=== PATIENT | male | born 1945 | race Caucasian/White ===

== ENCOUNTER 2023-06-29 08:21 | Outpatient (OUT) | payer MEDICARE, OTHER, SELFPAY ==
[2023-06-29 09:17] LABS: Basophils Percent Auto 0.6 % (0.2-2.0); Eosinophils Absolute Auto 0.2 10^3/uL (0.0-0.7); Eosinophils Percent Auto 2.9 % (0.9-7.0); Hematocrit 37.3 % (42.0-54.0); Hemoglobin 12.4 g/dL (14.0-18.0); Immature Granulocytes Abs Auto 0.03 10^3/uL (0.00-0.03); Immature Granulocytes Pct Auto 0.4 % (0.0-0.5); Lymphocytes Absolute Auto 1.1 10^3/uL (1.2-3.8); Lymphocytes Percent Auto 15.3 % (20.5-60.0); Mean Corpuscular HGB Conc 33.2 g/dL (29.9-35.2); Mean Corpuscular Hemoglobin 32.2 pg (25.9-34.0); Mean Corpuscular Volume 96.9 fL (80.0-94.0); Mean Platelet Volume 9.7 fL (9.5-13.5); Monocytes Absolute Auto 0.7 10^3/uL (0.3-0.8); Monocytes Percent Auto 9.5 % (1.7-12.0); Neutrophils Absolute Auto 4.9 10^3/uL (1.4-6.5); Neutrophils Percent Auto 71.3 % (43.0-75.0); Platelet Count 203 10^3/uL (150-450); Red Blood Count 3.85 10^6/uL (4.70-6.10); Red Cell Distribution Width 14.1 % (11.0-15.0); White Blood Count 6.9 10^3/uL (4.0-11.0)
[2023-06-29 09:54] LABS: Estimated Average Glucose 111 mg/dL; Glycohemoglobin A1C 5.5 % (4.5-6.2)
[2023-06-29 10:45] LABS: Alanine Aminotransferase 26 U/L (16-63); Albumin Level 3.4 g/dL (3.4-5.0); Alkaline Phosphatase 66 U/L (46-116); Anion Gap 12.5; Aspartate Amino Transferase 19 U/L (15-37); Bilirubin Total 0.9 mg/dL (0.2-1.0); Calcium 8.8 mg/dL (8.5-10.1); Carbon Dioxide 25.2 mmol/L (21.0-32.0); Chloride 107 mmol/L (98-107); Cholesterol 117 mg/dL (<=200); Estimated GFR (African America >60 (>=60); Estimated GFR (Non-African Ame >60 (>=60); Free T3 2.16 pg/mL (2.18-3.98); Globulin 3.3 g/dL; Glucose 95 mg/dL (74-106); HDL Cholesterol 60 mg/dL (40-60); LDL Cholesterol Calculated 42.2 mg/dL; Potassium 3.7 mmol/L (3.5-5.1); Sodium 141 mmol/L (136-145); Thyroid Stimulating Hormone 1.194 uIU/mL (0.358-3.740); Total Protein 6.7 g/dL (6.4-8.2); Triglycerides 74 mg/dL (<=150); Uric Acid 5.6 mg/dL (3.5-7.2); VLDL CHOLESTEROL 14.8 mg/dL
[2023-06-29 10:53] LABS: Prostate Specific Antigen Scrn 0.33 ng/mL (<=4.00)
[2023-06-30 10:09] LABS: Insulin 5.2 uIU/mL (2.6-24.9)
== END 2023-06-29 08:22 | disposition home or self-care (01) ==
LOC: LAB 08:25
PROVIDERS: PCP Family Medicine; Visit Provider Family Medicine
DX: R60.0 Localized edema (principal); J96.11 Chronic respiratory failure with hypoxia; Z99.89 Dependence on other enabling machines and devices; I27.20 Pulmonary hypertension, unspecified; E78.5 Hyperlipidemia, unspecified; R73.09 Other abnormal glucose; Z12.5 Encounter for screening for malignant neoplasm of prostate
CPT/HCPCS: 36415; 80053; 80061; 83036; 83525; 84436; 84443; 84481; 84550; 85025; G0103

== ENCOUNTER 2023-10-12 08:25 | Outpatient (OUT) | payer MEDICARE, OTHER, SELFPAY ==
[2023-10-12 08:53] LABS: Basophils Percent Auto 0.6 % (0.2-2.0); Eosinophils Absolute Auto 0.1 10^3/uL (0.0-0.7); Hematocrit 37.8 % (42.0-54.0); Immature Granulocytes Abs Auto 0.02 10^3/uL (0.00-0.03); Immature Granulocytes Pct Auto 0.4 % (0.0-0.5); Lymphocytes Absolute Auto 1.5 10^3/uL (1.2-3.8); Lymphocytes Percent Auto 30.1 % (20.5-60.0); Mean Corpuscular HGB Conc 31.7 g/dL (29.9-35.2); Mean Corpuscular Hemoglobin 32.5 pg (25.9-34.0); Mean Corpuscular Volume 102.4 fL (80.0-94.0); Mean Platelet Volume 10.2 fL (9.5-13.5); Monocytes Absolute Auto 0.5 10^3/uL (0.3-0.8); Monocytes Percent Auto 10.4 % (1.7-12.0); Neutrophils Absolute Auto 2.8 10^3/uL (1.4-6.5); Neutrophils Percent Auto 56.5 % (43.0-75.0); Platelet Count 156 10^3/uL (150-450); Red Blood Count 3.69 10^6/uL (4.70-6.10); Red Cell Distribution Width 13.4 % (11.0-15.0); White Blood Count 4.9 10^3/uL (4.0-11.0)
[2023-10-12 08:55] LABS: Erythrocyte Sedimentation Rate 14 mm/hr (<=20)
[2023-10-12 09:23] LABS: Alanine Aminotransferase 33 U/L (16-63); Albumin Level 3.2 g/dL (3.4-5.0); Alkaline Phosphatase 63 U/L (46-116); Anion Gap 9.9; Aspartate Amino Transferase 24 U/L (15-37); BUN Creatinine Ratio 28.4; Bilirubin Total 0.6 mg/dL (0.2-1.0); Calcium 8.3 mg/dL (8.5-10.1); Carbon Dioxide 31.2 mmol/L (21.0-32.0); Chloride 109 mmol/L (98-107); Estimated GFR (African America >60 (>=60); Estimated GFR (Non-African Ame >60 (>=60); Globulin 3.1 g/dL; Glucose 98 mg/dL (74-106); Potassium 4.1 mmol/L (3.5-5.1); Sodium 146 mmol/L (136-145); Total Protein 6.3 g/dL (6.4-8.2)
== END 2023-10-12 08:26 | disposition home or self-care (01) ==
PROVIDERS: PCP Family Medicine; Visit Provider Registered Nurse
DX: H15.012 Anterior scleritis, left eye (principal); Z79.899 Other long term (current) drug therapy
CPT/HCPCS: 36415; 80053; 85025; 85652

== ENCOUNTER 2023-12-30 07:28 | Outpatient (OUT) | payer MEDICARE, OTHER, SELFPAY ==
--- OUTSIDE RECORDS SUMMARY | 2023-12-30 07:32 | XMS_ITS | CCD ---
Author Name Unknown Address [address] [place] [address] Organization [facility] Care Team Providers [employer] Sales Agent Name Role Phone Kamilla Huizar MD Primary Care Provider [phone] MD Joao Barba Attending Provider Kamilla Huizar MD Primary Care Provider [phone] MELANIE ., DR KOHLI Primary Care Unavailable HOY ., DR KOHLI Admitting Unavailable HOY ., DR KOHLI Attending Unavailable HOY ., DR KOHLI Consulting Unavailable MISC, DR HINTON Admitting Unavailable MISC, DR HINTON Attending Unavailable HOY ., DR KOHLI Primary Care Unavailable MISC, DR HINTON Consulting Unavailable HOY ., DR KOHLI Primary Care Unavailable HOY ., DR KOHLI Admitting Unavailable HOY ., DR KOHLI Attending Unavailable HOY ., DR KOHLI Consulting Unavailable MISC, DR HINTON Attending Unavailable HOY ., DR KOHLI Primary Care Unavailable MISC, DR HINTON Admitting Unavailable MISC, DR HINTON Consulting Unavailable BARBA, DR DE LA FUENTE Consulting Unavailable HOY ., DR KOHLI Primary Care Unavailable BARBA, DR DE LA FUENTE Admitting Unavailable BARBA, DR DE LA FUENTE Attending Unavailable HOY ., DR KOHLI Admitting Unavailable HOY ., DR KOHLI Attending Unavailable HOY ., DR KOHLI Consulting Unavailable HOY ., DR KOHLI Primary Care Unavailable BARBA, DR DE LA FUENTE Admitting Unavailable HOY ., DR KOHLI Primary Care Unavailable BARBA, DR DE LA FUENTE Attending Unavailable BARBA, DR DE LA FUENTE Consulting Unavailable Kamilla Huizar MD Primary Care Provider [phone] BELLA CORONADO Attending Unavailable BRIDGER NORRIS Attending Unavailable Allergies Allergy Classification Reported Allergen(s) Allergy Type Date of Onset Reaction(s) Facility (7 sources) Sulfamethoxazole / Trimethoprim Drug Allergy 04-23-202 1 Anaphylaxis [facility] (2 sources) Sulfamethoxazole / Trimethoprim; Translations: [Bactrim] Drug Allergy [facility] Repository Medications Current Medications Medication Drug Class(es) Dates Sig (Normalized) Sig (Original) CPAP/BIPAP/OTHER (4 sources) Start: 09-24-2022 End: 02-08-2050 CPAP/BIPAP/OTHER Type .CPAPSettings into a note to see current settings/supplies/ DME information. 1 Each 0 09/24/2022 02/08/2050 Active Comment on above: Type .CPAPSettings i nto a note to see current settings/supplies/DME information. Completed/Discontinued Medications Medication Drug Class(es) Dates Sig (Normalized) Sig (Original) albuterol 0.833 mg/ml / ipratropium bromide 0.167 mg/ml inhalation solution (7 sources) Anticholinergic, beta2-Adrenergic Agonist Start: 04-23-2017 take 3 mL by inhalation four times daily ipratropium-albuter ol (DUONEB) 0.5 mg-3 mg(2.5 mg base)/3 mL nebu Inhale 3 mL as instructed four times daily. 0 04/23/2017 Active Comment on above: Inhale 3 mL as instr ucted four times daily. BIPAP (7 sources) Start: 09-10-2018 BIPAP Please provide with a device with a back up rate. 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 0 04/23/2017 Active Comment on above: Take 1 tablet by fredy th once daily. furosemide 20 mg oral tablet (7 sources) Loop Diuretic Start: 04-23-2017 take 1 tablet by mouth once daily furosemide (LASIX) 20 mg tablet Take 1 tablet by mouth once daily. 0 04/23/2017 Active Comment on above: Take 1 tablet by fredy th once daily. latanoprost 0.05 mg/ml ophthalmic solution (7 sources) Prostaglandin Analog Start: 04-23-2017 take 1 drop(s) into the eye(s) once daily at bedtime latanoprost (XALATAN) 0.005 % ophthalmic solution Use 1 Drop in both eyes daily at bedtime. 0 04/23/2017 Active Start: 04-23-2017 take 1 drop(s) into the eye(s) once daily at bedtime latanoprost (XALATAN) 0.005 % ophthalmic solution Use 1 Drop in both eyes daily at bedtime. 0 04/23/2017 Active Comment on above: Use 1 Drop in both e yes daily at bedtime. Nebulizer Accessories kit (1 source) Start: 3 End: 3 Nebulizer Accessories kit Indications: Post poliomyelitis syndrome , Restrictive pattern present on pulmonary function testing , Ineffective airway clearance 1 Kit one time only for 1 dose. Please include filters. 1 Kit 0 08/14/2023 08/14/2023 Comment on above: 1 Kit one time only for 1 dose. Please include filters. potassium chloride 10 meq extended release oral tablet (7 sources) Start: 7 take 1 tablet by mouth once daily potassium chloride (KLOR-CON 10) 10 mEq tablet Take 1 tablet by mouth once daily. 0 04/23/2017 Active Comment on above: Take 1 tablet by fredy th once daily. propranolol hydrochloride 60 mg oral tablet (7 sources) beta-Adrenergic Alessia Start: 7 take 1 tablet by mouth once daily propranolol (INDERAL) 60 mg tablet Take 1 tablet by mouth once daily. 0 04/23/2017 Active Comment on above: Take 1 tablet by fredy th once daily. simvastatin 20 mg oral tablet (7 sources) HMG-CoA Reductase Inhibitor Start: 7 take 1 tablet by mouth once daily at bedtime simvastatin (ZOCOR) 20 mg tablet Take 1 tablet by mouth daily at bedtime. 0 04/23/2017 Active Comment on above: Take 1 tablet by fredy th daily at bedtime. tamsulosin hydrochloride 0.4 mg oral capsule (7 sources) alpha-Adrenergic Alessia Start: 7 take 1 capsule by mouth once daily at bedtime tamsulosin ER (FLOMAX) 0.4 mg cp24 Take 1 capsule by mouth daily at bedtime. 0 04/23/2017 Active Comment on above: Take 1 capsule by mo uth daily at bedtime. Problems Active Problems Problem Classification Problem Date Documented Da te Episodic/Chronic Congestive heart failure; nonhypertensive (1 source) Unspecified diastolic (congestive) heart failure; Translations: [UNSPECIFIED DIASTOLIC HEART FAILURE] Onset: 09-02-2022 Chronic Diabetes mellitus without complication (1 source) Other abnormal glucose; Translations: [OTHER ABNORMAL GLUCOSE] Onset: 04-15-2023 Episodic Disorders of lipid metabolism (1 source) Hyperlipidemia, unspecified; Translations: [HYPERLIPIDEMIA UNSPECIFIED] Onset: 04-15-2023 Chronic Hypertension with complications and secondary hypertension (1 source) Hypertensive heart disease with heart failure; Translations: [HTN HEART DISEASE W/HEART FAIL] Onset: 09-02-2022 Chronic Inflammation; infection of eye (except that caused by tuberculosis or sexually transmitteddisease) (4 sources) Anterior scleritis, left eye; Translations: [ANTERIOR SCLERITIS LEFT EYE] Onset: 03-04-2023 Chronic Other aftercare (1 source) Other moth exterminator (current) drug therapy; Translations: [OTH POWERBUILDER CURRENT DRUG THERAPY] Onset: 03-08-2023 Episodic Other LEAD PAINTER infection and poliomyelitis (12 sources) Post poliomyelitis syndrome; 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 Other lower respiratory disease (1 source) Ineffective airway clearance; Translations: [Other abnormalities of breathing] 08-14-2023 Episodic Other screening for suspected conditions (not mental disorders or infectious disease) (4 sources) Lung function testing abnormal; Translations: [Abnormal results of pulmonary function studies] Onset: 04-15-2023 Episodic Pulmonary heart disease (1 source) Pulmonary hypertension, unspecified; Translations: [PULMONARY HYPERTENSION UNSPECIFIED] Onset: 04-15-2023 Chronic Residual codes; unclassified (8 sources) Obstructive sleep apnea syndrome; Translations: [Obstructive sleep apnea (adult) (pediatric)] Onset: 04-23-2017 04-23-2017 Chronic Residual codes; unclassified (1 source) Dependence on other enabling machines and devices; Translations: [DEPEND OTH ENABLING MACHINES AND DEVICE] Onset: 04-15-2023 Chronic Residual codes; unclassified (1 source) Obstructive sleep apnea (adult) (pediatric); Translations: [OBSTRUCTIVE SLEEP APNEA] Onset: 09-02-2022 Chronic Residual codes; unclassified (5 sources) Localized edema; Translations: [LOCALIZED EDEMA] Onset: 09-02-2022 Episodic Respiratory failure; insufficiency; arrest (adult) (1 source) Chronic respiratory failure with hypoxia; Translations: [CHRONIC RESPIRATORY FAIL W/HYPOXIA] Onset: 04-15-2023 Chronic Unclassified (3 sources) CONTACT W/AND (SUSP) EXPOS COVID-19; Translations: [CONTACT W/AND (SUSP) EXPOS COVID-19] Onset: 01-10-2023 Past or Other Problems Problem Classification Problem Date Documented Da te Episodic/Chronic Acute bronchitis (1 source) Acute bronchitis, unspecified; Translations: [ACUTE BRONCHITIS UNSPECIFIED] Onset: 01-10-2023 Episodic Other lower respiratory disease (9 sources) Disorder of diaphragm; Translations: [Disorders of diaphragm] Onset: 04-23-2017 04-23-2017 Episodic Unclassified (1 source) CONTACT W/AND (SUSP) EXPOS COVID-19; Translations: [CONTACT W/AND (SUSP) EXPOS COVID-19] Onset: 01-07-2023 Results Test Name Value Interpretation Reference Range [facility] [place] [place] [facility] [place] [facility] (Inserted Image. Kayla ble to display) October 14, 2023 ADONAY IRBY [address] [place] [address] : 1945 Dear Adonay, This is a reminder that you are due for an appointment with [facility]. Please contact our office at [phone] to schedule an appointment at your earliest convenience. Thank you, [facility] Reminderson 10-14-2023 Reminders - From: Raven Sepulveda To: KURT - Reminders/Recalls; Sent: 10/14/2023 10:33:18 EST Show up: 10/14/2023 10:33:00 EST Subject: Ambulatory Reminder Reminder/Recall 5 year colon recall mamie freed 11/07 first recall letter [facility] CNPNon 08-19-2023 CNPN Telephone (PMNA11) ADONAY IRBY ([id number]) 1945 Date Time Provider Department 08/19/23 [facility] PROVIDER [id number] During your visit today, we recorded the following information about you: Ricardo Duarte 08/19/2023 4:42 PM Signed Received referral request from [facility] to see patient again for dx: COPD, Right Diaphragm Dysfunction. Request is scanned into chart. Allergies As of Date: 08/19/2023 Noted Allergy Reaction SULFAMETHOXAZOLE-TRIMET HOPRI 03/08/2021 10 - Anaphylaxis Date Reviewed: 2022 Reviewed by: Nancy Mcmahon Ma - Fully Assessed Reason for Visit: Referral Request [[id number]] Prescriptions as of 08/31/2023 - BIPAP Please provide with a device with a back up rate. 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 - finasteride (PROSCAR) 5 mg tablet Take 1 tablet by mouth once daily. - furosemide (LASIX) 20 mg tablet Take 1 tablet by mouth once daily. - ipratropium-albuterol (DUONEB) 0.5 mg-3 mg(2.5 mg base)/3 mL nebu Inhale 3 mL as instructed four times daily. - latanoprost (XALATAN) 0.005 % ophthalmic solution Use 1 Drop in both eyes daily at bedtime. - potassium chloride (KLOR-CON 10) 10 mEq tablet Take 1 tablet by mouth once daily. - propranolol (INDERAL) 60 mg tablet Take 1 tablet by mouth once daily. - simvastatin (ZOCOR) 20 mg tablet Take 1 tablet by mouth daily at bedtime. - tamsulosin ER (FLOMAX) 0.4 mg cp24 Take 1 capsule by mouth daily at bedtime. 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 She was unable to tell admin where it needed to be sent. 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 Please include filters.Disp: 1 KitRfl: 0 Prescriptions as of 08/14/2023 - Nebulizer Accessories kit 1 Kit one time only for 1 dose. Please include filters. - CPAP/BIPAP/OTHER Type .CPAPSettings into a note to see current settings/supplies/DME information. - BIPAP Please provide with a device with a back up rate. 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 - tamsulosin ER (FLOMAX) 0.4 mg cp24 Take 1 capsule by mouth daily at bedtime. - simvastatin (ZOCOR) 20 mg tablet Take 1 tablet by mouth daily at bedtime. - ipratropium-albuterol (DUONEB) 0.5 mg-3 mg(2.5 mg base)/3 mL nebu Inhale 3 mL as instructed four times daily. - propranolol (INDERAL) 60 mg tablet Take 1 tablet by mouth once daily. - furosemide (LASIX) 20 mg tablet Take 1 tablet by mouth once daily. - potassium chloride (KLOR-CON 10) 10 mEq tablet Take 1 tablet by mouth once daily. - latanoprost (XALATAN) 0.005 % ophthalmic solution Use 1 Drop in both eyes daily at bedtime. 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 Please include filters. Encounter Status:Closed by OSWALDO WILEY on 08/14/23 [facility] Screens [id number] CD:127 [facility] Patient Educationon 06-24-20 Patient Education Urology Benign Prostatic Hyperplasia Benign prostatic hyperplasia (BPH) is an enlarged prostate gland that is caused by the normal aging process. The prostate may get bigger as a man gets older. The condition is not caused by cancer. The prostate is a walnut-sized gland that is involved in the production of semen. It is located in front of the rectum and below the bladder. The bladder stores urine. The urethra carries stored urine out of the body. An enlarged prostate can press on the urethra. This can make it harder to pass urine. The buildup of urine in the bladder can cause infection. Back pressure and infection may progress to bladder damage and kidney (renal) failure. What are the causes? This condition is part of the normal aging process. However, not all men develop problems from this condition. If the prostate enlarges away from the urethra, urine flow will not be blocked. If it enlarges toward the urethra and compresses it, there will be problems passing urine. What increases the risk? This condition is more likely to develop in men older than 50 years. What are the signs or symptoms? Symptoms of this condition include: ? Getting up often during the night to urinate. ? Needing to urinate frequently during the day. ? Difficulty starting urine flow. ? Decrease in size and strength of your urine stream. ? Leaking (dribbling) after urinating. ? Inability to pass urine. This needs immediate treatment. ? Inability to completely empty your bladder. ? Pain when you pass urine. This is more common if there is also an infection. ? Urinary tract infection (UTI). How is this diagnosed? This condition is diagnosed based on your medical history, a physical exam, and your symptoms. Tests will also be done, such as: ? A post-void bladder scan. This measures any amount of urine that may remain in your bladder after you finish urinating. ? A digital rectal exam. In a rectal exam, your health care provider checks your prostate by putting a lubricated, gloved finger into your rectum to feel the back of your prostate gland. This exam detects the size of your gland and any abnormal lumps or growths. ? An exam of your urine (urinalysis). ? A prostate specific antigen (PSA) screening. This is a blood test used to screen for prostate cancer. ? An ultrasound. This test uses sound waves to electronically produce a picture of your prostate gland. Your health care provider may refer you to a specialist in kidney and prostate diseases (urologist). How is this treated? Once symptoms begin, your health care provider will monitor your condition (active surveillance or watchful waiting). Treatment for this condition will depend on the severity of your condition. Treatment may include: ? Observation and yearly exams. This may be the only treatment needed if your condition and symptoms are mild. ? Medicines to relieve your symptoms, including: ? Medicines to shrink the prostate. ? Medicines to relax the muscle of the prostate. ? Surgery in severe cases. Surgery may include: ? Prostatectomy. In this procedure, the prostate tissue is removed completely through an open incision or with a laparoscope or robotics. ? Transurethral resection of the prostate (TURP). In this procedure, a tool is inserted through the opening at the tip of the penis (urethra). It is used to cut away tissue of the inner core of the prostate. The pieces are removed through the same opening of the penis. This removes the blockage. ? Transurethral incision (TUIP). In this procedure, small cuts are made in the prostate. This lessens the prostate's pressure on the urethra. ? Transurethral microwave thermotherapy (TUMT). This procedure uses microwaves to create heat. The heat destroys and removes a small amount of prostate tissue. ? Transurethral needle ablation (TUNA). This procedure uses radio frequencies to destroy and remove a small amount of prostate tissue. ? Interstitial laser coagulation (ILC). This procedure uses a laser to destroy and remove a small amount of prostate tissue. ? Transurethral electrovaporization (TUVP). This procedure uses electrodes to destroy and remove a small amount of prostate tissue. ? Prostatic urethral lift. This procedure inserts an implant to push the lobes of the prostate away from the urethra. Follow these instructions at home: ? Take ebct-tse-zjwauzk and prescription medicines only as told by your health care provider. ? Monitor your symptoms for any changes. Contact your health care provider with any changes. ? Avoid drinking large amounts of liquid before going to bed or out in public. ? Avoid or reduce how much caffeine or alcohol you drink. ? Give yourself time when you urinate. ? Keep all follow-up visits. This is important. Contact a health care provider if: ? You have unexplained back pain. ? Your symptoms do not get better with treatment. ? You develop side effects from the medicine (more content not included)... [facility] Provider Letteron 06-24-2023 Provider Letter (Inserted Image. Kayla ble to display) Kamilla Huizar, [facility] [place] [address] Re: ADONAY IRBY Date of : [address]Hoy ADAMS, ADONAY Coello Rae was evaluated at [facility] 06/24/2023 13:20:00 As this patient has been stable and doing well on current regimen, they will be released back to your care. We provided 1 year of refills on the patient?s current urologic medications: Flomax and Proscar once daily . We would request that moving forward you provide additional refills. Should the patient develop new symptoms or worsening condition in the future, do not hesitate to refer them back. Thanks! Provider Signature: Bella Coronado PA-C Physician Mask Designer [facility] [address] [place] [address] [facility] Urology Office/Clinic Noteon 06-24-2023 Urology Office/Clinic Note Chief Complaint 1yr HPI Staff 1 yr f/u Previous DX:BPH w/ Urinary Obstruction. Tamsulosin 0.4mg QD and Finasteride 5mg QD ongoing weak stream. Has been this way since he was a kid. Occasional frequency, attributes to water pill. Denies all other urinary concerns at this time. History of Present Illness staff HPI reviewed and agree. Review of Systems PHQ Score Initial Depression Screen Score: 0 no fever, chills, malaise, myalgia. no rash/lesions. no chest pain, palpitations, or SOB. no abdominal pain, nausea, vomiting. no unilateral calf swelling, redness, pain Physical Exam Vitals & Measurements HR: 60(Peripheral) RR: 16 BP: 130/74 HT: 69 in HT: 175 cm WT: 73 kg WT: 160.6 lb BMI: 23.84 General: nontoxic, NAD Mouth: moist mucosa Lungs: normal respiratory effort Cardio: regular rate, good distal perfusion Abdomen: nondistended, no suprapubic distention or tenderness, no CVA tenderness Neurologic: Grossly normal Skin: No rashes or suspicious lesions Assessment/Plan 1. BPH with urinary obstruction (N40.1: Benign prostatic hyperplasia with lower urinary tract symptoms) Pt is currently taking Tamsulosin 0.4mg and Finasteride 5mg QD. No SE's. No urinary complaints at this time. Very happy w urinary status. IPSS 2, UA today is negative for blood and infection. Pt states he has occasional frequency, attributes to water pill. Still has weak stream but not bothersome. Denies all other urinary concerns at this time. Offered annual f/u vs PRN and have PCP fill meds. He's been stable for many years, he prefers the latter. Will send letter to PCP. Follow up as needed. All questions/concerns were discussed. Pt to call the office if he encounters any issues prior. Pt acknowledges understanding. Follow-up With When Contact Information BELLA CORONADO PA-C, URL [id number] [place] [address] Additional Instructions: PRN Patient Education Benign Prostatic Hyperplasia Documentation recorded by the scrgregory Crane accurately reflects the services(s) I performed and decisions made by me. Authenticated by Bella Coronado PA-C on 06/24/2023 14:02:30. Rajani Kang, personally scribed for Bella Coronado PA-C on 06/24/2023 13:53:33. . Problem List/Past Medical History Ongoing Benign essential hypertension BiPAP (biphasic positive airway pressure) dependence BPH with urinary obstruction Chronic hypoxemic respiratory failure Colon polyps Diaphragm paralysis Diverticulosis of colon Hemorrhoids Infected sebaceous cyst Obesity Obstructive sleep apnea Post-polio syndrome Pulmonary hypertension Sebaceous cyst Tubular adenoma of colon Weak urinary stream Historical No qualifying data Procedure/Surgical History right cataract extraction with intraocular lens placement (11/07/2014), left cataract extraction with intraocular lens placement (10/17/2014), Urodynamics (05/31/2012), Cystoscopy (05/17/2012), Cervical spinal fusion, ORIF - Open reduction of fracture of ankle with internal fixation, Traumatic amputation of fingertip, type 3 (partial loss of terminal phalanx with corresponding loss of pulp and nail but not involving lanula). Medications albuterol-ipratropium Inh Diandra 3 mL UD aspirin buffered 81 mg oral tablet, 81 mg= 1 tab(s), Oral, Daily finasteride 5 mg Tab, 5 mg= 1 tab(s), Oral, Daily, 3 refills FUROSEMIDE 20MG TAB, 0 Inderal 60 mg oral tablet, 60 mg= 1 tab(s), Oral, Daily ipratropium 0.02% inhalation solution, 500 mcg= 2.5 mL, Inhalation, QID Lasix, 20 mg, Oral, Daily latanoprost ophthalmic 0.005% solution, 1 drop(s), OPTH, Once a day (at bedtime) methotrexate 2.5 mg Tab Oxygen - for Home, 3 L/min, Bedtime potassium chloride 10 mEq ER Tab, 10 mEq= 1 tab(s), Oral, Daily Protonix 40 mg Tab-DR, 40 mg= 1 tab(s), Oral, Daily simvastatin, 20 mg, Oral, Once a day (at bedtime) tamsulosin 0.4 mg Cap, 0.4 mg= 1 cap(s), Oral, Daily, 3 refills Allergies Bactrim (Tremor) Social History Alcohol Current, Beer, Daily, 03/21/2020 Substance Abuse - Denies Substance Abuse, 03/21/2020 Tobacco Former smoker, quit more than 30 days ago Tobacco Use:. Never Smokeless Tobacco Use:. Cigarettes, Stopped age 48 Years. Household tobacco concerns: No. Yes, 06/24/2023 Family History Alzheimer's disease: Father. Cancer: Father. Diabetes mellitus type 2: Mother. Heart disease: Mother and Father. Hypertension: Father. Immunizations Vaccine Date Status SARSCoV2 mRNA(zdgpbqocj-zsab-msh ros) vac 07/09/2022 Recorded SARS-CoV-2 (COVID-19) mRNA BNT-162b2 vax 10/15/2021 Recorded SARS-CoV-2 (COVID-19) mRNA-1273 vaccine 02/09/2021 Recorded SARS-CoV-2 (COVID-19) mRNA-1273 vaccine 01/12/2021 Recorded influenza virus vaccine, inactivated 08/31/2020 Recorded influenza virus vaccine, live, trivalent 08/24/2019 Recorded influenza virus vaccine, inactivated 08/27/2018 Recorded p (more content not included)... Normal [facility] Comment on above: Result Comment: Elec tronically Signed By: BELLA CORONADO PA-C\.br\Date and Time Signed: 06/24/23 14:14 EDT\.br\Electronically Co-Signed By: Rajani Crane\.br\Date and Time Co-Signed: 06/24/23 13:53 EDT CNPNon 06-04-2023 CNPN Telephone (PULMMN) ADONAY IRBY ([id number]) 1945 Date Time Provider Department 06/04/23 CARLOS FARRIS PULMMN During your visit today, we recorded the following information about you: Hanna Hyde 06/04/2023 1:15 PM Signed Imported External PAP Therapy Report from [facility] (dated 06/04/23). Please allow time delay for documents to appear in Setup (Scanned Documents Tab). Allergies As of Date: 06/04/2023 Noted Allergy Reaction SULFAMETHOXAZOLE-TRIMET HOPRIM 03/08/2021 10 - Anaphylaxis Date Reviewed: 2022 Reviewed by: Nancy Mcmahon Ma - Fully Assessed Reason for Visit: Received Outside Medical Records [[id number]] Prescriptions as of 06/04/2023 - CPAP/BIPAP/OTHER Type .CPAPSettings into a note to see current settings/supplies/DME information. - BIPAP Please provide with a device with a back up rate. 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 - tamsulosin ER (FLOMAX) 0.4 mg cp24 Take 1 capsule by mouth daily at bedtime. - simvastatin (ZOCOR) 20 mg tablet Take 1 tablet by mouth daily at bedtime. - ipratropium-albuterol (DUONEB) 0.5 mg-3 mg(2.5 mg base)/3 mL nebu Inhale 3 mL as instructed four times daily. - propranolol (INDERAL) 60 mg tablet Take 1 tablet by mouth once daily. - furosemide (LASIX) 20 mg tablet Take 1 tablet by mouth once daily. - potassium chloride (KLOR-CON 10) 10 mEq tablet Take 1 tablet by mouth once daily. - latanoprost (XALATAN) 0.005 % ophthalmic solution Use 1 Drop in both eyes daily at bedtime. 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 Roland Gr CBC AUTO DIFFon 04-08-2023 BASO # 0.0 103/ul Normal 0.0-0.1 [facility] Comment on above: Performed By: #### C VDTBH #### [facility] [address] [place] [address] Dr. Roland Gr Basophils/100 WBC (Bld) 0.7 % Normal 0.2-2.0 [facility] Comment on above: Performed By: #### C VDTBH #### [facility] [address] [place] [address] Dr. Roland Gr EO # 0.1 103/ul Normal 0.0-0.7 [facility] Comment on above: Performed By: #### C VDTBH #### [facility] [address] [place] [address] Dr. Roland Gr Eosinophils/100 WBC (Bld) 0.9 % Normal 0.9-7.0 [facility] Comment on above: Performed By: #### C VDTBH #### [facility] [address] [place] [address] Dr. Roland Gr Erythrocyte distribution width (RBC) [Ratio] 14.7 % Normal 11.0-15.0 [facility] Comment on above: Performed By: #### C VDTBH #### [facility] [address] [place] [address] Dr. Roland Gr Hematocrit (Bld) [Volume fraction] 39.1 % Critically low 42.0-54.0 [facility] Comment on above: Performed By: #### C VDTBH #### [facility] [address] [place] [address] Dr. Roland Gr Hemoglobin (Bld) [Mass/Vol] 12.6 g/dL Critically low 14.0-18.0 [facility] Comment on above: Performed By: #### C VDTBH #### [facility] [address] [place] [address] Dr. Roland Gr IG # 0.03 10e3/ul Normal 0.00-0.03 [facility] Comment on above: Performed By: #### C VDTBH #### [facility] [address] [address] [address] Roland Gr IG % 0.5 % Normal 0.0-0.5 [facility] Comment on above: Performed By: #### C VDTBH #### [facility] [address] [address] [address] Roland Gr LYMPH # 1.4 103/ul Normal 1.2-3.8 [facility] Comment on above: Performed By: #### C VDTBH #### [facility] [address] [address] [address] Roland Gr Lymphocytes/100 WBC (Bld) 23.6 % Normal 20.5-60.0 [facility] Comment on above: Performed By: #### C VDTBH #### [facility] [address] [place] [address] Dr. Roladn Gr MANUAL DIFF REQ NO Normal [facility] Comment on above: Performed By: #### C VDTBH #### [facility] [address] [address] [address] Roland Gr MCH (RBC) [Entitic mass] 31.7 pg Normal 25.9-34.0 [facility] Comment on above: Performed By: #### C VDTBH #### [facility] [address] [place] [address] Dr. Roland Gr MCHC (RBC) [Mass/Vol] 32.2 g/dL Normal 29.9-35.2 [facility] Comment on above: Performed By: #### C VDTBH #### [facility] [address] [place] [address] Dr. Roland Gr MCV (RBC) [Entitic vol] 98.5 fL Critically high 80.0-94.0 [facility] Comment on above: Performed By: #### C VDTBH #### [facility] [address] [place] [address] Dr. Roland Gr MONO # 0.7 103/ul Normal 0.3-0.8 [facility] Comment on above: Performed By: #### C VDTBH #### [facility] [address] [place] [address] Dr. Roland Gr Monocytes/100 WBC (Bld) 11.8 % Normal 1.7-12.0 [facility] Comment on above: Performed By: #### C VDTBH #### [facility] [address] [place] [address] Dr. Roland Gr NEUT # 3.7 103/ul Normal 1.4-6.5 [facility] Comment on above: Performed By: #### C VDTBH #### [facility] [address] [place] [address] Dr. Roland Gr Neutrophils/100 WBC (Bld) 62.5 % Normal 43.0-75.0 [facility] Comment on above: Performed By: #### C VDTBH #### [facility] [address] [place] [address] Dr. Roland Gr Platelet mean volume (Bld) [Entitic vol] 10.2 fL Normal 9.5-13.5 [facility] Comment on above: Performed By: #### C VDTBH #### [facility] [address] [place] [address] Dr. Roland Gr PLT 180 103/ul Normal 150-450 [facility] Comment on above: Performed By: #### C VDTBH #### [facility] [address] [place] [address] Dr. Roland Gr RBC 3.97 106/ul Critically low 4.70-6.10 [facility] Comment on above: Performed By: #### C VDTBH #### [facility] [address] [place] [address] Dr. Roland Gr WBC 5.9 103/ul Normal 4.0-11.0 [facility] Comment on above: Performed By: #### C VDTBH #### [facility] [address] [place] [address] Dr. Roland Gr FREE THYROXINE INDEX T7on FTI 2.81 Normal 1.30-4.50 [facility] Comment on above: Performed By: #### L IPID, T7, CMP, URIC, TSH #### [facility] [address] [address] [address] Roland Gr T3U 38.0 % Normal 33.0-40.0 [facility] Comment on above: Performed By: #### L IPID, T7, CMP, URIC, TSH #### [facility] [address] [address] [address] Roland Gr T4 [Mass/Vol] 7.40 ug/dL Normal 4.50-12.10 [facility] Comment on above: Performed By: #### L IPID, T7, CMP, URIC, TSH #### [facility] [address] [address] [address] Roland Gr GLYCOHEMOGLOBIN A1Con 2022 ADA RECOMMENDATION SEE BELOW Normal [facility] Comment on above: Result Comment: ADA RECOMMENDED LIMIT 4.0 - 6.0 ADA THERAPEUTIC TARGET < 7.0 ACTION SUGGESTED > 7.0 Performed By: #### A 1C #### [facility] [address] [address] [address] Roland Gr Glucose [Mass/Vol] 103 mg/dL Normal [facility] Comment on above: Performed By: #### A 1C #### [facility] [address] [address] [address] Roland Gr HbA1c (Bld) [Mass fraction] 5.2 % Normal 4.5-6.2 [facility] Comment on above: Performed By: #### A 1C #### [facility] [address] [address] [address] Roland Gr LIPID PROFILEon 04-08-2023 CHOL-HDL RATIO NORM SEE BELOW Normal [facility] Comment on above: Result Comment: 3.3 - 4.4 LOW RISK 4.4 - 7.1 AVERAGE RISK 7.1 - 11.0 MODERATE RISK >11.0 HIGH RISK Performed By: #### L IPID, T7, CMP, URIC, TSH #### [facility] [address] [address] [address] Roland Gr Cholesterol [Mass/Vol] 134 mg/dL Normal <=200 [facility] Comment on above: Performed By: #### L IPID, T7, CMP, URIC, TSH #### [facility] [address] [address] [address] Roland Gr Cholesterol in HDL [Mass/Vol] 74 mg/dL Critically high 40-60 [facility] Comment on above: Performed By: #### L IPID, T7, CMP, URIC, TSH #### [facility] [address] [address] [address] Roland Gr Cholesterol in LDL [Mass/Vol] 50.0 mg/dL Normal [facility] Comment on above: Performed By: #### L IPID, T7, CMP, URIC, TSH #### [facility] [address] [address] [address] Roland Gr Cholesterol.total/Ch olesterol in HDL [Mass ratio] 1.8 {ratio} Normal [facility] Comment on above: Performed By: #### L IPID, T7, CMP, URIC, TSH #### [facility] [address] [address] [address] Roland Gr HDL NORMAL > or = 60 mg/dl - LO W CARDIOVASCULAR RISK <40 mg/dl - HIGH CARDIOVASCULAR RISK Normal [facility] Comment on above: Performed By: #### L IPID, T7, CMP, URIC, TSH #### [facility] [address] [address] [address] Roland Gr LDL CALC NORMAL SEE BELOW Normal [facility] Comment on above: Result Comment: <100 mg/dl OPTIMAL 100 - 129 mg/dl NEAR OR ABOVE OPTIMAL 130 - 159 mg/dl BORDERLINE HIGH 160 - 189 mg/dl HIGH >190 mg/dl VERY HIGH Performed By: #### L IPID, T7, CMP, URIC, TSH #### [facility] [address] [address] [address] Roland Gr Triglyceride [Mass/Vol] 50 mg/dL Normal <=150 [facility] Comment on above: Performed By: #### L IPID, T7, CMP, URIC, TSH #### [facility] [address] [address] [address] Roland Gr VLDL CALC 10.0 mg/dL Normal [facility] Comment on above: Performed By: #### L IPID, T7, CMP, URIC, TSH #### [facility] [address] [address] [address] Roland Gr PROF 14(COMP METB)on 023 Albumin [Mass/Vol] 3.6 g/dL Normal 3.4-5.0 [facility] Comment on above: Performed By: #### L IPID, T7, CMP, URIC, TSH #### [facility] [address] [address] [address] Roland Gr Albumin/Globulin [Mass ratio] 1.1 {ratio} Normal [facility] Comment on above: Performed By: #### L IPID, T7, CMP, URIC, TSH #### [facility] [address] [place] [address] Dr. Roland Gr ALP [Catalytic activity/Vol] 64 U/L Normal 46-116 [facility] Comment on above: Performed By: #### L IPID, T7, CMP, URIC, TSH #### [facility] [address] [address] [address] Roland Gr ALT [Catalytic activity/Vol] 25 U/L Normal 16-63 [facility] Comment on above: Performed By: #### L IPID, T7, CMP, URIC, TSH #### [facility] [address] [address] [address] Roland Gr Anion gap [Moles/Vol] 13.2 mmol/L Normal [facility] Comment on above: Performed By: #### L IPID, T7, CMP, URIC, TSH #### [facility] [address] [address] [address] Roland Gr AST [Catalytic activity/Vol] 18 U/L Normal 15-37 [facility] Comment on above: Performed By: #### L IPID, T7, CMP, URIC, TSH #### [facility] [address] [address] [address] Roland Gr Bilirubin [Mass/Vol] 0.9 mg/dL Normal 0.2-1.0 [facility] Comment on above: Performed By: #### L IPID, T7, CMP, URIC, TSH #### [facility] [address] [place] [address] Dr. Roland Gr Calcium [Mass/Vol] 9.0 mg/dL Normal 8.5-10.1 [facility] Comment on above: Performed By: #### L IPID, T7, CMP, URIC, TSH #### [facility] [address] [address] [address] Roland Gr Chloride [Moles/Vol] 109 mmol/L Critically high 98-107 [facility] Comment on above: Performed By: #### L IPID, T7, CMP, URIC, TSH #### [facility] [address] [place] [address] Dr. Roland Gr CO2 [Moles/Vol] 28.9 mmol/L Normal 21.0-32.0 [facility] Comment on above: Performed By: #### L IPID, T7, CMP, URIC, TSH #### [facility] [address] [place] [address] Dr. Roland Gr Creatinine [Mass/Vol] 0.85 mg/dL Normal 0.70-1.30 [facility] Comment on above: Performed By: #### L IPID, T7, CMP, URIC, TSH #### [facility] [address] [place] [address] Dr. Roland Gr EGFR-AF BERMUDIAN >60 Normal >=60 [facility] Comment on above: Performed By: #### L IPID, T7, CMP, URIC, TSH #### [facility] [address] [place] [address] Dr. Roland Gr EGFR-NON AF BERMUDIAN >60 Normal >=60 [facility] Comment on above: Performed By: #### L IPID, T7, CMP, URIC, TSH #### [facility] [address] [place] [address] Dr. Roland Gr Globulin (S) [Mass/Vol] 3.4 g/dL Normal [facility] Comment on above: Performed By: #### L IPID, T7, CMP, URIC, TSH #### [facility] [address] [place] [address] Dr. Roland Gr Glucose [Mass/Vol] 93 mg/dL Normal 74-106 [facility] Comment on above: Performed By: #### L IPID, T7, CMP, URIC, TSH #### [facility] [address] [place] [address] Dr. Roland Gr Potassium [Moles/Vol] 4.1 mmol/L Normal 3.5-5.1 [facility] Comment on above: Performed By: #### L IPID, T7, CMP, URIC, TSH #### [facility] [address] [place] [address] Dr. Roland Gr Protein [Mass/Vol] 7.0 g/dL Normal 6.4-8.2 [facility] Comment on above: Performed By: #### L IPID, T7, CMP, URIC, TSH #### [facility] [address] [place] [address] Dr. Roland Gr Sodium [Moles/Vol] 147 mmol/L Critically high 136-145 [facility] Comment on above: Performed By: #### L IPID, T7, CMP, URIC, TSH #### [facility] [address] [place] [address] Dr. Roland Gr Urea nitrogen [Mass/Vol] 20.0 mg/dL Critically high 7.0-18.0 [facility] Comment on above: Performed By: #### L IPID, T7, CMP, URIC, TSH #### [facility] [address] [place] [address] Dr. Roland Gr Urea nitrogen/Creatinine [Mass ratio] 23.5 mg/mg Normal [facility] Comment on above: Performed By: #### L IPID, T7, CMP, URIC, TSH #### [facility] [address] [place] [address] Dr. Roland Gr TSHon 04-08-2023 TSH 1.136 uIU/mL Normal 0.358-3.740 [facility] Comment on above: Performed By: #### L IPID, T7, CMP, URIC, TSH #### [facility] [address] [place] [address] Dr. Roland Gr URIC ACID SERUMon 04-08-2023 Urate [Mass/Vol] 6.5 mg/dL Normal 3.5-7.2 [facility] Comment on above: Performed By: #### L IPID, T7, CMP, URIC, TSH #### [facility] [address] [place] [address] Dr. Roland Gr CBC AUTO DIFFon 03-04-2023 BASO # 0.0 103/ul Normal 0.0-0.1 [facility] Comment on above: Performed By: #### C VDTBH #### [facility] [address] [place] [address] Dr. Roland Gr Basophils/100 WBC (Bld) 0.6 % Normal 0.2-2.0 [facility] Comment on above: Performed By: #### C VDTBH #### [facility] [address] [place] [address] Dr. Roland Gr EO # 0.1 103/ul Normal 0.0-0.7 [facility] Comment on above: Performed By: #### C VDTBH #### [facility] [address] [place] [address] Dr. Roland Gr Eosinophils/100 WBC (Bld) 1.3 % Normal 0.9-7.0 [facility] Comment on above: Performed By: #### C VDTBH #### [facility] [address] [place] [address] Dr. Roland Gr Erythrocyte distribution width (RBC) [Ratio] 14.6 % Normal 11.0-15.0 [facility] Comment on above: Performed By: #### C VDTBH #### [facility] [address] [place] [address] Dr. Roland Gr Hematocrit (Bld) [Volume fraction] 40.4 % Critically low 42.0-54.0 [facility] Comment on above: Performed By: #### C VDTBH #### [facility] [address] [address] [address] Roland Gr Hemoglobin (Bld) [Mass/Vol] 12.9 g/dL Critically low 14.0-18.0 [facility] Comment on above: Performed By: #### C VDTBH #### [facility] [address] [address] [address] Roland Gr IG # 0.02 10e3/ul Normal 0.00-0.03 [facility] Comment on above: Performed By: #### C VDTBH #### [facility] [address] [address] [address] Roland Gr IG % 0.3 % Normal 0.0-0.5 [facility] Comment on above: Performed By: #### C VDTBH #### [facility] [address] [place] [address] Dr. Roland Gr LYMPH # 1.5 103/ul Normal 1.2-3.8 [facility] Comment on above: Performed By: #### C VDTBH #### [facility] [address] [place] [address] Dr. Roland Gr Lymphocytes/100 WBC (Bld) 21.2 % Normal 20.5-60.0 [facility] Comment on above: Performed By: #### C VDTBH #### [facility] [address] [place] [address] Dr. Roland Gr MANUAL DIFF REQ NO Normal [facility] Comment on above: Performed By: #### C VDTBH #### [facility] [address] [place] [address] Dr. Roland Gr MCH (RBC) [Entitic mass] 31.6 pg Normal 25.9-34.0 [facility] Comment on above: Performed By: #### C VDTBH #### [facility] [address] [place] [address] Dr. Roland Gr MCHC (RBC) [Mass/Vol] 31.9 g/dL Normal 29.9-35.2 [facility] Comment on above: Performed By: #### C VDTBH #### [facility] [address] [place] [address] Dr. Roland Gr MCV (RBC) [Entitic vol] 99.0 fL Critically high 80.0-94.0 [facility] Comment on above: Performed By: #### C VDTBH #### [facility] [address] [place] [address] Dr. Roland Gr MONO # 0.6 103/ul Normal 0.3-0.8 [facility] Comment on above: Performed By: #### C VDTBH #### [facility] [address] [place] [address] Dr. Roland Gr Monocytes/100 WBC (Bld) 9.3 % Normal 1.7-12.0 [facility] Comment on above: Performed By: #### C VDTBH #### [facility] [address] [place] [address] Dr. Roland Gr NEUT # 4.7 103/ul Normal 1.4-6.5 [facility] Comment on above: Performed By: #### C VDTBH #### [facility] [address] [place] [address] Dr. Roland Gr Neutrophils/100 WBC (Bld) 67.3 % Normal 43.0-75.0 [facility] Comment on above: Performed By: #### C VDTBH #### [facility] [address] [place] [address] Dr. Roland Gr Platelet mean volume (Bld) [Entitic vol] 10.1 fL Normal 9.5-13.5 [facility] Comment on above: Performed By: #### C VDTBH #### [facility] [address] [place] [address] Dr. Roland Gr PLT 188 103/ul Normal 150-450 [facility] Comment on above: Performed By: #### C VDTBH #### [facility] [address] [place] [address] Dr. Roland Gr RBC 4.08 106/ul Critically low 4.70-6.10 [facility] Comment on above: Performed By: #### C VDTBH #### [facility] [address] [place] [address] Dr. Roland Gr WBC 6.9 103/ul Normal 4.0-11.0 [facility] Comment on above: Performed By: #### C VDTBH #### [facility] [facility] [address] [place] [address] Dr. Roland Gr PROF 14(COMP METB)on 023 Albumin [Mass/Vol] 3.6 g/dL Normal 3.4-5.0 [facility] Comment on above: Performed By: #### L IPID, T7, CMP, URIC, TSH #### [facility] [address] [place] [address] Dr. Roland Gr Albumin/Globulin [Mass ratio] 1.0 {ratio} Normal [facility] Comment on above: Performed By: #### L IPID, T7, CMP, URIC, TSH #### [facility] [address] [place] [address] Dr. Roland Gr ALP [Catalytic activity/Vol] 69 U/L Normal 46-116 [facility] Comment on above: Performed By: #### L IPID, T7, CMP, URIC, TSH #### [facility] [address] [place] [address] Dr. Roland Gr ALT [Catalytic activity/Vol] 26 U/L Normal 16-63 [facility] Comment on above: Performed By: #### L IPID, T7, CMP, URIC, TSH #### [facility] [address] [place] [address] Dr. Roland Gr Anion gap [Moles/Vol] 11.2 mmol/L Normal [facility] Comment on above: Performed By: #### L IPID, T7, CMP, URIC, TSH #### [facility] [address] [place] [address] Dr. Roland Gr AST [Catalytic activity/Vol] 22 U/L Normal 15-37 [facility] Comment on above: Performed By: #### L IPID, T7, CMP, URIC, TSH #### [facility] [address] [place] [address] Dr. Roland Gr Bilirubin [Mass/Vol] 0.7 mg/dL Normal 0.2-1.0 [facility] Comment on above: Performed By: #### L IPID, T7, CMP, URIC, TSH #### [facility] [address] [place] [address] Dr. Roland Gr Calcium [Mass/Vol] 9.2 mg/dL Normal 8.5-10.1 [facility] Comment on above: Performed By: #### L IPID, T7, CMP, URIC, TSH #### [facility] [address] [address] [address] Roland Gr Chloride [Moles/Vol] 108 mmol/L Critically high 98-107 [facility] Comment on above: Performed By: #### L IPID, T7, CMP, URIC, TSH #### [facility] [address] [place] [address] Dr. Roland Gr CO2 [Moles/Vol] 30.8 mmol/L Normal 21.0-32.0 [facility] Comment on above: Performed By: #### L IPID, T7, CMP, URIC, TSH #### [facility] [address] [address] [address] Roland Gr Creatinine [Mass/Vol] 0.74 mg/dL Normal 0.70-1.30 [facility] Comment on above: Performed By: #### L IPID, T7, CMP, URIC, TSH #### [facility] [address] [place] [address] Dr. Roland Gr EGFR-AF BERMUDIAN >60 Normal >=60 [facility] Comment on above: Performed By: #### L IPID, T7, CMP, URIC, TSH #### [facility] [address] [place] [address] Dr. Roland Gr EGFR-NON AF BERMUDIAN >60 Normal >=60 [facility] Comment on above: Performed By: #### L IPID, T7, CMP, URIC, TSH #### [facility] [address] [address] [address] Roland Gr Globulin (S) [Mass/Vol] 3.5 g/dL Normal [facility] Comment on above: Performed By: #### L IPID, T7, CMP, URIC, TSH #### [facility] [address] [address] [address] Roland Gr Glucose [Mass/Vol] 102 mg/dL Normal 74-106 [facility] Comment on above: Performed By: #### L IPID, T7, CMP, URIC, TSH #### [facility] [address] [place] [address] Dr. Roland Gr Potassium [Moles/Vol] 4.0 mmol/L Normal 3.5-5.1 [facility] Comment on above: Performed By: #### L IPID, T7, CMP, URIC, TSH #### [facility] [address] [place] [address] Dr. Roland Gr Protein [Mass/Vol] 7.1 g/dL Normal 6.4-8.2 [facility] Comment on above: Performed By: #### L IPID, T7, CMP, URIC, TSH #### [facility] [address] [place] [address] Dr. Roland Gr Sodium [Moles/Vol] 146 mmol/L Critically high 136-145 [facility] Comment on above: Performed By: #### L IPID, T7, CMP, URIC, TSH #### [facility] [address] [place] [address] Dr. Roland Gr Urea nitrogen [Mass/Vol] 15.0 mg/dL Normal 7.0-18.0 [facility] Comment on above: Performed By: #### L IPID, T7, CMP, URIC, TSH #### [facility] [address] [place] [address] Dr. Roland Gr Urea nitrogen/Creatinine [Mass ratio] 20.3 mg/mg Normal [facility] Comment on above: Performed By: #### L IPID, T7, CMP, URIC, TSH #### [facility] [address] [place] [address] Dr. Roland Gr SED RATE [facility] 2022 SED RATE 11 mm/hr Normal <=20 [facility] Comment on above: Performed By: #### L IPID, T7, CMP, URIC, TSH #### [facility] [address] [place] [address] Dr. Roland Gr Covid-19 PCR ([facility])on 12-18 SARS-CoV-2 (COVID-19) RNA PORSCHE+probe Ql (Unsp spec) Not detected Normal NOT DETECTED [facility] Comment on above: Result Comment: This test is not yet approved or cleared by the [place] FDA. When there are no FDA-approved or cleared tests available, and other criteria are met, FDA can make tests available under an emergency access mechanism called an Emergency Use Authorization (EUA). The EUA for this test is supported by the [place] of Health and Human Service's (HHS's) declaration that circumstances exist to justify the emergency use of in vitro diagnostics for the detection and/or diagnosis of the virus that causes COVID-19. This EUA will remain in effect (meaning this test can be used) for the duration of the COVID-19 declaration justifying emergency of IVDs, unless it is terminated or revoked by FDA (after which the test may no longer be used). When diagnostic testing is negative, the possibility of a false negative should be considered in the context of a patient's recent exposures and the presence of clinical signs and symptoms consistent with SARS-CoV-2. Performed By: #### C VDTB #### [facility] [address] [place] [address] Dr. Roland Gr CBC AUTO DIFFon 12-03-2022 BASO # 0.0 103/ul Normal 0.0-0.1 [facility] Comment on above: Performed By: #### C VDTBH #### [facility] [address] [place], [place] [id number] Dr. Roland Gr Basophils/100 WBC (Bld) 0.6 % Normal 0.2-2.0 [facility] Comment on above: Performed By: #### C VDTBH #### [facility] [address] [place] [address] Dr. Roland Gr EO # 0.1 103/ul Normal 0.0-0.7 [facility] Comment on above: Performed By: #### C VDTBH #### [facility] [address] [place] [address] Dr. Roland Gr Eosinophils/100 WBC (Bld) 1.7 % Normal 0.9-7.0 [facility] Comment on above: Performed By: #### C VDTBH #### [facility] [address] [place] [address] Dr. Roland Gr Erythrocyte distribution width (RBC) [Ratio] 14.1 % Normal 11.0-15.0 [facility] Comment on above: Performed By: #### C VDTBH #### [facility] [address] [place] [address] Dr. Roland Gr Hematocrit (Bld) [Volume fraction] 39.3 % Critically low 42.0-54.0 [facility] Comment on above: Performed By: #### C VDTBH #### [facility] [address] [place] [address] Dr. Roland Gr Hemoglobin (Bld) [Mass/Vol] 12.7 g/dL Critically low 14.0-18.0 [facility] Comment on above: Performed By: #### C VDTBH #### [facility] [address] [place] [address] Dr. Roland Gr IG # 0.03 10e3/ul Normal 0.00-0.03 [facility] Comment on above: Performed By: #### C VDTBH #### [facility] [address] [place] [address] Dr. Roland Gr IG % 0.5 % Normal 0.0-0.5 [facility] Comment on above: Performed By: #### C VDTBH #### [facility] [address] [place] [address] Dr. Roland Gr LYMPH # 1.5 103/ul Normal 1.2-3.8 [facility] Comment on above: Performed By: #### C VDTBH #### [facility] [address] [place] [address] Dr. Roland Gr Lymphocytes/100 WBC (Bld) 23.5 % Normal 20.5-60.0 [facility] Comment on above: Performed By: #### C VDTBH #### [facility] [address] [place] [address] Dr. Roland Gr MANUAL DIFF REQ NO Normal [facility] Comment on above: Performed By: #### C VDTBH #### [facility] [address] [place] [address] Dr. Roland Gr MCH (RBC) [Entitic mass] 31.8 pg Normal 25.9-34.0 [facility] Comment on above: Performed By: #### C VDTBH #### [facility] [address] [place] [address] Dr. Roland Gr MCHC (RBC) [Mass/Vol] 32.3 g/dL Normal 29.9-35.2 [facility] Comment on above: Performed By: #### C VDTBH #### [facility] [address] [place] [address] Dr. Roland Gr MCV (RBC) [Entitic vol] 98.5 fL Critically high 80.0-94.0 [facility] Comment on above: Performed By: #### C VDTBH #### [facility] [address] [place] [address] Dr. Roland Gr MONO # 0.7 103/ul Normal 0.3-0.8 [facility] Comment on above: Performed By: #### C VDTBH #### [facility] [address] [place] [address] Dr. Roland Gr Monocytes/100 WBC (Bld) 10.6 % Normal 1.7-12.0 [facility] Comment on above: Performed By: #### C VDTBH #### [facility] [address] [place] [address] Dr. Roland Gr NEUT # 4.1 103/ul Normal 1.4-6.5 [facility] Comment on above: Performed By: #### C VDTBH #### [facility] [address] [place] [address] Dr. Roland Gr Neutrophils/100 WBC (Bld) 63.1 % Normal 43.0-75.0 [facility] Comment on above: Performed By: #### C VDTBH #### [facility] [address] [place] [address] Dr. Roland Gr Platelet mean volume (Bld) [Entitic vol] 10.0 fL Normal 9.5-13.5 [facility] Comment on above: Performed By: #### C VDTBH #### [facility] [address] [place] [address] Dr. Roland Gr PLT 184 103/ul Normal 150-450 [facility] Comment on above: Performed By: #### C VDTBH #### [facility] [address] [place] [address] Dr. Roland Gr RBC 3.99 106/ul Critically low 4.70-6.10 [facility] Comment on above: Performed By: #### C VDTBH #### [facility] [address] [place] [address] Dr. Roland Gr WBC 6.4 103/ul Normal 4.0-11.0 [facility] Comment on above: Performed By: #### C VDTBH #### [facility] [address] [place] [address] Dr. Roland Gr PROF 14(COMP METB)on 023 Albumin [Mass/Vol] 3.8 g/dL Normal 3.4-5.0 [facility] Comment on above: Performed By: #### L IPID, T7, CMP, URIC, TSH #### [facility] [address] [place] [address] Dr. Roland Gr Albumin/Globulin [Mass ratio] 1.4 {ratio} Normal [facility] Comment on above: Performed By: #### L IPID, T7, CMP, URIC, TSH #### [facility] [address] [place] [address] Dr. Roland Gr ALP [Catalytic activity/Vol] 58 U/L Normal 46-116 [facility] Comment on above: Performed By: #### L IPID, T7, CMP, URIC, TSH #### [facility] [address] [address] [address] Roland Gr ALT [Catalytic activity/Vol] 24 U/L Normal 16-63 [facility] Comment on above: Performed By: #### L IPID, T7, CMP, URIC, TSH #### [facility] [address] [place] [address] Dr. Roland Gr Anion gap [Moles/Vol] 11.2 mmol/L Normal [facility] Comment on above: Performed By: #### L IPID, T7, CMP, URIC, TSH #### [facility] [address] [place] [address] Dr. Roland Gr AST [Catalytic activity/Vol] 24 U/L Normal 15-37 [facility] Comment on above: Performed By: #### L IPID, T7, CMP, URIC, TSH #### [facility] [address] [place] [address] Dr. Roland Gr Bilirubin [Mass/Vol] 0.7 mg/dL Normal 0.2-1.0 [facility] Comment on above: Performed By: #### L IPID, T7, CMP, URIC, TSH #### [facility] [address] [place] [address] Dr. Roland Gr Calcium [Mass/Vol] 9.0 mg/dL Normal 8.5-10.1 [facility] Comment on above: Performed By: #### L IPID, T7, CMP, URIC, TSH #### [facility] [address] [address] [address] Roland Gr Chloride [Moles/Vol] 109 mmol/L Critically high 98-107 [facility] Comment on above: Performed By: #### L IPID, T7, CMP, URIC, TSH #### [facility] [address] [place] [address] Dr. Roland Gr CO2 [Moles/Vol] 28.8 mmol/L Normal 21.0-32.0 [facility] Comment on above: Performed By: #### L IPID, T7, CMP, URIC, TSH #### [facility] [address] [address] [address] Roland Gr Creatinine [Mass/Vol] 0.73 mg/dL Normal 0.70-1.30 [facility] Comment on above: Performed By: #### L IPID, T7, CMP, URIC, TSH #### [facility] [address] [address] [address] Roland Gr EGFR-AF BERMUDIAN >60 Normal >=60 [facility] Comment on above: Performed By: #### L IPID, T7, CMP, URIC, TSH #### [facility] [address] [address] [address] Roland Gr EGFR-NON AF BERMUDIAN >60 Normal >=60 [facility] Comment on above: Performed By: #### L IPID, T7, CMP, URIC, TSH #### [facility] [address] [address] [address] Roland Gr Globulin (S) [Mass/Vol] 2.8 g/dL Normal [facility] Comment on above: Performed By: #### L IPID, T7, CMP, URIC, TSH #### [facility] [address] [address] [address] Roland Gr Glucose [Mass/Vol] 98 mg/dL Normal 74-106 [facility] Comment on above: Performed By: #### L IPID, T7, CMP, URIC, TSH #### [facility] [address] [address] [address] Roland Gr Potassium [Moles/Vol] 4.0 mmol/L Normal 3.5-5.1 [facility] Comment on above: Performed By: #### L IPID, T7, CMP, URIC, TSH #### [facility] [address] [address] [address] Roland Gr Protein [Mass/Vol] 6.6 g/dL Normal 6.4-8.2 [facility] Comment on above: Performed By: #### L IPID, T7, CMP, URIC, TSH #### [facility] [address] [address] [address] Roland rG Sodium [Moles/Vol] 145 mmol/L Normal 136-145 [facility] Comment on above: Performed By: #### L IPID, T7, CMP, URIC, TSH #### [facility] [address] [place] [address] Dr. Roland Gr Urea nitrogen [Mass/Vol] 20.0 mg/dL Critically high 7.0-18.0 [facility] Comment on above: Performed By: #### L IPID, T7, CMP, URIC, TSH #### [facility] [address] [address] [address] Roland Gr Urea nitrogen/Creatinine [Mass ratio] 27.4 mg/mg Normal [facility] Comment on above: Performed By: #### L IPID, T7, CMP, URIC, TSH #### [facility] [address] [place] [address] Dr. Roland Gr SED RATE [facility] 2022 SED RATE 8 mm/hr Normal <=20 [facility] Comment on above: Performed By: #### S EDR #### [facility] [address] [place] [address] Dr. Roland Iqbal 09-24-2022 CNPN Telephone (PULMMN) ADONAY IRBY ([id number]) 1945 M Date Time Provider Department 09/24/22 CARLOS FARRIS PULMMAnisha During your visit today, we recorded the following information about you: Vivian Rubin 09/24/2022 10:34 AM Signed called [facility] [phone] they are in need of new script for supplies for his machine and also office notes please put in a new rx for supplies for his CPAP for me to fax over with office notes [facility] fax# [phone] Vivian Castrejonc 09/24/2022 2:57 PM Signed new order and office notes have been faxed to [employer] fax# [phone] Allergies As of Date: 09/24/2022 Noted Allergy Reaction SULFAMETHOXAZOLE-TRIMET HIRAL 03/08/2021 10 - Anaphylaxis Date Reviewed: 2022 Reviewed by: Nancy Mcmahon Ma - Fully Assessed 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 - BIPAP Please provide with a device with a back up rate. 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 - tamsulosin ER (FLOMAX) 0.4 mg cp24 Take 1 capsule by mouth daily at bedtime. - simvastatin (ZOCOR) 20 mg tablet Take 1 tablet by mouth daily at bedtime. - ipratropium-albuterol (DUONEB) 0.5 mg-3 mg(2.5 mg base)/3 mL nebu Inhale 3 mL as instructed four times daily. - propranolol (INDERAL) 60 mg tablet Take 1 tablet by mouth once daily. - furosemide (LASIX) 20 mg tablet Take 1 tablet by mouth once daily. - potassium chloride (KLOR-CON 10) 10 mEq tablet Take 1 tablet by mouth once daily. - latanoprost (XALATAN) 0.005 % ophthalmic solution Use 1 Drop in both eyes daily at bedtime. 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 Encounter Status:Closed by CARLOS FARRIS on 09/24/22 Normal [facility] INSULINon 09-02-2022 Insulin 6.3 uIU/mL Normal 2.6-24.9 [facility] Comment on above: Performed By: #### C VDTB #### [facility] [address] [place] [address] Dr. Roland Gr BNPon 09-01-2022 Natriuretic peptide B (Bld) [Mass/Vol] 285.0 pg/mL Normal <=1,800.0 [facility] Comment on above: Performed By: #### C VDTBH #### [facility] [address] [place] [address] Dr. Roland Gr CBC AUTO DIFFon 09-01-2022 BASO # 0.0 103/ul Normal 0.0-0.1 [facility] Comment on above: Performed By: #### L IPID, T7, CMP, URIC, TSH #### [facility] [address] [place] [address] Dr. Roland Gr Basophils/100 WBC (Bld) 0.4 % Normal 0.2-2.0 [facility] Comment on above: Performed By: #### L IPID, T7, CMP, URIC, TSH #### [facility] [address] [place] [address] Dr. Roland Gr EO # 0.1 103/ul Normal 0.0-0.7 [facility] Comment on above: Performed By: #### L IPID, T7, CMP, URIC, TSH #### [facility] [address] [place] [address] Dr. Roland Gr Eosinophils/100 WBC (Bld) 1.5 % Normal 0.9-7.0 [facility] Comment on above: Performed By: #### L IPID, T7, CMP, URIC, TSH #### [facility] [address] [place] [address] Dr. Roland Gr Erythrocyte distribution width (RBC) [Ratio] 14.0 % Normal 11.0-15.0 [facility] Comment on above: Performed By: #### L IPID, T7, CMP, URIC, TSH #### [facility] [address] [place] [address] Dr. Roland Gr Hematocrit (Bld) [Volume fraction] 37.9 % Critically low 42.0-54.0 [facility] Comment on above: Performed By: #### L IPID, T7, CMP, URIC, TSH #### [facility] [address] [place] [address] Dr. Roland Gr Hemoglobin (Bld) [Mass/Vol] 12.2 g/dL Critically low 14.0-18.0 [facility] Comment on above: Performed By: #### L IPID, T7, CMP, URIC, TSH #### [facility] [address] [place] [address] Dr. Roland Gr IG # 0.03 10e3/ul Normal 0.00-0.03 [facility] Comment on above: Performed By: #### L IPID, T7, CMP, URIC, TSH #### [facility] [address] [place] [address] Dr. Roland Gr IG % 0.4 % Normal 0.0-0.5 [facility] Comment on above: Performed By: #### L IPID, T7, CMP, URIC, TSH #### [facility] [address] [place] [address] Dr. Roland Gr LYMPH # 1.6 103/ul Normal 1.2-3.8 [facility] Comment on above: Performed By: #### L IPID, T7, CMP, URIC, TSH #### [facility] [address] [place] [address] Dr. Roland Gr Lymphocytes/100 WBC (Bld) 21.3 % Normal 20.5-60.0 [facility] Comment on above: Performed By: #### L IPID, T7, CMP, URIC, TSH #### [facility] [address] [place] [address] Dr. Roland Gr MANUAL DIFF REQ NO Normal [facility] Comment on above: Performed By: #### L IPID, T7, CMP, URIC, TSH #### [facility] [address] [place] [address] Dr. Roland Gr MCH (RBC) [Entitic mass] 33.0 pg Normal 25.9-34.0 [facility] Comment on above: Performed By: #### L IPID, T7, CMP, URIC, TSH #### [facility] [address] [place] [address] Dr. Roland Gr MCHC (RBC) [Mass/Vol] 32.2 g/dL Normal 29.9-35.2 [facility] Comment on above: Performed By: #### L IPID, T7, CMP, URIC, TSH #### [facility] [address] [place] [address] Dr. Roland Gr MCV (RBC) [Entitic vol] 102.4 fL Critically high 80.0-94.0 [facility] Comment on above: Performed By: #### L IPID, T7, CMP, URIC, TSH #### [facility] [address] [place] [address] Dr. Roland Gr MONO # 0.8 103/ul Normal 0.3-0.8 [facility] Comment on above: Performed By: #### L IPID, T7, CMP, URIC, TSH #### [facility] [address] [place] [address] Dr. Roland Gr Monocytes/100 WBC (Bld) 10.5 % Normal 1.7-12.0 [facility] Comment on above: Performed By: #### L IPID, T7, CMP, URIC, TSH #### [facility] [address] [place] [address] Dr. Roland Gr NEUT # 4.8 103/ul Normal 1.4-6.5 [facility] Comment on above: Performed By: #### L IPID, T7, CMP, URIC, TSH #### [facility] [address] [address] [address] Roland Gr Neutrophils/100 WBC (Bld) 65.9 % Normal 43.0-75.0 [facility] Comment on above: Performed By: #### L IPID, T7, CMP, URIC, TSH #### [facility] [address] [place] [address] Dr. Roland Gr Platelet mean volume (Bld) [Entitic vol] 9.7 fL Normal 9.5-13.5 [facility] Comment on above: Performed By: #### L IPID, T7, CMP, URIC, TSH #### [facility] [address] [place] [address] Dr. Roland Gr PLT 183 103/ul Normal 150-450 [facility] Comment on above: Performed By: #### L IPID, T7, CMP, URIC, TSH #### [facility] [address] [place] [address] Dr. Roland Gr RBC 3.70 106/ul Critically low 4.70-6.10 [facility] Comment on above: Performed By: #### L IPID, T7, CMP, URIC, TSH #### [facility] [address] [place] [address] Dr. Roland Gr WBC 7.3 103/ul Normal 4.0-11.0 [facility] Comment on above: Performed By: #### L IPID, T7, CMP, URIC, TSH #### [facility] [address] [place] [address] Dr. Roland Gr FREE THYROXINE INDEX T7on FTI 2.44 Normal 1.30-4.50 [facility] Comment on above: Performed By: #### C VDTBH #### [facility] [address] [place] [address] Dr. Roland Gr T3U 33.0 % Normal 33.0-40.0 [facility] Comment on above: Performed By: #### C VDTBH #### [facility] [address] [address] [address] Roland Gr T4 [Mass/Vol] 7.40 ug/dL Normal 4.50-12.10 [facility] Comment on above: Performed By: #### C VDTBH #### [facility] [address] [address] [address] Roland Gr GLYCOHEMOGLOBIN A1Con 2021 ADA RECOMMENDATION SEE BELOW Normal [facility] Comment on above: Result Comment: ADA RECOMMENDED LIMIT 4.0 - 6.0 ADA THERAPEUTIC TARGET < 7.0 ACTION SUGGESTED > 7.0 Performed By: #### A 1C #### [facility] [address] [place] [address] Dr. Roland Gr Glucose [Mass/Vol] 117 mg/dL Normal [facility] Comment on above: Performed By: #### A 1C #### [facility] [address] [place] [address] Dr. Roland Gr HbA1c (Bld) [Mass fraction] 5.7 % Normal 4.5-6.2 [facility] Comment on above: Performed By: #### A 1C #### [facility] [address] [place] [address] Dr. Roland Gr LIPID PROFILEon 09-01-2022 CHOL-HDL RATIO NORM SEE BELOW Normal [facility] Comment on above: Result Comment: 3.3 - 4.4 LOW RISK 4.4 - 7.1 AVERAGE RISK 7.1 - 11.0 MODERATE RISK >11.0 HIGH RISK Performed By: #### L IPID, T7, CMP, URIC, TSH #### [facility] [address] [place] [address] Dr. Roland Gr Cholesterol [Mass/Vol] 130 mg/dL Normal <=200 [facility] Comment on above: Performed By: #### L IPID, T7, CMP, URIC, TSH #### [facility] [address] [address] [address] Roland Gr Cholesterol in HDL [Mass/Vol] 67 mg/dL Critically high 40-60 [facility] Comment on above: Performed By: #### L IPID, T7, CMP, URIC, TSH #### [facility] [address] [address] [address] Roland Gr Cholesterol in LDL [Mass/Vol] 48.8 mg/dL Normal [facility] Comment on above: Performed By: #### L IPID, T7, CMP, URIC, TSH #### [facility] [address] [address] [address] Roland Gr Cholesterol.total/Ch olesterol in HDL [Mass ratio] 1.9 {ratio} Normal [facility] Comment on above: Performed By: #### L IPID, T7, CMP, URIC, TSH #### [facility] [address] [address] [address] Roland Gr HDL NORMAL > or = 60 mg/dl - LO W CARDIOVASCULAR RISK <40 mg/dl - HIGH CARDIOVASCULAR RISK Normal [facility] Comment on above: Performed By: #### L IPID, T7, CMP, URIC, TSH #### [facility] [address] [address] [address] Roland Gr LDL CALC NORMAL SEE BELOW Normal [facility] Comment on above: Result Comment: <100 mg/dl OPTIMAL 100 - 129 mg/dl NEAR OR ABOVE OPTIMAL 130 - 159 mg/dl BORDERLINE HIGH 160 - 189 mg/dl HIGH >190 mg/dl VERY HIGH Performed By: #### L IPID, T7, CMP, URIC, TSH #### [facility] [address] [address] [address] Roland Gr Triglyceride [Mass/Vol] 71 mg/dL Normal <=150 [facility] Comment on above: Performed By: #### L IPID, T7, CMP, URIC, TSH #### [facility] [address] [address] [address] Roland Gr VLDL CALC 14.2 mg/dL Normal [facility] Comment on above: Performed By: #### L IPID, T7, CMP, URIC, TSH #### [facility] [address] [place] [address] Dr. Roland Gr PROF 14(COMP METB)on 022 Albumin [Mass/Vol] 3.5 g/dL Normal 3.4-5.0 [facility] Comment on above: Performed By: #### C VDTBH #### [facility] [address] [place] [address] Dr. Roland Gr Albumin/Globulin [Mass ratio] 1.2 {ratio} Normal [facility] Comment on above: Performed By: #### C VDTBH #### [facility] [address] [place] [address] Dr. Roland Gr ALP [Catalytic activity/Vol] 60 U/L Normal 46-116 [facility] Comment on above: Performed By: #### C VDTBH #### [facility] [address] [place] [address] Dr. Roland Gr ALT [Catalytic activity/Vol] 25 U/L Normal 16-63 [facility] Comment on above: Performed By: #### C VDTBH #### [facility] [address] [place] [address] Dr. Roland Gr Anion gap [Moles/Vol] 10.6 mmol/L Normal [facility] Comment on above: Performed By: #### C VDTBH #### [facility] [address] [place] [address] Dr. Roland Gr AST [Catalytic activity/Vol] 17 U/L Normal 15-37 [facility] Comment on above: Performed By: #### C VDTBH #### [facility] [address] [place] [address] Dr. Roland Gr Bilirubin [Mass/Vol] 0.8 mg/dL Normal 0.2-1.0 [facility] Comment on above: Performed By: #### C VDTBH #### [facility] [address] [place] [address] Dr. Roland Gr Calcium [Mass/Vol] 8.8 mg/dL Normal 8.5-10.1 [facility] Comment on above: Performed By: #### C VDTBH #### [facility] [address] [address] [address] Roland Gr Chloride [Moles/Vol] 108 mmol/L Critically high 98-107 [facility] Comment on above: Performed By: #### C VDTBH #### [facility] [address] [address] [address] Roland Gr CO2 [Moles/Vol] 28.6 mmol/L Normal 21.0-32.0 [facility] Comment on above: Performed By: #### C VDTBH #### [facility] [address] [address] [address] Roland Gr Creatinine [Mass/Vol] 0.72 mg/dL Normal 0.70-1.30 [facility] Comment on above: Performed By: #### C VDTBH #### [facility] [address] [place] [address] Dr. Roland Gr EGFR-AF BERMUDIAN >60 Normal >=60 [facility] Comment on above: Performed By: #### C VDTBH #### [facility] [address] [address] [address] Roland Gr EGFR-NON AF BERMUDIAN >60 Normal >=60 [facility] Comment on above: Performed By: #### C VDTBH #### [facility] [address] [place] [address] Dr. Roland Gr Globulin (S) [Mass/Vol] 3.0 g/dL Normal [facility] Comment on above: Performed By: #### C VDTBH #### [facility] [address] [address] [address] Roland Gr Glucose [Mass/Vol] 100 mg/dL Normal 74-106 [facility] Comment on above: Performed By: #### C VDTBH #### [facility] [address] [address] [address] Roland Gr Potassium [Moles/Vol] 4.2 mmol/L Normal 3.5-5.1 [facility] Comment on above: Performed By: #### C VDTBH #### [facility] [address] [place] [address] Dr. Roland Gr Protein [Mass/Vol] 6.5 g/dL Normal 6.4-8.2 [facility] Comment on above: Performed By: #### C VDTBH #### [facility] [address] [place] [address] Dr. Roland Gr Sodium [Moles/Vol] 143 mmol/L Normal 136-145 [facility] Comment on above: Performed By: #### C VDTBH #### [facility] [address] [place] [address] Dr. Roland Gr Urea nitrogen [Mass/Vol] 18.0 mg/dL Normal 7.0-18.0 [facility] Comment on above: Performed By: #### C VDTBH #### [facility] [address] [place] [address] Dr. Roland Gr Urea nitrogen/Creatinine [Mass ratio] 25.0 mg/mg Normal [facility] Comment on above: Performed By: #### C VDTBH #### [facility] [address] [place] [address] Dr. Roland Gr [facility] mm/hr Normal <=20 [facility] Comment on above: Performed By: #### S EDR #### [facility] [address] [place] [address] Dr. Roland Gr TSHon 09-01-2022 TSH 1.634 uIU/mL Normal 0.358-3.740 [facility] Comment on above: Performed By: #### C VDTBH #### [facility] [address] [place] [address] Dr. Roland Gr URIC ACID SERUMon 09-01-2022 Urate [Mass/Vol] 5.3 mg/dL Normal 3.5-7.2 [facility] Comment on above: Performed By: #### L IPID, T7, CMP, URIC, TSH #### [facility] [address] [place] [address] Dr. Roland Gr XR cerv spine AP/LAT/FLX/EXT on 05-22-2022 XR cerv spine AP/LAT/FLX/EXT [facility] [place] [address] [place] [address] XRay Report Signed Patient: Adonay Irby MR#: [id number] : 1945 Acct:[id number] Age/Sex: 77 / M ADM Date: 05/22/22 Loc: ICXD Room: Type: [facility] Attending Dr: Joao Barba MD Copies to: Leisa Barba MD Ordering Provider: Leisa Barba MD Date of Service: 05/22/22 XR/XR cerv spine AP/LAT/FLX/EXT: CERVICALGIA AP with lateral neutral, flexion and extension views of thecervical spine HISTORY: Neck cracking and grinding. Bilateral radiculopathy. COMPARISON: None Is mild straightening of cervical lordosis. Decreased bony mineralization present. C5-7 anterior body fusion changes present. No hardware failure. No hypermobility seen with flexion extension views. No acute cervical spine fracture identified. No cervical spine listhesis identified. Moderate C4-5 spondylosis. Mild C3-4 spondylosis. Moderate facet degeneration. Mild atherosclerosis of carotid bifurcations. Facets are in adequate alignment. The dens is intact. The craniocervical junction is unremarkable. No paraspinal soft tissue abnormality seen. XR/XR cerv spine AP/LAT/FLX/EXT IMPRESSION: No hypermobility. Moderate C4-5 spondylosis. Facet degeneration. No hardware failure. Impression dictated by: Luca Trujillo M.D.05/22/2022 9:52 AM Dictation Location: [place] [address] Transcribed By: [facility] 05/22/2252 Dictated By: Luca Trujillo DO 05/22/22 0950 Signed By: 05/22/2252 [facility] CBC AUTO DIFFon 05-20-2022 BASO # 0.1 103/ul Normal 0.0-0.1 [facility] Comment on above: Performed By: #### L IPID, T7, CMP, URIC, TSH #### [facility] [address] [address] [address] Yilan Gr Basophils/100 WBC (Bld) 0.7 % Normal 0.2-2.0 [facility] Comment on above: Performed By: #### L IPID, T7, CMP, URIC, TSH #### [facility] [address] [place] [address] Dr. Roland Gr EO # 0.2 103/ul Normal 0.0-0.7 [facility] Comment on above: Performed By: #### L IPID, T7, CMP, URIC, TSH #### [facility] [address] [place] [address] Dr. Roland Gr Eosinophils/100 WBC (Bld) 2.9 % Normal 0.9-7.0 [facility] Comment on above: Performed By: #### L IPID, T7, CMP, URIC, TSH #### [facility] [address] [place] [address] Dr. Roland Gr Erythrocyte distribution width (RBC) [Ratio] 14.2 % Normal 11.0-15.0 [facility] Comment on above: Performed By: #### L IPID, T7, CMP, URIC, TSH #### [facility] [address] [place] [address] Dr. Roland Gr Hematocrit (Bld) [Volume fraction] 38.1 % Critically low 42.0-54.0 [facility] Comment on above: Performed By: #### L IPID, T7, CMP, URIC, TSH #### [facility] [address] [place] [address] Dr. Roland Gr Hemoglobin (Bld) [Mass/Vol] 12.4 g/dL Critically low 14.0-18.0 [facility] Comment on above: Performed By: #### L IPID, T7, CMP, URIC, TSH #### [facility] [address] [place] [address] Dr. Roland Gr IG # 0.05 10e3/ul Critically high 0.00-0.03 [facility] Comment on above: Performed By: #### L IPID, T7, CMP, URIC, TSH #### [facility] [address] [place] [address] Dr. Roland Gr IG % 0.7 % Critically high 0.0-0.5 [facility] Comment on above: Performed By: #### L IPID, T7, CMP, URIC, TSH #### [facility] [address] [address] [address] Roland Gr LYMPH # 1.7 103/ul Normal 1.2-3.8 [facility] Comment on above: Performed By: #### L IPID, T7, CMP, URIC, TSH #### [facility] [address] [address] [address] Roland Gr Lymphocytes/100 WBC (Bld) 24.6 % Normal 20.5-60.0 [facility] Comment on above: Performed By: #### L IPID, T7, CMP, URIC, TSH #### [facility] [address] [place] [address] Dr. Roland Gr MANUAL DIFF REQ NO Normal [facility] Comment on above: Performed By: #### L IPID, T7, CMP, URIC, TSH #### [facility] [address] [place] [address] Dr. Roland Gr MCH (RBC) [Entitic mass] 33.0 pg Normal 25.9-34.0 [facility] Comment on above: Performed By: #### L IPID, T7, CMP, URIC, TSH #### [facility] [address] [address] [address] Roland Gr MCHC (RBC) [Mass/Vol] 32.5 g/dL Normal 29.9-35.2 [facility] Comment on above: Performed By: #### L IPID, T7, CMP, URIC, TSH #### [facility] [address] [address] [address] Roland Gr MCV (RBC) [Entitic vol] 101.3 fL Critically high 80.0-94.0 [facility] Comment on above: Performed By: #### L IPID, T7, CMP, URIC, TSH #### [facility] [address] [place] [address] Dr. Roland Gr MONO # 0.7 103/ul Normal 0.3-0.8 [facility] Comment on above: Performed By: #### L IPID, T7, CMP, URIC, TSH #### [facility] [address] [address] [address] Roland Gr Monocytes/100 WBC (Bld) 10.6 % Normal 1.7-12.0 [facility] Comment on above: Performed By: #### L IPID, T7, CMP, URIC, TSH #### [facility] [address] [place] [address] Dr. Roland Gr NEUT # 4.2 103/ul Normal 1.4-6.5 [facility] Comment on above: Performed By: #### L IPID, T7, CMP, URIC, TSH #### [facility] [address] [place] [address] Dr. Roland Gr Neutrophils/100 WBC (Bld) 60.5 % Normal 43.0-75.0 [facility] Comment on above: Performed By: #### L IPID, T7, CMP, URIC, TSH #### [facility] [address] [place] [address] Dr. Roland Gr Platelet mean volume (Bld) [Entitic vol] 9.7 fL Normal 9.5-13.5 [facility] Comment on above: Performed By: #### L IPID, T7, CMP, URIC, TSH #### [facility] [address] [place] [address] Dr. Roland Gr PLT 203 103/ul Normal 150-450 [facility] Comment on above: Performed By: #### L IPID, T7, CMP, URIC, TSH #### [facility] [address] [place] [address] Dr. Roland Gr RBC 3.76 106/ul Critically low 4.70-6.10 [facility] Comment on above: Performed By: #### L IPID, T7, CMP, URIC, TSH #### [facility] [address] [place] [address] Dr. Roland Gr WBC 6.9 103/ul Normal 4.0-11.0 [facility] Comment on above: Performed By: #### L IPID, T7, CMP, URIC, TSH #### [facility] [address] [place] [address] Dr. Roland Gr PROF 14(COMP METB)on 022 Albumin [Mass/Vol] 3.5 g/dL Normal 3.4-5.0 [facility] Comment on above: Performed By: #### L IPID, T7, CMP, URIC, TSH #### [facility] [address] [place] [address] Dr. Roland Gr Albumin/Globulin [Mass ratio] 1.2 {ratio} Normal [facility] Comment on above: Performed By: #### L IPID, T7, CMP, URIC, TSH #### [facility] [address] [place] [address] Dr. Roland Gr ALP [Catalytic activity/Vol] 60 U/L Normal 46-116 [facility] Comment on above: Performed By: #### L IPID, T7, CMP, URIC, TSH #### [facility] [address] [place] [address] Dr. Roland Gr ALT [Catalytic activity/Vol] 30 U/L Normal 16-63 [facility] Comment on above: Performed By: #### L IPID, T7, CMP, URIC, TSH #### [facility] [address] [place] [address] Dr. Roland Gr Anion gap [Moles/Vol] 9.4 mmol/L Normal [facility] Comment on above: Performed By: #### L IPID, T7, CMP, URIC, TSH #### [facility] [address] [place] [address] Dr. Roland Gr AST [Catalytic activity/Vol] 21 U/L Normal 15-37 [facility] Comment on above: Performed By: #### L IPID, T7, CMP, URIC, TSH #### [facility] [address] [place] [address] Dr. Roland Gr Bilirubin [Mass/Vol] 0.4 mg/dL Normal 0.2-1.0 [facility] Comment on above: Performed By: #### L IPID, T7, CMP, URIC, TSH #### [facility] [address] [address] [address] Roland Gr Calcium [Mass/Vol] 8.6 mg/dL Normal 8.5-10.1 [facility] Comment on above: Performed By: #### L IPID, T7, CMP, URIC, TSH #### [facility] [address] [address] [address] Roland Gr Chloride [Moles/Vol] 108 mmol/L Critically high 98-107 [facility] Comment on above: Performed By: #### L IPID, T7, CMP, URIC, TSH #### [facility] [address] [place] [address] Dr. Roland Gr CO2 [Moles/Vol] 30.8 mmol/L Normal 21.0-32.0 [facility] Comment on above: Performed By: #### L IPID, T7, CMP, URIC, TSH #### [facility] [address] [place] [address] Dr. Roland Gr Creatinine [Mass/Vol] 0.76 mg/dL Normal 0.70-1.30 [facility] Comment on above: Performed By: #### L IPID, T7, CMP, URIC, TSH #### [facility] [address] [place] [address] Dr. Roland Gr EGFR-AF BERMUDIAN >60 Normal >=60 [facility] Comment on above: Performed By: #### L IPID, T7, CMP, URIC, TSH #### [facility] [address] [place] [address] Dr. Roland Gr EGFR-NON AF BERMUDIAN >60 Normal >=60 [facility] Comment on above: Performed By: #### L IPID, T7, CMP, URIC, TSH #### [facility] [address] [place] [address] Dr. Roland Gr Globulin (S) [Mass/Vol] 3.0 g/dL Normal [facility] Comment on above: Performed By: #### L IPID, T7, CMP, URIC, TSH #### [facility] [address] [address] [address] Roland Gr Glucose [Mass/Vol] 99 mg/dL Normal 74-106 [facility] Comment on above: Performed By: #### L IPID, T7, CMP, URIC, TSH #### [facility] [address] [address] [address] Roland Gr Potassium [Moles/Vol] 4.2 mmol/L Normal 3.5-5.1 [facility] Comment on above: Performed By: #### L IPID, T7, CMP, URIC, TSH #### [facility] [address] [address] [address] Roland Gr Protein [Mass/Vol] 6.5 g/dL Normal 6.4-8.2 [facility] Comment on above: Performed By: #### L IPID, T7, CMP, URIC, TSH #### [facility] [address] [place] [address] Dr. Roland Gr Sodium [Moles/Vol] 144 mmol/L Normal 136-145 [facility] Comment on above: Performed By: #### L IPID, T7, CMP, URIC, TSH #### [facility] [address] [place] [address] Dr. Roland Gr Urea nitrogen [Mass/Vol] 16.0 mg/dL Normal 7.0-18.0 [facility] Comment on above: Performed By: #### L IPID, T7, CMP, URIC, TSH #### [facility] [address] [address] [address] Roland Gr Urea nitrogen/Creatinine [Mass ratio] 21.1 mg/mg Normal [facility] Comment on above: Performed By: #### L IPID, T7, CMP, URIC, TSH #### [facility] [address] [place] [address] Dr. Roland Gr SED RATE [facility] 2021 SED RATE 8 mm/hr Normal <=20 [facility] Comment on above: Performed By: #### L IPID, T7, CMP, URIC, TSH #### [facility] [address] [address] [address] Roland Gr Vital Signs Date Time Vital Sign Value Performing Clinician Brennan palmer 2022 11:09-0400 Body height 175.3 cm Carlos Farris MD Work Phone: [facility] 2022 11:09-0400 Body temperature 97.11 [degF] Carlos Farris MD Work Phone: [facility] 2022 11:09-0400 Body weight 74 kg Carlos Farris MD Work Phone: [facility] 2022 11:09-0400 Diastolic blood pressure 60 mm[Hg] Carlos Farris MD Work Phone: [facility] 2022 11:09-0400 Heart rate 48 /min Carlos Farris MD Work Phone: [facility] 2022 11:09-0400 Respiratory rate 17 /min Carlos Farris MD Work Phone: [facility] 2022 11:09-0400 SaO2% (BldA) [Mass fraction] 97 % Carlos Farris MD Work Phone: [facility] 2022 11:09-0400 Systolic blood pressure 118 mm[Hg] Carlos Farris MD Work Phone: [facility] Encounters Encounter Date Encounter Type Care Provider Facility Start: 11-24-2023 End: 11-24-2023 ambulatory BRIDGER NORRIS Not Available Start: 10-14-2023 ambulatory BELLA CORONADO Facility :[facility] Start: 08-19-2023 Telephone encounter [facility] Provider Pul monary Medicine Comment on above: Referral Request Start: 08-13-2023 Telephone encounter Carlos rey MD Work Phone: Pulmonary Medicine Comment on above: Filters for Nebulize r Start: 06-24-2023 End: 06-25-2023 ambulatory BELLA CORONADO Facility:[facility] Start: 06-04-2023 Telephone encounter Carlos rey MD Work Phone: Pulmonary Medicine Comment on above: Received Outside Med ical Records Start: 04-08-2023 End: 04-09-[address] KAMILLA HUIZAR . Facility:[facility] Start: 03-04-2023 End: 03-05-[address] DOCTOR LIZ Facility:[facility] Start: 01-07-2023 End: 01-07-[address] KAMILLA HUIZAR . 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 Start: 09-01-2022 End: 09-02-[address] LEISA BARBA Facility:[facility] Start: 05-22-2022 End: 05-22-2022 Patient encounter procedure MD Joao Barba Work Phone: [facility] [address] Start: 05-20-2022 End: 05-21-[address] LEISA BARBA Facility:[facility] Start: 2022 End: 2022 Patient encounter procedure Carlos Farris MD Work Phone: Pulmonary Medicine Comment on above: Disorder of diaphrag m (Primary Dx); Post poliomyelitis syndrome; Obstructive sleep apnea Start: 2022 End: 2022 ambulatory Pulm [facility] Main 10 Other Phone: Pulmonary Medicine Comment on above: Spirometry Start: 2022 End: 2022 Patient encounter procedure Pulm [facility]ct [facility] Main 10 Other Phone: [facility] Procedures Date Procedure Procedure Detail Performing Clinician Start: 04-08-[address] RAUL HUIZAR . Comment on above: Performed By: #### [facility] #### [facility] [address] [place], [place] [address] Dr. Roland Gr Start: 09-01-[address] RAUL HUIZAR . Comment on above: Performed By: #### [facility] #### [facility] [address] [place] [address] [address] Roland Gr Start: 05-22-2022 X-ray of cervical spine MD Joao Barba Work Phone: Start: 2022 Spmtry w/vc expirato ry edie w/wo mxml vol vntj Carlos Farris MD Work Phone: Start: 2022 Unlisted pulmonary service/procedure Carlos Farris MD Work Phone: Plan of Treatment Date Care Activity Detail Author Start: 07-17-2023 Covid-19 Vaccine () Covid-19 Vaccine () [facility] Start: 07-17-2023 Influenza vaccination [facility] Start: 11-16-2022 ADVANCE DIRECTIVE DISCUSSION ADVANCE DIRECTIVE DISCUSSION [facility] Start: 11-16-2022 DEPRESSION ASSESSMENT DEPRESSION ASS ESSMENT [facility] Start: 07-17-2022 Influenza vaccination INFLUENZA (#1) [facility] Start: 02-12-2022 COVID-19 VACCINE (4 - Booster for Moderna series) COVID-19 VACCINE (4 - Booster for Moderna series) [facility] Start: 12-10-2021 COVID-19 VACCINE (4 - Booster for Moderna series) COVID-19 VACCINE (4 - Booster for Moderna series) [facility] Start: 12-10-2021 COVID-19 VACCINE (4 - Moderna series) COVID-19 VACCINE (4 - Moderna series) [facility] Start: 11-16-2021 ADVANCE DIRECTIVE DISCUSSION ADVANCE DIRECTIVE DISCUSSION [facility] Start: 11-16-2021 DEPRESSION ASSESSMENT DEPRESSION ASS ESSMENT [facility] Start: 2008 Pneumococcal Vaccine : 65+ (1 - PCV) Pneumococcal Vaccine: 65+ (1 - PCV) [facility] Start: 2008 PNEUMOCOCCAL: 65+ (1 - PCV) PNEUMOCOCCAL: 65+ (1 - PCV) [facility] Start: 1993 SHINGRIX VACCINE (1 of 2) SHINGRIX VACCINE (1 of 2) [facility] Start: 1988 DIABETES SCREEN [facility]EN [facility] Start: 1988 Diabetes Screening Diabetes Screenin g [facility] Start: 1962 Urine microalbumin profile [facility] Start: 1955 Adult depression screening assessment DEPRESSION SCREENING [facility] MIPS/MEPS MIPS/MEPS PFT Ro utine 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 2022 12:00 PM EDT [facility] Work Phone: End: 06-15-2023 MIPS/MEPS MIPS/MEPS PFT Routine Disorder of diaphragm Post poliomyelitis syndrome 1 Occurrences starting 2022 until 06/15/2023 [facility] Work Phone: Comment on above: 1 Occurrences starti ng 2022 until 06/15/2023 SPIROMETRY SITTING A ND SUPINE SPIROMETRY SITTING AND SUPINE PFT 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 2022 12:00 PM EDT [facility] Work Phone: End: 06-15-2023 SPIROMETRY SITTING AND SUPINE SPIROMETRY SITTING AND SUPINE PFT Routine Disorder of diaphragm Post poliomyelitis syndrome 1 Occurrences starting 2022 until 06/15/2023 [facility] Work Phone: Comment on above: 1 Occurrences starti ng 2022 until 06/15/2023 [facility] Immunizations Immunization Date Immunization Notes Care Provider Fa [facility] 08-31-2020 influenza virus vaccine, unspecified formulation Carlos Farris MD Work Phone: [facility] 08-27-2018 influenza, seasonal, injectable Pulm 10 Other Phone: [facility] Payers Date Payer Category Payer Unknown [employer] [place] MEDICARE SUPPLEMENT [id number] 2009-Present [phone] [address] [place] [address] Indemnity [id number] 2009 Unknown [employer] [place] [employer] [place] MEDICARE SUPPLEMENT [id number] 2009-Present [phone] [id number] [place] [address] Indemnity [id number] 2003 Medicare MEDICARE MEDICAR E A AND B [id number] 2003-Present [phone] [address] [place] [id number] Medicare [id number] 2003 Medicare MEDICARE MEDICAR E A AND B [id number] 2003-Present [phone] [address] [place] [id number] Medicare [id number] 1959 Medicare [id number] 1959 Unknown [id number] 1943 Unknown [id number] 3 1943 Unknown [id number] 3 1943 Unknown [id number] 3 1943 Unknown [id number] 3 1943 Unknown [id number] 3 1943 Unknown [id number] 3 1943 Unknown [id number] 3 1943 Unknown [id number] 7 1943 Unknown [id number] 59 Self-pay Self Pay [id number] Social History Date Type Detail Facility Start: 12-18-2017 [facility] Start: 12-18-2017 Tobacco use and exposure Smokeless tobacco non-user [facility] Start: 12-18-2017 Tobacco Comment Quit 25+ years ago C [facility] Start: 1945 Sex Assigned At Not on file [facility] Start: 05-06-2022 End: 2022 Exposure to SARS-CoV-2 (event) Not sure [facility] Start: 1945 Sex Assigned At Male F [facility] History of tobacco use Current smoker [facility] Start: 2022 End: 12-14-2022 Gender identity Not on file [facility] Start: 2022 End: 12-14-2022 History of Social function [facility] National Score (1-100), lower number is lower risk 77 [facility] Clinical Notes 2022 to 08-19-2023 Telephone Encounter - Ricardo Duarte - 08/19/2023 4:37 PM EDTTelephone Encounter - Hanna Hyde - 08/13/2023 2:24 PM EDTTelephone Encounter - Hanna Hyde - 06/04/2023 1:12 PM EDT Note Date & Type Note Facility 08-19-2023 Miscellaneous Notes Formattin g of this note might be different from the original. Received referral request from [facility] to see patient again for dx: COPD, Right Diaphragm Dysfunction. Request is scanned into chart. documented in this encounter [facility] 08-13-2023 Miscellaneous Notes Formattin g of this note might be different from the original. Adonay Irby's spouse (Elizabeth) is requesting replacement filters for a nebulizer. She was unable to tell admin where it needed to be sent. documented in this encounter [facility] 06-04-2023 Miscellaneous Notes Formattin g of this note might be different from the original. Imported External PAP Therapy Report from [employer] (dated 06/04/23). Please allow time delay for documents to appear in Setup (Scanned Documents Tab). documented in this encounter [facility] 09-24-2022 Miscellaneous Notes Formattin g of this note might be different from the original. new order and office notes have been faxed to [employer] fax# [phone] Electronically signed by Vivian Castaneda [facility] at 09/24/2022 2:57 PM EST called [facility] [phone] they are in need of new script for supplies for his machine and also office notes please put in a new rx for supplies for his CPAP for me to fax over with office notes [facility] fax# [phone] Electronically signed by Vivian Castaneda [facility] [place] 09/24/2022 10:34 AM EST documented in this encounter [facility] 2022 History of Presen t illness Narrative 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 He has smoked 1 ppd for about 20 years but quit 25 years ago for no medical reason. On NIPPV since [address] Lizarraga. Now setup on a newer device at a setting of 21/12 with back up rate 10, since 09.21.2018. At his last visit, he was noted to have a progressive improvement in vital capacity but with continued evidence of diaphragm impairment. Improvement was attributed to intentional weight loss intentional weight loss from 203 pounds in 2017 to 174 at his last visit. He had achieved this by watching his diet and exercising on a treadmill. He remains adherent to his Pap therapy and deriving significant benefits from its use. He is here for his regular yearly visit. He has lost further weight to 163 with continued diet and exercise. He remains active: he cut down two trees in the past week without shortness of breath. He has been feeling great. Hes only problem is with his neck with pain on the left side. The pain improves and worsens with certain position. Scheduled to see a physician in that regard. He continues to have some shortness of breath lying flat. He was able to do the breathing tests while supine whreas he could not do so about 3 years ago. He has orthopnea at all with the device and no longer has to sleep with the elevated tors on his hospital bed. He is currently able to sleep flat with the device He continues usage of albuterol/ipratropium which he uses 4 times per day. He is not sure this has helped his breathing: may be a little. In the past not using the nebs would make him sleepy. He is now much improved. He has an oxygen concentrator but has not had to use t in over 2 years. PPSV 23 received .2017, with previous prevnar. He has received the COVID vaccine and booster. The rest of the relevant review of systems is as per the HPI PHYSICAL EXAM BP 118/60 Pulse (!) 48 Temp 36.2 C (97.1 F) (Temporal) Resp 17 Ht 175.3 cm (5' 9 ) Wt 74 kg (163 lb 2.3 oz) SpO2 97% BMI 24.09 kg/m SKIN: No rashes or lesions. Tanned on the back of the neck HEENT: No sinus tenderness. Oropharynx: Lips normal, mucosa sightly dry, and tongue normal. LN: no cervical or supraclavicular adenopathy LUNGS: clear to percussion, bilateral basal inspiratory crackles heard. No wheezing or rhonchi. Reduced excursion to 1+ finger breaths right hemidiaphragms by percussion, about 2 finger breadth on the left. Symmetric air entry this visit HEART: Distant heart sounds. RRR without murmur, gallop, or rubs. No ectopy. ABDOMEN: Soft, non-tender. Bowel sounds normal. No masses, organomegaly. Paradox in the supine position. EXTREMITIES: +2 pedal edema bilaterally. No deformities, or skin discoloration. No clubbing NEURO: Gait slow and station stooped. Mood and affect normal. DATABASE 2022 Neda LLN Pred ULN % Sup % %Chg FVC L 2.50 2.44 3.37 4.32 74.2 1.38 41.0 -44.7 FEV1 L 1.83 1.76 2.53 3.24 72.4 0.80 31.5 -56.5 FEV1/FVC % 73 61 76 89 96.9 58 76.3 -21.3 ----- ----- ----- ----- ----- ----- ----- ----- MIP cmH2O 32 50 88 125 36.0 MEP cmH2O 83 51 108 165 76.1 tcPCO2 mmHg 37.90 Device download [employer] outside DME account tagger to [facility] [employer] [facility] Usage 04/16/2022 - 05/15/2022 Usage days 29/30 days (97%) >= 4 hours 29 days (97%) Average usage (days used) 7 hours [address] Serial number [id number] Mode Spont Timed IPAP 21 cmH2O EPAP 12 cmH2O Respiratory rate 10 bpm Therapy Leaks - L/min Median: 0.8 95th percentile: 10.8 Maximum: 15.1 Events per hour AI: 2.3 HI: 8.7 AHI: 11.0 (compared to 7.5 last visit) Tidal Volume (ml) Median (avg) 582 (compared to 593 last visit) Respiratory Rate (breaths/min) Median (avg) 13 (compared to 12 last visit) Spontaneous breaths Triggered 62% (compared to 53% last visit) Cycled 90% Minute Ventilation (L/min) Median (avg) 7.4 SPIROMETRY SITTING AND SUPINE 03/08/21 Neda LLN Pred ULN % Post % %Chg FVC L 2.28 2.59 3.57 4.56 64.0 1.18 33.0 -48.4 FEV1 L 1.48 1.87 2.67 3.42 55.2 0.63 23.7 -57.0 FEV1/FVC % 65 61 75 89 85.7 54 71.4 -16.6 ----- ----- ----- ----- ----- ----- ----- ----- MIP cmH2O 36 90 101 111 35.8 MEP cmH2O 95 179 189 199 50.2 ETCO2 mmHg 41 tcPCO2 mmHg 41.8 SPIROMETRY SITTING AND SUPINE 01/27/20 Neda LLN Pred ULN % Sup % %Chg FVC L 1.56 2.62 3.60 4.60 43.4 0.88 24.4 -43.7 FEV1 L 1.08 1.90 2.71 3.46 40.1 0.53 19.5 -51.4 FEV1/FVC % 69 61 76 89 91.7 60 79.1 -13.7 MIP cmH2O 30 91 101 111 29.5 MEP cmH2O 75 180 190 200 39.4 Pulmonary Function Lab Pred LLN ULN Sitting % Supine % chg [id number] Time 12:21PM 12:37PM Height 170.2 170.2 Weight 88 88 FVC 3.74 2.89 4.60 1.29 35 0.57 -56 FEV 1 2.69 1.97 3.41 0.94 35 0.40 -58 FEV1%F 72.57 62.89 82.25 73.03 101 69.32 -5 PIMAX 101.78 75.02 128.5 26.72 26 PeMax 190.81 140.04 241.6 99.65 52 Pred LLN ULN Sitting % Supine % [facility] Date [id number] Time 09:57AM 10:09AM Height 170.2 170.2 Weight 88 88 FVC 3.74 2.89 4.60 1.25 33 0.55 -56 FEV 1 2.69 1.97 3.41 0.80 30 0.25 -69 FEV1%F 72.57 62.89 82.25 64.02 88 45.69 -29 ETCO2 52.00 PIMAX 101.78 75.02 128.5 27.03 27 PeMax 190.81 140.04 241.6 114.34 60 Device review September 10, 2018 Average of 9.05 hours of use/day in the past 6 months Setting 19/12 Spontaneous triggered breath 100% 6 months AHI 48.7 Leaks 0 TV 140-300 RR 11-22 Pred LLN ULN Sitting % Supine % [facility] Date [id number] Time 02:31PM 02:47PM Height 170.2 170.2 Weight 91.5 91.5 FVC 3.78 2.93 4.63 1.62 43 0.45 -72 FEV 1 2.73 2.01 3.45 1.09 40 0.38 -65 FEV1%F 72.78 63.10 82.46 67.35 93 85.04 26 PIMAX 102.33 75.02 129.6 33.66 33 PeMax 191.84 140.04 243.6 74.05 39 Pred LLN THANHN Sitting % Supine % [facility] Date [id number] Time 09:00AM 09:24AM Height 170.2 170.2 Weight 94 94 FVC 3.82 2.97 4.67 1.68 44 0.90 -47 FEV 1 2.77 2.05 3.49 1.25 45 0.55 -56 FEV1%F 72.98 63.31 82.66 74.24 102 61.49 -17 PCF 1.21 SNIF 30.00 ETCO2 48.00 PIMAX 102.88 75.02 130.7 33.35 32 PeMax 192.87 140.04 245.7 161.87 84 Polysomnogram August 11, 2012. Bilevel Pap titration Sleep efficiency 74%, sleep latency 14 minutes, stage I 13%, stage II 69% stage REM 70% While on BiPAP with a final pressure of 17/13 the patient had no respiratory events. The lowest oxygen saturation being 95% with 2 L of supplemental oxygen. No periodic limb movements Arterial blood gases on hospital admission [facility] April 13, 2017 PH 7.26, PCO2 87, PO2 56.7 while on bilevel 16/8 FiO2 35% Arterial blood gases April 14, 2017 pH 7.55, PCO2 61, PO2 58.9 while on bilevel Pap therapy 20/10, 30% FiO2 Cardiac echo April 14, 2017 Ejection fraction >55% normal left ventricular wall thickness. Mild left atrial dilatation Moderate right atrial dilatation Moderate dilatation of right ventricle possibly hypokinetic. 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 The restriction has very significantly and consistently improved from 44% in 2017 (severe), to normal on today's evaluation. This is almost certainly attributable to significant interim 44 pound weight loss from 207 to 163 lbs in the past 5 years. Otherwise, he continues to have significant diaphragm impairment, as evidenced by the profound sitting to supine drop in the vital capacity and a persistently severely reduced respiratory muscle strength. He fortunately adapted to noninvasive ventilation, deriving significant benefits from its use. Transcutaneous CO2 is normal. Further, the device download documents adequate support of tidal volume, and adequately reduced respiratory rate. MOLLY: There is a mild residual apnea-hypopnea index which does not need to be addressed in the context of profound clinical benefit, and control of air leaks. Nebulized albuterol/ipratropium was useful to him in the past but its not clear whether this is providing any additional support in the context of the recent weight loss. PLAN Continue IPAP 21/12 backup rate 10 I asked him to decrease albuterol/ipratropium nebulization to twice daily and perhaps even to as needed to facilitate secretion clearance if necessary. Yearly follow-up with PFTs and as needed in the interim Carlos Farris MD The following is provided for various regulatory, billing, insurance or documentation purposes:: Mr. Irby is not having pain related to the reason for this visit. I spent a total of 45 minutes on the date of the service which included preparing to see the patient, [id number] patient care, completing clinical documentation, obtaining and/or reviewing separately obtained history, performing a medically appropriate examination, counseling and educating the patient/family/caregiver, ordering medications, tests, or procedures, independently interpreting results (not separately reported) and communicating results to the patient/family/caregiver. 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 on pulmonary function testing [facility] 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 on pulmonary function testing documented in this encounter [facility] note* 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 Obstructive sleep apnea Obstructive sleep apnea (adult) (pediatric) documented in this encounter [facility] noteNo assessment [facility] Work [facility]: Evaluation note* 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 documented in this encounter [facility] note* 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 on pulmonary function testing Ineffective airway clearance Other dyspnea and respiratory abnormality documented in this encounter [facility] for referral (narrative)* Outpatient Procedure (Routine) - Pending Review Specialty Diagnoses / Procedures Referred By Brian moran Referred To [facility] RESPIRATORY DRASCO Diagnoses Disorder of diaphragm Post poliomyelitis syndrome Procedures MIPS/MEPS UNLISTED PULMONARY SERVICE/PROCEDURE Carlos Farris MD [address] [place] [address] [place] [address] Referral ID Status Reason Start Date Expiration Date Visits Requested Visits Authorized [id number] Pending Review Auto-Generat ed Referral 2022 06/15/2023 1 1 * Outpatient Procedure (Routine) - Pending Review Specialty Diagnoses / Procedures Referred By Brian moran Referred To [facility] RESPIRATORY [facility] Diagnoses Disorder of diaphragm Post poliomyelitis syndrome Procedures SPIROMETRY SITTING AND SUPINE SPMTRY W/VC EXPIRATORY EDIE W/WO MXML VOL VNTJ Carlos Farris MD [address] [place] [address] [place] [address] Referral ID Status Reason Start Date Expiration Date Visits Requested Visits Authorized [id number] Pending Review Auto-Generat ed Referral 2022 06/15/2023 1 1 [facility] Advance Directives No Advanced Directives Records Found Advance Directive Response Recorded Date/ Time Advance Directives No December 15, 2018 6:46pm Summary Purpose Family History No Family History Records FoundNo Family History Records FoundNo Family History Records FoundNo Family History Records FoundNo Family History Records Found Additional Source Comments Source Comments (unrecognize d section and content) In the event this informatio n is protected by the Federal Confidentiality of Alcohol and Drug Abuse Patient Records regulations: The Federal rules restrict any use of the information to criminally investigate or prosecute any alcohol or drug abuse patient.[facility] the event this information is protected by the Federal Confidentiality of Alcohol and Drug Abuse Patient Records regulations: The Federal rules restrict any use of the information to criminally investigate or prosecute any alcohol or drug abuse patient.[facility] the event this information is protected by the Federal Confidentiality of Alcohol and Drug Abuse Patient Records regulations: The Federal rules restrict any use of the information to criminally investigate or prosecute any alcohol or drug abuse patient.[facility] the event this information is protected by the Federal Confidentiality of Alcohol and Drug Abuse Patient Records regulations: The Federal rules restrict any use of the information to criminally investigate or prosecute any alcohol or drug abuse patient.[facility] the event this information is protected by the Federal Confidentiality of Alcohol and Drug Abuse Patient Records regulations: The Federal rules restrict any use of the information to criminally investigate or prosecute any alcohol or drug abuse patient.[facility] the event this information is protected by the Federal Confidentiality of Alcohol and Drug Abuse Patient Records regulations: The Federal rules restrict any use of the information to criminally investigate or prosecute any alcohol or drug abuse patient.[facility] HospitalIn the event this information is protected by the Federal Confidentiality of Alcohol and Drug Abuse Patient Records regulations: The Federal rules restrict any use of the information to criminally investigate or prosecute any alcohol or drug abuse patient.[facility] Reason for Visit (unrecogniz ed section and content) Reason Comments Spirometry Specialty Diagnoses / Procedures Referred By Contac t Referred To [facility] RESPIRATORY DRASCO 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 Procedures MIPS/MEPS UNLISTED PULMONARY SERVICE/PROCEDURE Carlos Farris MD [address] [place] [address] [place] [address] Referral ID Status Reason Start Date Expiration Date V isits Requested Visits Authorized [id number] Closed Auto-Generate d Referral 12/04/2021 01/03/2023 1 1 Specialty Diagnoses / Procedures Referred By Contac t Referred To [facility] RESPIRATORY DRASCO 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 Procedures SPIROMETRY SITTING AND SUPINE SPMTRY W/VC EXPIRATORY EDIE W/WO MXML VOL VNTJ Carlos Farris MD [address] [place] [address] [place] [address] Referral ID Status Reason Start Date Expiration Date V isits Requested Visits Authorized [id number] Closed Auto-Generate d Referral 12/04/2021 01/03/2023 1 1 Reason Comments 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 Received Outside Medical Records Reason Onset Date Comments Filters for Nebulizer 08/13/2023 Reason Comments Referral Request Care Teams (unrecognized sec tion and content) Life Insurance Sales Agent Relationship Specialty Start Date End Date Kamilla Huizar MD PCP - General Family Practice 04/17/17 Life Insurance Sales Agent Relationship Specialty Start Date End Date Kamilla Huizar MD PCP - General Family Practice 04/17/17 Life Insurance Sales Agent Relationship Specialty Start Date End Date Kamilla Huizar MD PCP - General Family Practice 04/17/17 Team Status: Inactive Member Role Status Dates Joao Barba MD Attending Provider Active Life Insurance Sales Agent Relationship Specialty Start Date End Date Kamilla Huizar MD PCP - General Family Medicine 04/17/17 Life Insurance Sales Agent Relationship Specialty Start Date End Date Kamilla Huizar MD PCP - General Family Medicine 04/17/17 Life Insurance Sales Agent Relationship Specialty Start Date End Date Kamilla Huizar MD PCP - General Family Medicine 04/17/17 Goals (unrecognized section and content) Goals may be documented in a n alternate section (unrecognized sect ion and content) No Status Records FoundNo Status Records FoundNo Status Records FoundNo Status Records FoundNo Status Records Found INFORMATION SOURCE (unrecogn ized section and content) DATE CREATED AUTHOR 06/25/2022 [facility] DATE CREATED AUTHOR AUTHOR'S ORGANIZ ATION 04/24/2023 [facility] DATE CREATED AUTHOR AUTHOR'S ORGANIZ ATION 09/01/2023 [facility] DATE CREATED AUTHOR AUTHOR'S ORGANIZ ATION 10/16/2023 [facility] DATE CREATED AUTHOR AUTHOR'S ORGANIZ ATION 11/25/2023 [facility] FOR RECORDS PERTAINING TO PATIENTS WHO ARE OR HAVE BEEN ENROLLED IN A CHEMICAL DEPENDENCY/SUBSTANCEABUSE PROGRAM, SOME INFORMATION MAY BE OMITTED. This clinical summary was aggregated from multiple sources. Caution should be exercised in using it in the provision of clinical care. This summary normalizes information from multiple sources, and as a consequence, information in this document may materially change the coding, format and clinical context of patient data. In addition, data may be omitted in some cases. CLINICAL DECISIONS SHOULD BE BASED ON THE PRIMARY CLINICAL RECORDS. [employer] provides no warranty or guarantee of the accuracy or completeness of information in this document.
[2023-12-30 07:44] LABS: Basophils Absolute Auto 0.1 10^3/uL (0.0-0.1); Basophils Percent Auto 1.7 % (0.2-2.0); Eosinophils Absolute Auto 0.1 10^3/uL (0.0-0.7); Eosinophils Percent Auto 1.7 % (0.9-7.0); Hematocrit 39.6 % (42.0-54.0); Hemoglobin 12.5 g/dL (14.0-18.0); Immature Granulocytes Abs Auto 0.03 10^3/uL (0.00-0.03); Immature Granulocytes Pct Auto 0.5 % (0.0-0.5); Lymphocytes Absolute Auto 1.6 10^3/uL (1.2-3.8); Lymphocytes Percent Auto 26.9 % (20.5-60.0); Mean Corpuscular HGB Conc 31.6 g/dL (29.9-35.2); Mean Corpuscular Volume 101.3 fL (80.0-94.0); Mean Platelet Volume 10.1 fL (9.5-13.5); Monocytes Absolute Auto 0.7 10^3/uL (0.3-0.8); Monocytes Percent Auto 11.7 % (1.7-12.0); Neutrophils Absolute Auto 3.4 10^3/uL (1.4-6.5); Neutrophils Percent Auto 57.5 % (43.0-75.0); Platelet Count 185 10^3/uL (150-450); Red Blood Count 3.91 10^6/uL (4.70-6.10); Red Cell Distribution Width 14.2 % (11.0-15.0); White Blood Count 5.8 10^3/uL (4.0-11.0)
[2023-12-30 07:57] LABS: Erythrocyte Sedimentation Rate 11 mm/hr (<=20)
[2023-12-30 08:07] LABS: Alanine Aminotransferase 32 U/L (16-63); Albumin Globulin Ratio 1.1; Albumin Level 3.5 g/dL (3.4-5.0); Alkaline Phosphatase 63 U/L (46-116); Anion Gap 10.7; Aspartate Amino Transferase 20 U/L (15-37); BUN Creatinine Ratio 24.7; Bilirubin Total 0.7 mg/dL (0.2-1.0); Carbon Dioxide 31.3 mmol/L (21.0-32.0); Chloride 108 mmol/L (98-107); Estimated GFR (African America >60 (>=60); Estimated GFR (Non-African Ame >60 (>=60); Globulin 3.3 g/dL; Glucose 104 mg/dL (74-106); Sodium 146 mmol/L (136-145); Total Protein 6.8 g/dL (6.4-8.2)
== END 2023-12-30 07:29 | disposition home or self-care (01) ==
LOC: LAB 07:30
PROVIDERS: PCP Family Medicine; Visit Provider Registered Nurse
DX: H15.012 Anterior scleritis, left eye (principal); Z79.899 Other long term (current) drug therapy
CPT/HCPCS: 36415; 80053; 85025; 85652

== ENCOUNTER 2024-04-13 08:48 | Outpatient (OUT) | payer MEDICARE, OTHER, SELFPAY ==
--- OUTSIDE RECORDS SUMMARY | 2024-04-13 09:12 | XMS_ITS | CCD ---
Author Organization [facility] Care Team Providers Care Filemaker Developer Name Role Phone Kamilla Huizar MD Primary Care Provider [phone] MD Joao Barba Attending Provider Kamilla Huizar MD Primary Care Provider [phone] MELANIE ., DR KOHLI Primary Care Unavailable [...] BARBA, DR DE LA FUENTE Attending Unavailable FREDA, DR DE LA FUENTE Consulting Unavailable Kamilla Huizar MD Primary Care Provider [phone] BELLA CORONADO Attending Unavailable BRIDGER NORRIS Attending Unavailable Kamilla Huizar MD Primary Care Provider [phone] CARLOS FARRIS Referring Unavailable KAMILLA HUIZAR Primary Care Unavailable KAMILLA HUIZAR Primary Care Unavailable CARLOS FARRIS Referring Unavailable CARLOS FARRIS Attending Unavailable KAMILLA HUIZAR Primary Care Unavailable CARLOS FARRIS Referring Unavailable Allergies Allergy Classification Reported Allergen(s) Allergy Type Date of Onset Reaction(s) Facility Sulfamethoxazole / Trimethoprim (1 source) Sulfamethoxazole / Trimethoprim Drug Allergy 1 Anaphylaxis [facility] (10 sources) Sulfamethoxazole / Trimethoprim; Translations: [SULFAMETHOXAZOLE-TR IMETHOPRIM] Drug Allergy 1 Anaphylaxis [facility] (2 sources) Sulfamethoxazole / Trimethoprim; Translations: [Bactrim] Drug Allergy [facility] Medications Current Medications Medication Drug Class(es) Dates Sig (Normalized) Sig (Original) albuterol 0.833 mg/ml / ipratropium bromide 0.167 mg/ml inhalation solution (10 sources) Anticholinergic, beta2-Adrenergic Agonist Start: 04-23-2017 take 3 mL by inhalation four times daily ipratropium-albuter ol (DUONEB) 0.5 mg-3 mg(2.5 mg base)/3 mL nebu Inhale 3 mL as instructed four times daily. 0 04/23/2017 Active Comment on above: Inhale 3 mL as instr ucted four times daily. BIPAP (10 sources) Start: 09-10-2018 BIPAP Please provide with [...] cmH2O, FVC 33% COPD IS NOT PRESENT CPAP/BIPAP/OTHER (7 sources) Start: 09-24-2022 End: 02-08-2050 CPAP/BIPAP/OTHER Type .CPAPSettings into a note to see current settings/supplies/D ME information. 1 Each 0 09/24/2022 02/08/2050 Active Comment on above: Type .CPAPSettings i nto a note to see current settings/supplies/DME information. finasteride 5 mg oral tablet (10 sources) 5-alpha Reductase Inhibitor Start: 04-23-2017 take 1 tablet by mouth once daily finasteride (PROSCAR) 5 mg tablet Take 1 tablet by mouth once daily. 0 04/23/2017 Active Comment on above: Take 1 tablet by fredy th once daily. furosemide 20 mg oral tablet (10 sources) Loop Diuretic Start: 04-23-2017 take 1 tablet by mouth once daily furosemide (LASIX) 20 mg tablet Take 1 tablet by mouth once daily. 0 04/23/2017 Active Comment on above: Take 1 tablet by fredy th once daily. latanoprost 0.05 mg/ml ophthalmic solution (10 sources) Prostaglandin Analog Start: 04-23-2017 take 1 [...] in both e yes daily at bedtime. potassium chloride 10 meq extended release oral tablet (10 sources) Start: 7 take 1 tablet by mouth once daily potassium chloride (KLOR-CON 10) 10 mEq tablet Take 1 tablet by mouth once daily. 0 04/23/2017 Active Comment on above: Take 1 tablet by fredy th once daily. propranolol hydrochloride 60 mg oral tablet (10 sources) beta-Adrenergic Alessia Start: 7 take 1 tablet by mouth once daily propranolol (INDERAL) 60 mg tablet Take 1 tablet by mouth once daily. 0 04/23/2017 Active Comment on above: Take 1 tablet by fredy th once daily. simvastatin 20 mg oral tablet (10 sources) HMG-CoA Reductase Inhibitor Start: 7 take 1 tablet by mouth once daily at bedtime simvastatin (ZOCOR) 20 mg tablet Take 1 tablet by mouth daily at bedtime. 0 04/23/2017 Active Comment on above: Take 1 tablet by fredy th daily at bedtime. tamsulosin hydrochloride 0.4 mg oral capsule (10 sources) alpha-Adrenergic Alessia Start: 7 take 1 capsule by mouth once daily at bedtime tamsulosin ER (FLOMAX) 0.4 mg cp24 Take 1 capsule by mouth daily at bedtime. 0 04/23/2017 Active Comment on above: Take 1 capsule by mo uth daily at bedtime. Completed/Discontinued Medications Medication Drug Class(es) Dates Sig (Normalized) Sig (Original) Nebulizer Accessories kit (1 source) Start: 08-14-2023 End: 08-14-2023 Nebulizer Accessories kit Indications: Post poliomyelitis syndrome , Restrictive pattern present on pulmonary function testing , Ineffective airway clearance 1 Kit one time only for 1 dose. Please include filters. 1 Kit 0 08/14/2023 08/14/2023 Comment on above: 1 Kit one time only for 1 dose. Please include filters. 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 Other lower respiratory disease (13 sources) Disorder of diaphragm; Translations: [Disorders of diaphragm] Onset: 04-23-2017 04-23-2017 Episodic Other lower respiratory disease (1 source) Ineffective airway clearance; Translations: [Other abnormalities of breathing] 08-14-2023 Episodic Other nervous system disorders (2 sources) Disorder of nervous system; Translations: [Other disorders of nervous system] 04-08-2024 Episodic Other nervous system disorders (1 source) Other disorders of nervous system; Translations: [Disorder of nervous system] Onset: 04-08-2024 Episodic Other screening for suspected conditions (not mental disorders or infectious disease) (4 sources) Lung function testing abnormal; Translations: [Abnormal results of pulmonary function studies] Onset: 04-15-2023 Episodic Pulmonary heart disease (1 source) Pulmonary hypertension, unspecified; Translations: [PULMONARY HYPERTENSION UNSPECIFIED] Onset: 04-15-2023 Chronic Residual codes; unclassified (12 sources) Obstructive sleep apnea syndrome; Translations: [Obstructive [...] Translations: [ACUTE BRONCHITIS UNSPECIFIED] Onset: 01-10-2023 Episodic Unclassified (1 source) CONTACT W/AND (SUSP) EXPOS COVID-19; Translations: [CONTACT W/AND (SUSP) EXPOS COVID-19] Onset: 01-07-2023 Results Test Name Value Interpretation Reference Range Facility CNOVon 04-08-2024 CNOV Office Visit (PULMMN ) ADONAY IRBY ([id number]) 1945 M Date Time Provider Department 04/08/24 10:30 AM CARLOS FARRIS PULMMN During your visit today, we recorded the following information about you: Temperature Pulse Respiration Blood pressure 97 degrees 47/minute 19/minute 141/75 Weight 75.1 kg Carlos Farris MD 04/08/2024 12:27 PM Signed 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 He continued to have a severe drop in the supine position and impairment in overall respiratory muscle strength but no hypercapnia remain active, able to cut down to trees in the week preceding his visit. He remained adapted to noninvasive ventilation with normal transcutaneous CO2, adequate support of tidal volume and respiratory rate. There was a mild residual elevation in the apnea-hypopnea index at 11.0 which was not addressed further in the context of the clinical improvement and controlled leaks. He has put on 10 lbs and lost is back and is back to about 165 lbs. He does feels significant benefit from having lost the weight with more energy, less shortness of breath. He can lie flat and was able to test supine today without SOB whereas he would panic when I had first seen him. He has been doing well with walking with no shortness of breath. He has been adherent to bilevel PAP and feels I would be lost without it . With it he can sleep on his back almost flat. Sleep quality is improved. No morning headaches. He has been getting regular supplies. He has been using the nebulizer with albuterol/ipratropium and cut back on using it from 4 times per day to once per day in the evening before bed time. This helps bring up phlegm once in a while. He has received the flu shot for this past season. PPSV 23 received , with previous prevnar. he has had tremors since high school (both sibling also have it) controlled with inderal. He has a slow heart rate but without dizziness (occasional dizzines if he gets up too quickly). he has rony more forgetful and worse don;t come out as easily for him. He has no loss of taste or smell. NO dream enactment. The rest of the relevant review of systems is as per the HPI PHYSICAL EXAM BP 141/75 Pulse (!) 47 Temp 36.1 ?C (97 ?F) (Temporal) Resp 19 Wt 75.1 kg (165 lb 9.1 oz) SpO2 99% BMI 24.45 kg/m? SKIN: No rashes or lesions. HEENT: No sinus tenderness. Oropharynx: Lips normal, mucosa moist this visit, and tongue normal. There appears to be red patches on the oropharynx behind his upper plate. He has been aware of discomfort in the past two days. Those appears to be svetlana from hot items but he does not recall such an event recently. LN: no cervical or supraclavicular adenopathy LUNGS: clear to percussion, bilateral inspiratory crackles heard as on the last visit. No wheezing or rhonchi. Symmetric air entry HEART: Distant heart sounds but bradycardic. RRR without murmur, gallop, or rubs. No ectopy. ABDOMEN: Soft, non-tender. Bowel sounds normal. No masses, organomegaly. EXTREMITIES: +2 pedal edema bilaterally (he tells me it resolves in the morning). No deformities, or skin discoloration. No clubbing NEURO: Rest tremors noted. Gait slow and station stooped. Mood and affect normal. DATABASE [employer] is [employer]. [employer] [facility] 03/09/2024 - 04/07/2024 Usage days 28/30 days (93%) >= 4 hours 28 days (93%) Usage hours 212 hours 11 minutes Average usage (total days) 7 hours 4 minutes Average usage (days used) 7 hours 35 minutes Median usage (days used) 7 hours 35 minutes Total used hours (value since last reset - 04/07/2024) 6,[address] Serial number [id number] Mode Spont Timed IPAP 21 cmH2O (same settings at previous) EPAP 12 cmH2O Respiratory rate 10 bpm TI min 0.3, TI max 2.0 Therapy Leaks - L/min Median: 12.6 95th percentile: 40.0 (from 10.8 but within norm since March 25) maximum: 54.6 Events per hour AI: 1.3 HI: 8.0 AHI: 9.3 (compared to 11 and 7.5 previous 2 visits) Tidal Volume (ml) Median (avg) 879 Respiratory Rate (breaths/min) Median (avg) 11 Spontaneous breaths Triggered 46% (from 62% and 53% previous 2 visits) Cycled 73% (from 90% last visit) April 08, 2024 weight 165 lb Pre Challenge Post Pred LLN ULN Actual %Pr (more content not included)... [facility] Patient Letter FTMCon 2022 Patient Letter [facility] (Inserted Image. Kayla ble to display) October 14, 2023 ADONAY RIBY [address] [place] [address] : 1945 Dear Adonay, This is a reminder that you are due for an appointment with [facility]. Please contact our office at [phone] to schedule an appointment at your earliest convenience. Thank you, [facility] Reminderson 10-14-2023 Reminders - From: Raven Sepulveda To: [facility] - Reminders/Recalls; Sent: 10/14/2023 10:33:18 EST Show up: 10/14/2023 10:33:00 EST Subject: Ambulatory Reminder Reminder/Recall 5 year colon recall mamie freed 11/07 first recall letter [facility] 08-19-2023 CNPN Telephone (PMNA11) ADONAY IRBY ([id number]) 1945 M Date Time Provider Department 08/19/23 [facility] PROVIDER PMNA11 During your visit today, we recorded the following information about you: Ricardo Duarte 08/19/2023 4:42 PM Signed Received referral request from [facility] to see patient again for dx: COPD, Right Diaphragm Dysfunction. Request is scanned into chart. Allergies As of Date: 08/19/2023 Noted Allergy Reaction SULFAMETHOXAZOLE-TRIMET HOPRIM 03/08/2021 10 [...] Encounter Status:Closed by RICARDO DUARTE [facility]31[facility]PULMMN[facility] ADONAY IRBY ([id number]) 1945 M Date Time Provider Department 08/13/23 CARLOS FARRIS PULMMN During your visit today, we recorded the following information about you: Hanna Hyde 08/13/2023 2:38 PM Signed Adonay Irby's spouse (Elizabeth) is requesting replacement filters for a nebulizer. She was unable to tell admin where it needed to be sent. Allergies As of Date: 08/13/2023 Noted Allergy Reaction SULFAMETHOXAZOLE-TRIMET HOPRIM 03/08/2021 10 - Anaphylaxis Date Reviewed: 2022 Reviewed by: Tellado Ma, Nancy - Fully Assessed Reason for Visit: Filters [...] KIT 1 Kit 0 08/14/2023 08/14/2023 Route: [facility] Si Kit one time only for 1 dose. Please include filters. Encounter Status:Closed by OSWALDO WILEY on 08/14/23 [facility]enson 06-25-2023 Screens [id number] CD:127 Normal [facility] Patient Educationon 06-24-20 Patient Education Urology Benign [...] Follow these instructions at home: ? Take zlox-alo-wmjvekx and prescription medicines only as told by [...] the medicine (more content not included)... Normal [facility] Provider Letteron 06-24-2023 Provider Letter (Inserted Image. Kayla ble to display) Kamilla Huizar, [address] [place] [address] Re: ADONAY WALLMANJU Date of : [address]Hoy ADAMS, Kamilla IRBYADONAY was evaluated at [facility] 06/24/2023 13:20:00 As this patient has [...] Thanks! Provider Signature: Bella Coronado PA-C Physician Barrel Tester [facility] [address] [place] [address] Normal [facility] Urology Office/Clinic Noteon 06-24-2023 Urology Office/Clinic Note [...] When Contact Information BELLA CORONADO PA-C, URL [address] [place] [address] Additional Instructions: PRN Patient Education Benign Prostatic [...] Hypertension: Father. Immunizations Vaccine Date Status SARSCoV2 mRNA(vitsoxztb-mbdk-ejr ros) vac 07/09/2022 Recorded SARS-CoV-2 (COVID-19) mRNA BNT-162b2 vax 10/15/2021 Recorded SARS-CoV-2 (COVID-19) mRNA-1273 vaccine 02/09/2021 Recorded SARS-CoV-2 (COVID-19) mRNA-1273 vaccine 01/12/2021 Recorded influenza virus vaccine, inactivated 08/31/2020 Recorded influenza virus vaccine, live, trivalent 08/24/2019 Recorded influenza virus vaccine, inactivated 08/27/2018 Recorded p (more content not included)... Normal [facility] Comment on above: Result Comment: Elec tronically Signed By: BELLA CORONADO PA-C\.br\Date and Time Signed: 06/24/23 14:14 EDT\.br\Electronically Co-Signed By: Rajani Crane\.br\Date and Time Co-Signed: 06/24/23 13:53 EDT CNPNon 06-04-2023 CNPN Telephone (PULMMN) ADONAY IRBY ([id number]) 1945 Date Time Provider Department 06/04/23 CARLOS FARRIS S PULMMN During your visit today, we recorded the following information about you: Hanna Hyde 06/04/2023 1:15 PM Signed Imported External PAP Therapy Report from [facility] (dated 06/04/23). Please allow time delay for documents to appear in [email or web address] (Scanned Documents Tab). Allergies As of Date: [...] Status:Closed by HANNA HYDE on 06/04/23 [facility] INSULINon 04-09-2023 Insulin 2.9 uIU/mL Normal 2.6-24.9 [facility] Comment on above: Performed By: #### L IPID, T7, CMP, URIC, TSH #### [facility] [address] [address] [address] Roland Gr CBC AUTO DIFFon 04-08-2023 BASO # 0.0 103/ul Normal 0.0-0.1 [facility] Comment on above: Performed By: #### C VDTBH #### [facility] [address] [place] [address] Dr. Roland Gr Basophils/100 WBC (Bld) 0.7 % Normal 0.2-2.0 [facility] Comment on above: Performed By: #### C VDTBH #### [facility] [address] [place] [address] Dr. Roland Gr EO # 0.1 103/ul Normal 0.0-0.7 [facility] Comment on above: Performed By: #### C VDTBH #### [facility] [address] [place] [address] Dr. Roland Gr Eosinophils/100 WBC (Bld) 0.9 % Normal 0.9-7.0 [facility] Comment on above: Performed By: #### C VDTBH #### [facility] [address] [place] [address] Dr. Roland Gr Erythrocyte distribution width (RBC) [Ratio] 14.7 % Normal 11.0-15.0 [facility] Comment on above: Performed By: #### C VDTBH #### [facility] [address] [place] [address] Dr. Roland Gr Hematocrit (Bld) [Volume fraction] 39.1 % Critically low 42.0-54.0 [facility] Comment on above: Performed By: #### C VDTBH #### [facility] [address] [place] [address] Dr. Roland Gr Hemoglobin (Bld) [Mass/Vol] 12.6 g/dL Critically low 14.0-18.0 [facility] Comment on above: Performed By: #### C VDTBH #### [facility] [address] [place] [address] Dr. Roland Gr IG # 0.03 10e3/ul Normal 0.00-0.03 [facility] Comment on above: Performed By: #### C VDTBH #### [facility] [address] [place] [address] Dr. Roland Gr IG % 0.5 % Normal 0.0-0.5 [facility] Comment on above: Performed By: #### C VDTBH #### [facility] [address] [place] [address] Dr. Roland Gr LYMPH # 1.4 103/ul Normal 1.2-3.8 [facility] Comment on above: Performed By: #### C VDTBH #### [facility] [address] [place] [address] Dr. Roland Gr Lymphocytes/100 WBC (Bld) 23.6 % Normal 20.5-60.0 [facility] Comment on above: Performed By: #### C VDTBH #### [facility] [address] [place] [address] Dr. Roland Gr MANUAL DIFF REQ NO Normal [facility] Comment on above: Performed By: #### C VDTBH #### [facility] [address] [place] [address] Dr. Roland Gr MCH (RBC) [Entitic mass] 31.7 pg Normal 25.9-34.0 [facility] Comment on above: Performed By: #### C VDTBH #### [facility] [address] [place] [address] Dr. Roland Gr MCHC (RBC) [Mass/Vol] 32.2 g/dL Normal 29.9-35.2 [facility] Comment on above: Performed By: #### C VDTBH #### [facility] [address] [place] [address] Dr. Roland Gr MCV (RBC) [Entitic vol] 98.5 fL Critically high 80.0-94.0 [facility] Comment on above: Performed By: #### C VDTBH #### [facility] [address] [place] [address] Dr. Roland Gr MONO # 0.7 103/ul Normal 0.3-0.8 [facility] Comment on above: Performed By: #### C VDTBH #### [facility] [address] [place] [address] Dr. Roland rG Monocytes/100 WBC (Bld) 11.8 % Normal 1.7-12.0 [facility] Comment on above: Performed By: #### C VDTBH #### [facility] [address] [place] [address] Dr. Roland Gr NEUT # 3.7 103/ul Normal 1.4-6.5 [facility] Comment on above: Performed By: #### C VDTBH #### [facility] [address] [place] [address] Dr. Roland Gr Neutrophils/100 WBC (Bld) 62.5 % Normal 43.0-75.0 [facility] Comment on above: Performed By: #### C VDTBH #### [facility] [address] [place] [address] Dr. Roland Gr Platelet mean volume (Bld) [Entitic vol] 10.2 fL Normal 9.5-13.5 [facility] Comment on above: Performed By: #### C VDTBH #### [facility] [address] [place] [address] Dr. Roland Gr PLT 180 103/ul Normal 150-450 [facility] Comment on above: Performed By: #### C VDTBH #### [facility] [address] [place] [address] Dr. Roland Gr RBC 3.97 106/ul Critically low 4.70-6.10 [facility] Comment on above: Performed By: #### C VDTBH #### [facility] [address] [place] [address] Dr. Roland Gr WBC 5.9 103/ul Normal 4.0-11.0 [facility] Comment on above: Performed By: #### C VDTBH #### [facility] [address] [place] [address] Dr. Roland Gr FREE THYROXINE INDEX T7on FTI 2.81 Normal 1.30-4.50 [facility] Comment on above: Performed By: #### L IPID, T7, CMP, URIC, TSH #### [facility] [address] [place] [address] Dr. Roland Gr T3U 38.0 % Normal 33.0-40.0 [facility] Comment on above: Performed By: #### L IPID, T7, CMP, URIC, TSH #### [facility] [address] [address] [address] Roland Gr T4 [Mass/Vol] 7.40 ug/dL Normal 4.50-12.10 [facility] Comment on above: Performed By: #### L IPID, T7, CMP, URIC, TSH #### [facility] [address] [place] [address] Dr. Roland Gr GLYCOHEMOGLOBIN A1Con 2022 ADA RECOMMENDATION SEE BELOW Normal [facility] Comment on above: Result Comment: ADA RECOMMENDED LIMIT 4.0 - 6.0 ADA THERAPEUTIC TARGET < 7.0 ACTION SUGGESTED > 7.0 Performed By: #### A 1C #### [facility] [address] [place] [address] Dr. Roland Gr Glucose [Mass/Vol] 103 mg/dL Normal [facility] Comment on above: Performed By: #### A 1C #### [facility] [address] [place] [address] Dr. Roland Gr HbA1c (Bld) [Mass fraction] 5.2 % Normal 4.5-6.2 [facility] Comment on above: Performed By: #### A 1C #### [facility] [address] [place] [address] Dr. Roland Gr LIPID PROFILEon 04-08-2023 CHOL-HDL RATIO NORM SEE BELOW Normal [facility] Comment on above: Result Comment: 3.3 - 4.4 LOW RISK 4.4 - 7.1 AVERAGE RISK 7.1 - 11.0 MODERATE RISK >11.0 HIGH RISK Performed By: #### L IPID, T7, CMP, URIC, TSH #### [facility] [address] [place] [address] Dr. Roland Gr Cholesterol [Mass/Vol] 134 mg/dL Normal <=200 [facility] Comment on above: Performed By: #### L IPID, T7, CMP, URIC, TSH #### [facility] [address] [address] [address] Roland Gr Cholesterol in HDL [Mass/Vol] 74 mg/dL Critically high 40-60 [facility] Comment on above: Performed By: #### L IPID, T7, CMP, URIC, TSH #### [facility] [address] [address] [address] Roland Gr Cholesterol in LDL [Mass/Vol] 50.0 mg/dL Normal [facility] Comment on above: Performed By: #### L IPID, T7, CMP, URIC, TSH #### [facility] [address] [address] [address] Roland Gr Cholesterol.total/Ch olesterol in HDL [Mass ratio] 1.8 {ratio} Normal [facility] Comment on above: Performed By: #### L IPID, T7, CMP, URIC, TSH #### [facility] [address] [address] [address] Roland Gr HDL NORMAL > or = 60 mg/dl - LO W CARDIOVASCULAR RISK <40 mg/dl - HIGH CARDIOVASCULAR RISK Normal [facility] Comment on above: Performed By: #### L IPID, T7, CMP, URIC, TSH #### [facility] [address] [address] [address] Roland Gr LDL CALC NORMAL SEE BELOW Normal [facility] Comment on above: Result Comment: <100 mg/dl OPTIMAL 100 - 129 mg/dl NEAR OR ABOVE OPTIMAL 130 - 159 mg/dl BORDERLINE HIGH 160 - 189 mg/dl HIGH >190 mg/dl VERY HIGH Performed By: #### L IPID, T7, CMP, URIC, TSH #### [facility] [address] [address] [address] Roland Gr Triglyceride [Mass/Vol] 50 mg/dL Normal <=150 [facility] Comment on above: Performed By: #### L IPID, T7, CMP, URIC, TSH #### [facility] [address] [address] [address] Roland Gr VLDL CALC 10.0 mg/dL Normal [facility] Comment on above: Performed By: #### L IPID, T7, CMP, URIC, TSH #### [facility] [address] [place] [address] Dr. Roland Gr PROF 14(COMP METB)on 023 Albumin [Mass/Vol] 3.6 g/dL Normal 3.4-5.0 [facility] Comment on above: Performed By: #### L IPID, T7, CMP, URIC, TSH #### [facility] [address] [place] [address] Dr. Roland Gr Albumin/Globulin [Mass ratio] 1.1 {ratio} Normal [facility] Comment on above: Performed By: #### L IPID, T7, CMP, URIC, TSH #### [facility] [address] [place] [address] Dr. Roland Gr ALP [Catalytic activity/Vol] 64 U/L Normal 46-116 [facility] Comment on above: Performed By: #### L IPID, T7, CMP, URIC, TSH #### [facility] [address] [place] [address] Dr. Roland Gr ALT [Catalytic activity/Vol] 25 U/L Normal 16-63 [facility] Comment on above: Performed By: #### L IPID, T7, CMP, URIC, TSH #### [facility] [address] [place] [address] Dr. Roland Gr Anion gap [Moles/Vol] 13.2 mmol/L Normal [facility] Comment on above: Performed By: #### L IPID, T7, CMP, URIC, TSH #### [facility] [address] [place] [address] Dr. Roland Gr AST [Catalytic activity/Vol] 18 U/L Normal 15-37 [facility] Comment on above: Performed By: #### L IPID, T7, CMP, URIC, TSH #### [facility] [address] [place] [address] Dr. Roland Gr Bilirubin [Mass/Vol] 0.9 mg/dL Normal 0.2-1.0 [facility] Comment on above: Performed By: #### L IPID, T7, CMP, URIC, TSH #### [facility] [address] [address] [address] Roland Gr Calcium [Mass/Vol] 9.0 mg/dL Normal 8.5-10.1 [facility] Comment on above: Performed By: #### L IPID, T7, CMP, URIC, TSH #### [facility] [address] [place] [address] Dr. Roland Gr Chloride [Moles/Vol] 109 mmol/L Critically high 98-107 [facility] Comment on above: Performed By: #### L IPID, T7, CMP, URIC, TSH #### [facility] [address] [place] [address] Dr. Roland Gr CO2 [Moles/Vol] 28.9 mmol/L Normal 21.0-32.0 [facility] Comment on above: Performed By: #### L IPID, T7, CMP, URIC, TSH #### [facility] [address] [place] [address] Dr. Roland Gr Creatinine [Mass/Vol] 0.85 mg/dL Normal 0.70-1.30 [facility] Comment on above: Performed By: #### L IPID, T7, CMP, URIC, TSH #### [facility] [address] [place] [address] Dr. Roland Gr EGFR-AF MOROCCAN >60 Normal >=60 [facility] Comment on above: Performed By: #### L IPID, T7, CMP, URIC, TSH #### [facility] [address] [place] [address] Dr. Roland Gr EGFR-NON AF MOROCCAN >60 Normal >=60 [facility] Comment on above: Performed By: #### L IPID, T7, CMP, URIC, TSH #### [facility] [address] [place] [address] Dr. Roland Gr Globulin (S) [Mass/Vol] 3.4 g/dL Normal [facility] Comment on above: Performed By: #### L IPID, T7, CMP, URIC, TSH #### [facility] [address] [place] [address] Dr. Roland Gr Glucose [Mass/Vol] 93 mg/dL Normal 74-106 [facility] Comment on above: Performed By: #### L IPID, T7, CMP, URIC, TSH #### [facility] [address] [place] [address] Dr. Roland Gr Potassium [Moles/Vol] 4.1 mmol/L Normal 3.5-5.1 [facility] Comment on above: Performed By: #### L IPID, T7, CMP, URIC, TSH #### [facility] [address] [place] [address] Dr. Roland Gr Protein [Mass/Vol] 7.0 g/dL Normal 6.4-8.2 [facility] Comment on above: Performed By: #### L IPID, T7, CMP, URIC, TSH #### [facility] [address] [place] [address] Dr. Roland Gr Sodium [Moles/Vol] 147 mmol/L Critically high 136-145 [facility] Comment on above: Performed By: #### L IPID, T7, CMP, URIC, TSH #### [facility] [address] [place] [address] Dr. Roland Gr Urea nitrogen [Mass/Vol] 20.0 mg/dL Critically high 7.0-18.0 [facility] Comment on above: Performed By: #### L IPID, T7, CMP, URIC, TSH #### [facility] [address] [place] [address] Dr. Roland Gr Urea nitrogen/Creatinine [Mass ratio] 23.5 mg/mg Normal [facility] Comment on above: Performed By: #### L IPID, T7, CMP, URIC, TSH #### [facility] [address] [place] [address] Dr. Roland Gr TSHon 04-08-2023 TSH 1.136 uIU/mL Normal 0.358-3.740 [facility] Comment on above: Performed By: #### L IPID, T7, CMP, URIC, TSH #### [facility] [address] [place] [address] Dr. Roland Gr URIC ACID SERUMon 04-08-2023 Urate [Mass/Vol] 6.5 mg/dL Normal 3.5-7.2 [facility] Comment on above: Performed By: #### L IPID, T7, CMP, URIC, TSH #### [facility] [address] [address] [address] Roland Gr CBC AUTO DIFFon 03-04-2023 BASO # 0.0 103/ul Normal 0.0-0.1 [facility] Comment on above: Performed By: #### C VDTBH #### [facility] [address] [address] [address] Roland Gr Basophils/100 WBC (Bld) 0.6 % Normal 0.2-2.0 [facility] Comment on above: Performed By: #### C VDTBH #### [facility] [address] [place] [address] Dr. Roland Gr EO # 0.1 103/ul Normal 0.0-0.7 [facility] Comment on above: Performed By: #### C VDTBH #### [facility] [address] [address] [address] Roland Gr Eosinophils/100 WBC (Bld) 1.3 % Normal 0.9-7.0 [facility] Comment on above: Performed By: #### C VDTBH #### [facility] [address] [address] [address] Roland Gr Erythrocyte distribution width (RBC) [Ratio] 14.6 % Normal 11.0-15.0 [facility] Comment on above: Performed By: #### C VDTBH #### [facility] [address] [address] [address] Roland Gr Hematocrit (Bld) [Volume fraction] 40.4 % Critically low 42.0-54.0 [facility] Comment on above: Performed By: #### C VDTBH #### [facility] [address] [address] [address] Roland Gr Hemoglobin (Bld) [Mass/Vol] 12.9 g/dL Critically low 14.0-18.0 [facility] Comment on above: Performed By: #### C VDTBH #### [facility] [address] [place] [address] Dr. Roland Gr IG # 0.02 10e3/ul Normal 0.00-0.03 [facility] Comment on above: Performed By: #### C VDTBH #### [facility] [address] [place] [address] Dr. Roland Gr IG % 0.3 % Normal 0.0-0.5 [facility] Comment on above: Performed By: #### C VDTBH #### [facility] [address] [place] [address] Dr. Roland Gr LYMPH # 1.5 103/ul Normal 1.2-3.8 [facility] Comment on above: Performed By: #### C VDTBH #### [facility] [address] [place] [address] Dr. Roland Gr Lymphocytes/100 WBC (Bld) 21.2 % Normal 20.5-60.0 [facility] Comment on above: Performed By: #### C VDTBH #### [facility] [address] [place] [address] Dr. Roland Gr MANUAL DIFF REQ NO Normal [facility] Comment on above: Performed By: #### C VDTBH #### [facility] [address] [place] [address] Dr. Roland Gr MCH (RBC) [Entitic mass] 31.6 pg Normal 25.9-34.0 [facility] Comment on above: Performed By: #### C VDTBH #### [facility] [address] [place] [address] Dr. Roland Gr MCHC (RBC) [Mass/Vol] 31.9 g/dL Normal 29.9-35.2 [facility] Comment on above: Performed By: #### C VDTBH #### [facility] [address] [place] [address] Dr. Roland Gr MCV (RBC) [Entitic vol] 99.0 fL Critically high 80.0-94.0 [facility] Comment on above: Performed By: #### C VDTBH #### [facility] [address] [place] [address] Dr. Roland Gr MONO # 0.6 103/ul Normal 0.3-0.8 [facility] Comment on above: Performed By: #### C VDTBH #### [facility] [address] [place] [address] Dr. Roland Gr Monocytes/100 WBC (Bld) 9.3 % Normal 1.7-12.0 [facility] Comment on above: Performed By: #### C VDTBH #### [facility] [address] [place] [address] Dr. Roland Gr NEUT # 4.7 103/ul Normal 1.4-6.5 [facility] Comment on above: Performed By: #### C VDTBH #### [facility] [address] [place] [address] Dr. Roland Gr Neutrophils/100 WBC (Bld) 67.3 % Normal 43.0-75.0 [facility] Comment on above: Performed By: #### C VDTBH #### [facility] [address] [place] [address] Dr. Roland Gr Platelet mean volume (Bld) [Entitic vol] 10.1 fL Normal 9.5-13.5 [facility] Comment on above: Performed By: #### C VDTBH #### [facility] [address] [place] [address] Dr. Roland Gr PLT 188 103/ul Normal 150-450 [facility] Comment on above: Performed By: #### C VDTBH #### [facility] [address] [place] [address] Dr. Roland Gr RBC 4.08 106/ul Critically low 4.70-6.10 [facility] Comment on above: Performed By: #### C VDTBH #### [facility] [address] [place] [address] Dr. Roland Gr WBC 6.9 103/ul Normal 4.0-11.0 [facility] Comment on above: Performed By: #### C VDTBH #### [facility] [address] [place] [address] Dr. Roland Gr PROF 14(COMP METB)on 023 Albumin [Mass/Vol] 3.6 g/dL Normal 3.4-5.0 [facility] Comment on above: Performed By: #### L IPID, T7, CMP, URIC, TSH #### [facility] [address] [place] [address] Dr. Roland Gr Albumin/Globulin [Mass ratio] 1.0 {ratio} Normal [facility] Comment on above: Performed By: #### L IPID, T7, CMP, URIC, TSH #### [facility] [address] [place] [address] Dr. Roland Gr ALP [Catalytic activity/Vol] 69 U/L Normal 46-116 [facility] Comment on above: Performed By: #### L IPID, T7, CMP, URIC, TSH #### [facility] [address] [place] [address] Dr. Roland Gr ALT [Catalytic activity/Vol] 26 U/L Normal 16-63 [facility] Comment on above: Performed By: #### L IPID, T7, CMP, URIC, TSH #### [facility] [address] [place] [address] Dr. Roland Gr Anion gap [Moles/Vol] 11.2 mmol/L Normal [facility] Comment on above: Performed By: #### L IPID, T7, CMP, URIC, TSH #### [facility] [address] [place] [address] Dr. Roland Gr AST [Catalytic activity/Vol] 22 U/L Normal 15-37 [facility] Comment on above: Performed By: #### L IPID, T7, CMP, URIC, TSH #### [facility] [address] [place] [address] Dr. Roland Gr Bilirubin [Mass/Vol] 0.7 mg/dL Normal 0.2-1.0 [facility] Comment on above: Performed By: #### L IPID, T7, CMP, URIC, TSH #### [facility] [address] [address] [address] Roland Gr Calcium [Mass/Vol] 9.2 mg/dL Normal 8.5-10.1 [facility] Comment on above: Performed By: #### L IPID, T7, CMP, URIC, TSH #### [facility] [address] [place] [address] Dr. Roland Gr Chloride [Moles/Vol] 108 mmol/L Critically high 98-107 [facility] Comment on above: Performed By: #### L IPID, T7, CMP, URIC, TSH #### [facility] [address] [place] [address] Dr. Roland Gr CO2 [Moles/Vol] 30.8 mmol/L Normal 21.0-32.0 [facility] Comment on above: Performed By: #### L IPID, T7, CMP, URIC, TSH #### [facility] [address] [place] [address] Dr. Roland Gr Creatinine [Mass/Vol] 0.74 mg/dL Normal 0.70-1.30 [facility] Comment on above: Performed By: #### L IPID, T7, CMP, URIC, TSH #### [facility] [address] [place] [address] Dr. Roland Gr EGFR-AF MOROCCAN >60 Normal >=60 [facility] Comment on above: Performed By: #### L IPID, T7, CMP, URIC, TSH #### [facility] [address] [place] [address] Dr. Roland Gr EGFR-NON AF MOROCCAN >60 Normal >=60 [facility] Comment on above: Performed By: #### L IPID, T7, CMP, URIC, TSH #### [facility] [address] [place] [address] Dr. Roland Gr Globulin (S) [Mass/Vol] 3.5 g/dL Normal [facility] Comment on above: Performed By: #### L IPID, T7, CMP, URIC, TSH #### [facility] [address] [address] [address] Roland Gr Glucose [Mass/Vol] 102 mg/dL Normal 74-106 [facility] Comment on above: Performed By: #### L IPID, T7, CMP, URIC, TSH #### [facility] [address] [address] [address] Roland Gr Potassium [Moles/Vol] 4.0 mmol/L Normal 3.5-5.1 [facility] Comment on above: Performed By: #### L IPID, T7, CMP, URIC, TSH #### [facility] [address] [address] [address] Roland Gr Protein [Mass/Vol] 7.1 g/dL Normal 6.4-8.2 [facility] Comment on above: Performed By: #### L IPID, T7, CMP, URIC, TSH #### [facility] [address] [place] [address] Dr. Roland Gr Sodium [Moles/Vol] 146 mmol/L Critically high 136-145 [facility] Comment on above: Performed By: #### L IPID, T7, CMP, URIC, TSH #### [facility] [address] [place] [address] Dr. Roland Gr Urea nitrogen [Mass/Vol] 15.0 mg/dL Normal 7.0-18.0 [facility] Comment on above: Performed By: #### L IPID, T7, CMP, URIC, TSH #### [facility] [address] [address] [address] Roland Gr Urea nitrogen/Creatinine [Mass ratio] 20.3 mg/mg Normal [facility] Comment on above: Performed By: #### L IPID, T7, CMP, URIC, TSH #### [facility] [address] [place] [address] Dr. Roland Gr SED RATE [facility] 2022 SED RATE 11 mm/hr Normal <=20 [facility] Comment on above: Performed By: #### L IPID, T7, CMP, URIC, TSH #### [facility] [address] [place] [address] Dr. Roland Gr [facility]18 SARS-CoV-2 (COVID-19) RNA PORSCHE+probe Ql (Unsp spec) Not detected Normal NOT DETECTED [facility] Comment on above: Result Comment: This test is not yet approved or cleared by the [place] FDA. When there are no FDA-approved or cleared tests available, and other criteria are met, FDA can make tests available under an emergency access mechanism called an Emergency Use Authorization (EUA). The EUA for this test is supported by the [employer] Forms of Health and Human Service's (HHS's) declaration [...] consistent with SARS-CoV-2. Performed By: #### C VDTBH #### [facility] [address] [place] [address] Dr. Roland Gr CBC AUTO DIFFon 12-03-2022 BASO # 0.0 103/ul Normal 0.0-0.1 [facility] Comment on above: Performed By: #### C VDTBH #### [facility] [address] [place] [address] Dr. Roland Gr Basophils/100 WBC (Bld) 0.6 % Normal 0.2-2.0 [facility] Comment on above: Performed By: #### C VDTBH #### [facility] [address] [place] [address] Dr. Roland Gr EO # 0.1 103/ul Normal 0.0-0.7 [facility] Comment on above: Performed By: #### C VDTBH #### [facility] [address] [place] [address] Dr. Roland Gr Eosinophils/100 WBC (Bld) 1.7 % Normal 0.9-7.0 [facility] Comment on above: Performed By: #### C VDTBH #### [facility] [address] [place] [address] Dr. Roland Gr Erythrocyte distribution width (RBC) [Ratio] 14.1 % Normal 11.0-15.0 [facility] Comment on above: Performed By: #### C VDTBH #### [facility] [address] [place] [address] Dr. Roland Gr Hematocrit (Bld) [Volume fraction] 39.3 % Critically low 42.0-54.0 [facility] Comment on above: Performed By: #### C VDTBH #### [facility] [address] [place] [address] Dr. Roland Gr Hemoglobin (Bld) [Mass/Vol] 12.7 g/dL Critically low 14.0-18.0 [facility] Comment on above: Performed By: #### C VDTBH #### [facility] [address] [place] [address] Dr. Roland Gr IG # 0.03 10e3/ul Normal 0.00-0.03 [facility] Comment on above: Performed By: #### C VDTBH #### [facility] [address] [place] [address] Dr. Roland Gr IG % 0.5 % Normal 0.0-0.5 [facility] Comment on above: Performed By: #### C VDTBH #### [facility] [address] [place] [address] Dr. Roland Gr LYMPH # 1.5 103/ul Normal 1.2-3.8 [facility] Comment on above: Performed By: #### C VDTBH #### [facility] [address] [place] [address] Dr. Roland Gr Lymphocytes/100 WBC (Bld) 23.5 % Normal 20.5-60.0 [facility] Comment on above: Performed By: #### C VDTBH #### [facility] [address] [place] [address] Dr. Roland Gr MANUAL DIFF REQ NO Normal [facility] Comment on above: Performed By: #### C VDTBH #### [facility] [address] [place] [address] Dr. Roland Gr MCH (RBC) [Entitic mass] 31.8 pg Normal 25.9-34.0 [facility] Comment on above: Performed By: #### C VDTBH #### [facility] [address] [place] [address] Dr. Roland Gr MCHC (RBC) [Mass/Vol] 32.3 g/dL Normal 29.9-35.2 [facility] Comment on above: Performed By: #### C VDTBH #### [facility] [address] [place] [address] Dr. Roland Gr MCV (RBC) [Entitic vol] 98.5 fL Critically high 80.0-94.0 [facility] Comment on above: Performed By: #### C VDTBH #### [facility] [address] [place] [address] Dr. Roland Gr MONO # 0.7 103/ul Normal 0.3-0.8 [facility] Comment on above: Performed By: #### C VDTBH #### [facility] [address] [place] [address] Dr. Roland Gr Monocytes/100 WBC (Bld) 10.6 % Normal 1.7-12.0 [facility] Comment on above: Performed By: #### C VDTBH #### [facility] [address] [place] [address] Dr. Roland Gr NEUT # 4.1 103/ul Normal 1.4-6.5 [facility] Comment on above: Performed By: #### C VDTBH #### [facility] [address] [place] [address] Dr. Roland Gr Neutrophils/100 WBC (Bld) 63.1 % Normal 43.0-75.0 [facility] Comment on above: Performed By: #### C VDTBH #### [facility] [address] [place] [address] Dr. Roland Gr Platelet mean volume (Bld) [Entitic vol] 10.0 fL Normal 9.5-13.5 [facility] Comment on above: Performed By: #### C VDTBH #### [facility] [address] [place] [address] Dr. Roland Gr PLT 184 103/ul Normal 150-450 [facility] Comment on above: Performed By: #### C VDTBH #### [facility] [address] [place] [address] Dr. Roland Gr RBC 3.99 106/ul Critically low 4.70-6.10 [facility] Comment on above: Performed By: #### C VDTBH #### [facility] [address] [place] [address] Dr. Roland Gr WBC 6.4 103/ul Normal 4.0-11.0 [facility] Comment on above: Performed By: #### C VDTBH #### [facility] [address] [place] [address] Dr. Roland Gr PROF 14(COMP METB)on 023 Albumin [Mass/Vol] 3.8 g/dL Normal 3.4-5.0 [facility] Comment on above: Performed By: #### L IPID, T7, CMP, URIC, TSH #### [facility] [address] [place] [address] Dr. Roland Gr Albumin/Globulin [Mass ratio] 1.4 {ratio} Normal [facility] Comment on above: Performed By: #### L IPID, T7, CMP, URIC, TSH #### [facility] [address] [place] [address] Dr. Roland Gr ALP [Catalytic activity/Vol] 58 U/L Normal 46-116 [facility] Comment on above: Performed By: #### L IPID, T7, CMP, URIC, TSH #### [facility] [address] [place] [address] Dr. Roland Gr ALT [Catalytic activity/Vol] 24 U/L Normal 16-63 [facility] Comment on above: Performed By: #### L IPID, T7, CMP, URIC, TSH #### [facility] [address] [address] [address] Roland Gr Anion gap [Moles/Vol] 11.2 mmol/L Normal [facility] Comment on above: Performed By: #### L IPID, T7, CMP, URIC, TSH #### [facility] [address] [address] [address] Roland Gr AST [Catalytic activity/Vol] 24 U/L Normal 15-37 [facility] Comment on above: Performed By: #### L IPID, T7, CMP, URIC, TSH #### [facility] [address] [place] [address] Dr. Roland Gr Bilirubin [Mass/Vol] 0.7 mg/dL Normal 0.2-1.0 [facility] Comment on above: Performed By: #### L IPID, T7, CMP, URIC, TSH #### [facility] [address] [address] [address] Roland Gr Calcium [Mass/Vol] 9.0 mg/dL Normal 8.5-10.1 [facility] Comment on above: Performed By: #### L IPID, T7, CMP, URIC, TSH #### [facility] [address] [address] [address] Roland Gr Chloride [Moles/Vol] 109 mmol/L Critically high 98-107 [facility] Comment on above: Performed By: #### L IPID, T7, CMP, URIC, TSH #### [facility] [address] [address] [address] Roland Gr CO2 [Moles/Vol] 28.8 mmol/L Normal 21.0-32.0 [facility] Comment on above: Performed By: #### L IPID, T7, CMP, URIC, TSH #### [facility] [address] [address] [address] Roland Gr Creatinine [Mass/Vol] 0.73 mg/dL Normal 0.70-1.30 [facility] Comment on above: Performed By: #### L IPID, T7, CMP, URIC, TSH #### [facility] [address] [address] [address] Roland Gr EGFR-AF MOROCCAN >60 Normal >=60 [facility] Comment on above: Performed By: #### L IPID, T7, CMP, URIC, TSH #### [facility] [address] [address] [address] Roland Gr EGFR-NON AF MOROCCAN >60 Normal >=60 [facility] Comment on above: Performed By: #### L IPID, T7, CMP, URIC, TSH #### [facility] [address] [place] [address] Dr. Roland Gr Globulin (S) [Mass/Vol] 2.8 g/dL Normal [facility] Comment on above: Performed By: #### L IPID, T7, CMP, URIC, TSH #### [facility] [address] [address] [address] Roland Gr Glucose [Mass/Vol] 98 mg/dL Normal 74-106 [facility] Comment on above: Performed By: #### L IPID, T7, CMP, URIC, TSH #### [facility] [address] [place] [address] Dr. Roland Gr Potassium [Moles/Vol] 4.0 mmol/L Normal 3.5-5.1 [facility] Comment on above: Performed By: #### L IPID, T7, CMP, URIC, TSH #### [facility] [address] [place] [address] Dr. Roland Gr Protein [Mass/Vol] 6.6 g/dL Normal 6.4-8.2 [facility] Comment on above: Performed By: #### L IPID, T7, CMP, URIC, TSH #### [facility] [address] [place] [address] Dr. Roland Gr Sodium [Moles/Vol] 145 mmol/L Normal 136-145 [facility] Comment on above: Performed By: #### L IPID, T7, CMP, URIC, TSH #### [facility] [address] [place] [address] Dr. Roland Gr Urea nitrogen [Mass/Vol] 20.0 mg/dL Critically high 7.0-18.0 [facility] Comment on above: Performed By: #### L IPID, T7, CMP, URIC, TSH #### [facility] [address] [place] [address] Dr. Roland Gr Urea nitrogen/Creatinine [Mass ratio] 27.4 mg/mg Normal [facility] Comment on above: Performed By: #### L IPID, T7, CMP, URIC, TSH #### [facility] [address] [place] [address] Dr. Roland Gr SED RATE [facility] 2022 SED RATE 8 mm/hr Normal <=20 [facility] Comment on above: Performed By: #### S EDR #### [facility] [address] [place] [address] Dr. Roland Gr INSULINon 09-02-2022 Insulin 6.3 uIU/mL Normal 2.6-24.9 [facility] Comment on above: Performed By: #### C VDTBH #### [facility] [address] [place] [address] Dr. Roland Gr BNPon 09-01-2022 Natriuretic peptide B (Bld) [Mass/Vol] 285.0 pg/mL Normal <=1,800.0 [facility] Comment on above: Performed By: #### C VDTBH #### [facility] [address] [place] [address] Dr. Roland Gr CBC AUTO DIFFon 09-01-2022 BASO # 0.0 103/ul Normal 0.0-0.1 [facility] Comment on above: Performed By: #### L IPID, T7, CMP, URIC, TSH #### [facility] [address] [place] [address] Dr. Roland Gr Basophils/100 WBC (Bld) 0.4 % Normal 0.2-2.0 [facility] Comment on above: Performed By: #### L IPID, T7, CMP, URIC, TSH #### [facility] [address] [place] [address] Dr. Roland Gr EO # 0.1 103/ul Normal 0.0-0.7 [facility] Comment on above: Performed By: #### L IPID, T7, CMP, URIC, TSH #### [facility] [address] [place] [address] Dr. Roland Gr Eosinophils/100 WBC (Bld) 1.5 % Normal 0.9-7.0 [facility] Comment on above: Performed By: #### L IPID, T7, CMP, URIC, TSH #### [facility] [address] [place] [address] Dr. Roladn Gr Erythrocyte distribution width (RBC) [Ratio] 14.0 % Normal 11.0-15.0 [facility] Comment on above: Performed By: #### L IPID, T7, CMP, URIC, TSH #### [facility] [address] [place] [address] Dr. Roland Gr Hematocrit (Bld) [Volume fraction] 37.9 % Critically low 42.0-54.0 [facility] Comment on above: Performed By: #### L IPID, T7, CMP, URIC, TSH #### [facility] [address] [place] [address] Dr. Roland Gr Hemoglobin (Bld) [Mass/Vol] 12.2 g/dL Critically low 14.0-18.0 [facility] Comment on above: Performed By: #### L IPID, T7, CMP, URIC, TSH #### [facility] [address] [place] [address] Dr. Roland Gr IG # 0.03 10e3/ul Normal 0.00-0.03 [facility] Comment on above: Performed By: #### L IPID, T7, CMP, URIC, TSH #### [facility] [address] [place] [address] Dr. Roland Gr IG % 0.4 % Normal 0.0-0.5 [facility] Comment on above: Performed By: #### L IPID, T7, CMP, URIC, TSH #### [facility] [address] [place] [address] Dr. Roland Gr LYMPH # 1.6 103/ul Normal 1.2-3.8 [facility] Comment on above: Performed By: #### L IPID, T7, CMP, URIC, TSH #### [facility] [address] [place] [address] Dr. Roland Gr Lymphocytes/100 WBC (Bld) 21.3 % Normal 20.5-60.0 [facility] Comment on above: Performed By: #### L IPID, T7, CMP, URIC, TSH #### [facility] [address] [place] [address] Dr. Roland Gr MANUAL DIFF REQ NO Normal [facility] Comment on above: Performed By: #### L IPID, T7, CMP, URIC, TSH #### [facility] [address] [place] [address] Dr. Roland Gr MCH (RBC) [Entitic mass] 33.0 pg Normal 25.9-34.0 [facility] Comment on above: Performed By: #### L IPID, T7, CMP, URIC, TSH #### [facility] [address] [place] [address] Dr. Roland Gr MCHC (RBC) [Mass/Vol] 32.2 g/dL Normal 29.9-35.2 [facility] Comment on above: Performed By: #### L IPID, T7, CMP, URIC, TSH #### [facility] [address] [place] [address] Dr. Roland Gr MCV (RBC) [Entitic vol] 102.4 fL Critically high 80.0-94.0 [facility] Comment on above: Performed By: #### L IPID, T7, CMP, URIC, TSH #### [facility] [address] [place] [address] Dr. Roland Gr MONO # 0.8 103/ul Normal 0.3-0.8 [facility] Comment on above: Performed By: #### L IPID, T7, CMP, URIC, TSH #### [facility] [address] [place] [address] Dr. Roland Gr Monocytes/100 WBC (Bld) 10.5 % Normal 1.7-12.0 [facility] Comment on above: Performed By: #### L IPID, T7, CMP, URIC, TSH #### [facility] [address] [place] [address] Dr. Roland Gr NEUT # 4.8 103/ul Normal 1.4-6.5 [facility] Comment on above: Performed By: #### L IPID, T7, CMP, URIC, TSH #### [facility] [address] [place] [address] Dr. Roland Gr Neutrophils/100 WBC (Bld) 65.9 % Normal 43.0-75.0 [facility] Comment on above: Performed By: #### L IPID, T7, CMP, URIC, TSH #### [facility] [address] [place] [address] Dr. Roland Gr Platelet mean volume (Bld) [Entitic vol] 9.7 fL Normal 9.5-13.5 [facility] Comment on above: Performed By: #### L IPID, T7, CMP, URIC, TSH #### [facility] [address] [place] [address] Dr. Roland Gr PLT 183 103/ul Normal 150-450 [facility] Comment on above: Performed By: #### L IPID, T7, CMP, URIC, TSH #### [facility] [address] [place] [address] Dr. Roland Gr RBC 3.70 106/ul Critically low 4.70-6.10 [facility] Comment on above: Performed By: #### L IPID, T7, CMP, URIC, TSH #### [facility] [address] [place] [address] Dr. Roland Gr WBC 7.3 103/ul Normal 4.0-11.0 [facility] Comment on above: Performed By: #### L IPID, T7, CMP, URIC, TSH #### [facility] [address] [address] [address] Roland Gr FREE THYROXINE INDEX T7on FTI 2.44 Normal 1.30-4.50 [facility] Comment on above: Performed By: #### C VDTBH #### [facility] [address] [address] [address] Roland Gr T3U 33.0 % Normal 33.0-40.0 [facility] Comment on above: Performed By: #### C VDTBH #### [facility] [address] [address] [address] Roland Gr T4 [Mass/Vol] 7.40 ug/dL Normal 4.50-12.10 [facility] Comment on above: Performed By: #### C VDTBH #### [facility] [address] [address] [address] Roland Gr GLYCOHEMOGLOBIN A1Con 2021 ADA RECOMMENDATION SEE BELOW Normal [facility] Comment on above: Result Comment: ADA RECOMMENDED LIMIT 4.0 - 6.0 ADA THERAPEUTIC TARGET < 7.0 ACTION SUGGESTED > 7.0 Performed By: #### A 1C #### [facility] [address] [place] [address] Dr. Roland Gr Glucose [Mass/Vol] 117 mg/dL Normal [facility] Comment on above: Performed By: #### A 1C #### [facility] [address] [place] [address] Dr. Roland Gr HbA1c (Bld) [Mass fraction] 5.7 % Normal 4.5-6.2 [facility] Comment on above: Performed By: #### A 1C #### [facility] [address] [address] [address] Roland Gr LIPID PROFILEon 09-01-2022 CHOL-HDL RATIO NORM SEE BELOW Normal [facility] Comment on above: Result Comment: 3.3 - 4.4 LOW RISK 4.4 - 7.1 AVERAGE RISK 7.1 - 11.0 MODERATE RISK >11.0 HIGH RISK Performed By: #### L IPID, T7, CMP, URIC, TSH #### [facility] [address] [address] [address] Roland Gr Cholesterol [Mass/Vol] 130 mg/dL Normal <=200 [facility] Comment on above: Performed By: #### L IPID, T7, CMP, URIC, TSH #### [facility] [address] [place] [address] [address] Roland Gr Cholesterol in HDL [Mass/Vol] 67 mg/dL Critically high 40-60 [facility] Comment on above: Performed By: #### L IPID, T7, CMP, URIC, TSH #### [facility] [address] [address] [address] Roland Gr Cholesterol in LDL [Mass/Vol] 48.8 mg/dL Normal [facility] Comment on above: Performed By: #### L IPID, T7, CMP, URIC, TSH #### [facility] [address] [address] [address] Roland Gr Cholesterol.total/Ch olesterol in HDL [Mass ratio] 1.9 {ratio} Normal [facility] Comment on above: Performed By: #### L IPID, T7, CMP, URIC, TSH #### [facility] [address] [address] [address] Roland Gr HDL NORMAL > or = 60 mg/dl - LO W CARDIOVASCULAR RISK <40 mg/dl - HIGH CARDIOVASCULAR RISK Normal [facility] Comment on above: Performed By: #### L IPID, T7, CMP, URIC, TSH #### [facility] [address] [address] [address] Roland Gr LDL CALC NORMAL SEE BELOW Normal [facility] Comment on above: Result Comment: <100 mg/dl OPTIMAL 100 - 129 mg/dl NEAR OR ABOVE OPTIMAL 130 - 159 mg/dl BORDERLINE HIGH 160 - 189 mg/dl HIGH >190 mg/dl VERY HIGH Performed By: #### L IPID, T7, CMP, URIC, TSH #### [facility] [address] [address] [address] Roland Gr Triglyceride [Mass/Vol] 71 mg/dL Normal <=150 [facility] Comment on above: Performed By: #### L IPID, T7, CMP, URIC, TSH #### [facility] [address] [address] [address] Roland Gr VLDL CALC 14.2 mg/dL Normal [facility] Comment on above: Performed By: #### L IPID, T7, CMP, URIC, TSH #### [facility] [address] [place] [address] Dr. Roland Gr PROF 14(COMP METB)on 022 Albumin [Mass/Vol] 3.5 g/dL Normal 3.4-5.0 [facility] Comment on above: Performed By: #### C VDTBH #### [facility] [address] [place] [address] Dr. Roland Gr Albumin/Globulin [Mass ratio] 1.2 {ratio} Normal [facility] Comment on above: Performed By: #### C VDTBH #### [facility] [address] [place] [address] Dr. Roland Gr ALP [Catalytic activity/Vol] 60 U/L Normal 46-116 [facility] Comment on above: Performed By: #### C VDTBH #### [facility] [address] [place] [address] Dr. Roland Gr ALT [Catalytic activity/Vol] 25 U/L Normal 16-63 [facility] Comment on above: Performed By: #### C VDTBH #### [facility] [address] [place] [address] Dr. Roland Gr Anion gap [Moles/Vol] 10.6 mmol/L Normal [facility] Comment on above: Performed By: #### C VDTBH #### [facility] [address] [place] [address] Dr. Roland Gr AST [Catalytic activity/Vol] 17 U/L Normal 15-37 [facility] Comment on above: Performed By: #### C VDTBH #### [facility] [address] [place] [address] Dr. Roland Gr Bilirubin [Mass/Vol] 0.8 mg/dL Normal 0.2-1.0 [facility] Comment on above: Performed By: #### C VDTBH #### [facility] [address] [address] [address] Roland Gr Calcium [Mass/Vol] 8.8 mg/dL Normal 8.5-10.1 [facility] Comment on above: Performed By: #### C VDTBH #### [facility] [address] [address] [address] Roland Gr Chloride [Moles/Vol] 108 mmol/L Critically high 98-107 [facility] Comment on above: Performed By: #### C VDTBH #### [facility] [address] [address] [address] Roland Gr CO2 [Moles/Vol] 28.6 mmol/L Normal 21.0-32.0 [facility] Comment on above: Performed By: #### C VDTBH #### [facility] [address] [place] [address] Dr. Roland Gr Creatinine [Mass/Vol] 0.72 mg/dL Normal 0.70-1.30 [facility] Comment on above: Performed By: #### C VDTBH #### [facility] [address] [place] [address] Dr. Roland Gr EGFR-AF MOROCCAN >60 Normal >=60 [facility] Comment on above: Performed By: #### C VDTBH #### [facility] [address] [address] [address] Roland Gr EGFR-NON AF MOROCCAN >60 Normal >=60 [facility] Comment on above: Performed By: #### C VDTBH #### [facility] [address] [place] [address] Dr. Roland Gr Globulin (S) [Mass/Vol] 3.0 g/dL Normal [facility] Comment on above: Performed By: #### C VDTBH #### [facility] [address] [place] [address] Dr. Roland Gr Glucose [Mass/Vol] 100 mg/dL Normal 74-106 [facility] Comment on above: Performed By: #### C VDTBH #### [facility] [address] [address] [address] Roland Gr Potassium [Moles/Vol] 4.2 mmol/L Normal 3.5-5.1 [facility] Comment on above: Performed By: #### C VDTBH #### [facility] [address] [address] [address] Roland Gr Protein [Mass/Vol] 6.5 g/dL Normal 6.4-8.2 [facility] Comment on above: Performed By: #### C VDTBH #### [facility] [address] [place] [address] Dr. Roland Gr Sodium [Moles/Vol] 143 mmol/L Normal 136-145 [facility] Comment on above: Performed By: #### C VDTBH #### [facility] [address] [place] [address] Dr. Roland Gr Urea nitrogen [Mass/Vol] 18.0 mg/dL Normal 7.0-18.0 [facility] Comment on above: Performed By: #### C VDTBH #### [facility] [address] [place] [address] Dr. Roland Gr Urea nitrogen/Creatinine [Mass ratio] 25.0 mg/mg Normal [facility] Comment on above: Performed By: #### C VDTBH #### [facility] [address] [place] [address] Dr. Roland Gr [facility] 12 mm/hr Normal <=20 [facility] Comment on above: Performed By: #### S EDR #### [facility] [address] [address] [address] Roland Gr TSHon 09-01-2022 TSH 1.634 uIU/mL Normal 0.358-3.740 [facility] Comment on above: Performed By: #### C VDTBH #### [facility] [address] [place] [address] Dr. Roland Gr URIC ACID SERUMon 09-01-2022 Urate [Mass/Vol] 5.3 mg/dL Normal 3.5-7.2 [facility] Comment on above: Performed By: #### L IPID, T7, CMP, URIC, TSH #### [facility] [address] [address] [address] Roland Gr XR cerv spine AP/LAT/FLX/EXT on 05-22-2022 XR cerv spine AP/LAT/FLX/EXT [facility] [place] [address] [place] [address] XRay Report Signed Patient: Adonay Irby MR#: [id number] : 1945 Acct:[id number] Age/Sex: 77 / M ADM Date: 05/22/22 Loc: ICXD Room: Type: [facility] Attending Dr: Joao Barba MD Copies to: [...] Luca Trujillo M.D.05/22/2022 9:52 AM Dictation Location: [place] [address] Transcribed By: [facility] 05/22/2252 Dictated By: Luca Trujillo DO 05/22/22 0950 Signed By: 05/22/2252 Normal [facility] CBC AUTO DIFFon 05-20-2022 BASO # 0.1 103/ul Normal 0.0-0.1 [facility] Comment on above: Performed By: #### L IPID, T7, CMP, URIC, TSH #### [facility] [address] [address] [address] Roland Gr Basophils/100 WBC (Bld) 0.7 % Normal 0.2-2.0 [facility] Comment on above: Performed By: #### L IPID, T7, CMP, URIC, TSH #### [facility] [address] [place] [address] Dr. Roland Gr EO # 0.2 103/ul Normal 0.0-0.7 [facility] Comment on above: Performed By: #### L IPID, T7, CMP, URIC, TSH #### [facility] [address] [place] [address] Dr. Roland Gr Eosinophils/100 WBC (Bld) 2.9 % Normal 0.9-7.0 [facility] Comment on above: Performed By: #### L IPID, T7, CMP, URIC, TSH #### [facility] [address] [place] [address] Dr. Roland Gr Erythrocyte distribution width (RBC) [Ratio] 14.2 % Normal 11.0-15.0 [facility] Comment on above: Performed By: #### L IPID, T7, CMP, URIC, TSH #### [facility] [address] [place] [address] Dr. Roland Gr Hematocrit (Bld) [Volume fraction] 38.1 % Critically low 42.0-54.0 [facility] Comment on above: Performed By: #### L IPID, T7, CMP, URIC, TSH #### [facility] [address] [place] [address] Dr. Roland Gr Hemoglobin (Bld) [Mass/Vol] 12.4 g/dL Critically low 14.0-18.0 [facility] Comment on above: Performed By: #### L IPID, T7, CMP, URIC, TSH #### [facility] [address] [place] [address] Dr. Roland rG IG # 0.05 10e3/ul Critically high 0.00-0.03 [facility] Comment on above: Performed By: #### L IPID, T7, CMP, URIC, TSH #### [facility] [address] [place] [address] Dr. Roland Gr IG % 0.7 % Critically high 0.0-0.5 [facility] Comment on above: Performed By: #### L IPID, T7, CMP, URIC, TSH #### [facility] [address] [place] [address] Dr. Roland Gr LYMPH # 1.7 103/ul Normal 1.2-3.8 [facility] Comment on above: Performed By: #### L IPID, T7, CMP, URIC, TSH #### [facility] [address] [place] [address] Dr. Roland Gr Lymphocytes/100 WBC (Bld) 24.6 % Normal 20.5-60.0 [facility] Comment on above: Performed By: #### L IPID, T7, CMP, URIC, TSH #### [facility] [address] [place] [address] Dr. Roland Gr MANUAL DIFF REQ NO Normal [facility] Comment on above: Performed By: #### L IPID, T7, CMP, URIC, TSH #### [facility] [address] [place] [address] Dr. Roland Gr MCH (RBC) [Entitic mass] 33.0 pg Normal 25.9-34.0 [facility] Comment on above: Performed By: #### L IPID, T7, CMP, URIC, TSH #### [facility] [address] [place] [address] Dr. Roland Gr MCHC (RBC) [Mass/Vol] 32.5 g/dL Normal 29.9-35.2 [facility] Comment on above: Performed By: #### L IPID, T7, CMP, URIC, TSH #### [facility] [address] [place] [address] Dr. Roland Gr MCV (RBC) [Entitic vol] 101.3 fL Critically high 80.0-94.0 [facility] Comment on above: Performed By: #### L IPID, T7, CMP, URIC, TSH #### [facility] [address] [place] [address] Dr. Roland Gr MONO # 0.7 103/ul Normal 0.3-0.8 [facility] Comment on above: Performed By: #### L IPID, T7, CMP, URIC, TSH #### [facility] [address] [place] [address] Dr. Roland Gr Monocytes/100 WBC (Bld) 10.6 % Normal 1.7-12.0 [facility] Comment on above: Performed By: #### L IPID, T7, CMP, URIC, TSH #### [facility] [address] [place] [address] Dr. Roland Gr NEUT # 4.2 103/ul Normal 1.4-6.5 [facility] Comment on above: Performed By: #### L IPID, T7, CMP, URIC, TSH #### [facility] [address] [place] [address] Dr. Roland Gr Neutrophils/100 WBC (Bld) 60.5 % Normal 43.0-75.0 [facility] Comment on above: Performed By: #### L IPID, T7, CMP, URIC, TSH #### [facility] [address] [place] [address] Dr. Roland Gr Platelet mean volume (Bld) [Entitic vol] 9.7 fL Normal 9.5-13.5 [facility] Comment on above: Performed By: #### L IPID, T7, CMP, URIC, TSH #### [facility] [address] [place] [address] Dr. Roland Gr PLT 203 103/ul Normal 150-450 [facility] Comment on above: Performed By: #### L IPID, T7, CMP, URIC, TSH #### [facility] [address] [place] [address] Dr. Roland Gr RBC 3.76 106/ul Critically low 4.70-6.10 [facility] Comment on above: Performed By: #### L IPID, T7, CMP, URIC, TSH #### [facility] [address] [address] [address] Roland Gr WBC 6.9 103/ul Normal 4.0-11.0 [facility] Comment on above: Performed By: #### L IPID, T7, CMP, URIC, TSH #### [facility] [address] [address] [address] Roland Gr PROF 14(COMP METB)on 022 Albumin [Mass/Vol] 3.5 g/dL Normal 3.4-5.0 [facility] Comment on above: Performed By: #### L IPID, T7, CMP, URIC, TSH #### [facility] [address] [place] [address] [address] Roland Gr Albumin/Globulin [Mass ratio] 1.2 {ratio} Normal [facility] Comment on above: Performed By: #### L IPID, T7, CMP, URIC, TSH #### [facility] [address] [address] [address] Roland Gr ALP [Catalytic activity/Vol] 60 U/L Normal 46-116 [facility] Comment on above: Performed By: #### L IPID, T7, CMP, URIC, TSH #### [facility] [address] [address] [address] Roland Gr ALT [Catalytic activity/Vol] 30 U/L Normal 16-63 [facility] Comment on above: Performed By: #### L IPID, T7, CMP, URIC, TSH #### [facility] [address] [address] [address] Roland Gr Anion gap [Moles/Vol] 9.4 mmol/L Normal [facility] Comment on above: Performed By: #### L IPID, T7, CMP, URIC, TSH #### [facility] [address] [place] [address] [address] Roland Gr AST [Catalytic activity/Vol] 21 U/L Normal 15-37 [facility] Comment on above: Performed By: #### L IPID, T7, CMP, URIC, TSH #### [facility] [address] [place] [address] Dr. Roland Gr Bilirubin [Mass/Vol] 0.4 mg/dL Normal 0.2-1.0 [facility] Comment on above: Performed By: #### L IPID, T7, CMP, URIC, TSH #### [facility] [address] [address] [address] Roland Gr Calcium [Mass/Vol] 8.6 mg/dL Normal 8.5-10.1 [facility] Comment on above: Performed By: #### L IPID, T7, CMP, URIC, TSH #### [facility] [address] [place] [address] Dr. Roland Gr Chloride [Moles/Vol] 108 mmol/L Critically high 98-107 [facility] Comment on above: Performed By: #### L IPID, T7, CMP, URIC, TSH #### [facility] [address] [place] [address] Dr. Roland Gr CO2 [Moles/Vol] 30.8 mmol/L Normal 21.0-32.0 [facility] Comment on above: Performed By: #### L IPID, T7, CMP, URIC, TSH #### [facility] [address] [place] [address] Dr. Roland Gr Creatinine [Mass/Vol] 0.76 mg/dL Normal 0.70-1.30 [facility] Comment on above: Performed By: #### L IPID, T7, CMP, URIC, TSH #### [facility] [address] [place] [address] Dr. Roland Gr EGFR-AF MOROCCAN >60 Normal >=60 [facility] Comment on above: Performed By: #### L IPID, T7, CMP, URIC, TSH #### [facility] [address] [place] [address] Dr. Roland Gr EGFR-NON AF MOROCCAN >60 Normal >=60 [facility] Comment on above: Performed By: #### L IPID, T7, CMP, URIC, TSH #### [facility] [address] [place] [address] [address] Roland Gr Globulin (S) [Mass/Vol] 3.0 g/dL Normal [facility] Comment on above: Performed By: #### L IPID, T7, CMP, URIC, TSH #### [facility] [address] [place] [address] Dr. Roland Gr Glucose [Mass/Vol] 99 mg/dL Normal 74-106 [facility] Comment on above: Performed By: #### L IPID, T7, CMP, URIC, TSH #### [facility] [address] [place] [address] Dr. Roland Gr Potassium [Moles/Vol] 4.2 mmol/L Normal 3.5-5.1 [facility] Comment on above: Performed By: #### L IPID, T7, CMP, URIC, TSH #### [facility] [address] [place] [address] Dr. Roland Gr Protein [Mass/Vol] 6.5 g/dL Normal 6.4-8.2 [facility] Comment on above: Performed By: #### L IPID, T7, CMP, URIC, TSH #### [facility] [address] [place] [address] Dr. Roland Gr Sodium [Moles/Vol] 144 mmol/L Normal 136-145 [facility] Comment on above: Performed By: #### L IPID, T7, CMP, URIC, TSH #### [facility] [address] [place] [address] Dr. Roland Gr Urea nitrogen [Mass/Vol] 16.0 mg/dL Normal 7.0-18.0 [facility] Comment on above: Performed By: #### L IPID, T7, CMP, URIC, TSH #### [facility] [address] [place] [address] Dr. Roland Gr Urea nitrogen/Creatinine [Mass ratio] 21.1 mg/mg Normal [facility] Comment on above: Performed By: #### L IPID, T7, CMP, URIC, TSH #### [facility] [address] [place], [place] [address] Dr. Roland Gr SED RATE [facility] 2021 SED RATE 8 mm/hr Normal <=20 [facility] Comment on above: Performed By: #### L IPID, T7, CMP, URIC, TSH #### [facility] [address] [place], [place] [address] Dr. Roland Gr Vital Signs Date Time Vital Sign Value Performing Clinician Facility 04-08-2024 10:05-0400 Body mass index (BMI) [Ratio] 24.45 kg/m2 Carlos Farris MD Work Phone: [facility] 04-08-2024 10:05-0400 Body temperature 97 [degF] Carlos Farris MD Work Phone: [facility] 04-08-2024 10:05-0400 Body weight 75.1 kg Carlos Farris MD Work Phone: [facility] 04-08-2024 10:05-0400 Diastolic blood pressure 75 mm[Hg] Carlos Farris MD Work Phone: [facility] 04-08-2024 10:05-0400 Heart rate 47 /min Carlos Farris MD Work Phone: [facility] Comment on above: heart rate low provider notify 04-08-2024 10:05-0400 Respiratory rate 19 /min Carlos Farris MD Work Phone: [facility] 04-08-2024 10:05-0400 SaO2% (BldA) [Mass fraction] 99 % Carlos Farris MD Work Phone: [facility] 04-08-2024 10:05-0400 Systolic blood pressure 141 mm[Hg] Carlos Farris MD Work Phone: [facility] 2022 11:09-0400 Body height 175.3 cm Carlos Farris MD Work Phone: [facility] 2022 11:09-0400 Body temperature 97.11 [degF] Carlos Farris MD Work Phone: [facility] 2022 11:09-0400 Body weight 74 kg Carlos Farris MD Work Phone: [facility] 2022 11:09-0400 Diastolic blood pressure 60 mm[Hg] Carlos Farris MD Work Phone: [facility] 2022 11:09-0400 Heart rate 48 /min Carlos Farris MD Work Phone: [facility] 2022 11:09-0400 Respiratory rate 17 /min Carlos Farris MD Work Phone: [facility] 2022 11:09-0400 SaO2% (BldA) [Mass fraction] 97 % Carlos Farris MD Work Phone: [facility] 2022 11:09-0400 Systolic blood pressure 118 mm[Hg] Carlos Farris MD Work Phone: [facility] Encounters Encounter Date Encounter Type Care Provider Facility Start: 04-08-2024 End: 04-08-2024 ambulatory CARLOS FARRIS Facility:[facility] Start: 04-08-2024 End: 04-08-2024 Office outpatient visit 40 minutes Carlos Farris MD Work Phone: Pulmonary Medicine Comment on above: Disorder of diaphrag m (Primary Dx); Post poliomyelitis syndrome; Obstructive sleep apnea Start: 04-08-2024 End: 04-08-2024 ambulatory Pulm [facility] Main 7 Pulmonary Medicine Comment on above: Spirometry Start: 04-08-2024 End: 04-08-2024 Patient encounter procedure Pulm [facility] Pulmonary Medicine Start: 11-24-2023 End: 11-24-2023 ambulatory BRIDGER NORRIS Not Available Start: 10-14-2023 ambulatory BELLA CORONADO Facility :[facility] Start: 08-19-2023 Telephone encounter [facility] Provider Pul monary Medicine Comment on above: Referral Request Start: 08-13-2023 Telephone encounter Carlos rey MD Work Phone: Pulmonary Medicine Comment on above: Filters for Nebulize r Start: 06-24-2023 End: 06-25-2023 ambulatory BELLA CORONADO Facility:[facility] Start: 06-04-2023 Telephone encounter Carlos rey MD [...] Work Phone: Pulmonary Medicine 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 Comment on above: Performed By: #### C VDTBH #### [facility] [address] [place] [address] Dr. Roland Gr Start: 09-01-[address] RAUL HUIZAR . Comment on above: Performed By: #### C VDTBH #### [facility] [address] [place] [address] Dr. Roland Gr Start: 05-22-2022 X-ray of cervical spine MD Joao Barba Work Phone: Start: 2022 Spmtry w/vc expirato ry edie w/wo mxml vol vntj Carlos Farris MD Work Phone: Start: 2022 Unlisted pulmonary service/procedure Carlos Farris MD Work Phone: Plan of Treatment Date Care Activity Detail Author Start: 02-02-2024 Covid-19 Vaccine () Covid-19 Vaccine () [facility] Start: 11-16-2023 Advance Directive Discussion Advance Directive Discussion [facility] Start: 11-16-2023 Behavioral Health Screening Behavioral Health Screening [facility] Start: 07-17-2023 Covid-19 Vaccine () Covid-19 Vaccine () [facility] Start: 09-01-2023 Influenza vaccination C [facility] Start: 11-16-2022 ADVANCE DIRECTIVE DISCUSSION ADVANCE DIRECTIVE DISCUSSION [facility] Start: 11-16-2022 DEPRESSION ASSESSMENT DEPRESSION ASS ESSMENT [facility] Start: 07-17-2022 Influenza vaccination INFLUENZA (#1) [facility] Start: 02-12-2022 COVID-19 VACCINE (4 - Booster for Moderna series) COVID-19 VACCINE (4 - Booster for Moderna series) [facility] Start: 12-10-2021 COVID-19 VACCINE (4 - Booster for Moderna series) COVID-19 VACCINE (4 - Booster for Moderna series) [facility] Start: 12-10-2021 COVID-19 VACCINE (4 - Moderna series) COVID-19 VACCINE (4 - Moderna series) [facility] Start: 11-16-2021 ADVANCE DIRECTIVE DISCUSSION ADVANCE DIRECTIVE DISCUSSION [facility] Start: 11-16-2021 DEPRESSION ASSESSMENT DEPRESSION ASS ESSMENT [facility] Start: 2008 Pneumococcal Vaccine : 65+ (1 - PCV) Pneumococcal Vaccine: 65+ (1 - PCV) [facility] Start: 2008 PNEUMOCOCCAL: 65+ (1 - PCV) PNEUMOCOCCAL: 65+ (1 - PCV) [facility] Start: 2003 RSV Vaccine (1 - 1-d ose 60+ series) RSV Vaccine (1 - 1-dose 60+ series) [facility] Start: 1993 SHINGRIX VACCINE (1 of 2) SHINGRIX VACCINE (1 of 2) [facility] Start: 1988 DIABETES SCREEN DIABETES SCREEN [facility] Start: 1988 Diabetes Screening Diabetes Screenin g [facility] Start: 1962 Urine microalbumin profile [facility] Start: 1955 Adult depression screening assessment DEPRESSION SCREENING [facility] MIPS/MEPS MIPS/MEPS PFT Ro utine 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 2022 12:00 PM EDT [facility] Work Phone: End: 06-15-2023 MIPS/MEPS MIPS/MEPS PFT Routine Disorder of diaphragm Post poliomyelitis syndrome 1 Occurrences starting 2022 until 06/15/2023 [facility] Work Phone: Comment on above: 1 Occurrences starti ng 2022 until 06/15/2023 MIPS/MEPS MIPS/MEPS PFT Ro utine Disorder of nervous system 04/08/2024 9:36 AM EDT [facility] Work Phone: End: 05-08-2025 MIPS/MEPS MIPS/MEPS PFT Routine Disorder of diaphragm Post poliomyelitis syndrome 1 Occurrences starting 04/08/2024 until 05/08/2025 [facility] Comment on above: 1 Occurrences starti ng 04/08/2024 until 05/08/2025 SPIROMETRY SITTING A ND SUPINE SPIROMETRY SITTING AND SUPINE PFT 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 2022 12:00 PM EDT [facility] Work Phone: End: 06-15-2023 SPIROMETRY SITTING AND SUPINE SPIROMETRY SITTING AND SUPINE PFT Routine Disorder of diaphragm Post poliomyelitis syndrome 1 Occurrences starting 2022 until 06/15/2023 [facility] Work Phone: Comment on above: 1 Occurrences starti ng 2022 until 06/15/2023 SPIROMETRY SITTING A ND SUPINE SPIROMETRY SITTING AND SUPINE PFT Routine Disorder of nervous system 04/08/2024 9:36 AM EDT [facility] Work Phone: End: 05-08-2025 SPIROMETRY SITTING AND SUPINE SPIROMETRY SITTING AND SUPINE PFT Routine Disorder of diaphragm Post poliomyelitis syndrome 1 Occurrences starting 04/08/2024 until 05/08/2025 [facility] Work Phone: Comment on above: 1 Occurrences starti ng 04/08/2024 until 05/08/2025 [facility] Immunizations Immunization Date Immunization Notes Care Provider Fa [facility] 08-31-2020 influenza virus vaccine, unspecified formulation Carlos Farris MD Work Phone: [facility] 08-27-2018 influenza, seasonal, injectable Pulm 10 Other Phone: [facility] Payers Date Payer Category Payer Unknown [employer]PPLE[employer] [id number] 2009-Present [phone] [id number] [employer] [place] [address] Indemnity [id number] 2009 Unknown [employer]PPLE[employer] [id number] 2009-Present [phone] [address] [employer] [place] [address] Indemnity [id number] 2003 Medicare MEDICARE MEDICAR E A AND B [id number] 2003-Present [phone] [address] [place] [id number] Medicare [id number] 2003 Medicare MEDICARE MEDICAR E A AND B [id number] 2003-Present [phone] [place] [address] Medicare [id number] 1959 Medicare [id number] 1959 Unknown [id number] 1943 Unknown [id number] 3 1943 Unknown [id number] 3 1943 Unknown [id number] 3 1943 Unknown [id number] 3 1943 Unknown [id number] 3 1943 Unknown [id number] 3 1943 Unknown [id number] 3 1943 Unknown [id number] 7 1943 Unknown [id number] 59 Self-pay Self Pay [id number] Social History Date Type Detail Facility Start: 12-18-2017 End: 04-08-2024 Tobacco smoking status NHIS Ex-smoker [facility] Start: 12-18-2017 End: 04-08-2024 Tobacco use and exposure Smokeless tobacco non-user [facility] Start: 12-18-2017 End: 04-08-2024 Tobacco Comment Quit 25+ years ago [facility] Start: 1945 Sex Assigned At Not on file C [facility] Start: 05-06-2022 End: 2022 Exposure to SARS-CoV-2 (event) Not sure [facility] Start: 1945 Sex Assigned At Male F [facility] History of tobacco use Current smoker [facility] Start: 2022 End: 04-08-2024 Gender identity Not on file [facility] Start: 2022 End: 04-08-2024 History of Social function [facility] National Score (1-100), lower number is lower risk 77 [facility] Clinical Notes 2022 to 04-08-2024 Carlos Farris MD - 04/08/2024 10:30 AM Nahum Meza RRT - 04/08/2024 10:00 AM Ricardo Cote - 08/19/2023 4:37 PM MARLENTNahum Sandra RRT - 2022 10:42 AM EDT Note Date & Type Note Facility 04-08-2024 Note HNO ID: [id number] Author: CARLOS FARRIS MD Service: ? 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 He continued to have a severe drop in the supine position and impairment in overall respiratory muscle strength but no hypercapnia remain active, able to cut down to trees in the week preceding his visit. He remained adapted to noninvasive ventilation with normal transcutaneous CO2, adequate support of tidal volume and respiratory rate. There was a mild residual elevation in the apnea-hypopnea index at 11.0 which was not addressed further in the context of the clinical improvement and controlled leaks. He has put on 10 lbs and lost is back and is back to about 165 lbs. He does feels significant benefit from having lost the weight with more energy, less shortness of breath. He can lie flat and was able to test supine today without SOB whereas he would panic when I had first seen him. He has been doing well with walking with no shortness of breath. He has been adherent to bilevel PAP and feels I would be lost without it . With it he can sleep on his back almost flat. Sleep quality is improved. No morning headaches. He has been getting regular supplies. He has been using the nebulizer with albuterol/ipratropium and cut back on using it from 4 times per day to once per day in the evening before bed time. This helps bring up phlegm once in a while. He has received the flu shot for this past season. PPSV 23 received , with previous prevnar. he has had tremors since high school (both sibling also have it) controlled with inderal. He has a slow heart rate but without dizziness (occasional dizzines if he gets up too quickly). he has rony more forgetful and worse don;t come out as easily for him. He has no loss of taste or smell. NO dream enactment. The rest of the relevant review of systems is as per the HPI PHYSICAL EXAM BP 141/75 Pulse (!) 47 Temp 36.1 ?C (97 ?F) (Temporal) Resp 19 Wt 75.1 kg (165 lb 9.1 oz) SpO2 99% BMI 24.45 kg/m? SKIN: No rashes or lesions. HEENT: No sinus tenderness. Oropharynx: Lips normal, mucosa moist this visit, and tongue normal. There appears to be red patches on the oropharynx behind his upper plate. He has been aware of discomfort in the past two days. Those appears to be svetlana from hot items but he does not recall such an event recently. LN: no cervical or supraclavicular adenopathy LUNGS: clear to percussion, bilateral inspiratory crackles heard as on the last visit. No wheezing or rhonchi. Symmetric air entry HEART: Distant heart sounds but bradycardic. RRR without murmur, gallop, or rubs. No ectopy. ABDOMEN: Soft, non-tender. Bowel sounds normal. No masses, organomegaly. EXTREMITIES: +2 pedal edema bilaterally (he tells me it resolves in the morning). No deformities, or skin discoloration. No clubbing NEURO: Rest tremors noted. Gait slow and station stooped. Mood and affect normal. DATABASE DME is [employer]. [employer] [facility] [employer] 03/09/2024 - 04/07/2024 Usage days 28/30 days (93%) >= 4 hours 28 days (93%) Usage hours 212 hours 11 minutes Average usage (total days) 7 hours 4 minutes Average usage (days used) 7 hours 35 minutes Median usage (days used) 7 hours 35 minutes Total used hours (value since last reset - 04/07/2024) 6,681 hours [employer] Serial number [id number] Mode Spont Timed IPAP 21 cmH2O (same settings at previous) EPAP 12 cmH2O Respiratory rate 10 bpm TI min 0.3, TI max 2.0 Therapy Leaks - L/min Median: 12.6 95th percentile: 40.0 (from 10.8 but within norm since March 25) maximum: 54.6 Events per hour AI: 1.3 HI: 8.0 AHI: 9.3 (compared to 11 and 7.5 previous 2 visits) Tidal Volume (ml) Median (avg) 879 Respiratory Rate (breaths/min) Median (avg) 11 Spontaneous breaths Triggered 46% (from 62% and 53% previous 2 visits) Cycled 73% (from 90% last visit) April 08, 2024 weight 165 lb Pre Challenge Post Pred LLN ULN Actual %Pred Actual %Chng Actual %Chng SPIROMETRY FVC 3.17 2.33 4.02 2.40 75 1.27 -47 FEV1 2.36 1.70 2.98 1.44 60 0.51 -64 FEV1/FVC 0.77 0.62 0.88 0.60 78 0.40 -32 MEP 106.9 49.68 164.0 46.20 43 MIP -86.8 -49.8 -124 -22.5 25 tcCO2 42.9 2022 Neda LLN Pred ULN % Sup % %Chg FVC L 2.50 2.44 3.37 4.32 74. (more content not included)... [facility] 04-08-2024 Note HNO ID: [id number] Author: NAHUM SANDRA RRT Service: ? 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 He continued to have a severe drop in the supine position and impairment in overall respiratory muscle strength but no hypercapnia remain active, able to cut down to trees in the week preceding his visit. He remained adapted to noninvasive ventilation with normal transcutaneous CO2, adequate support of tidal volume and respiratory rate. There was a mild residual elevation in the apnea-hypopnea index at 11.0 which was not addressed further in the context of the clinical improvement and controlled leaks. He has put on 10 lbs and lost is back and is back to about 165 lbs. He does feels significant benefit from having lost the weight with more energy, less shortness of breath. He can lie flat and was able to test supine today without SOB whereas he would panic when I had first seen him. He has been doing well with walking with no shortness of breath. He has been adherent to bilevel PAP and feels I would be lost without it . With it he can sleep on his back almost flat. Sleep quality is improved. No morning headaches. He has been getting regular supplies. He has been using the nebulizer with albuterol/ipratropium and cut back on using it from 4 times per day to once per day in the evening before bed time. This helps bring up phlegm once in a while. He has received the flu shot for this past season. PPSV 23 received , with previous prevnar. he has had tremors since high school (both sibling also have it) controlled with inderal. He has a slow heart rate but without dizziness (occasional dizzines if he gets up too quickly). he has rony more forgetful and worse don;t come out as easily for him. He has no loss of taste or smell. NO dream enactment. The rest of the relevant review of systems is as per the HPI PHYSICAL EXAM BP 141/75 Pulse (!) 47 Temp 36.1 C (97 F) (Temporal) Resp 19 Wt 75.1 kg (165 lb 9.1 oz) SpO2 99% BMI 24.45 kg/m SKIN: No rashes or lesions. HEENT: No sinus tenderness. Oropharynx: Lips normal, mucosa moist this visit, and tongue normal. There appears to be red patches on the oropharynx behind his upper plate. He has been aware of discomfort in the past two days. Those appears to be svetlana from hot items but he does not recall such an event recently. LN: no cervical or supraclavicular adenopathy LUNGS: clear to percussion, bilateral inspiratory crackles heard as on the last visit. No wheezing or rhonchi. Symmetric air entry HEART: Distant heart sounds but bradycardic. RRR without murmur, gallop, or rubs. No ectopy. ABDOMEN: Soft, non-tender. Bowel sounds normal. No masses, organomegaly. EXTREMITIES: +2 pedal edema bilaterally (he tells me it resolves in the morning). No deformities, or skin discoloration. No clubbing NEURO: Rest tremors noted. Gait slow and station stooped. Mood and affect normal. DATABASE [employer] is [employer]. [employer] [facility] 03/09/2024 - 04/07/2024 Usage days 28/30 days (93%) >= 4 hours 28 days (93%) Usage hours 212 hours 11 minutes Average usage (total days) 7 hours 4 minutes Average usage (days used) 7 hours 35 minutes Median usage (days used) 7 hours 35 minutes Total used hours (value since last reset - 04/07/2024) 6,681 hours [employer] 10 Serial number [id number] Mode Spont Timed IPAP 21 cmH2O (same settings at previous) EPAP 12 cmH2O Respiratory rate 10 bpm TI min 0.3, TI max 2.0 Therapy Leaks - L/min Median: 12.6 95th percentile: 40.0 (from 10.8 but within norm since March 25) maximum: 54.6 Events per hour AI: 1.3 HI: 8.0 AHI: 9.3 (compared to 11 and 7.5 previous 2 visits) Tidal Volume (ml) Median (avg) 879 Respiratory Rate (breaths/min) Median (avg) 11 Spontaneous breaths Triggered 46% (from 62% and 53% previous 2 visits) Cycled 73% (from 90% last visit) April 08, 2024 weight 165 lb Pre Challenge Post Pred LLN ULN Actual %Pred Actual %Chng Actual %Chng SPIROMETRY FVC 3.17 2.33 4.02 2.40 75 1.27 -47 FEV1 2.36 1.70 2.98 1.44 60 0.51 -64 FEV1/FVC 0.77 0.62 0.88 0.60 78 0.40 -32 MEP 106.9 49.68 164.0 46.20 43 MIP -86.8 -49.8 -124 -22.5 25 tcCO2 42.9 2022 Neda LLN Pred ULN % Sup [...] 51 108 165 76.1 tcPCO2 mmHg 37.90 SPIROMETRY SITTING AND SUPINE 03/08/21 Neda LLN [...] Pred LLN ULN Sitting % Supine % [facility] Date [id number] Time 12:21PM 12:37PM Height 170.2 170.2 Weight 88 88 FVC 3.74 2.89 4.60 1.29 35 0.57 -56 FEV 1 2.69 1.97 3.41 0.94 35 0.40 -58 FEV1%F 72.57 62.89 82.25 73.03 101 69.32 -5 PIMAX 101.78 75.02 128.5 26.72 26 PeMax 190.81 140.04 241.6 99.65 52 Pred LLN ULN Sitting % Supine % [facility] Date [id number] Time 09:57AM 10:09AM Height 170.2 170.2 Weight 88 88 FVC 3.74 2.89 4.60 1.25 33 0.55 -56 FEV 1 2.69 1.97 3.41 0.80 30 0.25 -69 FEV1%F 72.57 62.89 82.25 64.02 88 45.69 -29 ETCO2 52.00 PIMAX 101.78 75.02 128.5 27.03 27 PeMax 190.81 140.04 241.6 114.34 60 Pred LLN ULN Sitting % Supine % [facility] [id number] Time 02:31PM 02:47PM Height 170.2 170.2 Weight 91.5 91.5 FVC 3.78 2.93 4.63 1.62 43 0.45 -72 FEV 1 2.73 2.01 3.45 1.09 40 0.38 -65 FEV1%F 72.78 63.10 82.46 67.35 93 85.04 26 PIMAX 102.33 75.02 129.6 33.66 33 PeMax 191.84 140.04 243.6 74.05 39 Pred LLN ULN Sitting % Supine % [facility] Date [id number] Time 09:00AM 09:24AM Height 170.2 170.2 Weight [...] movements Arterial blood gases on hospital admission [facility] April 13, 2017 PH 7.26, PCO2 [...] March 20, 2017) Trace pericardial effusion ASSESSMENT Bilateral diaphragm impairment Previous restrictive impairment now with vital capacity at the low normal range. The remarkable improvement in the vital capacity occurred with weigh loss. The benefit is maintained even as he continues to have marked sitting to supine drop in vital capacity and severe impairment in respiratory muscle strength. The magnitude of impairment suggests bilateral diaphragm involvement. His tcCO2 is normal He remains adherent to noninvasive ventilation. He continues to derive significant benefits from its use. I note excellent support of the tidal volume and reduction in the respiratory rate. At this point the median respiratory rate of 11 may be too close to the backup rate of 10 which may explain the reduction in the percent spontaneously triggered breaths. Otherwise while the overall leaks appear to be increased over the past month, they are noted to be completely within norm since March 25 on review of the device details. There is a residual elevation in the apnea-hypopnea index into the mild range as noted previously. Will no pursue for more control given clinical benefits and control of air leaks. Nebulized albuterol/ipratropium or prn use mainly for secretion clearance. He has minimal phlegm with no choking. Asymptomatic bradycardia. On inderal for essential tremors long standing and familial. He will follow up with his control systems eng. PLAN Continue IPAP 05/11 backup rate 10 Albuterol/ipratropium nebulization prn Yearly follow-up with PFTs and as needed in the interim Carlos Farris M.D. April 08, 2024 The following is provided for various regulatory, billing, insurance or documentation purposes:: Mr. Irby is not having pain related to the reason for this visit. I spent a total of minutes on the date of the service which included preparing to see the patient, [id number] patient care, completing clinical documentation, obtaining and/or reviewing separately obtained history, performing a medically appropriate examination, counseling and educating the patient/family/caregiver, ordering medications, tests, or procedures, independently interpreting results (not separately reported) and communicating results to the patient/family/caregiver. Some elements were copied from my note dated 2022, which have been updated where appropriate, and all reflect current medical decision making from today, April 08, 2024 Carlos Farris M.D. April 08, 2024 documented in this encounter [facility] 04-08-2024 History of Presen t illness Narrative PULM FUNCTION SMARTBLOCK: Provider: Carlos Farris MD Spirometry: 1 MIP/MEP: 1 TcCO2: 1 System: 6 - [id number] documented in this encounter [facility] 08-19-2023 Miscellaneous Notes Received referral request from [facility] to see patient again for dx: COPD, Right Diaphragm Dysfunction. Request is scanned into chart. documented in this encounter [facility] 08-13-2023 Miscellaneous Notes Adonay Irby's spouse (Elizabeth) is requesting replacement filters for a nebulizer. She was unable to tell admin where it needed to be sent. documented in this encounter [facility] 06-04-2023 Miscellaneous Notes Imported External PAP Therapy Report from [facility] (dated 06/04/23). Please allow time delay for documents to appear in Epic (Scanned Documents Tab). documented in this encounter [facility] 09-24-2022 Miscellaneous Notes new order and office notes have been faxed to [facility] fax# [phone] called [facility] [phone] they are in need of new script for supplies for his machine and also office notes please put in a new rx for supplies for his CPAP for me to fax over with office notes Lila fax# [phone] documented in this encounter [facility] 2022 History of Presen t illness Narrative [...] in over 2 years. PPSV 23 received , with previous prevnar. He has received the [...] download [employer] outside DME account tagger to [facility] Sleep [facility] [employer], [employer] [facility] Usage 04/16/2022 - 05/15/2022 Usage days 29/30 days (97%) >= 4 hours 29 days (97%) Average usage (days used) 7 hours [address] Serial number [id number] Mode Spont Timed IPAP 21 cmH2O EPAP [...] Pred LLN ULN Sitting % Supine % [facility] Date [id number] Time 12:21PM 12:37PM Height 170.2 170.2 Weight 88 88 FVC 3.74 2.89 4.60 1.29 35 0.57 -56 FEV 1 2.69 1.97 3.41 0.94 35 0.40 -58 FEV1%F 72.57 62.89 82.25 73.03 101 69.32 -5 PIMAX 101.78 75.02 128.5 26.72 26 PeMax 190.81 140.04 241.6 99.65 52 Pred LLN ULN Sitting % Supine % [facility] Date [id number] Time 09:57AM 10:09AM Height 170.2 170.2 Weight [...] use/day in the past 6 months Setting 03/11 Spontaneous triggered breath 100% 6 months AHI 48.7 Leaks 0 TV 140-300 RR 11-22 Pred LLN ULN Sitting % Supine % [facility] Date [id number] Time 02:31PM 02:47PM Height 170.2 170.2 Weight 91.5 91.5 FVC 3.78 2.93 4.63 1.62 43 0.45 -72 FEV 1 2.73 2.01 3.45 1.09 40 0.38 -65 FEV1%F 72.78 63.10 82.46 67.35 93 85.04 26 PIMAX 102.33 75.02 129.6 33.66 33 PeMax 191.84 140.04 243.6 74.05 39 Pred LLN ULN Sitting % Supine % [facility] Date [id number] Time 09:00AM 09:24AM Height 170.2 170.2 Weight [...] movements Arterial blood gases on hospital admission [facility] April 13, 2017 PH 7.26, PCO2 [...] which included preparing to see the patient, [id number] patient care, completing clinical documentation, obtaining and/or [...] Carlos Farris MD documented in this encounter [facility] 2022 History of Presen t illness Narrative PULM FUNCTION SMARTBLOCK: Provider: Carlos Farris MD Spirometry: 1 MIP/MEP: 1 TcCO2: 1 System: MC1 - [id number] SIT/SUPINE documented in this encounter [facility] Evaluation note 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 on pulmonary function testing [facility] 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 on pulmonary function testing [facility] 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 Obstructive sleep apnea Obstructive sleep apnea (adult) (pediatric) documented in this encounter [facility] noteNo assessment information [facility] Work Phone: Evaluation note* 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 [facility] 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 on pulmonary function testing Ineffective airway clearance Other dyspnea and respiratory abnormality [facility] Diagnosis Disorder of nervous system- Primary Unspecified disorders of nervous system [facility] Diagnosis Disorder of nervous system- Primary Unspecified disorders of nervous system [facility] 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 Obstructive sleep apnea Obstructive sleep apnea (adult) (pediatric) documented in this encounter [facility] for referral (narrative)* Outpatient Procedure (Routine) - Pending Review Specialty Diagnoses / Procedures Referred By Brian t Referred To [facility] RESPIRATORY FINE Diagnoses Disorder of diaphragm Post poliomyelitis syndrome Procedures MIPS/MEPS UNLISTED PULMONARY SERVICE/PROCEDURE Carlos Farris MD [address] [place] [address] [address] Referral ID Status Reason Start Date Expiration Date Visits Requested Visits Authorized [id number] Pending Review Auto-Generat ed Referral 2022 06/15/2023 1 1 * Outpatient Procedure (Routine) - Pending Review Specialty Diagnoses / Procedures Referred By Contlizett t Referred To [facility] Diagnoses Disorder of diaphragm Post poliomyelitis syndrome Procedures SPIROMETRY SITTING AND SUPINE SPMTRY W/VC EXPIRATORY EDIE W/WO MXML VOL VNTJ Carlos Farris MD [address] [place] [address] [address] Referral ID Status Reason Start Date Expiration Date Visits Requested Visits Authorized [id number] Pending Review Auto-Generat ed Referral 2022 06/15/2023 1 1 [facility] for referral (narrative)* Outpatient Procedure (Routine) - Pending Review Specialty Diagnoses / Procedures Referred By Contac t Referred To [facility] RESPIRATORY FINE Diagnoses Disorder of diaphragm Post poliomyelitis syndrome Procedures MIPS/MEPS UNLISTED PULMONARY SERVICE/PROCEDURE Carlos Farris MD [address] [facility] [place] [address] [address] Referral ID Status Reason Start Date Expiration Date Visits Requested Visits Authorized [id number] Pending Review Auto-Generat ed Referral 04/08/2024 05/08/2025 1 1 * Outpatient Procedure (Routine) - Pending Review Specialty Diagnoses / Procedures Referred By Contac t Referred To [facility] Diagnoses Disorder of diaphragm Post poliomyelitis syndrome Procedures SPIROMETRY SITTING AND SUPINE SPMTRY W/VC EXPIRATORY EDIE W/WO MXML VOL VNTJ Carlos Farris MD [address] [place] [address] Respiratory [place] [address] [place], [place] [id number] Referral ID Status Reason Start Date Expiration Date Visits Requested Visits Authorized [id number] Pending Review Auto-Generat ed Referral 04/08/2024 05/08/2025 1 1 [facility] Advance Directives No Advanced Directives Records Found [...] or prosecute any alcohol or drug abuse patient.[facility] the event this information is protected by the Federal Confidentiality of Alcohol and Drug Abuse Patient Records regulations: The Federal rules restrict any use of the information to criminally investigate or prosecute any alcohol or drug abuse patient.[facility] Rehabilitation[facility] the event this information is protected by the Federal Confidentiality of Alcohol and Drug Abuse Patient Records regulations: The Federal rules restrict any use of the information to criminally investigate or prosecute any alcohol or drug abuse patient.[facility] the event this information is protected by the Federal Confidentiality of Alcohol and Drug Abuse Patient Records regulations: The Federal rules restrict any use of the information to criminally investigate or prosecute any alcohol or drug abuse patient.[facility] the event this information is protected by the Federal Confidentiality of Alcohol and Drug Abuse Patient Records regulations: The Federal rules restrict any use of the information to criminally investigate or prosecute any alcohol or drug abuse patient.[facility] the event this information is protected by the Federal Confidentiality of Alcohol and Drug Abuse Patient Records regulations: The Federal rules restrict any use of the information to criminally investigate or prosecute any alcohol or drug abuse patient.[facility] Rehabilitation[facility] the event this information is protected by the Federal Confidentiality of Alcohol and Drug Abuse Patient Records regulations: The Federal rules restrict any use of the information to criminally investigate or prosecute any alcohol or drug abuse patient.[facility] Rehabilitation[facility] the event this information is protected by the Federal Confidentiality of Alcohol and Drug Abuse Patient Records regulations: The Federal rules restrict any use of the information to criminally investigate or prosecute any alcohol or drug abuse patient.[facility] Rehabilitation[facility] the event this information is protected by the Federal Confidentiality of Alcohol and Drug Abuse Patient Records regulations: The Federal rules restrict any use of the information to criminally investigate or prosecute any alcohol or drug abuse patient.[facility] Rehabilitation[facility] the event this information is protected by the Federal Confidentiality of Alcohol and Drug Abuse Patient Records regulations: The Federal rules restrict any use of the information to criminally investigate or prosecute any alcohol or drug abuse patient.[facility] Reason for Visit (unrecogniz ed section and content) Reason Comments Spirometry Specialty Diagnoses / Procedures Referred By Contac t Referred To [facility] RESPIRATORY FINE 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 Procedures MIPS/MEPS UNLISTED PULMONARY SERVICE/PROCEDURE Carlos Farris MD [address] [place] [address] [place] [address] Referral ID Status Reason Start Date Expiration Date V isits Requested Visits Authorized [id number] Closed Auto-Generate d Referral 12/04/2021 01/03/2023 1 1 Specialty Diagnoses / Procedures Referred By Contac t Referred To [facility] 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 Procedures SPIROMETRY SITTING AND SUPINE SPMTRY W/VC EXPIRATORY EDIE W/WO MXML VOL VNCarlos Steele MD [address] [place] [address] [place] [address] Referral ID Status Reason Start Date Expiration Date V isits Requested Visits Authorized [id number] Closed Auto-Generate d Referral 12/04/2021 01/03/2023 1 1 Reason Comments 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 Reason Comments Received Outside Medical Records Reason Onset Date Comments Filters for Nebulizer 08/13/2023 Reason Comments Referral Request Specialty Diagnoses / Procedures Referred By Contlizett t Referred To [facility] Diagnoses Disorder of nervous system Procedures SPIROMETRY SITTING AND SUPINE SPMTRY W/VC EXPIRATORY EDIE W/WO MXML VOL Carlos Camargo MD [address] [place] [address] [address] Referral ID Status Reason Start Date Expiration Date V isits Requested Visits Authorized [id number] Closed Auto-Generate d Referral 08/11/2023 09/09/2024 1 1 Specialty Diagnoses / Procedures Referred By Contac t Referred To Contact RESPIRATORY FINE Diagnoses Disorder of nervous system Procedures MIPS/MEPS UNLISTED PULMONARY SERVICE/PROCEDURE Carlos Farris MD [address] [place] [address] [address] Referral ID Status Reason Start Date Expiration Date V isits Requested Visits Authorized [id number] Closed Auto-Generate d Referral 08/11/2023 09/09/2024 1 1 Reason Comments Follow Up Care Teams (unrecognized sec tion and content) Filemaker Developer Relationship Specialty Start Date End Date Kamilla Huizar MD PCP - General Family Practice 04/17/17 Filemaker Developer Relationship Specialty Start Date End Date Kamilla Huizar MD PCP - General Family Practice 04/17/17 Filemaker Developer Relationship Specialty Start Date End Date Kamilla Huizar MD PCP - General Family Practice 04/17/17 Team Status: Inactive Member Role Status Dates Joao Barba MD Attending Provider Active Filemaker Developer Relationship Specialty Start Date End Date Kamilla Huizar MD PCP - General Family Medicine 04/17/17 Filemaker Developer Relationship Specialty Start Date End Date Kamilla Huizar MD PCP - General Family Medicine 04/17/17 Filemaker Developer Relationship Specialty Start Date End Date Kamilla Huizar MD PCP - General Family Medicine 04/17/17 Filemaker Developer Relationship Specialty Start Date End Date Kamilla Huizar MD PCP - General Family Medicine 04/17/17 Filemaker Developer Relationship Specialty Start Date End Date Kamilla Huizar MD PCP - General [facility] Medicine 04/17/17 Filemaker Developer Relationship Specialty Start Date End Date Kamilla Huizar MD PCP - General Family [facility] 04/17/17 Goals (unrecognized section and content) Goals may be documented in a n alternate section (unrecognized sect ion and content) No Status Records FoundNo Status Records FoundNo Status Records FoundNo Status Records FoundNo Status Records Found INFORMATION SOURCE (unrecogn ized section and content) DATE CREATED AUTHOR 06/25/2022 [facility] DATE CREATED AUTHOR AUTHOR'S ORGANIZ ATION 04/24/2023 [facility] DATE CREATED AUTHOR AUTHOR'S ORGANIZ ATION 10/16/2023 [facility] DATE CREATED AUTHOR AUTHOR'S ORGANIZ ATION 11/25/2023 [facility] DATE CREATED AUTHOR AUTHOR'S ORGANIZ ATION 04/10/2024 [facility] FOR RECORDS PERTAINING TO PATIENTS WHO ARE [...] BE BASED ON THE PRIMARY CLINICAL RECORDS. [facility] provides no warranty or guarantee of the accuracy or completeness of information in this document.
[2024-04-13 09:34] LABS: Alanine Aminotransferase 28 U/L (16-63); Albumin Globulin Ratio 1.1; Albumin Level 3.4 g/dL (3.4-5.0); Alkaline Phosphatase 66 U/L (46-116); Anion Gap 9.4; Aspartate Amino Transferase 22 U/L (15-37); BUN Creatinine Ratio 25.3; Bilirubin Total 0.8 mg/dL (0.2-1.0); Calcium 8.5 mg/dL (8.5-10.1); Carbon Dioxide 29.5 mmol/L (21.0-32.0); Chloride 109 mmol/L (98-107); Estimated GFR (African America >60 (>=60); Estimated GFR (Non-African Ame >60 (>=60); Glucose 98 mg/dL (74-106); Potassium 3.9 mmol/L (3.5-5.1); Sodium 144 mmol/L (136-145); Total Protein 6.4 g/dL (6.4-8.2)
[2024-04-13 09:51] LABS: Basophils Absolute Auto 0.1 10^3/uL (0.0-0.1); Basophils Percent Auto 0.9 % (0.2-2.0); Eosinophils Absolute Auto 0.1 10^3/uL (0.0-0.7); Eosinophils Percent Auto 2.1 % (0.9-7.0); Hematocrit 37.8 % (42.0-54.0); Hemoglobin 12.3 g/dL (14.0-18.0); Immature Granulocytes Abs Auto 0.01 10^3/uL (0.00-0.03); Immature Granulocytes Pct Auto 0.2 % (0.0-0.5); Lymphocytes Absolute Auto 1.4 10^3/uL (1.2-3.8); Lymphocytes Percent Auto 26.5 % (20.5-60.0); Mean Corpuscular HGB Conc 32.5 g/dL (29.9-35.2); Mean Corpuscular Hemoglobin 32.6 pg (25.9-34.0); Mean Corpuscular Volume 100.3 fL (80.0-94.0); Mean Platelet Volume 10.7 fL (9.5-13.5); Monocytes Absolute Auto 0.5 10^3/uL (0.3-0.8); Monocytes Percent Auto 9.2 % (1.7-12.0); Neutrophils Absolute Auto 3.3 10^3/uL (1.4-6.5); Neutrophils Percent Auto 61.1 % (43.0-75.0); Platelet Count 171 10^3/uL (150-450); Red Blood Count 3.77 10^6/uL (4.70-6.10); Red Cell Distribution Width 14.8 % (11.0-15.0); White Blood Count 5.3 10^3/uL (4.0-11.0)
[2024-04-13 10:26] LABS: Erythrocyte Sedimentation Rate 17 mm/hr (<=20)
== END 2024-04-13 08:49 | disposition home or self-care (01) ==
LOC: LAB 08:50
PROVIDERS: PCP Family Medicine; Visit Provider Registered Nurse
DX: H15.012 Anterior scleritis, left eye (principal); Z79.899 Other long term (current) drug therapy
CPT/HCPCS: 36415; 80053; 85025; 85652

== ENCOUNTER 2024-07-06 08:23 | Outpatient (OUT) | payer MEDICARE, OTHER, SELFPAY ==
--- OUTSIDE RECORDS SUMMARY | 2024-07-06 08:38 | XMS_ITS | CCD ---
Author Organization [facility] Care Team Providers Care Lawn Mower Sharpener Name Role Phone Kamilla Huizar MD Primary Care Provider [phone] MD Joao Barba Attending Provider [phone] Kamilla Huizar MD Primary Care Provider [phone] MELANIE ., DR KOHLI Primary Care Unavailable [...] Unavailable Kamilla Huizar MD Primary Care Provider [phone] BELLA CORONADO Attending Unavailable Kamilla Huizar MD Primary Care Provider [phone] CARLOS FARRIS Referring Unavailable KAMILLA HUIZAR Primary Care Unavailable KAMILLA HUIZAR Primary Care Unavailable CARLOS FARRIS Referring Unavailable CARLOS FARRIS Attending Unavailable KAMILLA HUIZAR Primary Care Unavailable CARLOS FARRIS Referring Unavailable BRIDGER NORRIS Attending Unavailable BRIDGER NORRIS Attending Unavailable Allergies Allergy Classification Reported Allergen(s) Allergy Type Date of Onset Reaction(s) Facility Sulfamethoxazole / Trimethoprim (1 source) Sulfamethoxazole / Trimethoprim Drug Allergy 1 Anaphylaxis [facility] (11 sources) Sulfamethoxazole / Trimethoprim; Translations: [SULFAMETHOXAZOLE-TR IMETHOPRIM] Drug Allergy 1 Anaphylaxis [facility] (2 sources) Sulfamethoxazole / Trimethoprim; Translations: [Bactrim] Drug Allergy [facility] Repository Medications Current Medications Medication Drug Class(es) Dates Sig (Normalized) Sig (Original) albuterol 0.833 mg/ml / ipratropium bromide 0.167 mg/ml inhalation solution (12 sources) Anticholinergic, beta2-Adrenergic Agonist Start: 04-23-2017 End: 04-25-2024 take 3 mL by inhalation four times daily ipratropium-albuter ol (DUONEB) 0.5 mg-3 mg(2.5 mg base)/3 mL nebu Inhale 3 mL as instructed four times daily. 360 mL 11 04/25/2024 Active Comment on above: Inhale 3 mL as instr ucted four times daily. BIPAP (11 sources) Start: 09-10-2018 BIPAP Please provide with [...] FVC 33% COPD IS NOT PRESENT CPAP/BIPAP/OTHER (8 sources) Start: 09-24-2022 End: 02-08-2050 CPAP/BIPAP/OTHER Type .CPAPSettings into a note to see current settings/supplies/D ME information. 1 Each 0 09/24/2022 02/08/2050 Active Comment on above: Type .CPAPSettings i nto a note to see current settings/supplies/DME information. finasteride 5 mg oral tablet (11 sources) 5-alpha Reductase Inhibitor Start: 04-23-2017 take 1 tablet by mouth once daily finasteride (PROSCAR) 5 mg tablet Take 1 tablet by mouth once daily. 0 04/23/2017 Active Comment on above: Take 1 tablet by fredy th once daily. furosemide 20 mg oral tablet (11 sources) Loop Diuretic Start: 04-23-2017 take 1 tablet by mouth once daily furosemide (LASIX) 20 mg tablet Take 1 tablet by mouth once daily. 0 04/23/2017 Active Comment on above: Take 1 tablet by fredy th once daily. latanoprost 0.05 mg/ml ophthalmic solution (11 sources) Prostaglandin Analog Start: 04-23-2017 take 1 [...] chloride 10 meq extended release oral tablet (11 sources) Start: 7 take 1 tablet by mouth once daily potassium chloride (KLOR-CON 10) 10 mEq tablet Take 1 tablet by mouth once daily. 0 04/23/2017 Active Comment on above: Take 1 tablet by fredy th once daily. propranolol hydrochloride 60 mg oral tablet (11 sources) beta-Adrenergic Alessia Start: 7 take 1 tablet by mouth once daily propranolol (INDERAL) 60 mg tablet Take 1 tablet by mouth once daily. 0 04/23/2017 Active Comment on above: Take 1 tablet by fredy th once daily. simvastatin 20 mg oral tablet (11 sources) HMG-CoA Reductase Inhibitor Start: 7 take 1 tablet by mouth once daily at bedtime simvastatin (ZOCOR) 20 mg tablet Take 1 tablet by mouth daily at bedtime. 0 04/23/2017 Active Comment on above: Take 1 tablet by fredy th daily at bedtime. 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] [...] UNSPECIFIED] Onset: 04-15-2023 Chronic Residual codes; unclassified (13 sources) Obstructive sleep apnea syndrome; Translations: [Obstructive [...] Onset: 01-10-2023 Episodic Other lower respiratory disease (14 sources) Disorder of diaphragm; Translations: [Disorders of diaphragm] Onset: 04-23-2017 04-23-2017 Episodic Unclassified (1 source) CONTACT W/AND (SUSP) EXPOS COVID-19; Translations: [CONTACT W/AND (SUSP) EXPOS COVID-19] Onset: 01-07-2023 Results Test Name Value Interpretation Reference Range Facility OVon 04-08-2024 CNOV Office Visit (PULMMN ) ADONAY IRBY ([id number]) 1945 M Date Time Provider Department 04/08/24 [...] from a vital capacity of 44% in 2016, to 64% February 2021, and 74% May [...] Mood and affect normal. DATABASE DME is [email or web address] [facility] 03/09/2024 - 04/07/2024 Usage days 28/30 days (93%) >= 4 hours 28 days (93%) Usage hours 212 hours 11 minutes Average usage (total days) 7 hours 4 minutes Average usage (days used) 7 hours 35 minutes Median usage (days used) 7 hours 35 minutes Total used hours (value since last reset - 04/07/2024) 6,[address] Serial number [id number] Mode Spont Timed IPAP 21 cmH2O (same [...] Actual %Pr (more content not included)... Normal [facility] Patient Letter FTon 2022 Patient Letter [facility] (Inserted Image. Kayla ble to display) October 14, 2023 ADONAY IRBY [address] [place] [address] : 1945 Dear Adonay, This is a reminder that you are due for an appointment with [facility]. Please contact our office at [phone] to schedule an appointment at your earliest convenience. Thank you, Rodriguez [facility] Reminderson 10-14-2023 Reminders - From: Raven Sepulveda To: REN - Reminders/Recalls; Sent: 10/14/2023 10:33:18 EST Show up: 10/14/2023 10:33:00 EST Subject: Ambulatory Reminder Reminder/Recall 5 year colon recall mamie freed 11/07 first recall letter Normal [facility] CNPNon 08-19-2023 CNPN Telephone (PMNA11) ADONAY IRBY ([id number]) 1945 M Date Time Provider Department 08/19/23 [facility] PROVIDER PMNA11 During your visit today, we recorded the following information about you: Ricardo Duarte 08/19/2023 4:42 PM Signed Received referral request from [facility] to see patient again for dx: COPD, [...] Encounter Status:Closed by RICARDO DUARTE [facility]31[facility]PULMMN[facility] ADONAY IRBY ([id number]) 1945 M Date Time Provider Department 08/13/23 [...] KIT 1 Kit 0 08/14/2023 08/14/2023 Route: [facility] Kit one time only for 1 dose. Please include filters. Encounter Status:Closed by OSWALDO WILEY on 08/14/23 Normal [facility] Screenson 06-25-2023 Screens [id number] CD:127 Normal [facility] Patient Educationon 06-24-20 Patient Education Urology [...] Follow these instructions at home: ? Take gegk-bze-mismvnv and prescription medicines only as told by [...] the medicine (more content not included)... Normal [facility] Provider Letteron 06-24-2023 Provider Letter (Inserted Image. Kayla ble to display) Kamilla Huizar, [address] [place] [address] Re: ADONAY IRBY Date of : [address]Hoy ADAMS, ADONAY Coello was evaluated at [facility] 06/24/2023 13:20:00 As this patient [...] Thanks! Provider Signature: Bella Coronado PA-C Physician Accounts Payable Bookkeeper [facility] [address] [place] [address] Normal [facility] Urology Office/Clinic Noteon 06-24-2023 Urology Office/Clinic [...] When Contact Information BELLA CORONADO PA-C, URL [address] [place] [address] Additional Instructions: PRN Patient Education Benign Prostatic Hyperplasia Documentation recorded by the scrgregory Crane accurately reflects the services(s) I performed and decisions made by me. Authenticated by Bella Coronado PA-C on 06/24/2023 14:02:30. IRajani, personally scribed for Bella Coronado PA-C on [...] Hypertension: Father. Immunizations Vaccine Date Status SARSCoV2 mRNA(zlaypxkzu-moil-mtl ros) vac 07/09/2022 Recorded SARS-CoV-2 (COVID-19) mRNA BNT-162b2 vax 10/15/2021 Recorded SARS-CoV-2 (COVID-19) mRNA-1273 vaccine 02/09/2021 Recorded SARS-CoV-2 (COVID-19) mRNA-1273 vaccine 01/12/2021 Recorded influenza virus vaccine, inactivated 08/31/2020 Recorded influenza virus vaccine, live, trivalent 08/24/2019 Recorded influenza virus vaccine, inactivated 08/27/2018 Recorded p (more content not included)... Normal [facility] Comment on above: Result Comment: Elec tronically Signed By: BELLA CORONADO PA-C\.br\Date and Time Signed: 06/24/23 14:14 EDT\.br\Electronically Co-Signed By: Rajani Crane\.br\Date and Time Co-Signed: 06/24/23 13:53 EDT Farida 06-04-2023 CNPN Telephone (PULMMN) ADONAY IRBY ([id number]) 1945 M Date Time Provider Department 06/04/23 CARLOS FARRIS PULMMAnisha During your visit today, we recorded the following information about you: Hanna Hyde 06/04/2023 1:15 PM Signed Imported External PAP Therapy Report from [employer] system (dated 06/04/23). Please allow time delay for documents to appear in [employer] (Scanned Documents Tab). Allergies As of Date: [...] Status:Closed by HANNA HYDE on 06/04/23 Normal [facility] INSULINon 04-09-2023 Insulin 2.9 uIU/mL Normal 2.6-24.9 [facility] Comment on above: Performed By: #### L IPID, T7, CMP, URIC, TSH #### [facility] [address] [address] [address] Roland Gr CBC AUTO DIFFon 04-08-2023 BASO # 0.0 103/ul Normal 0.0-0.1 [facility] Comment on above: Performed By: #### C VDTBH #### [facility] [address] [place] [address] Dr. Roland Gr Basophils/100 WBC (Bld) 0.7 % Normal 0.2-2.0 [facility] Comment on above: Performed By: #### C VDTBH #### [facility] [address] [place] [address] Dr. Roland Gr EO # 0.1 103/ul Normal 0.0-0.7 [facility] Comment on above: Performed By: #### C VDTBH #### [facility] [address] [place] [address] Dr. Roland Gr Eosinophils/100 WBC (Bld) 0.9 % Normal 0.9-7.0 [facility] Comment on above: Performed By: #### C VDTBH #### [facility] [address] [place] [address] Dr. Roland Gr Erythrocyte distribution width (RBC) [Ratio] 14.7 % Normal 11.0-15.0 [facility] Comment on above: Performed By: #### C VDTBH #### [facility] [address] [place] [address] Dr. Roland Gr Hematocrit (Bld) [Volume fraction] 39.1 % Critically low 42.0-54.0 [facility] Comment on above: Performed By: #### C VDTBH #### [facility] [address] [place] [address] Dr. Roland Gr Hemoglobin (Bld) [Mass/Vol] 12.6 g/dL Critically low 14.0-18.0 [facility] Comment on above: Performed By: #### C VDTBH #### [facility] [address] [place] [address] Dr. Roland Gr IG # 0.03 10e3/ul Normal 0.00-0.03 [facility] Comment on above: Performed By: #### C VDTBH #### [facility] [address] [place], [place] [id number] Dr. Roland Gr IG % 0.5 % Normal 0.0-0.5 [facility] Comment on above: Performed By: #### C VDTBH #### [facility] [address] [place] [address] Dr. Roland Gr LYMPH # 1.4 103/ul Normal 1.2-3.8 [facility] Comment on above: Performed By: #### C VDTBH #### [facility] [address] [place] [address] Dr. Roland Gr Lymphocytes/100 WBC (Bld) 23.6 % Normal 20.5-60.0 [facility] Comment on above: Performed By: #### C VDTBH #### [facility] [address] [place] [address] Dr. Roland Gr MANUAL DIFF REQ NO Normal [facility] Comment on above: Performed By: #### C VDTBH #### [facility] [address] [place] [address] Dr. Roland Gr MCH (RBC) [Entitic mass] 31.7 pg Normal 25.9-34.0 [facility] Comment on above: Performed By: #### C VDTBH #### [facility] [address] [place] [address] Dr. Roland Gr MCHC (RBC) [Mass/Vol] 32.2 g/dL Normal 29.9-35.2 [facility] Comment on above: Performed By: #### C VDTBH #### [facility] [address] [place] [address] Dr. Roland Gr MCV (RBC) [Entitic vol] 98.5 fL Critically high 80.0-94.0 [facility] Comment on above: Performed By: #### C VDTBH #### [facility] [address] [place] [address] Dr. Roland Gr MONO # 0.7 103/ul Normal 0.3-0.8 [facility] Comment on above: Performed By: #### C VDTBH #### [facility] [address] [place], [place] [id number] Dr. Roland Gr Monocytes/100 WBC (Bld) 11.8 % Normal 1.7-12.0 [facility] Comment on above: Performed By: #### C VDTBH #### [facility] [address] [place] [address] Dr. Roland Gr NEUT # 3.7 103/ul Normal 1.4-6.5 [facility] Comment on above: Performed By: #### C VDTBH #### [facility] [address] [place] [address] Dr. Roland Gr Neutrophils/100 WBC (Bld) 62.5 % Normal 43.0-75.0 [facility] Comment on above: Performed By: #### C VDTBH #### [facility] [address] [place] [address] Dr. Roland Gr Platelet mean volume (Bld) [Entitic vol] 10.2 fL Normal 9.5-13.5 [facility] Comment on above: Performed By: #### C VDTBH #### [facility] [address] [place] [address] Dr. Roland Gr PLT 180 103/ul Normal 150-450 [facility] Comment on above: Performed By: #### C VDTBH #### [facility] [address] [place] [address] Dr. Roland Gr RBC 3.97 106/ul Critically low 4.70-6.10 [facility] Comment on above: Performed By: #### C VDTBH #### [facility] [address] [place] [address] Dr. Roland Gr WBC 5.9 103/ul Normal 4.0-11.0 [facility] Comment on above: Performed By: #### C VDTBH #### [facility] [address] [place] [address] Dr. Roland Gr FREE THYROXINE INDEX T7on FTI 2.81 Normal 1.30-4.50 [facility] Comment on above: Performed By: #### L IPID, T7, CMP, URIC, TSH #### [facility] [address] [address] [address] Roland Gr T3U 38.0 % Normal 33.0-40.0 [facility] Comment on above: Performed By: #### L IPID, T7, CMP, URIC, TSH #### [facility] [address] [address] [address] Roland Gr T4 [Mass/Vol] 7.40 ug/dL Normal 4.50-12.10 [facility] Comment on above: Performed By: #### L IPID, T7, CMP, URIC, TSH #### [facility] [address] [address] [address] Roland Gr GLYCOHEMOGLOBIN A1Con 2022 ADA RECOMMENDATION SEE BELOW Normal [facility] Comment on above: Result Comment: ADA RECOMMENDED LIMIT 4.0 - 6.0 ADA THERAPEUTIC TARGET < 7.0 ACTION SUGGESTED > 7.0 Performed By: #### A 1C #### [facility] [address] [place] [address] Dr. Roland Gr Glucose [Mass/Vol] 103 mg/dL Normal [facility] Comment on above: Performed By: #### A 1C #### [facility] [address] [place] [address] Dr. Roland Gr HbA1c (Bld) [Mass fraction] 5.2 % Normal 4.5-6.2 [facility] Comment on above: Performed By: #### A 1C #### [facility] [address] [place] [address] Dr. Roland Gr LIPID PROFILEon 04-08-2023 CHOL-HDL RATIO NORM SEE BELOW Normal [facility] Comment on above: Result Comment: 3.3 - 4.4 LOW RISK 4.4 - 7.1 AVERAGE RISK 7.1 - 11.0 MODERATE RISK >11.0 HIGH RISK Performed By: #### L IPID, T7, CMP, URIC, TSH #### [facility] [address] [place] [address] Dr. Roland Gr Cholesterol [Mass/Vol] 134 mg/dL Normal <=200 [facility] Comment on above: Performed By: #### L IPID, T7, CMP, URIC, TSH #### [facility] [address] [address] [address] Roland Gr Cholesterol in HDL [Mass/Vol] 74 mg/dL Critically high 40-60 [facility] Comment on above: Performed By: #### L IPID, T7, CMP, URIC, TSH #### [facility] [address] [address] [address] Roland Gr Cholesterol in LDL [Mass/Vol] 50.0 mg/dL Normal [facility] Comment on above: Performed By: #### L IPID, T7, CMP, URIC, TSH #### [facility] [address] [address] [address] Roland Gr Cholesterol.total/Ch olesterol in HDL [Mass ratio] 1.8 {ratio} Normal [facility] Comment on above: Performed By: #### L IPID, T7, CMP, URIC, TSH #### [facility] [address] [address] [address] Roland Gr HDL NORMAL > or = 60 mg/dl - LO W CARDIOVASCULAR RISK <40 mg/dl - HIGH CARDIOVASCULAR RISK Normal [facility] Comment on above: Performed By: #### L IPID, T7, CMP, URIC, TSH #### [facility] [address] [address] [address] Roland Gr LDL CALC NORMAL SEE BELOW Normal [facility] Comment on above: Result Comment: <100 mg/dl OPTIMAL 100 - 129 mg/dl NEAR OR ABOVE OPTIMAL 130 - 159 mg/dl BORDERLINE HIGH 160 - 189 mg/dl HIGH >190 mg/dl VERY HIGH Performed By: #### L IPID, T7, CMP, URIC, TSH #### [facility] [address] [address] [address] Roland Gr Triglyceride [Mass/Vol] 50 mg/dL Normal <=150 [facility] Comment on above: Performed By: #### L IPID, T7, CMP, URIC, TSH #### [facility] [address] [address] [address] Roland Gr VLDL CALC 10.0 mg/dL Normal [facility] Comment on above: Performed By: #### L IPID, T7, CMP, URIC, TSH #### [facility] [address] [place] [address] Dr. Roland Gr PROF 14(COMP METB)on 023 Albumin [Mass/Vol] 3.6 g/dL Normal 3.4-5.0 [facility] Comment on above: Performed By: #### L IPID, T7, CMP, URIC, TSH #### [facility] [address] [place] [address] Dr. Roland Gr Albumin/Globulin [Mass ratio] 1.1 {ratio} Normal [facility] Comment on above: Performed By: #### L IPID, T7, CMP, URIC, TSH #### [facility] [address] [place] [address] Dr. Roland Gr ALP [Catalytic activity/Vol] 64 U/L Normal 46-116 [facility] Comment on above: Performed By: #### L IPID, T7, CMP, URIC, TSH #### [facility] [address] [place] [address] Dr. Roland Gr ALT [Catalytic activity/Vol] 25 U/L Normal 16-63 [facility] Comment on above: Performed By: #### L IPID, T7, CMP, URIC, TSH #### [facility] [address] [place] [address] Dr. Roland Gr Anion gap [Moles/Vol] 13.2 mmol/L Normal [facility] Comment on above: Performed By: #### L IPID, T7, CMP, URIC, TSH #### [facility] [address] [place] [address] Dr. Roland Gr AST [Catalytic activity/Vol] 18 U/L Normal 15-37 [facility] Comment on above: Performed By: #### L IPID, T7, CMP, URIC, TSH #### [facility] [address] [place] [address] Dr. Roland Gr Bilirubin [Mass/Vol] 0.9 mg/dL Normal 0.2-1.0 [facility] Comment on above: Performed By: #### L IPID, T7, CMP, URIC, TSH #### [facility] [address] [address] [address] Roland Gr Calcium [Mass/Vol] 9.0 mg/dL Normal 8.5-10.1 [facility] Comment on above: Performed By: #### L IPID, T7, CMP, URIC, TSH #### [facility] [address] [address] [address] Roland Gr Chloride [Moles/Vol] 109 mmol/L Critically high 98-107 [facility] Comment on above: Performed By: #### L IPID, T7, CMP, URIC, TSH #### [facility] [address] [place] [address] Dr. Roland Gr CO2 [Moles/Vol] 28.9 mmol/L Normal 21.0-32.[address] [facility] Comment on above: Performed By: #### L IPID, T7, CMP, URIC, TSH #### [facility] [address] [place] [address] Dr. Roland Gr Creatinine [Mass/Vol] 0.85 mg/dL Normal 0.70-1.30 [facility] Comment on above: Performed By: #### L IPID, T7, CMP, URIC, TSH #### [facility] [address] [place] [address] Dr. Roland Gr EGFR-AF WELSH >60 Normal >=[address] [facility] Comment on above: Performed By: #### L IPID, T7, CMP, URIC, TSH #### [facility] [address] [place] [address] Dr. Roland Gr EGFR-NON AF WELSH >60 Normal >=60 [facility] Comment on above: Performed By: #### L IPID, T7, CMP, URIC, TSH #### [facility] [address] [place] [address] Dr. Roland Gr Globulin (S) [Mass/Vol] 3.4 g/dL Normal [facility] Comment on above: Performed By: #### L IPID, T7, CMP, URIC, TSH #### [facility] [address] [address] [address] Roland Gr Glucose [Mass/Vol] 93 mg/dL Normal 74-106 [facility] Comment on above: Performed By: #### L IPID, T7, CMP, URIC, TSH #### [facility] [address] [place] [address] Dr. Roland Gr Potassium [Moles/Vol] 4.1 mmol/L Normal 3.5-5.1 [facility] Comment on above: Performed By: #### L IPID, T7, CMP, URIC, TSH #### [facility] [address] [place] [address] Dr. Roland Gr Protein [Mass/Vol] 7.0 g/dL Normal 6.4-8.2 [facility] Comment on above: Performed By: #### L IPID, T7, CMP, URIC, TSH #### [facility] [address] [place] [address] Dr. Roland Gr Sodium [Moles/Vol] 147 mmol/L Critically high 136-145 [facility] Comment on above: Performed By: #### L IPID, T7, CMP, URIC, TSH #### [facility] [address] [place] [address] Dr. Roland Gr Urea nitrogen [Mass/Vol] 20.0 mg/dL Critically high 7.0-18.0 [facility] Comment on above: Performed By: #### L IPID, T7, CMP, URIC, TSH #### [facility] [address] [place] [address] Dr. Roland Gr Urea nitrogen/Creatinine [Mass ratio] 23.5 mg/mg Normal [facility] Comment on above: Performed By: #### L IPID, T7, CMP, URIC, TSH #### [facility] [address] [place] [address] Dr. Roland Gr TSHon 04-08-2023 TSH 1.136 uIU/mL Normal 0.358-3.740 [facility] Comment on above: Performed By: #### L IPID, T7, CMP, URIC, TSH #### [facility] [address] [place] [address] Dr. Roland Gr URIC ACID SERUMon 04-08-2023 Urate [Mass/Vol] 6.5 mg/dL Normal 3.5-7.[address] [facility] Comment on above: Performed By: #### L IPID, T7, CMP, URIC, TSH #### [facility] [address] [place] [address] Dr. Roland Gr CBC AUTO DIFFon 03-04-2023 BASO # 0.0 103/ul Normal 0.0-0.1 [facility] Comment on above: Performed By: #### C VDTBH #### [facility] [address] [place] [address] Dr. Roland Gr Basophils/100 WBC (Bld) 0.6 % Normal 0.2-2.0 [facility] Comment on above: Performed By: #### C VDTBH #### [facility] [address] [place] [address] Dr. Roland Gr EO # 0.1 103/ul Normal 0.0-0.7 [facility] Comment on above: Performed By: #### C VDTBH #### [facility] [address] [place] [address] Dr. Roland Gr Eosinophils/100 WBC (Bld) 1.3 % Normal 0.9-7.0 [facility] Comment on above: Performed By: #### C VDTBH #### [facility] [address] [place] [address] Dr. Roland Gr Erythrocyte distribution width (RBC) [Ratio] 14.6 % Normal 11.0-15.0 [facility] Comment on above: Performed By: #### C VDTBH #### [facility] [address] [place] [address] Dr. Roland Gr Hematocrit (Bld) [Volume fraction] 40.4 % Critically low 42.0-54.0 [facility] Comment on above: Performed By: #### C VDTBH #### [facility] [address] [place] [address] Dr. Roland Gr Hemoglobin (Bld) [Mass/Vol] 12.9 g/dL Critically low 14.0-18.0 [facility] Comment on above: Performed By: #### C VDTBH #### [facility] [address] [place] [address] Dr. Roland Gr IG # 0.02 10e3/ul Normal 0.00-0.03 [facility] Comment on above: Performed By: #### C VDTBH #### [facility] [address] [place] [address] Dr. Roland Gr IG % 0.3 % Normal 0.0-0.5 [facility] Comment on above: Performed By: #### C VDTBH #### [facility] [address] [place] [address] Dr. Roland Gr LYMPH # 1.5 103/ul Normal 1.2-3.8 [facility] Comment on above: Performed By: #### C VDTBH #### [facility] [address] [place] [address] Dr. Roland Gr Lymphocytes/100 WBC (Bld) 21.2 % Normal 20.5-60.0 [facility] Comment on above: Performed By: #### C VDTBH #### [facility] [address] [place] [address] Dr. Roland Gr MANUAL DIFF REQ NO Normal [facility] Comment on above: Performed By: #### C VDTBH #### [facility] [address] [place] [address] Dr. Roland Gr MCH (RBC) [Entitic mass] 31.6 pg Normal 25.9-34.0 [facility] Comment on above: Performed By: #### C VDTBH #### [facility] [address] [place] [address] Dr. Roland Gr MCHC (RBC) [Mass/Vol] 31.9 g/dL Normal 29.9-35.2 [facility] Comment on above: Performed By: #### C VDTBH #### [facility] [address] [place] [address] Dr. Roland Gr MCV (RBC) [Entitic vol] 99.0 fL Critically high 80.0-94.0 [facility] Comment on above: Performed By: #### C VDTBH #### [facility] [address] [place] [address] Dr. Roland Gr MONO # 0.6 103/ul Normal 0.3-0.8 [facility] Comment on above: Performed By: #### C VDTBH #### [facility] [address] [place] [address] Dr. Roland Gr Monocytes/100 WBC (Bld) 9.3 % Normal 1.7-12.0 [facility] Comment on above: Performed By: #### C VDTBH #### [facility] [address] [place] [address] Dr. Roland Gr NEUT # 4.7 103/ul Normal 1.4-6.5 [facility] Comment on above: Performed By: #### C VDTBH #### [facility] [address] [place] [address] Dr. Roland Gr Neutrophils/100 WBC (Bld) 67.3 % Normal 43.0-75.0 [facility] Comment on above: Performed By: #### C VDTBH #### [facility] [address] [place] [address] Dr. Roland Gr Platelet mean volume (Bld) [Entitic vol] 10.1 fL Normal 9.5-13.5 [facility] Comment on above: Performed By: #### C VDTBH #### [facility] [address] [place] [address] Dr. Roland Gr PLT 188 103/ul Normal 150-450 [facility] Comment on above: Performed By: #### C VDTBH #### [facility] [address] [place] [address] Dr. Roland Gr RBC 4.08 106/ul Critically low 4.70-6.10 [facility] Comment on above: Performed By: #### C VDTBH #### [facility] [address] [place] [address] Dr. Roland Gr WBC 6.9 103/ul Normal 4.0-11.0 [facility] Comment on above: Performed By: #### C VDTB #### [facility] [address] [place] [address] Dr. Roland Gr PROF 14(COMP METB)on 023 Albumin [Mass/Vol] 3.6 g/dL Normal 3.4-5.0 [facility] Comment on above: Performed By: #### L IPID, T7, CMP, URIC, TSH #### [facility] [address] [place] [address] Dr. Roland Gr Albumin/Globulin [Mass ratio] 1.0 {ratio} Normal [facility] Comment on above: Performed By: #### L IPID, T7, CMP, URIC, TSH #### [facility] [address] [place] [address] Dr. Roland Gr ALP [Catalytic activity/Vol] 69 U/L Normal 46-116 [facility] Comment on above: Performed By: #### L IPID, T7, CMP, URIC, TSH #### [facility] [address] [place] [address] Dr. Roland Gr ALT [Catalytic activity/Vol] 26 U/L Normal 16-63 [facility] Comment on above: Performed By: #### L IPID, T7, CMP, URIC, TSH #### [facility] [address] [place] [address] Dr. Roland Gr Anion gap [Moles/Vol] 11.2 mmol/L Normal [facility] Comment on above: Performed By: #### L IPID, T7, CMP, URIC, TSH #### [facility] [address] [place] [address] Dr. Roland Gr AST [Catalytic activity/Vol] 22 U/L Normal 15-37 [facility] Comment on above: Performed By: #### L IPID, T7, CMP, URIC, TSH #### [facility] [address] [place] [address] Dr. Roland Gr Bilirubin [Mass/Vol] 0.7 mg/dL Normal 0.2-1.0 [facility] Comment on above: Performed By: #### L IPID, T7, CMP, URIC, TSH #### [facility] [address] [address] [address] Roland Gr Calcium [Mass/Vol] 9.2 mg/dL Normal 8.5-10.1 [facility] Comment on above: Performed By: #### L IPID, T7, CMP, URIC, TSH #### [facility] [address] [address] [address] Roland Gr Chloride [Moles/Vol] 108 mmol/L Critically high 98-107 [facility] Comment on above: Performed By: #### L IPID, T7, CMP, URIC, TSH #### [facility] [address] [place] [address] Dr. Roland Gr CO2 [Moles/Vol] 30.8 mmol/L Normal 21.0-32.[address] [facility] Comment on above: Performed By: #### L IPID, T7, CMP, URIC, TSH #### [facility] [address] [place] [address] Dr. Roland Gr Creatinine [Mass/Vol] 0.74 mg/dL Normal 0.70-1.30 [facility] Comment on above: Performed By: #### L IPID, T7, CMP, URIC, TSH #### [facility] [address] [place] [address] Dr. Roland Gr EGFR-AF WELSH >60 Normal >=[address] [facility] Comment on above: Performed By: #### L IPID, T7, CMP, URIC, TSH #### [facility] [address] [place] [address] Dr. Roland Gr EGFR-NON AF WELSH >60 Normal >=60 [facility] Comment on above: Performed By: #### L IPID, T7, CMP, URIC, TSH #### [facility] [address] [place] [address] Dr. Roland Gr Globulin (S) [Mass/Vol] 3.5 g/dL Normal [facility] Comment on above: Performed By: #### L IPID, T7, CMP, URIC, TSH #### [facility] [address] [address] [address] Roland Gr Glucose [Mass/Vol] 102 mg/dL Normal 74-106 [facility] Comment on above: Performed By: #### L IPID, T7, CMP, URIC, TSH #### [facility] [address] [address] [address] Roland Gr Potassium [Moles/Vol] 4.0 mmol/L Normal 3.5-5.1 [facility] Comment on above: Performed By: #### L IPID, T7, CMP, URIC, TSH #### [facility] [address] [place] [address] Dr. Roland Gr Protein [Mass/Vol] 7.1 g/dL Normal 6.4-8.2 [facility] Comment on above: Performed By: #### L IPID, T7, CMP, URIC, TSH #### [facility] [address] [place] [address] Dr. Roland Gr Sodium [Moles/Vol] 146 mmol/L Critically high 136-145 [facility] Comment on above: Performed By: #### L IPID, T7, CMP, URIC, TSH #### [facility] [address] [place] [address] Dr. Roland Gr Urea nitrogen [Mass/Vol] 15.0 mg/dL Normal 7.0-18.0 [facility] Comment on above: Performed By: #### L IPID, T7, CMP, URIC, TSH #### [facility] [address] [address] [address] Roland Gr Urea nitrogen/Creatinine [Mass ratio] 20.3 mg/mg Normal [facility] Comment on above: Performed By: #### L IPID, T7, CMP, URIC, TSH #### [facility] [address] [place] [address] Dr. Roland Gr SED RATE [facility] 2022 SED RATE 11 mm/hr Normal <=20 [facility] Comment on above: Performed By: #### L IPID, T7, CMP, URIC, TSH #### [facility] [address] [place] [address] Dr. Roland Gr Covid-19 PCR ([facility])on 12-18 SARS-CoV-2 (COVID-19) RNA PORSCHE+probe Ql (Unsp spec) Not detected Normal NOT DETECTED [facility] Comment on above: Result Comment: This test is not yet approved or cleared by the [place] FDA. When there are no FDA-approved or cleared tests available, and other criteria are met, FDA can make tests available under an emergency access mechanism called an Emergency Use Authorization (EUA). The EUA for this test is supported by the [place] of Health and Human Service's (HHS's) declaration [...] SARS-CoV-2. Performed By: #### C VDTB #### [facility] [address] [place] [address] Dr. Roland Gr CBC AUTO DIFFon 12-03-2022 BASO # 0.0 103/ul Normal 0.0-0.1 [facility] Comment on above: Performed By: #### C VDTBH #### [facility] [address] [place] [address] Dr. Roland Gr Basophils/100 WBC (Bld) 0.6 % Normal 0.2-2.0 [facility] Comment on above: Performed By: #### C VDTBH #### [facility] [address] [place] [address] Dr. Roland Gr EO # 0.1 103/ul Normal 0.0-0.7 [facility] Comment on above: Performed By: #### C VDTBH #### [facility] [address] [place] [address] Dr. Roland Gr Eosinophils/100 WBC (Bld) 1.7 % Normal 0.9-7.0 [facility] Comment on above: Performed By: #### C VDTBH #### [facility] [address] [place] [address] Dr. Roland Gr Erythrocyte distribution width (RBC) [Ratio] 14.1 % Normal 11.0-15.0 [facility] Comment on above: Performed By: #### C VDTBH #### [facility] [address] [place] [address] Dr. Roland Gr Hematocrit (Bld) [Volume fraction] 39.3 % Critically low 42.0-54.0 [facility] Comment on above: Performed By: #### C VDTBH #### [facility] [address] [place] [address] Dr. Roland Gr Hemoglobin (Bld) [Mass/Vol] 12.7 g/dL Critically low 14.0-18.0 [facility] Comment on above: Performed By: #### C VDTBH #### [facility] [address] [place] [address] Dr. Roland Gr IG # 0.03 10e3/ul Normal 0.00-0.03 [facility] Comment on above: Performed By: #### C VDTBH #### [facility] [address] [place] [address] Dr. Roland Gr IG % 0.5 % Normal 0.0-0.5 [facility] Comment on above: Performed By: #### C VDTBH #### [facility] [address] [place] [address] Dr. Roland Gr LYMPH # 1.5 103/ul Normal 1.2-3.8 [facility] Comment on above: Performed By: #### C VDTBH #### [facility] [address] [place] [address] Dr. Roland Gr Lymphocytes/100 WBC (Bld) 23.5 % Normal 20.5-60.0 [facility] Comment on above: Performed By: #### C VDTBH #### [facility] [address] [place] [address] Dr. Roland Gr MANUAL DIFF REQ NO Normal [facility] Comment on above: Performed By: #### C VDTBH #### [facility] [address] [place] [address] Dr. Roland Gr MCH (RBC) [Entitic mass] 31.8 pg Normal 25.9-34.0 [facility] Comment on above: Performed By: #### C VDTBH #### [facility] [address] [place] [address] Dr. Roland Gr MCHC (RBC) [Mass/Vol] 32.3 g/dL Normal 29.9-35.2 [facility] Comment on above: Performed By: #### C VDTBH #### [facility] [address] [place] [address] Dr. Roland Gr MCV (RBC) [Entitic vol] 98.5 fL Critically high 80.0-94.0 [facility] Comment on above: Performed By: #### C VDTBH #### [facility] [address] [place] [address] Dr. Roland Gr MONO # 0.7 103/ul Normal 0.3-0.8 [facility] Comment on above: Performed By: #### C VDTBH #### [facility] [address] [place] [address] Dr. Roland Gr Monocytes/100 WBC (Bld) 10.6 % Normal 1.7-12.0 [facility] Comment on above: Performed By: #### C VDTBH #### [facility] [address] [place] [address] Dr. Roland Gr NEUT # 4.1 103/ul Normal 1.4-6.5 [facility] Comment on above: Performed By: #### C VDTBH #### [facility] [address] [place] [address] Dr. Roland Gr Neutrophils/100 WBC (Bld) 63.1 % Normal 43.0-75.0 [facility] Comment on above: Performed By: #### C VDTBH #### [facility] [address] [place] [address] Dr. Roland Gr Platelet mean volume (Bld) [Entitic vol] 10.0 fL Normal 9.5-13.5 [facility] Comment on above: Performed By: #### C VDTBH #### [facility] [address] [place] [address] Dr. Roland Gr PLT 184 103/ul Normal 150-450 [facility] Comment on above: Performed By: #### C VDTBH #### [facility] [address] [place] [address] Dr. Roland Gr RBC 3.99 106/ul Critically low 4.70-6.10 [facility] Comment on above: Performed By: #### C VDTBH #### [facility] [address] [place] [address] Dr. Roland rG WBC 6.4 103/ul Normal 4.0-11.0 [facility] Comment on above: Performed By: #### C VDTBH #### [facility] [address] [place] [address] Dr. Roland Gr PROF 14(COMP METB)on 023 Albumin [Mass/Vol] 3.8 g/dL Normal 3.4-5.0 [facility] Comment on above: Performed By: #### L IPID, T7, CMP, URIC, TSH #### [facility] [address] [place] [address] Dr. Roland Gr Albumin/Globulin [Mass ratio] 1.4 {ratio} Normal [facility] Comment on above: Performed By: #### L IPID, T7, CMP, URIC, TSH #### [facility] [address] [place] [address] Dr. Roland Gr ALP [Catalytic activity/Vol] 58 U/L Normal 46-116 [facility] Comment on above: Performed By: #### L IPID, T7, CMP, URIC, TSH #### [facility] [address] [place] [address] Dr. Roland Gr ALT [Catalytic activity/Vol] 24 U/L Normal 16-63 [facility] Comment on above: Performed By: #### L IPID, T7, CMP, URIC, TSH #### [facility] [address] [place] [address] Dr. Roland Gr Anion gap [Moles/Vol] 11.2 mmol/L Normal [facility] Comment on above: Performed By: #### L IPID, T7, CMP, URIC, TSH #### [facility] [address] [address] [address] Roland Gr AST [Catalytic activity/Vol] 24 U/L Normal 15-37 [facility] Comment on above: Performed By: #### L IPID, T7, CMP, URIC, TSH #### [facility] [address] [place] [address] Dr. Roland Gr Bilirubin [Mass/Vol] 0.7 mg/dL Normal 0.2-1.0 [facility] Comment on above: Performed By: #### L IPID, T7, CMP, URIC, TSH #### [facility] [address] [address] [address] Roland Gr Calcium [Mass/Vol] 9.0 mg/dL Normal 8.5-10.1 [facility] Comment on above: Performed By: #### L IPID, T7, CMP, URIC, TSH #### [facility] [address] [place] [address] Dr. Roland Gr Chloride [Moles/Vol] 109 mmol/L Critically high 98-107 [facility] Comment on above: Performed By: #### L IPID, T7, CMP, URIC, TSH #### [facility] [address] [place] [address] Dr. Roland Gr CO2 [Moles/Vol] 28.8 mmol/L Normal 21.0-32.0 [facility] Comment on above: Performed By: #### L IPID, T7, CMP, URIC, TSH #### [facility] [address] [place] [address] Dr. Roland Gr Creatinine [Mass/Vol] 0.73 mg/dL Normal 0.70-1.30 [facility] Comment on above: Performed By: #### L IPID, T7, CMP, URIC, TSH #### [facility] [address] [address] [address] Roland Gr EGFR-AF WELSH >60 Normal >=[address] [facility] Comment on above: Performed By: #### L IPID, T7, CMP, URIC, TSH #### [facility] [address] [address] [address] Roland Gr EGFR-NON AF WELSH >60 Normal >=60 [facility] Comment on above: Performed By: #### L IPID, T7, CMP, URIC, TSH #### [facility] [address] [place] [address] Dr. Roland Gr Globulin (S) [Mass/Vol] 2.8 g/dL Normal [facility] Comment on above: Performed By: #### L IPID, T7, CMP, URIC, TSH #### [facility] [address] [address] [address] Roland Gr Glucose [Mass/Vol] 98 mg/dL Normal 74-106 [facility] Comment on above: Performed By: #### L IPID, T7, CMP, URIC, TSH #### [facility] [address] [address] [address] Roland Gr Potassium [Moles/Vol] 4.0 mmol/L Normal 3.5-5.1 [facility] Comment on above: Performed By: #### L IPID, T7, CMP, URIC, TSH #### [facility] [address] [address] [address] Roland Gr Protein [Mass/Vol] 6.6 g/dL Normal 6.4-8.2 [facility] Comment on above: Performed By: #### L IPID, T7, CMP, URIC, TSH #### [facility] [address] [address] [address] Roland Gr Sodium [Moles/Vol] 145 mmol/L Normal 136-145 [facility] Comment on above: Performed By: #### L IPID, T7, CMP, URIC, TSH #### [facility] [address] [place] [address] Dr. Roland Gr Urea nitrogen [Mass/Vol] 20.0 mg/dL Critically high 7.0-18.0 [facility] Comment on above: Performed By: #### L IPID, T7, CMP, URIC, TSH #### [facility] [address] [place] [address] Dr. Roland Gr Urea nitrogen/Creatinine [Mass ratio] 27.4 mg/mg Normal [facility] Comment on above: Performed By: #### L IPID, T7, CMP, URIC, TSH #### [facility] [address] [place] [address] Dr. Roland Gr SED RATE [facility] 2022 SED RATE 8 mm/hr Normal <=20 [facility] Comment on above: Performed By: #### S EDR #### [facility] [address] [place] [address] Dr. Roland Gr INSULINon 09-02-2022 Insulin 6.3 uIU/mL Normal 2.6-24.9 [facility] Comment on above: Performed By: #### C VDTB #### [facility] [address] [place] [address] Dr. Roland Gr BNPon 09-01-2022 Natriuretic peptide B (Bld) [Mass/Vol] 285.0 pg/mL Normal <=1,800.0 [facility] Comment on above: Performed By: #### C VDTBH #### [facility] [address] [place] [address] Dr. Roland Gr CBC AUTO DIFFon 09-01-2022 BASO # 0.0 103/ul Normal 0.0-0.1 [facility] Comment on above: Performed By: #### L IPID, T7, CMP, URIC, TSH #### [facility] [address] [place] [address] Dr. Roland Gr Basophils/100 WBC (Bld) 0.4 % Normal 0.2-2.0 [facility] Comment on above: Performed By: #### L IPID, T7, CMP, URIC, TSH #### [facility] [address] [place] [address] Dr. Roland Gr EO # 0.1 103/ul Normal 0.0-0.7 [facility] Comment on above: Performed By: #### L IPID, T7, CMP, URIC, TSH #### [facility] [address] [place] [address] Dr. Roland Gr Eosinophils/100 WBC (Bld) 1.5 % Normal 0.9-7.0 [facility] Comment on above: Performed By: #### L IPID, T7, CMP, URIC, TSH #### [facility] [address] [place] [address] Dr. Roalnd Gr Erythrocyte distribution width (RBC) [Ratio] 14.0 % Normal 11.0-15.0 [facility] Comment on above: Performed By: #### L IPID, T7, CMP, URIC, TSH #### [facility] [address] [place] [address] Dr. Roland Gr Hematocrit (Bld) [Volume fraction] 37.9 % Critically low 42.0-54.0 [facility] Comment on above: Performed By: #### L IPID, T7, CMP, URIC, TSH #### [facility] [address] [place] [address] Dr. Roland Gr Hemoglobin (Bld) [Mass/Vol] 12.2 g/dL Critically low 14.0-18.0 [facility] Comment on above: Performed By: #### L IPID, T7, CMP, URIC, TSH #### [facility] [address] [place] [address] Dr. Roland Gr IG # 0.03 10e3/ul Normal 0.00-0.03 [facility] Comment on above: Performed By: #### L IPID, T7, CMP, URIC, TSH #### [facility] [address] [place] [address] Dr. Roland Gr IG % 0.4 % Normal 0.0-0.5 [facility] Comment on above: Performed By: #### L IPID, T7, CMP, URIC, TSH #### [facility] [address] [place] [address] Dr. Roland Gr LYMPH # 1.6 103/ul Normal 1.2-3.8 [facility] Comment on above: Performed By: #### L IPID, T7, CMP, URIC, TSH #### [facility] [address] [place] [address] Dr. Roland Gr Lymphocytes/100 WBC (Bld) 21.3 % Normal 20.5-60.0 [facility] Comment on above: Performed By: #### L IPID, T7, CMP, URIC, TSH #### [facility] [address] [place] [address] Dr. Roland Gr MANUAL DIFF REQ NO Normal [facility] Comment on above: Performed By: #### L IPID, T7, CMP, URIC, TSH #### [facility] [address] [place] [address] Dr. Roland Gr MCH (RBC) [Entitic mass] 33.0 pg Normal 25.9-34.0 [facility] Comment on above: Performed By: #### L IPID, T7, CMP, URIC, TSH #### [facility] [address] [place] [address] Dr. Roland Gr MCHC (RBC) [Mass/Vol] 32.2 g/dL Normal 29.9-35.2 [facility] Comment on above: Performed By: #### L IPID, T7, CMP, URIC, TSH #### [facility] [address] [place] [address] Dr. Roland Gr MCV (RBC) [Entitic vol] 102.4 fL Critically high 80.0-94.0 [facility] Comment on above: Performed By: #### L IPID, T7, CMP, URIC, TSH #### [facility] [address] [place] [address] Dr. Roland Gr MONO # 0.8 103/ul Normal 0.3-0.8 [facility] Comment on above: Performed By: #### L IPID, T7, CMP, URIC, TSH #### [facility] [address] [address] [address] Roland Gr Monocytes/100 WBC (Bld) 10.5 % Normal 1.7-12.0 [facility] Comment on above: Performed By: #### L IPID, T7, CMP, URIC, TSH #### [facility] [address] [address] [address] Roland Gr NEUT # 4.8 103/ul Normal 1.4-6.5 [facility] Comment on above: Performed By: #### L IPID, T7, CMP, URIC, TSH #### [facility] [address] [place] [address] Dr. Roland Gr Neutrophils/100 WBC (Bld) 65.9 % Normal 43.0-75.0 [facility] Comment on above: Performed By: #### L IPID, T7, CMP, URIC, TSH #### [facility] [address] [place] [address] Dr. Roland Gr Platelet mean volume (Bld) [Entitic vol] 9.7 fL Normal 9.5-13.5 [facility] Comment on above: Performed By: #### L IPID, T7, CMP, URIC, TSH #### [facility] [address] [place] [address] Dr. Roland Gr PLT 183 103/ul Normal 150-450 [facility] Comment on above: Performed By: #### L IPID, T7, CMP, URIC, TSH #### [facility] [address] [place] [address] Dr. Roland Gr RBC 3.70 106/ul Critically low 4.70-6.10 [facility] Comment on above: Performed By: #### L IPID, T7, CMP, URIC, TSH #### [facility] [address] [place] [address] Dr. Roland Gr WBC 7.3 103/ul Normal 4.0-11.0 [facility] Comment on above: Performed By: #### L IPID, T7, CMP, URIC, TSH #### [facility] [address] [place] [address] Dr. Roland Gr FREE THYROXINE INDEX T7on FTI 2.44 Normal 1.30-4.50 [facility] Comment on above: Performed By: #### C VDTBH #### [facility] [address] [place] [address] Dr. Roland Gr T3U 33.0 % Normal 33.0-40.0 [facility] Comment on above: Performed By: #### C VDTBH #### [facility] [address] [place] [address] Dr. Roland Gr T4 [Mass/Vol] 7.40 ug/dL Normal 4.50-12.10 [facility] Comment on above: Performed By: #### C VDTBH #### [facility] [address] [place] [address] Dr. Roland Gr GLYCOHEMOGLOBIN A1Con 2021 ADA RECOMMENDATION SEE BELOW Normal [facility] Comment on above: Result Comment: ADA RECOMMENDED LIMIT 4.0 - 6.0 ADA THERAPEUTIC TARGET < 7.0 ACTION SUGGESTED > 7.0 Performed By: #### A 1C #### [facility] [address] [place] [address] Dr. Roland Gr Glucose [Mass/Vol] 117 mg/dL Normal [facility] Comment on above: Performed By: #### A 1C #### [facility] [address] [place] [address] Dr. Roland Gr HbA1c (Bld) [Mass fraction] 5.7 % Normal 4.5-6.2 [facility] Comment on above: Performed By: #### A 1C #### [facility] [address] [place] [address] Dr. Roland Gr LIPID PROFILEon 09-01-2022 CHOL-HDL RATIO NORM SEE BELOW Normal [facility] Comment on above: Result Comment: 3.3 - 4.4 LOW RISK 4.4 - 7.1 AVERAGE RISK 7.1 - 11.0 MODERATE RISK >11.0 HIGH RISK Performed By: #### L IPID, T7, CMP, URIC, TSH #### [facility] [address] [address] [address] Roland Gr Cholesterol [Mass/Vol] 130 mg/dL Normal <=200 [facility] Comment on above: Performed By: #### L IPID, T7, CMP, URIC, TSH #### [facility] [address] [address] [address] Roland Gr Cholesterol in HDL [Mass/Vol] 67 mg/dL Critically high 40-60 [facility] Comment on above: Performed By: #### L IPID, T7, CMP, URIC, TSH #### [facility] [address] [address] [address] Roland Gr Cholesterol in LDL [Mass/Vol] 48.8 mg/dL Normal [facility] Comment on above: Performed By: #### L IPID, T7, CMP, URIC, TSH #### [facility] [address] [address] [address] Roland Gr Cholesterol.total/Ch olesterol in HDL [Mass ratio] 1.9 {ratio} Normal [facility] Comment on above: Performed By: #### L IPID, T7, CMP, URIC, TSH #### [facility] [address] [address] [address] Roland Gr HDL NORMAL > or = 60 mg/dl - LO W CARDIOVASCULAR RISK <40 mg/dl - HIGH CARDIOVASCULAR RISK Normal [facility] Comment on above: Performed By: #### L IPID, T7, CMP, URIC, TSH #### [facility] [address] [address] [address] Roland Gr LDL CALC NORMAL SEE BELOW Normal [facility] Comment on above: Result Comment: <100 mg/dl OPTIMAL 100 - 129 mg/dl NEAR OR ABOVE OPTIMAL 130 - 159 mg/dl BORDERLINE HIGH 160 - 189 mg/dl HIGH >190 mg/dl VERY HIGH Performed By: #### L IPID, T7, CMP, URIC, TSH #### [facility] [address] [address] [address] Roland Gr Triglyceride [Mass/Vol] 71 mg/dL Normal <=150 [facility] Comment on above: Performed By: #### L IPID, T7, CMP, URIC, TSH #### [facility] [address] [place] [address] Dr. Roland Gr VLDL CALC 14.2 mg/dL Normal [facility] Comment on above: Performed By: #### L IPID, T7, CMP, URIC, TSH #### [facility] [address] [place] [address] Dr. Roland Gr PROF 14(COMP METB)on 022 Albumin [Mass/Vol] 3.5 g/dL Normal 3.4-5.0 [facility] Comment on above: Performed By: #### C VDTBH #### [facility] [address] [place] [address] Dr. Roland Gr Albumin/Globulin [Mass ratio] 1.2 {ratio} Normal [facility] Comment on above: Performed By: #### C VDTBH #### [facility] [address] [place] [address] Dr. Roland Gr ALP [Catalytic activity/Vol] 60 U/L Normal 46-116 [facility] Comment on above: Performed By: #### C VDTBH #### [facility] [address] [place] [address] Dr. Roland Gr ALT [Catalytic activity/Vol] 25 U/L Normal 16-63 [facility] Comment on above: Performed By: #### C VDTBH #### [facility] [address] [place] [address] Dr. Roland Gr Anion gap [Moles/Vol] 10.6 mmol/L Normal [facility] Comment on above: Performed By: #### C VDTBH #### [facility] [address] [place] [address] Dr. Roland Gr AST [Catalytic activity/Vol] 17 U/L Normal 15-37 [facility] Comment on above: Performed By: #### C VDTBH #### [facility] [address] [place] [address] Dr. Roland Gr Bilirubin [Mass/Vol] 0.8 mg/dL Normal 0.2-1.0 [facility] Comment on above: Performed By: #### C VDTBH #### [facility] [address] [place] [address] Dr. Roland Gr Calcium [Mass/Vol] 8.8 mg/dL Normal 8.5-10.1 [facility] Comment on above: Performed By: #### C VDTBH #### [facility] [address] [place] [address] Dr. Roland Gr Chloride [Moles/Vol] 108 mmol/L Critically high 98-107 [facility] Comment on above: Performed By: #### C VDTBH #### [facility] [address] [place] [address] Dr. Roland Gr CO2 [Moles/Vol] 28.6 mmol/L Normal 21.0-32.0 [facility] Comment on above: Performed By: #### C VDTBH #### [facility] [address] [place] [address] Dr. Roland Gr Creatinine [Mass/Vol] 0.72 mg/dL Normal 0.70-1.30 [facility] Comment on above: Performed By: #### C VDTBH #### [facility] [address] [place] [address] Dr. Roland Gr EGFR-AF WELSH >60 Normal >=[address] [facility] Comment on above: Performed By: #### C VDTBH #### [facility] [address] [place] [address] Dr. Roland Gr EGFR-NON AF WELSH >60 Normal >=60 [facility] Comment on above: Performed By: #### C VDTBH #### [facility] [address] [place] [address] Dr. Roland Gr Globulin (S) [Mass/Vol] 3.0 g/dL Normal [facility] Comment on above: Performed By: #### C VDTBH #### [facility] [address] [place] [address] Dr. Roland Gr Glucose [Mass/Vol] 100 mg/dL Normal 74-106 [facility] Comment on above: Performed By: #### C VDTBH #### [facility] [address] [place] [address] Dr. Roland Gr Potassium [Moles/Vol] 4.2 mmol/L Normal 3.5-5.1 [facility] Comment on above: Performed By: #### C VDTBH #### [facility] [address] [place] [address] Dr. Roland Gr Protein [Mass/Vol] 6.5 g/dL Normal 6.4-8.2 [facility] Comment on above: Performed By: #### C VDTBH #### [facility] [address] [place] [address] Dr. Roland Gr Sodium [Moles/Vol] 143 mmol/L Normal 136-145 [facility] Comment on above: Performed By: #### C VDTBH #### [facility] [address] [place] [address] Dr. Roland Gr Urea nitrogen [Mass/Vol] 18.0 mg/dL Normal 7.0-18.0 [facility] Comment on above: Performed By: #### C VDTBH #### [facility] [address] [place] [address] Dr. Roland Gr Urea nitrogen/Creatinine [Mass ratio] 25.0 mg/mg Normal [facility] Comment on above: Performed By: #### C VDTBH #### [facility] [address] [place] [address] Dr. Roland Gr SED [facility] 2021 SED RATE 12 mm/hr Normal <=20 [facility] Comment on above: Performed By: #### S EDR #### [facility] [address] [place] [address] Dr. Roland Gr TSHon 09-01-2022 TSH 1.634 uIU/mL Normal 0.358-3.740 [facility] Comment on above: Performed By: #### C VDTBH #### [facility] [address] [place] [address] Dr. Roland Gr URIC ACID SERUMon 09-01-2022 Urate [Mass/Vol] 5.3 mg/dL Normal 3.5-7.[address] [facility] Comment on above: Performed By: #### L IPID, T7, CMP, URIC, TSH #### [facility] [address] [address] [address] Roland Gr XR cerv spine AP/LAT/FLX/EXT on 05-22-2022 XR cerv spine AP/LAT/FLX/EXT [facility] [place] [address] [place], [place] [id number] XRay Report Signed Patient: Adonay Irby MR#: [id number] : 1945 Acct:[id number] Age/Sex: 77 / M ADM Date: 05/22/22 Loc: ICXD Room: Type: [facility] Attending Dr: Joao Barba MD Copies to: [...] Luca Trujillo M.D.05/22/2022 9:52 AM Dictation Location: [place] [address] Transcribed By: [facility] 05/22/22 0952 Dictated By: Luca Trujillo DO 05/22/22 0950 Signed By: 05/22/22 0952 [facility] CBC AUTO DIFFon 05-20-2022 BASO # 0.1 103/ul Normal 0.0-0.1 [facility] Comment on above: Performed By: #### L IPID, T7, CMP, URIC, TSH #### [facility] [address] [place] [address] Dr. Roland Gr Basophils/100 WBC (Bld) 0.7 % Normal 0.2-2.0 [facility] Comment on above: Performed By: #### L IPID, T7, CMP, URIC, TSH #### [facility] [address] [place] [address] Dr. Roland Gr EO # 0.2 103/ul Normal 0.0-0.7 [facility] Comment on above: Performed By: #### L IPID, T7, CMP, URIC, TSH #### [facility] [address] [place] [address] Dr. Roland Gr Eosinophils/100 WBC (Bld) 2.9 % Normal 0.9-7.0 [facility] Comment on above: Performed By: #### L IPID, T7, CMP, URIC, TSH #### [facility] [address] [place] [address] Dr. Roland Gr Erythrocyte distribution width (RBC) [Ratio] 14.2 % Normal 11.0-15.0 [facility] Comment on above: Performed By: #### L IPID, T7, CMP, URIC, TSH #### [facility] [address] [place] [address] Dr. Roland Gr Hematocrit (Bld) [Volume fraction] 38.1 % Critically low 42.0-54.0 [facility] Comment on above: Performed By: #### L IPID, T7, CMP, URIC, TSH #### [facility] [address] [place] [address] Dr. Roland Gr Hemoglobin (Bld) [Mass/Vol] 12.4 g/dL Critically low 14.0-18.0 [facility] Comment on above: Performed By: #### L IPID, T7, CMP, URIC, TSH #### [facility] [address] [place] [address] Dr. Roland Gr IG # 0.05 10e3/ul Critically high 0.00-0.03 [facility] Comment on above: Performed By: #### L IPID, T7, CMP, URIC, TSH #### [facility] [address] [place] [address] Dr. Roland Gr IG % 0.7 % Critically high 0.0-0.5 [facility] Comment on above: Performed By: #### L IPID, T7, CMP, URIC, TSH #### [facility] [address] [place] [address] Dr. Roland Gr LYMPH # 1.7 103/ul Normal 1.2-3.8 [facility] Comment on above: Performed By: #### L IPID, T7, CMP, URIC, TSH #### [facility] [address] [place] [address] Dr. Roland Gr Lymphocytes/100 WBC (Bld) 24.6 % Normal 20.5-60.0 [facility] Comment on above: Performed By: #### L IPID, T7, CMP, URIC, TSH #### [facility] [address] [place] [address] Dr. Roland Gr MANUAL DIFF REQ NO Normal [facility] Comment on above: Performed By: #### L IPID, T7, CMP, URIC, TSH #### [facility] [address] [place] [address] Dr. Roland Gr MCH (RBC) [Entitic mass] 33.0 pg Normal 25.9-34.0 [facility] Comment on above: Performed By: #### L IPID, T7, CMP, URIC, TSH #### [facility] [address] [place] [address] Dr. Roland Gr MCHC (RBC) [Mass/Vol] 32.5 g/dL Normal 29.9-35.2 [facility] Comment on above: Performed By: #### L IPID, T7, CMP, URIC, TSH #### [facility] [address] [place] [address] Dr. Roland Gr MCV (RBC) [Entitic vol] 101.3 fL Critically high 80.0-94.0 [facility] Comment on above: Performed By: #### L IPID, T7, CMP, URIC, TSH #### [facility] [address] [place] [address] Dr. Roland Gr MONO # 0.7 103/ul Normal 0.3-0.8 [facility] Comment on above: Performed By: #### L IPID, T7, CMP, URIC, TSH #### [facility] [address] [place] [address] Dr. Roland Gr Monocytes/100 WBC (Bld) 10.6 % Normal 1.7-12.0 [facility] Comment on above: Performed By: #### L IPID, T7, CMP, URIC, TSH #### [facility] [address] [place] [address] Dr. Roland Gr NEUT # 4.2 103/ul Normal 1.4-6.5 [facility] Comment on above: Performed By: #### L IPID, T7, CMP, URIC, TSH #### [facility] [address] [place] [address] Dr. Roland Gr Neutrophils/100 WBC (Bld) 60.5 % Normal 43.0-75.0 [facility] Comment on above: Performed By: #### L IPID, T7, CMP, URIC, TSH #### [facility] [address] [place] [address] Dr. Roland Gr Platelet mean volume (Bld) [Entitic vol] 9.7 fL Normal 9.5-13.5 [facility] Comment on above: Performed By: #### L IPID, T7, CMP, URIC, TSH #### [facility] [address] [place] [address] Dr. Roland Gr PLT 203 103/ul Normal 150-450 [facility] Comment on above: Performed By: #### L IPID, T7, CMP, URIC, TSH #### [facility] [address] [place] [address] Dr. Roland Gr RBC 3.76 106/ul Critically low 4.70-6.10 [facility] Comment on above: Performed By: #### L IPID, T7, CMP, URIC, TSH #### [facility] [address] [place] [address] Dr. Roland Gr WBC 6.9 103/ul Normal 4.0-11.0 [facility] Comment on above: Performed By: #### L IPID, T7, CMP, URIC, TSH #### [facility] [address] [place] [address] Dr. Roland Gr PROF 14(COMP METB)on 022 Albumin [Mass/Vol] 3.5 g/dL Normal 3.4-5.0 [facility] Comment on above: Performed By: #### L IPID, T7, CMP, URIC, TSH #### [facility] [address] [place] [address] Dr. Roland Gr Albumin/Globulin [Mass ratio] 1.2 {ratio} Normal [facility] Comment on above: Performed By: #### L IPID, T7, CMP, URIC, TSH #### [facility] [address] [place] [address] Dr. Roland Gr ALP [Catalytic activity/Vol] 60 U/L Normal 46-116 [facility] Comment on above: Performed By: #### L IPID, T7, CMP, URIC, TSH #### [facility] [address] [place] [address] Dr. Roland Gr ALT [Catalytic activity/Vol] 30 U/L Normal 16-63 [facility] Comment on above: Performed By: #### L IPID, T7, CMP, URIC, TSH #### [facility] [address] [place] [address] Dr. Roland Gr Anion gap [Moles/Vol] 9.4 mmol/L Normal [facility] Comment on above: Performed By: #### L IPID, T7, CMP, URIC, TSH #### [facility] [address] [place] [address] Dr. Roland Gr AST [Catalytic activity/Vol] 21 U/L Normal 15-37 [facility] Comment on above: Performed By: #### L IPID, T7, CMP, URIC, TSH #### [facility] [address] [address] [address] Roland Gr Bilirubin [Mass/Vol] 0.4 mg/dL Normal 0.2-1.0 [facility] Comment on above: Performed By: #### L IPID, T7, CMP, URIC, TSH #### [facility] [address] [address] [address] Roland Gr Calcium [Mass/Vol] 8.6 mg/dL Normal 8.5-10.1 [facility] Comment on above: Performed By: #### L IPID, T7, CMP, URIC, TSH #### [facility] [address] [place] [address] Dr. Roland Gr Chloride [Moles/Vol] 108 mmol/L Critically high 98-107 [facility] Comment on above: Performed By: #### L IPID, T7, CMP, URIC, TSH #### [facility] [address] [address] [address] Roland Gr CO2 [Moles/Vol] 30.8 mmol/L Normal 21.0-32.0 [facility] Comment on above: Performed By: #### L IPID, T7, CMP, URIC, TSH #### [facility] [address] [place] [address] Dr. Roland Gr Creatinine [Mass/Vol] 0.76 mg/dL Normal 0.70-1.30 [facility] Comment on above: Performed By: #### L IPID, T7, CMP, URIC, TSH #### [facility] [address] [place] [address] Dr. Roland rG EGFR-AF WELSH >60 Normal >=60 [facility] Comment on above: Performed By: #### L IPID, T7, CMP, URIC, TSH #### [facility] [address] [place] [address] Dr. Roland Gr EGFR-NON AF WELSH >60 Normal >=60 [facility] Comment on above: Performed By: #### L IPID, T7, CMP, URIC, TSH #### [facility] [address] [place] [address] Dr. Roland Gr Globulin (S) [Mass/Vol] 3.0 g/dL Normal [facility] Comment on above: Performed By: #### L IPID, T7, CMP, URIC, TSH #### [facility] [address] [place] [address] Dr. Roland Gr Glucose [Mass/Vol] 99 mg/dL Normal 74-106 [facility] Comment on above: Performed By: #### L IPID, T7, CMP, URIC, TSH #### [facility] [address] [place] [address] Dr. Roland Gr Potassium [Moles/Vol] 4.2 mmol/L Normal 3.5-5.1 [facility] Comment on above: Performed By: #### L IPID, T7, CMP, URIC, TSH #### [facility] [address] [place] [address] Dr. Roland Gr Protein [Mass/Vol] 6.5 g/dL Normal 6.4-8.2 [facility] Comment on above: Performed By: #### L IPID, T7, CMP, URIC, TSH #### [facility] [address] [place] [address] Dr. Roland Gr Sodium [Moles/Vol] 144 mmol/L Normal 136-145 [facility] Comment on above: Performed By: #### L IPID, T7, CMP, URIC, TSH #### [facility] [address] [place] [address] Dr. Roland Gr Urea nitrogen [Mass/Vol] 16.0 mg/dL Normal 7.0-18.0 [facility] Comment on above: Performed By: #### L IPID, T7, CMP, URIC, TSH #### [facility] [address] [place] [address] Dr. Roland Gr Urea nitrogen/Creatinine [Mass ratio] 21.1 mg/mg Normal [facility] Comment on above: Performed By: #### L IPID, T7, CMP, URIC, TSH #### [facility] [address] [place], [place] [address] Dr. Roland Gr SED RATE [facility] 2021 SED RATE 8 mm/hr Normal <=20 [facility] Comment on above: Performed By: #### L IPID, T7, CMP, URIC, TSH #### [facility] [address] [address] [address] Roland Gr Vital Signs Date Time Vital Sign Value Performing Clinician Facility 04-08-2024 10:05-0400 Body mass index (BMI) [Ratio] 24.45 kg/m2 Carlos Farris MD Work Phone: [facility] 04-08-2024 10:05-0400 Body temperature 97 [degF] Carlos Farris MD Work Phone: [facility] 04-08-2024 10:05-0400 Body weight 75.1 kg Carlos Farris MD Work Phone: [facility] 04-08-2024 10:05-0400 Diastolic blood pressure 75 mm[Hg] Carlos Farris MD Work Phone: [facility] 04-08-2024 10:05-0400 Heart rate 47 /min Carlos Farris MD Work Phone: [facility] Comment on above: heart rate low provider notify 04-08-2024 10:05-0400 Respiratory rate 19 /min Carlos Farris MD Work Phone: [facility] 04-08-2024 10:05-0400 SaO2% (BldA) [Mass fraction] 99 % Carlos Farris MD Work Phone: [facility] 04-08-2024 10:05-0400 Systolic blood pressure 141 mm[Hg] Carlos Farris MD Work Phone: [facility] 2022 11:09-0400 Body height 175.3 cm Carlos Farris MD Work Phone: [facility] 2022 11:09-0400 Body temperature 97.11 [degF] Carlos Farris MD Work Phone: [facility] 2022 11:09-0400 Body weight 74 kg Carlos Farris MD Work Phone: [facility] 2022 11:09-0400 Diastolic blood pressure 60 mm[Hg] Carlos Farris MD Work Phone: [facility] 2022 11:090400 Heart rate 48 /min Carlos Farris MD Work Phone: [facility] 2022 11:090400 Respiratory rate 17 /min Carlos Farris MD Work Phone: [facility] 2022 11:09-0400 SaO2% (BldA) [Mass fraction] 97 % Carlos Farris MD Work Phone: [facility] 2022 11:09-0400 Systolic blood pressure 118 mm[Hg] Carlos Farris MD Work Phone: [facility] Encounters Encounter Date Encounter Type Care Provider Facility Start: 06-07-2024 End: 06-07-2024 ambulatory BRIDGER NORRIS Not Available Start: 04-25-2024 Refill Carlos soler MD Work Phone: [facility] Comment on above: Refill Request Start: 04-08-2024 End: 04-08-2024 ambulatory CARLOS FARRIS Facility:[facility] Start: 04-08-2024 End: 04-08-2024 Office [...] Start: 10-14-2023 ambulatory BELLA CORONADO Facility :[facility] Start: 08-19-2023 Telephone encounter [facility] Provider [facility] Comment on above: Referral Request Start: 08-13-2023 Telephone encounter Carlos rey MD Work Phone: [facility] Comment on above: Filters for Nebulize r Start: 06-24-2023 End: 06-25-2023 ambulatory BELLAEDUARDO CORONADO Facility:[facility] Start: 06-04-2023 Telephone encounter Carlos rey MD [...] Work Phone: [facility] 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 Start: 09-01-2022 End: 09-02-[address] LEISA BARBA Facility:[facility] Start: 05-22-2022 End: 05-22-2022 Patient encounter procedure MD Joao Barba Work Phone: [facility] [address] Start: 05-20-2022 End: 05-21-2022 [...] Fct Lab Main 10 Other Phone: [facility] Procedures Date Procedure Procedure Detail Performing Clinician Start: 04-08-2024 Spmtry w/vc expirato ry edie w/wo mxml vol vntj Carlos Farris MD Work Phone: Start: 04-08-2024 Unlisted pulmonary service/procedure Carlos Farris MD Work Phone: Start: 04-08-[address] RAUL HUIZAR . Comment on above: Performed By: #### C VDTBH #### [facility] [address] [place] [address] Dr. Roland Gr Start: 09-01-[address] RAUL HUIZAR . Comment on above: Performed By: #### C VDTBH #### [facility] [address] [place] [address] Dr. Roland Gr Start: 05-22-2022 X-ray of cervical spine MD Joao Barba Work Phone: Start: 2022 Spmtry w/vc expirato ry edie w/wo mxml vol vntj Carlos Farris MD Work Phone: Start: 2022 Unlisted pulmonary service/procedure Carlos Farris MD Work Phone: Plan of Treatment Date Care Activity Detail Author Start: 02-02-2024 Covid-19 Vaccine () Covid-19 Vaccine () [facility] Start: 11-16-2023 Advance Directive Discussion Advance Directive Discussion [facility] Start: 11-16-2023 Behavioral Health Screening Behavioral Health Screening [facility] Start: 07-17-2023 Covid-19 Vaccine ( season) Covid-19 Vaccine ( season) [facility] Start: 07-17-2023 Influenza vaccination C [facility] Start: 11-16-2022 ADVANCE DIRECTIVE DISCUSSION ADVANCE DIRECTIVE DISCUSSION [facility] Start: 11-16-2022 DEPRESSION ASSESSMENT DEPRESSION ASS ESSMENT [facility] Start: 07-17-2022 Influenza vaccination INFLUENZA (#1) [facility] Start: 02-12-2022 COVID-19 VACCINE (4 - Booster for Moderna series) COVID-19 VACCINE (4 - Booster for Moderna series) [facility] Start: 12-10-2021 COVID-19 VACCINE (4 - Booster for Moderna series) COVID-19 VACCINE (4 - Booster for Moderna series) [facility] Start: 12-10-2021 COVID-19 VACCINE (4 - Moderna series) COVID-19 VACCINE (4 - Moderna series) [facility] Start: 11-16-2021 ADVANCE DIRECTIVE DISCUSSION ADVANCE DIRECTIVE DISCUSSION [facility] Start: 11-16-2021 DEPRESSION ASSESSMENT DEPRESSION ASS ESSMENT [facility] Start: 2008 Pneumococcal Vaccine : 65+ (1 - PCV) Pneumococcal Vaccine: 65+ (1 - PCV) [facility] Start: 2008 PNEUMOCOCCAL: 65+ (1 - PCV) PNEUMOCOCCAL: 65+ (1 - PCV) [facility] Start: 2003 RSV Vaccine (1 - 1-d ose 60+ series) RSV Vaccine (1 - 1-dose 60+ series) [facility] Start: 1993 SHINGRIX VACCINE (1 of 2) SHINGRIX VACCINE (1 of 2) [facility] Start: 1988 DIABETES SCREEN 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 2022 12:00 PM EDT [facility] Work Phone: End: 06-15-2023 MIPS/MEPS MIPS/MEPS PFT Routine Disorder of diaphragm Post poliomyelitis syndrome 1 Occurrences starting 2022 until 06/15/2023 [facility] Work Phone: Comment on above: 1 Occurrences starti ng 2022 until 06/15/2023 MIPS/MEPS MIPS/MEPS PFT Ro utine Disorder of nervous system 04/08/2024 9:36 AM EDT [facility] Work Phone: End: 05-08-2025 MIPS/MEPS MIPS/MEPS PFT Routine Disorder of diaphragm Post poliomyelitis syndrome 1 Occurrences starting 04/08/2024 until 05/08/2025 [facility] Comment on above: 1 Occurrences starti ng 04/08/2024 until 05/08/2025 SPIROMETRY SITTING A ND SUPINE SPIROMETRY SITTING AND SUPINE PFT 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 2022 12:00 PM EDT [facility] Work Phone: End: 06-15-2023 SPIROMETRY SITTING AND SUPINE SPIROMETRY SITTING AND SUPINE PFT Routine Disorder of diaphragm Post poliomyelitis syndrome 1 Occurrences starting 2022 until 06/15/2023 [facility] Work Phone: Comment on above: 1 Occurrences starti ng 2022 until 06/15/2023 SPIROMETRY SITTING A ND SUPINE SPIROMETRY SITTING AND SUPINE PFT Routine Disorder of nervous system 04/08/2024 9:36 AM EDT [facility] Work Phone: End: 05-08-2025 SPIROMETRY SITTING AND SUPINE SPIROMETRY SITTING AND SUPINE PFT Routine Disorder of diaphragm Post poliomyelitis syndrome 1 Occurrences starting 04/08/2024 until 05/08/2025 [facility] Work Phone: Comment on above: 1 Occurrences starti ng 04/08/2024 until 05/08/2025 [facility] Immunizations Immunization Date Immunization Notes Care Provider [facility] 08-31-2020 influenza virus vaccine, unspecified formulation Carlos Farris MD Work Phone: [facility] 08-27-2018 influenza, seasonal, injectable Pulm 10 Other Phone: [facility] Payers Date Payer Category Payer Unknown [employer] SUPPLEMENT [id number] 2009-Present [phone] [address] [place] [address] Indemnity [id number] 2009 Unknown [employer]IC[employer] SUPPLEMENT [id number] 2009-Present [phone] [address] [place] [address] Indemnity [id number] 2003 Medicare MEDICARE MEDICAR E A AND B [id number] 2003-Present [phone] [place] [address] Medicare [id number] 2003 Medicare MEDICARE MEDICAR E A AND B [id number] 2003-Present [phone] [address] [place] [id number] Medicare [id number] 1959 Medicare [id number] 1959 Unknown [id number] 1943 Unknown [id number] 3 1943 Unknown [id number] 3 1943 Unknown [id number] 3 1943 Unknown [id number] 3 1943 Unknown [id number] 3 1943 Unknown [id number] 3 1943 Unknown [id number] 3 1943 Unknown [id number] 7 1943 Unknown [id number] 59 1943 Unknown [id number] 59 Self-pay Self Pay [id number] Social History Date Type Detail Facility Start: 12-18-2017 End: 04-08-2024 Tobacco smoking status NHIS Ex-smoker [facility] Start: 12-18-2017 End: 04-08-2024 Tobacco use and exposure Smokeless tobacco non-user [facility] Start: 12-18-2017 End: 04-08-2024 Tobacco Comment Quit 25+ years ago [facility] Start: 1945 Sex Assigned At Not on file C [facility] Start: 05-06-2022 End: 2022 Exposure to SARS-CoV-2 (event) Not sure [facility] Start: 1945 Sex Assigned At Male F [facility] History of tobacco use Current smoker [facility] Start: 2022 End: 04-08-2024 Gender identity Not on file [facility] Start: 2022 End: 04-08-2024 History of Social function [facility] National Score (1-100), lower number is lower risk 77 [facility] Clinical Notes 2022 to 04-08-2024 Carlos Farris MD - 04/08/2024 10:30 AM MARLENTCNahum strong RRT - 04/08/2024 10:00 AM EDTTelephone Encounter - Ricardo Duarte - 08/19/2023 4:37 PM EDTDamarcelo Sandra RRT - 2022 10:42 AM EDT Note Date & Type Note Facility 04-08-2024 Note HNO ID: [id number] Author: CARLOS FARRIS MD Service: ? Author [...] from a vital capacity of 44% in 2016, to 64% February 2021, and 74% May [...] Mood and affect normal. DATABASE DME is [employer] [facility] 03/09/2024 - 04/07/2024 Usage days 28/30 days (93%) >= 4 hours 28 days (93%) Usage hours 212 hours 11 minutes Average usage (total days) 7 hours 4 minutes Average usage (days used) 7 hours 35 minutes Median usage (days used) 7 hours 35 minutes Total used hours (value since last reset - 04/07/2024) 6,681 hours [employer] Jose G Serial number [id number] Mode Spont Timed IPAP 21 cmH2O (same [...] 3.37 4.32 74. (more content not included)... [facility] 04-08-2024 Note HNO ID: [id number] Author: NAHUM SANDRA RRT Service: ? Author Type: Registered Resp Therapist Type: Progress Notes Filed: 04/08/2024 10:01 Note Text: PULM FUNCTION SMARTBLOCK: Provider: Carlos Farris MD Spirometry: 1 MIP/MEP: 1 TcCO2: 1 System: 6 - [id number] [facility] 05-24-2024 History of Presen t illness Narrative Last [...] from a vital capacity of 44% in 2016, to 64% February 2021, and 74% May [...] station stooped. Mood and affect normal. DATABASE Bahoui is [employer]. [email or web address] [facility] 03/09/2024 - 04/07/2024 Usage days 28/30 days (93%) >= 4 hours 28 days (93%) Usage hours 212 hours 11 minutes Average usage (total days) 7 hours 4 minutes Average usage (days used) 7 hours 35 minutes Median usage (days used) 7 hours 35 minutes Total used hours (value since last reset - 04/07/2024) 6,[address] Serial number [id number] Mode Spont Timed IPAP 21 cmH2O (same [...] LLN ULN Sitting % Supine % chg Date [id number] Time 12:21PM 12:37PM Height 170.2 170.2 Weight 88 88 FVC 3.74 2.89 4.60 1.29 35 0.57 -56 FEV 1 2.69 1.97 3.41 0.94 35 0.40 -58 FEV1%F 72.57 62.89 82.25 73.03 101 69.32 -5 PIMAX 101.78 75.02 128.5 26.72 26 PeMax 190.81 140.04 241.6 99.65 52 Pred LLN ULN Sitting % Supine % [facility] Date [id number] Time 09:57AM 10:09AM Height 170.2 170.2 Weight 88 88 FVC 3.74 2.89 4.60 1.25 33 0.55 -56 FEV 1 2.69 1.97 3.41 0.80 30 0.25 -69 FEV1%F 72.57 62.89 82.25 64.02 88 45.69 -29 ETCO2 52.00 PIMAX 101.78 75.02 128.5 27.03 27 PeMax 190.81 140.04 241.6 114.34 60 Pred LLN ULN Sitting % Supine % [facility] Date [id number] Time 02:31PM 02:47PM Height 170.2 170.2 Weight 91.5 91.5 FVC 3.78 2.93 4.63 1.62 43 0.45 -72 FEV 1 2.73 2.01 3.45 1.09 40 0.38 -65 FEV1%F 72.78 63.10 82.46 67.35 93 85.04 26 PIMAX 102.33 75.02 129.6 33.66 33 PeMax 191.84 140.04 243.6 74.05 39 Pred LLN ULN Sitting % Supine % [facility] Date [id number] Time 09:00AM 09:24AM Height 170.2 170.2 Weight [...] familial. 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 PLAN Continue IPAP 05/11 backup rate 10 [...] which included preparing to see the patient, [id number] patient care, completing clinical documentation, obtaining and/or [...] April 08, 2024 documented in this encounter [facility] 04-08-2024 History of Presen t illness Narrative PULM FUNCTION SMARTBLOCK: Provider: Carlos Farris MD Spirometry: 1 MIP/MEP: 1 TcCO2: 1 System: MC6 - [id number] documented in this encounter [facility] 08-19-2023 Miscellaneous Notes Received referral request from [facility] to see patient again for dx: COPD, Right Diaphragm Dysfunction. Request is scanned into chart. documented in this encounter [facility] 08-13-2023 Miscellaneous Notes Adonay Irby's spouse (Elizabeth) is requesting replacement filters for a nebulizer. She was unable to tell admin where it needed to be sent. documented in this encounter [facility] 06-04-2023 Miscellaneous Notes Imported External PAP Therapy Report from [employer] system (dated 06/04/23). Please allow time delay for documents to appear in Epic (Scanned Documents Tab). documented in this encounter [facility] 09-24-2022 Miscellaneous Notes new order and office notes have been faxed to [employer] fax# [phone] called [facility] [phone] they are in need of new script for supplies for his machine and also office notes please put in a new rx for supplies for his CPAP for me to fax over with office notes [facility] fax# [phone] documented in this encounter [facility] 2022 History of Presen t illness [...] download [employer] outside DME account tagger to [facility] [employer] Usage 04/16/2022 - 05/15/2022 Usage days 2930 days (97%) >= 4 hours 29 days (97%) Average usage (days used) 7 hours [address] Serial number [id number] Mode Spont Timed IPAP 21 cmH2O EPAP [...] LLN ULN Sitting % Supine % chg Date [id number] Time 12:21PM 12:37PM Height 170.2 170.2 Weight 88 88 FVC 3.74 2.89 4.60 1.29 35 0.57 -56 FEV 1 2.69 1.97 3.41 0.94 35 0.40 -58 FEV1%F 72.57 62.89 82.25 73.03 101 69.32 -5 PIMAX 101.78 75.02 128.5 26.72 26 PeMax 190.81 140.04 241.6 99.65 52 Pred LLN ULN Sitting % Supine % [facility] Date [id number] Time 09:57AM 10:09AM Height 170.2 170.2 Weight [...] Pred LLN ULN Sitting % Supine % [facility] Date [id number] Time 02:31PM 02:47PM Height 170.2 170.2 Weight 91.5 91.5 FVC 3.78 2.93 4.63 1.62 43 0.45 -72 FEV 1 2.73 2.01 3.45 1.09 40 0.38 -65 FEV1%F 72.78 63.10 82.46 67.35 93 85.04 26 PIMAX 102.33 75.02 129.6 33.66 33 PeMax 191.84 140.04 243.6 74.05 39 Pred LLN ULN Sitting % Supine % [facility] Date [id number] Time 09:00AM 09:24AM Height 170.2 170.2 Weight [...] the recent weight loss. 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 on pulmonary function testing [facility] 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 on pulmonary function testing [facility] 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 note* Diagnosis Disorder of nervous system- Primary Unspecified disorders of nervous system documented in this encounter [facility] note* Diagnosis Disorder of nervous system- Primary Unspecified disorders of nervous system documented in this encounter 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 Obstructive sleep apnea Obstructive sleep apnea (adult) (pediatric) documented in this encounter [facility] for referral (narrative)* Outpatient Procedure (Routine) - Pending Review Specialty Diagnoses / Procedures Referred By Brian moran Referred To [facility] [place] Diagnoses Disorder of diaphragm Post poliomyelitis syndrome Procedures MIPS/MEPS UNLISTED PULMONARY SERVICE/PROCEDURE Carlos Farris MD [address] [id number] [place] [address] Referral ID Status Reason Start Date Expiration Date Visits Requested Visits Authorized [id number] Pending Review Auto-Generat ed Referral 2022 06/15/2023 1 1 * Outpatient Procedure (Routine) - Pending Review Specialty Diagnoses / Procedures Referred By Brian moran Referred To [facility] [place] Diagnoses Disorder of diaphragm Post poliomyelitis syndrome Procedures SPIROMETRY SITTING AND SUPINE SPMTRY W/VC EXPIRATORY EDIE W/WO MXML VOL VNTJ Carlos Farris MD [address] [place] [address] [place] [address] Referral ID Status Reason Start Date Expiration Date Visits Requested Visits Authorized [id number] Pending Review Auto-Generat ed Referral 2022 06/15/2023 1 1 [facility] Outpatient Procedure (Routine) - Pending Review Specialty Diagnoses / Procedures Referred By Contac t Referred To [facility] [place] Diagnoses Disorder of diaphragm Post poliomyelitis syndrome Procedures MIPS/MEPS UNLISTED PULMONARY SERVICE/PROCEDURE Carlos Farris MD [address] [place] [address] [place] [address] Referral ID Status Reason Start Date Expiration Date Visits Requested Visits Authorized [id number] Pending Review Auto-Generat ed Referral 04/08/2024 05/08/2025 1 1 * Outpatient Procedure (Routine) - Pending Review Specialty Diagnoses / Procedures Referred By Brian t Referred To [facility] [place] Diagnoses Disorder of diaphragm Post poliomyelitis syndrome Procedures SPIROMETRY SITTING AND SUPINE SPMTRY W/VC EXPIRATORY EDIE W/WO MXML VOL VNTJ Carlos Farris MD [address] [place] [address] [place] [address] Referral ID Status Reason Start Date Expiration Date Visits Requested Visits Authorized [id number] Pending Review Auto-Generat ed Referral 04/08/2024 05/08/2025 1 1 [facility] Advance Directives No Advanced Directives Records [...] or prosecute any alcohol or drug abuse patient.[facility] the event this information is protected by the Federal Confidentiality of Alcohol and Drug Abuse Patient Records regulations: The Federal rules restrict any use of the information to criminally investigate or prosecute any alcohol or drug abuse patient.[facility] the event this information is protected by the Federal Confidentiality of Alcohol and Drug Abuse Patient Records regulations: The Federal rules restrict any use of the information to criminally investigate or prosecute any alcohol or drug abuse patient.[facility] the event this information is protected by the Federal Confidentiality of Alcohol and Drug Abuse Patient Records regulations: The Federal rules restrict any use of the information to criminally investigate or prosecute any alcohol or drug abuse patient.[facility] the event this information is protected by the Federal Confidentiality of Alcohol and Drug Abuse Patient Records regulations: The Federal rules restrict any use of the information to criminally investigate or prosecute any alcohol or drug abuse patient.[facility] the event this information is protected by the Federal Confidentiality of Alcohol and Drug Abuse Patient Records regulations: The Federal rules restrict any use of the information to criminally investigate or prosecute any alcohol or drug abuse patient.[facility] the event this information is protected by the Federal Confidentiality of Alcohol and Drug Abuse Patient Records regulations: The Federal rules restrict any use of the information to criminally investigate or prosecute any alcohol or drug abuse patient.[facility] the event this information is protected by the Federal Confidentiality of Alcohol and Drug Abuse Patient Records regulations: The Federal rules restrict any use of the information to criminally investigate or prosecute any alcohol or drug abuse patient.[facility] the event this information is protected by the Federal Confidentiality of Alcohol and Drug Abuse Patient Records regulations: The Federal rules restrict any use of the information to criminally investigate or prosecute any alcohol or drug abuse patient.[facility] the event this information is protected by the Federal Confidentiality of Alcohol and Drug Abuse Patient Records regulations: The Federal rules restrict any use of the information to criminally investigate or prosecute any alcohol or drug abuse patient.[facility]In the event this information is protected by the Federal Confidentiality of Alcohol and Drug Abuse Patient Records regulations: The Federal rules restrict any use of the information to criminally investigate or prosecute any alcohol or drug abuse patient.[facility] Reason for Visit (unrecogniz ed section and content) Reason Comments Spirometry Specialty Diagnoses / Procedures Referred By Contac t Referred To [facility] 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 Procedures MIPS/MEPS UNLISTED PULMONARY SERVICE/PROCEDURE Carlos Farris MD [address] [place] [address] [facility] [address] [place] [address] Referral ID Status Reason Start Date Expiration Date V isits Requested Visits Authorized [id number] Closed Auto-Generate d Referral 12/04/2021 01/03/2023 1 1 Specialty Diagnoses / Procedures Referred By Contac t Referred To [facility] 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 Procedures SPIROMETRY SITTING AND SUPINE SPMTRY W/VC EXPIRATORY EDIE W/WO MXML VOL VNJanetJ Carlos Farris MD [address] [place] [address] [address] Referral ID Status Reason Start Date Expiration Date V isits Requested Visits Authorized [id number] Closed Auto-Generate d Referral 12/04/2021 01/03/2023 1 1 Reason Comments 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 Reason Comments Received Outside Medical Records Reason Onset Date Comments Filters for Nebulizer 08/13/2023 Reason Comments Referral Request Specialty Diagnoses / Procedures Referred By Contac t Referred To [facility] Diagnoses Disorder of nervous system Procedures SPIROMETRY SITTING AND SUPINE SPMTRY W/VC EXPIRATORY EDIE W/WO MXML VOL Carlos Camargo MD [address] [place] [address] [address] Referral ID Status Reason Start Date Expiration Date V isits Requested Visits Authorized [id number] Closed Auto-Generate d Referral 08/11/2023 09/09/2024 1 1 Specialty Diagnoses / Procedures Referred By Contac t Referred To [facility] Diagnoses Disorder of nervous system Procedures MIPS/MEPS UNLISTED PULMONARY SERVICE/PROCEDURE Carlos Farris MD [address] [place] [address] [address] Referral ID Status Reason Start Date Expiration Date V isits Requested Visits Authorized [id number] Closed Auto-Generate d Referral 08/11/2023 09/09/2024 1 1 Reason Comments Follow Up Reason Onset Date Comments Refill Request 04/25/2024 Care Teams (unrecognized sec tion and content) 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 Relationship Specialty Start Date End Date Kamilla Huizar MD PCP - General Family Practice 04/17/17 Lawn Mower Sharpener Relationship Specialty Start Date End Date Kamilla Huizar MD PCP - General Family Practice 04/17/17 Lawn Mower Sharpener Relationship Specialty Start Date End Date Kamilla Huizar MD PCP - General Family Practice 04/17/17 Team Status: Inactive Member Role Status Dates Joao Barba MD Attending Provider Active Lawn Mower Sharpener Relationship Specialty Start Date End Date Kamilla Huizar MD PCP - General Family Medicine 04/17/17 Lawn Mower Sharpener Relationship Specialty Start Date End Date Kamilla Huizar MD PCP - General Family Medicine 04/17/17 Lawn Mower Sharpener Relationship Specialty Start Date End Date Kamilla Huizar MD PCP - General Family Medicine 04/17/17 Lawn Mower Sharpener Relationship Specialty Start Date End Date Kamilla Huizar MD PCP - General Family Medicine 04/17/17 Lawn Mower Sharpener Relationship Specialty Start Date End Date Kamilla Huizar MD PCP - General Family Medicine 04/17/17 Lawn Mower Sharpener Relationship Specialty Start Date End Date Kamilla Huizar MD PCP - General Family Medicine 04/17/17 Lawn Mower Sharpener Relationship Specialty Start Date End Date Kamilla Huizar MD PCP - General Family Medicine 04/17/17 Goals (unrecognized section and content) Goals may be documented in a n alternate section (unrecognized sect ion and content) No Status Records FoundNo Status Records FoundNo Status Records FoundNo Status Records FoundNo Status Records Found INFORMATION SOURCE (unrecogn ized section and content) DATE CREATED AUTHOR 06/25/2022 [facility] DATE CREATED AUTHOR AUTHOR'S ORGANIZ ATION 04/24/2023 [facility] DATE CREATED AUTHOR AUTHOR'S ORGANIZ ATION 10/16/2023 [facility] DATE CREATED AUTHOR AUTHOR'S ORGANIZ ATION 04/10/2024 [facility] DATE CREATED AUTHOR AUTHOR'S ORGANIZ ATION 06/09/2024 [facility] FOR RECORDS PERTAINING TO PATIENTS WHO ARE [...] BE BASED ON THE PRIMARY CLINICAL RECORDS. [facility] [employer] [facility]. provides no warranty or guarantee of the accuracy or completeness of information in this document.
[2024-07-06 08:42] LABS: Basophils Percent Auto 0.6 % (0.2-2.0); Eosinophils Absolute Auto 0.2 10^3/uL (0.0-0.7); Eosinophils Percent Auto 3.1 % (0.9-7.0); Hematocrit 39.3 % (42.0-54.0); Hemoglobin 12.6 g/dL (14.0-18.0); Immature Granulocytes Abs Auto 0.04 10^3/uL (0.00-0.03); Immature Granulocytes Pct Auto 0.6 % (0.0-0.5); Lymphocytes Absolute Auto 1.6 10^3/uL (1.2-3.8); Lymphocytes Percent Auto 25.2 % (20.5-60.0); Mean Corpuscular HGB Conc 32.1 g/dL (29.9-35.2); Mean Corpuscular Hemoglobin 32.4 pg (25.9-34.0); Monocytes Absolute Auto 0.6 10^3/uL (0.3-0.8); Monocytes Percent Auto 9.9 % (1.7-12.0); Neutrophils Absolute Auto 3.8 10^3/uL (1.4-6.5); Neutrophils Percent Auto 60.6 % (43.0-75.0); Platelet Count 169 10^3/uL (150-450); Red Blood Count 3.89 10^6/uL (4.70-6.10); Red Cell Distribution Width 14.5 % (11.0-15.0); White Blood Count 6.2 10^3/uL (4.0-11.0)
[2024-07-06 08:59] LABS: Erythrocyte Sedimentation Rate 13 mm/hr (<=20)
[2024-07-06 09:10] LABS: Alanine Aminotransferase 29 U/L (16-63); Albumin Globulin Ratio 1.3; Albumin Level 3.5 g/dL (3.4-5.0); Alkaline Phosphatase 55 U/L (46-116); Anion Gap 10.6; Aspartate Amino Transferase 20 U/L (15-37); BUN Creatinine Ratio 21.4; Bilirubin Total 0.7 mg/dL (0.2-1.0); Calcium 9.1 mg/dL (8.5-10.1); Carbon Dioxide 28.8 mmol/L (21.0-32.0); Chloride 109 mmol/L (98-107); Estimated GFR (African America >60 (>=60); Estimated GFR (Non-African Ame >60 (>=60); Globulin 2.7 g/dL; Glucose 87 mg/dL (74-106); Potassium 4.4 mmol/L (3.5-5.1); Sodium 144 mmol/L (136-145); Total Protein 6.2 g/dL (6.4-8.2)
== END 2024-07-06 08:24 | disposition home or self-care (01) ==
LOC: LAB 08:24
PROVIDERS: PCP Family Medicine; Visit Provider Registered Nurse
DX: H15.012 Anterior scleritis, left eye (principal); Z79.899 Other long term (current) drug therapy
CPT/HCPCS: 36415; 80053; 85025; 85652

== ENCOUNTER 2024-09-29 08:49 | Outpatient (OUT) | payer MEDICARE, OTHER, SELFPAY ==
[2024-09-29 09:03] LABS: Basophils Absolute Auto 0.1 10^3/uL (0.0-0.1); Basophils Percent Auto 0.9 % (0.2-2.0); Eosinophils Absolute Auto 0.2 10^3/uL (0.0-0.7); Eosinophils Percent Auto 3.3 % (0.9-7.0); Hematocrit 38.8 % (42.0-54.0); Hemoglobin 12.6 g/dL (14.0-18.0); Immature Granulocytes Abs Auto 0.03 10^3/uL (0.00-0.03); Immature Granulocytes Pct Auto 0.5 % (0.0-0.5); Lymphocytes Absolute Auto 1.4 10^3/uL (1.2-3.8); Mean Corpuscular HGB Conc 32.5 g/dL (29.9-35.2); Mean Corpuscular Hemoglobin 32.9 pg (25.9-34.0); Mean Corpuscular Volume 101.3 fL (80.0-94.0); Mean Platelet Volume 10.3 fL (9.5-13.5); Monocytes Absolute Auto 0.8 10^3/uL (0.3-0.8); Monocytes Percent Auto 12.3 % (1.7-12.0); Neutrophils Absolute Auto 4.1 10^3/uL (1.4-6.5); Platelet Count 187 10^3/uL (150-450); Red Blood Count 3.83 10^6/uL (4.70-6.10); Red Cell Distribution Width 14.2 % (11.0-15.0); White Blood Count 6.6 10^3/uL (4.0-11.0)
[2024-09-29 09:17] LABS: Erythrocyte Sedimentation Rate 11 mm/hr (<=20)
[2024-09-29 09:50] LABS: Alanine Aminotransferase 32 U/L (16-63); Albumin Globulin Ratio 1.1; Albumin Level 3.4 g/dL (3.4-5.0); Alkaline Phosphatase 73 U/L (46-116); Anion Gap 11.4; Aspartate Amino Transferase 24 U/L (15-37); BUN Creatinine Ratio 20.3; Bilirubin Total 0.9 mg/dL (0.2-1.0); Calcium 8.8 mg/dL (8.5-10.1); Carbon Dioxide 29.6 mmol/L (21.0-32.0); Chloride 110 mmol/L (98-107); Estimated GFR (African America >60 (>=60 mL/min/1.73m^2); Estimated GFR (Non-African Ame >60 (>=60 mL/min/1.73m^2); Glucose 95 mg/dL (74-106); Sodium 147 mmol/L (136-145); Total Protein 6.4 g/dL (6.4-8.2)
== END 2024-09-29 08:50 | disposition home or self-care (01) ==
LOC: LAB 08:50
PROVIDERS: PCP Family Medicine; Visit Provider Registered Nurse
DX: H15.012 Anterior scleritis, left eye (principal); Z79.899 Other long term (current) drug therapy
CPT/HCPCS: 36415; 80053; 85025; 85652

== ENCOUNTER 2024-12-12 07:47 | Outpatient (OUT) | payer MEDICARE, OTHER, SELFPAY ==
--- NOTE | 2024-12-12 07:50 | MR_ITS ---
The [address] [address] Patient Name: ADONAY IRBY MRN: [id number] date: 1945 Sex: M Assigned Patient Location: MRI Current Patient Location: MRI Accession/Order Number: [id number] Exam Date: 12/12/2024 08:00 Report Date: 12/12/2024 09:04 At the request of: KAMILLA NAVARRO Procedure: MR head/brain wo con MR head/brain wo con, 12/12/2024 8:00 AM EST INDICATION: Memory Loss COMPARISON: There is no appropriate prior study for comparison. TECHNIQUE: Multiplanar, multisequence MRI images of brain were obtained without injection of contrast. FINDINGS: The cerebral sulci as well as ventricular system are enlarged consistent with moderate ex vacuo cerebral volume loss. Hyperintensities on T2 and FLAIR images in the solorio radiata and centrum semiovale with sparing of U fibers are nonspecific, statistically most likely consistent with mild microvascular ischemic changes. There is no restricted diffusion. There is no intracranial mass, mass effect, midline shift, intra or extra-axial fluid collection or large hemorrhage. Normal flow-void in the intracranial vessels is noted. There is status post bilateral lens replacement. The visualized portions of orbits, mastoid air cells as well as paranasal sinuses are unremarkable. MR/MR head/brain wo con IMPRESSION: No acute intracranial process is noted. Mild microvascular ischemic changes. No finding to suggest a typical neurodegenerative process. Electronically authenticated by: SUDEEP KOLB Date: 12/12/2024 09:04
--- OUTSIDE RECORDS SUMMARY | 2024-12-12 08:08 | XMS_ITS | CCD ---
Author Organization [facility] Care Team Providers Care Intern Brand Name Role Phone Kamilla Huizar MD Primary Care Provider [phone] MD Jaoo Barba Attending Provider Kamilla Huizar MD Primary Care Provider [phone] MELANIE ., DR KOHLI Primary Care Unavailable [...] LA FUENTE Consulting Unavailable HOY ., DR KHOLI Primary Care Unavailable BARBA, DR DE LA [...] Unavailable Kamilla Huizar MD Primary Care Provider [phone] BELLA CORONADO Attending Unavailable Kamilla Huizar MD Primary Care Provider [phone] BRIDGER ANDREW Attending Unavailable BRIDGER ANDREW Attending Unavailable Kamilla Huizar MD Primary Care Provider [phone] KAMILLA HUIZAR Primary Care Unavailable ABOUSSRONITAN, LOUTFI S Referring Unavailable KAMILLA HUIZAR Primary Care Unavailable ABOUSSOUAN, LOUTFI S Referring Unavailable ABOUSSOUAN, LOUTFI S Referring Unavailable CORIAN, LOUTFI S Attending Unavailable KAMILLA HUIZAR Primary Care Unavailable Allergies Allergy Classification Reported Allergen(s) Allergy Type Date of Onset Reaction(s) Facility Sulfamethoxazole / Trimethoprim (1 source) Sulfamethoxazole / Trimethoprim Drug Allergy 1 Anaphylaxis [facility] (14 sources) Sulfamethoxazole / Trimethoprim; Translations: [SULFAMETHOXAZOLE-TR IMETHOPRIM] Drug Allergy 1 Anaphylaxis [facility] (2 sources) Sulfamethoxazole / Trimethoprim; Translations: [Bactrim] Drug Allergy [facility] (2 sources) Sulfonamides (Antibiotic) Drug Allergy 3 [facility] Medications Current Medications Medication Drug Class(es) Dates Sig (Normalized) Sig (Original) albuterol 0.833 mg/ml / ipratropium bromide 0.167 mg/ml inhalation solution (15 sources) Anticholinergic, beta2-Adrenergic Agonist Start: 05-05-2023 ipratropium-albute rol (Duo-Neb) 0.5-2.5 mg/3 mL nebulizer solution INHALE 1 VIAL 4 TO 5 TIMES DAILY NEEDED DXJ44.9 05/05/2023 Active Start: 04-23-2017 End: 04-25-2024 take 3 mL by inhalation four times daily ipratropium-albuterol (DUONEB) 0.5 mg-3 mg(2.5 mg base)/3 mL nebu Inhale 3 mL as instructed four times daily. 360 mL 11 04/25/2024 Active Comment on above: Inhale 3 mL as instr ucted four times daily. BIPAP (12 sources) Start: 09-10-2018 BIPAP Please provide with [...] 33% COPD IS NOT PRESENT 1 Device 09/10/2018 Active Start: 09-10-2018 BIPAP Please p rovide with a device with a back up [...] FVC 33% COPD IS NOT PRESENT CPAP/BIPAP/OTHER (9 sources) Start: 09-24-2022 End: 02-08-2050 CPAP/BIPAP/OTHER Type .CPAPSettings into a note to see current settings/supplies/DME information. 1 Each 09/24/2022 02/08/2050 Active Start: 09-24-2022 End: 02-08-2050 CPAP/BIPAP/OTHER Type .CPAPS ettings into a note to see current settings/supplies/DME information. 1 Each 0 09/24/2022 02/08/2050 Active Comment on above: Type .CPAPSettings i nto a note to see current settings/supplies/DME information. dorzolamide 20 mg/ml / timolol 5 mg/ml ophthalmic solution (4 sources) Carbonic Anhydrase Inhibitor, beta-Adrenergic Alessia Start: 024 take 1 drop(s) into the eye(s) in the morning dorzolamide-timol ol (Cosopt) 2-0.5 % ophthalmic solution Indications: Primary open angle glaucoma (POAG) of both eyes, mild stage (CMS/HCC) Administer 1 drop into both eyes in the morning and 1 drop before bedtime. 10 mL 2 10/11/2024 Active Start: 07-25-2024 End: 10-11-2024 dorzolamide-timolol (Cosopt) 2-0.5 % ophthalmic solution Indications: Primary open angle glaucoma (POAG) of both eyes, mild stage (CMS/HCC) INSTILL 1 DROP INTO EACH EYE ONCE DAILY IN THE MORNING AND AT BEDTIME 10 mL 2 07/25/2024 10/11/2024 Discontinued (Reorder) End: 07-25-2024 take 1 drop(s) into the eye(s) three times daily dorzolamide-timolol (Cosopt) 22.3-6.8 MG/ML ophthalmic solution INSTILL 1 DROP INTO EACH EYE THREE TIMES DAILY 07/25/2024 Discontinued finasteride 5 mg oral tablet (14 sources) 5-alpha Reductase Inhibitor Start: 04-23-2017 take 1 tablet by mouth once daily finasteride (PROSCAR) 5 mg tablet Take 1 tablet by mouth once daily. 0 04/23/2017 Active Comment on above: Take 1 tablet by fredy th once daily. folic acid 1 mg oral tablet (2 sources) Start: 03-09-2023 take 1 tablet by mouth in the morning folic acid (Folvite) 1 MG tablet Take 1,000 mcg by mouth in the morning. 03/09/2023 Active furosemide 20 mg oral tablet (14 sources) Loop Diuretic Start: 04-23-2017 take 1 tablet by mouth once daily furosemide (LASIX) 20 mg tablet Take 1 tablet by mouth once daily. 0 04/23/2017 Active Comment on above: Take 1 tablet by fredy th once daily. latanoprost 0.05 mg/ml ophthalmic solution (14 sources) Prostaglandin Analog Start: 10-11-2024 End: 10-11-2024 take 1 drop(s) into the eye(s) at bedtime latanoprost (Xalatan) 0.005 % ophthalmic solution Indications: Primary open angle glaucoma (POAG) of both eyes, mild stage (CMS/HCC) Administer 1 drop into both eyes at bedtime 7.5 mL 3 10/11/2024 Active Start: 04-23-2017 take 1 drop(s) into [...] in both e yes daily at bedtime. methotrexate 2.5 mg oral tablet (2 sources) Folate Analog Metabolic Inhibitor Start: 04-20-2023 methotrexate 2.5 MG tablet Take 15 mg by mouth 1 (one) time per week. 04/20/2023 Active metoprolol tartrate 50 mg oral tablet (2 sources) beta-Adrenergic Alessia Start: 11-03-2023 metoprolol tartrate (Lopressor) 50 MG tablet every 12 (twelve) hours 11/03/2023 Active pantoprazole 40 mg delayed release oral tablet (2 sources) Proton Pump Inhibitor Protonix 40 MG EC tablet 1 (one) time each day at the same time. Active microencapsulated potassium chloride 10 meq extended release oral tablet (14 sources) Start: 02-25-2023 potassium chloride CR (Klor-Con M10) 10 MEQ ER tablet 02/25/2023 Active Start: 04-23-2017 take 1 tablet by fredy th once daily potassium chloride (KLOR-CON 10) 10 mEq tablet Take 1 tablet by mouth once daily. 04/23/2017 Active Comment on above: Take 1 tablet by fredy th once daily. prednisoLONE acetate 10 mg/ml ophthalmic suspension (2 sources) Corticosteroid Start: 11-25-19 23 take 1 drop(s) into the eye(s) three times weekly prednisoLONE acetate (Pred-Forte) 1 % ophthalmic suspension INSTILL 1 DROP INTO EACH EYE THREE TIMES A WEEK 11/25/2022 Active 24 hr propranolol hydrochloride 60 mg extended release oral capsule (14 sources) beta-Adrenergic Alessia Start: 04-20-20 23 take 1 capsule by mouth every twenty-four hours in the morning propranolol LA (Inderal LA) 60 MG 24 hr capsule Take 60 mg by mouth in the morning. 04/20/2023 Active Start: 04-23-2017 take 1 tablet by fredy th once daily propranolol (INDERAL) 60 mg tablet Take 1 tablet by mouth once daily. 04/23/2017 Active Comment on above: Take 1 tablet by fredy th once daily. simvastatin 20 mg oral tablet (14 sources) HMG-CoA Reductase Inhibitor Start: 7 take 1 tablet by mouth once daily at bedtime simvastatin (ZOCOR) 20 mg tablet Take 1 tablet by mouth daily at bedtime. 0 04/23/2017 Active Comment on above: Take 1 tablet by fredy th daily at bedtime. tamsulosin hydrochloride 0.4 mg oral capsule (14 sources) alpha-Adrenergic Alessia Start: 7 take 1 [...] Classification Problem Date Documented Da te Episodic/Chronic Cataract (2 sources) After-cataract of right eye; Translations: [Other secondary cataract, right eye] Onset: 05-25-2023 05-25-2023 Chronic Congestive heart failure; nonhypertensive (1 source) Unspecified diastolic (congestive) heart failure; Translations: [UNSPECIFIED DIASTOLIC HEART FAILURE] Onset: 09-02-2022 Chronic Diabetes mellitus without complication (1 source) Other abnormal glucose; Translations: [OTHER ABNORMAL GLUCOSE] Onset: 04-15-2023 Episodic Disorders of lipid metabolism (1 source) Hyperlipidemia, unspecified; Translations: [HYPERLIPIDEMIA UNSPECIFIED] Onset: 04-15-2023 Chronic Glaucoma (4 sources) Primary open angle glaucoma; Translations: [Primary open-angle glaucoma, bilateral, mild stage] Onset: 05-25-2023 10-11-2024 Chronic Hypertension with complications and secondary hypertension (1 source) Hypertensive heart disease with heart failure; Translations: [HTN HEART DISEASE W/HEART FAIL] Onset: 09-02-2022 Chronic Inflammation; infection of eye (except that caused by tuberculosis or sexually transmitteddisease) (6 sources) Anterior scleritis, left eye; 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] Onset: 03-04-2023 Chronic Other aftercare (1 source) Other salvage determiner (current) drug therapy; Translations: [OTH GENERAL ASSIGNMENT REPORTER CURRENT DRUG THERAPY] Onset: 03-08-2023 Episodic Other MANAGER GIFT infection and poliomyelitis (18 sources) Post poliomyelitis syndrome; 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 Other lower respiratory disease (1 source) Ineffective airway clearance; Translations: [Other abnormalities of breathing] 08-14-2023 Episodic Other nervous system disorders (2 sources) Disorder of nervous system; Translations: [Other disorders of nervous system] 04-08-2024 Episodic Other screening for suspected conditions (not mental disorders or infectious disease) (4 sources) Lung function testing abnormal; Translations: [Abnormal results of pulmonary function studies] Onset: 04-15-2023 Episodic Pulmonary heart disease (1 source) Pulmonary hypertension, unspecified; Translations: [PULMONARY HYPERTENSION UNSPECIFIED] Onset: 04-15-2023 Chronic Residual codes; unclassified (14 sources) Obstructive sleep apnea syndrome; Translations: [Obstructive [...] [ACUTE BRONCHITIS UNSPECIFIED] Onset: 01-10-2023 Episodic Other eye disorders (2 sources) Dry eyes; Translations: [Dry eye syndrome of bilateral lacrimal glands] Onset: 05-25-2023 05-25-2023 Episodic Other lower respiratory disease (15 sources) Disorder of diaphragm; Translations: [Disorders of diaphragm] Onset: 04-23-2017 04-23-2017 Episodic Other nervous system disorders (1 source) Other disorders of nervous system; Translations: [Disorder of nervous system] Onset: 04-08-2024 Episodic Unclassified (1 source) CONTACT W/AND (SUSP) EXPOS COVID-19; Translations: [CONTACT W/AND (SUSP) EXPOS COVID-19] Onset: 01-07-2023 Results Test Name Value Interpretation Reference Range Facility [facility] ADONAY IRBY ([id number]) 1945 M Date Time Provider Department 12/08/24 CARLOS FARRIS PULMMN During your visit today, we recorded the following information about you: Hanna Hyde 12/08/2024 1:37 PM Signed Admin faxed over medical equipment order to [employer], signed by Dr. Carlos Farris. Admin scanned into chart (scanned documents) on 12/08/2024. Allergies As of Date: 12/08/2024 Noted Allergy Reaction SULFAMETHOXAZOLE-TRIMET HOPRIM 03/08/2021 10 - Anaphylaxis Date Reviewed: 04/08/2024 Reviewed by: Carlos Farris MD - Fully Assessed Reason for Visit: Medical Equipment Order Form [Other] Prescriptions as of 12/08/2024 - ipratropium-albuterol (DUONEB) 0.5 mg-3 mg(2.5 mg base)/3 mL nebu Inhale 3 mL as instructed four times daily. - CPAP/BIPAP/OTHER Type .CPAPSettings into a note [...] tablet by mouth daily at bedtime. - propranolol (INDERAL) 60 mg tablet Take 1 tablet by mouth once daily. - furosemide (LASIX) 20 mg tablet Take 1 tablet by mouth once daily. - potassium chloride (KLOR-CON 10) 10 mEq tablet Take 1 tablet by mouth once daily. - latanoprost (XALATAN) 0.005 % ophthalmic solution Use 1 Drop in both eyes daily at bedtime. 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 PPSV 23 received 1.2018, with previous prevnar. he has had tremors [...] station stooped. Mood and affect normal. 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 Normal [facility] Patient Letter FTMCon 2022 Patient Letter [facility] (Inserted Image. Kayla ble to display) October 14, 2023 ADONAY IRBY [address] [place] [address] : 1945 Dear Adonay, This is a reminder that you are due for an appointment with [facility]. Please contact our office at [phone] to schedule an appointment at your earliest convenience. Thank you, [facility] Reminderson 10-14-2023 Reminders - From: Raven Sepulveda To: [facility] - Reminders/Recalls; Sent: 10/14/2023 10:33:18 EST Show up: 10/14/2023 10:33:00 EST Subject: Ambulatory Reminder Reminder/Recall 5 year colon recall mamie freed 11/07 first recall letter Normal [facility] Screenson 06-25-2023 Screens [id number] CD:[address] [facility] Patient Educationon 06-24-20 Patient Education Urology [...] Follow these instructions at home: ? Take [id number]-[id number] and prescription medicines only as told by [...] the medicine (more content not included)... Normal [facility] Provider Letteron 06-24-2023 Provider Letter (Inserted Image. Kayla ble to display) Kamilla Huizar, [address] [facility] [address] Re: ADONAY IRBY Date of : [address]Hoy ADAMS, Kamilla MAHAMED, ADONAY Mcbride was evaluated at [facility] Urolog 06/24/2023 13:20:00 As this patient has been [...] Thanks! Provider Signature: Bella Coronado PA-C Physician Associate Financial Planner [facility] [address] [place] [address] [facility] Urology Office/Clinic Noteon 06-24-2023 Urology Office/Clinic [...] acknowledges understanding. Follow-up With When Contact Information IVONNE SKINNER, BELLA Oneal, URL [address] [place] [address] Additional Instructions: PRN Patient Education Benign Prostatic Hyperplasia Documentation recorded by the scriblamont Crane accurately reflects the services(s) I performed [...] Hypertension: Father. Immunizations Vaccine Date Status SARSCoV2 mRNA(pzccsskgg-kgxd-siy ros) vac 07/09/2022 Recorded SARS-CoV-2 (COVID-19) mRNA BNT-162b2 vax 10/15/2021 Recorded SARS-CoV-2 (COVID-19) mRNA-1273 vaccine 02/09/2021 Recorded SARS-CoV-2 (COVID-19) mRNA-1273 vaccine 01/12/2021 Recorded influenza virus vaccine, inactivated 08/31/2020 Recorded influenza virus vaccine, live, trivalent 08/24/2019 Recorded influenza virus vaccine, inactivated 08/27/2018 Recorded p (more content not included)... Normal [facility] Comment on above: Result Comment: Elec tronically Signed By: IVONNE SKINNER, BELLA Oneal\.br\Date and Time Signed: 06/24/23 14:14 EDT\.br\Electronically Co-Signed By: Rajani Crane\.br\Date and Time Co-Signed: 06/24/23 13:53 EDT INSULINon 04-09-2023 Insulin 2.9 uIU/mL Normal 2.6-24.9 [facility] Comment on above: Performed By: #### L IPID, T7, CMP, URIC, TSH #### [facility] [address] [place] [address] Dr. Roland Gr CBC AUTO DIFFon 04-08-2023 BASO # 0.0 103/ul Normal 0.0-0.1 [facility] Comment on above: Performed By: #### C VDTBH #### [facility] [address] [place] [address] Dr. Roland Gr Basophils/100 WBC (Bld) 0.7 % Normal 0.2-2.0 [facility] Comment on above: Performed By: #### C VDTBH #### [facility] [address] [place] [address] Dr. Roland Gr EO # 0.1 103/ul Normal 0.0-0.7 [facility] Comment on above: Performed By: #### C VDTBH #### [facility] [address] [place] [address] Dr. Roland Gr Eosinophils/100 WBC (Bld) 0.9 % Normal 0.9-7.0 [facility] Comment on above: Performed By: #### C VDTBH #### [facility] [address] [place] [address] Dr. Roland Gr Erythrocyte distribution width (RBC) [Ratio] 14.7 % Normal 11.0-15.0 [facility] Comment on above: Performed By: #### C VDTBH #### [facility] [address] [place] [address] Dr. Roland Gr Hematocrit (Bld) [Volume fraction] 39.1 % Critically low 42.0-54.0 [facility] Comment on above: Performed By: #### C VDTBH #### [facility] [address] [place] [address] Dr. Roland Gr Hemoglobin (Bld) [Mass/Vol] 12.6 g/dL Critically low 14.0-18.0 [facility] Comment on above: Performed By: #### C VDTBH #### [facility] [address] [place] [address] Dr. Roland Gr IG # 0.03 10e3/ul Normal 0.00-0.03 [facility] Comment on above: Performed By: #### C VDTBH #### [facility] [address] [place] [address] Dr. Roland Gr IG % 0.5 % Normal 0.0-0.5 [facility] Comment on above: Performed By: #### C VDTBH #### [facility] [address] [place] [address] Dr. Roland Gr LYMPH # 1.4 103/ul Normal 1.2-3.8 [facility] Comment on above: Performed By: #### C VDTBH #### [facility] [address] [place] [address] Dr. Roland Gr Lymphocytes/100 WBC (Bld) 23.6 % Normal 20.5-60.0 [facility] Comment on above: Performed By: #### C VDTBH #### [facility] [address] [place] [address] Dr. Roland Gr MANUAL DIFF REQ NO Normal [facility] Comment on above: Performed By: #### C VDTBH #### [facility] [address] [place] [address] Dr. Roland Gr MCH (RBC) [Entitic mass] 31.7 pg Normal 25.9-34.0 [facility] Comment on above: Performed By: #### C VDTBH #### [facility] [address] [place] [address] Dr. Roland Gr MCHC (RBC) [Mass/Vol] 32.2 g/dL Normal 29.9-35.2 [facility] Comment on above: Performed By: #### C VDTBH #### [facility] [address] [address] [address] Roland Gr MCV (RBC) [Entitic vol] 98.5 fL Critically high 80.0-94.0 [facility] Comment on above: Performed By: #### C VDTBH #### [facility] [address] [place] [address] Dr. Roland Gr MONO # 0.7 103/ul Normal 0.3-0.8 [facility] Comment on above: Performed By: #### C VDTBH #### [facility] [address] [place] [address] Dr. Roland Gr Monocytes/100 WBC (Bld) 11.8 % Normal 1.7-12.0 [facility] Comment on above: Performed By: #### C VDTBH #### [facility] [address] [place] [address] Dr. Roland Gr NEUT # 3.7 103/ul Normal 1.4-6.5 [facility] Comment on above: Performed By: #### C VDTBH #### [facility] [address] [place] [address] Dr. Roland Gr Neutrophils/100 WBC (Bld) 62.5 % Normal 43.0-75.0 [facility] Comment on above: Performed By: #### C VDTBH #### [facility] [address] [place] [address] Dr. Roland Gr Platelet mean volume (Bld) [Entitic vol] 10.2 fL Normal 9.5-13.5 [facility] Comment on above: Performed By: #### C VDTBH #### [facility] [address] [place] [address] Dr. Roland Gr PLT 180 103/ul Normal 150-450 [facility] Comment on above: Performed By: #### C VDTBH #### [facility] [address] [place] [address] Dr. Roland Gr RBC 3.97 106/ul Critically low 4.70-6.10 [facility] Comment on above: Performed By: #### C VDTBH #### [facility] [address] [place] [address] Dr. Roland Gr WBC 5.9 103/ul Normal 4.0-11.0 [facility] Comment on above: Performed By: #### C VDTBH #### [facility] [address] [place] [address] Dr. Roland Gr FREE THYROXINE INDEX T7on FTI 2.81 Normal 1.30-4.50 [facility] Comment on above: Performed By: #### L IPID, T7, CMP, URIC, TSH #### [facility] [address] [place] [address] Dr. Roland Gr T3U 38.0 % Normal 33.0-40.0 [facility] Comment on above: Performed By: #### L IPID, T7, CMP, URIC, TSH #### [facility] [address] [place] [address] Dr. Roland Gr T4 [Mass/Vol] 7.40 ug/dL Normal 4.50-12.10 [facility] Comment on above: Performed By: #### L IPID, T7, CMP, URIC, TSH #### [facility] [address] [place] [address] Dr. Roland Gr GLYCOHEMOGLOBIN A1Con 2022 ADA RECOMMENDATION SEE BELOW Normal [facility] Comment on above: Result Comment: ADA RECOMMENDED LIMIT 4.0 - 6.0 ADA THERAPEUTIC TARGET < 7.0 ACTION SUGGESTED > 7.0 Performed By: #### A 1C #### [facility] [address] [place] [address] Dr. Roland Gr Glucose [Mass/Vol] 103 mg/dL Normal [facility] Comment on above: Performed By: #### A 1C #### [facility] [address] [place] [address] Dr. Roland Gr HbA1c (Bld) [Mass fraction] 5.2 % Normal 4.5-6.2 [facility] Comment on above: Performed By: #### A 1C #### [facility] [address] [place] [address] Dr. Roland Gr LIPID PROFILEon 04-08-2023 CHOL-HDL RATIO NORM SEE BELOW Normal [facility] Comment on above: Result Comment: 3.3 - 4.4 LOW RISK 4.4 - 7.1 AVERAGE RISK 7.1 - 11.0 MODERATE RISK >11.0 HIGH RISK Performed By: #### L IPID, T7, CMP, URIC, TSH #### [facility] [address] [address] [address] Roland Gr Cholesterol [Mass/Vol] 134 mg/dL Normal <=200 [facility] Comment on above: Performed By: #### L IPID, T7, CMP, URIC, TSH #### [facility] [address] [address] [address] Roland Gr Cholesterol in HDL [Mass/Vol] 74 mg/dL Critically high 40-60 [facility] Comment on above: Performed By: #### L IPID, T7, CMP, URIC, TSH #### [facility] [address] [address] [address] Roland Gr Cholesterol in LDL [Mass/Vol] 50.0 mg/dL Normal [facility] Comment on above: Performed By: #### L IPID, T7, CMP, URIC, TSH #### [facility] [address] [address] [address] Roland Gr Cholesterol.total/Ch olesterol in HDL [Mass ratio] 1.8 {ratio} Normal [facility] Comment on above: Performed By: #### L IPID, T7, CMP, URIC, TSH #### [facility] [address] [address] [address] Roland Gr HDL NORMAL > or = 60 mg/dl - LO W CARDIOVASCULAR RISK <40 mg/dl - HIGH CARDIOVASCULAR RISK Normal [facility] Comment on above: Performed By: #### L IPID, T7, CMP, URIC, TSH #### [facility] [address] [place] [address] Dr. Roland Gr LDL CALC NORMAL SEE BELOW Normal [facility] Comment on above: Result Comment: <100 mg/dl OPTIMAL 100 - 129 mg/dl NEAR OR ABOVE OPTIMAL 130 - 159 mg/dl BORDERLINE HIGH 160 - 189 mg/dl HIGH >190 mg/dl VERY HIGH Performed By: #### L IPID, T7, CMP, URIC, TSH #### [facility] [address] [place] [address] Dr. Roland Gr Triglyceride [Mass/Vol] 50 mg/dL Normal <=150 [facility] Comment on above: Performed By: #### L IPID, T7, CMP, URIC, TSH #### [facility] [address] [place] [address] Dr. Roland Gr VLDL CALC 10.0 mg/dL Normal [facility] Comment on above: Performed By: #### L IPID, T7, CMP, URIC, TSH #### [facility] [address] [place] [address] Dr. Roland Gr PROF 14(COMP METB)on 023 Albumin [Mass/Vol] 3.6 g/dL Normal 3.4-5.0 [facility] Comment on above: Performed By: #### L IPID, T7, CMP, URIC, TSH #### [facility] [address] [place] [address] Dr. Roland Gr Albumin/Globulin [Mass ratio] 1.1 {ratio} Normal [facility] Comment on above: Performed By: #### L IPID, T7, CMP, URIC, TSH #### [facility] [address] [place] [address] Dr. Roland Gr ALP [Catalytic activity/Vol] 64 U/L Normal 46-116 [facility] Comment on above: Performed By: #### L IPID, T7, CMP, URIC, TSH #### [facility] [address] [place] [address] Dr. Roland Gr ALT [Catalytic activity/Vol] 25 U/L Normal 16-63 [facility] Comment on above: Performed By: #### L IPID, T7, CMP, URIC, TSH #### [facility] [facility] [address] [place] [address] Dr. Roland Gr Anion gap [Moles/Vol] 13.2 mmol/L Normal [facility] Comment on above: Performed By: #### L IPID, T7, CMP, URIC, TSH #### [facility] [address] [address] [address] Roland Gr AST [Catalytic activity/Vol] 18 U/L Normal 15-37 [facility] Comment on above: Performed By: #### L IPID, T7, CMP, URIC, TSH #### [facility] [address] [place] [address] Dr. Roland Gr Bilirubin [Mass/Vol] 0.9 mg/dL Normal 0.2-1.0 [facility] Comment on above: Performed By: #### L IPID, T7, CMP, URIC, TSH #### [facility] [address] [place] [address] Dr. Roland Gr Calcium [Mass/Vol] 9.0 mg/dL Normal 8.5-10.1 [facility] Comment on above: Performed By: #### L IPID, T7, CMP, URIC, TSH #### [facility] [address] [address] [address] Roland Gr Chloride [Moles/Vol] 109 mmol/L Critically high 98-107 [facility] Comment on above: Performed By: #### L IPID, T7, CMP, URIC, TSH #### [facility] [address] [place] [address] Dr. Roland Gr CO2 [Moles/Vol] 28.9 mmol/L Normal 21.0-32.0 [facility] Comment on above: Performed By: #### L IPID, T7, CMP, URIC, TSH #### [facility] [address] [place] [address] Dr. Roland Gr Creatinine [Mass/Vol] 0.85 mg/dL Normal 0.70-1.30 [facility] Comment on above: Performed By: #### L IPID, T7, CMP, URIC, TSH #### [facility] [address] [place] [address] Dr. Roland Gr EGFR-AF CANADIAN >60 Normal >=60 [facility] Comment on above: Performed By: #### L IPID, T7, CMP, URIC, TSH #### [facility] [address] [address] [address] Roland Gr EGFR-NON AF CANADIAN >60 Normal >=60 [facility] Comment on above: Performed By: #### L IPID, T7, CMP, URIC, TSH #### [facility] [address] [address] [address] Roland Gr Globulin (S) [Mass/Vol] 3.4 g/dL Normal [facility] Comment on above: Performed By: #### L IPID, T7, CMP, URIC, TSH #### [facility] [address] [address] [address] Roland Gr Glucose [Mass/Vol] 93 mg/dL Normal 74-106 [facility] Comment on above: Performed By: #### L IPID, T7, CMP, URIC, TSH #### [facility] [address] [place] [address] Dr. Roland Gr Potassium [Moles/Vol] 4.1 mmol/L Normal 3.5-5.1 [facility] Comment on above: Performed By: #### L IPID, T7, CMP, URIC, TSH #### [facility] [address] [address] [address] Roland Gr Protein [Mass/Vol] 7.0 g/dL Normal 6.4-8.2 [facility] Comment on above: Performed By: #### L IPID, T7, CMP, URIC, TSH #### [facility] [address] [place] [address] Dr. Roland Gr Sodium [Moles/Vol] 147 mmol/L Critically high 136-145 [facility] Comment on above: Performed By: #### L IPID, T7, CMP, URIC, TSH #### [facility] [address] [place] [address] Dr. Roland Gr Urea nitrogen [Mass/Vol] 20.0 mg/dL Critically high 7.0-18.0 [facility] Comment on above: Performed By: #### L IPID, T7, CMP, URIC, TSH #### [facility] [address] [place] [address] Dr. Roland Gr Urea nitrogen/Creatinine [Mass ratio] 23.5 mg/mg Normal [facility] Comment on above: Performed By: #### L IPID, T7, CMP, URIC, TSH #### [facility] [address] [place] [address] Dr. Roland Gr TSHon 04-08-2023 TSH 1.136 uIU/mL Normal 0.358-3.740 [facility] Comment on above: Performed By: #### L IPID, T7, CMP, URIC, TSH #### [facility] [address] [place] [address] Dr. Roland Gr URIC ACID SERUMon 04-08-2023 Urate [Mass/Vol] 6.5 mg/dL Normal 3.5-7.2 [facility] Comment on above: Performed By: #### L IPID, T7, CMP, URIC, TSH #### [facility] [address] [place] [address] Dr. Roland Gr CBC AUTO DIFFon 03-04-2023 BASO # 0.0 103/ul Normal 0.0-0.1 [facility] Comment on above: Performed By: #### C VDTBH #### [facility] [address] [place] [address] Dr. Roland Gr Basophils/100 WBC (Bld) 0.6 % Normal 0.2-2.0 [facility] Comment on above: Performed By: #### C VDTBH #### [facility] [address] [place] [address] Dr. Roland Gr EO # 0.1 103/ul Normal 0.0-0.7 [facility] Comment on above: Performed By: #### C VDTBH #### [facility] [address] [place] [address] Dr. Roland Gr Eosinophils/100 WBC (Bld) 1.3 % Normal 0.9-7.0 [facility] Comment on above: Performed By: #### C VDTBH #### [facility] [address] [place] [address] Dr. Roland Gr Erythrocyte distribution width (RBC) [Ratio] 14.6 % Normal 11.0-15.0 [facility] Comment on above: Performed By: #### C VDTBH #### [facility] [address] [place] [address] Dr. Roland Gr Hematocrit (Bld) [Volume fraction] 40.4 % Critically low 42.0-54.0 [facility] Comment on above: Performed By: #### C VDTBH #### [facility] [address] [place] [address] Dr. Roland Gr Hemoglobin (Bld) [Mass/Vol] 12.9 g/dL Critically low 14.0-18.0 [facility] Comment on above: Performed By: #### C VDTBH #### [facility] [address] [place] [address] Dr. Roland Gr IG # 0.02 10e3/ul Normal 0.00-0.03 [facility] Comment on above: Performed By: #### C VDTBH #### [facility] [address] [place] [address] Dr. Roland Gr IG % 0.3 % Normal 0.0-0.5 [facility] Comment on above: Performed By: #### C VDTBH #### [facility] [address] [place] [address] Dr. Roland Gr LYMPH # 1.5 103/ul Normal 1.2-3.8 [facility] Comment on above: Performed By: #### C VDTBH #### [facility] [address] [place] [address] Dr. Roland Gr Lymphocytes/100 WBC (Bld) 21.2 % Normal 20.5-60.0 [facility] Comment on above: Performed By: #### C VDTBH #### [facility] [address] [place] [address] Dr. Roland Gr MANUAL DIFF REQ NO Normal [facility] Comment on above: Performed By: #### C VDTBH #### [facility] [address] [place] [address] Dr. Roland Gr MCH (RBC) [Entitic mass] 31.6 pg Normal 25.9-34.0 [facility] Comment on above: Performed By: #### C VDTBH #### [facility] [address] [place] [address] Dr. Roland Gr MCHC (RBC) [Mass/Vol] 31.9 g/dL Normal 29.9-35.2 [facility] Comment on above: Performed By: #### C VDTBH #### [facility] [address] [place] [address] Dr. Roland Gr MCV (RBC) [Entitic vol] 99.0 fL Critically high 80.0-94.0 [facility] Comment on above: Performed By: #### C VDTBH #### [facility] [address] [place] [address] Dr. Roland Gr MONO # 0.6 103/ul Normal 0.3-0.8 [facility] Comment on above: Performed By: #### C VDTBH #### [facility] [address] [place] [address] Dr. Roland Gr Monocytes/100 WBC (Bld) 9.3 % Normal 1.7-12.0 [facility] Comment on above: Performed By: #### C VDTBH #### [facility] [address] [place] [address] Dr. Roland Gr NEUT # 4.7 103/ul Normal 1.4-6.5 [facility] Comment on above: Performed By: #### C VDTBH #### [facility] [address] [place] [address] Dr. Roland Gr Neutrophils/100 WBC (Bld) 67.3 % Normal 43.0-75.0 [facility] Comment on above: Performed By: #### C VDTBH #### [facility] [address] [place] [address] Dr. Roland Gr Platelet mean volume (Bld) [Entitic vol] 10.1 fL Normal 9.5-13.5 [facility] Comment on above: Performed By: #### C VDTBH #### [facility] [address] [address] [address] Roland Gr PLT 188 103/ul Normal 150-450 [facility] Comment on above: Performed By: #### C VDTBH #### [facility] [address] [address] [address] Roland Gr RBC 4.08 106/ul Critically low 4.70-6.[address] [facility] Comment on above: Performed By: #### C VDTBH #### [facility] [address] [address] [address] Roland Gr WBC 6.9 103/ul Normal 4.0-11.0 [facility] Comment on above: Performed By: #### C VDTBH #### [facility] [address] [place] [address] Dr. Roland Gr PROF 14(COMP METB)on 023 Albumin [Mass/Vol] 3.6 g/dL Normal 3.4-5.0 [facility] Comment on above: Performed By: #### L IPID, T7, CMP, URIC, TSH #### [facility] [address] [address] [address] Roland Gr Albumin/Globulin [Mass ratio] 1.0 {ratio} Normal [facility] Comment on above: Performed By: #### L IPID, T7, CMP, URIC, TSH #### [facility] [address] [address] [address] Roland Gr ALP [Catalytic activity/Vol] 69 U/L Normal 46-116 [facility] Comment on above: Performed By: #### L IPID, T7, CMP, URIC, TSH #### [facility] [address] [address] [address] Roland Gr ALT [Catalytic activity/Vol] 26 U/L Normal 16-63 [facility] Comment on above: Performed By: #### L IPID, T7, CMP, URIC, TSH #### [facility] [address] [address] [address] Roland Gr Anion gap [Moles/Vol] 11.2 mmol/L Normal [facility] Comment on above: Performed By: #### L IPID, T7, CMP, URIC, TSH #### [facility] [address] [place] [address] Dr. Roland Gr AST [Catalytic activity/Vol] 22 U/L Normal 15-37 [facility] Comment on above: Performed By: #### L IPID, T7, CMP, URIC, TSH #### [facility] [address] [place] [address] Dr. Roland Gr Bilirubin [Mass/Vol] 0.7 mg/dL Normal 0.2-1.0 [facility] Comment on above: Performed By: #### L IPID, T7, CMP, URIC, TSH #### [facility] [address] [place] [address] Dr. Roland Gr Calcium [Mass/Vol] 9.2 mg/dL Normal 8.5-10.1 [facility] Comment on above: Performed By: #### L IPID, T7, CMP, URIC, TSH #### [facility] [address] [address] [address] Roland Gr Chloride [Moles/Vol] 108 mmol/L Critically high 98-107 [facility] Comment on above: Performed By: #### L IPID, T7, CMP, URIC, TSH #### [facility] [address] [place] [address] Dr. Roland Gr CO2 [Moles/Vol] 30.8 mmol/L Normal 21.0-32.0 [facility] Comment on above: Performed By: #### L IPID, T7, CMP, URIC, TSH #### [facility] [address] [place] [address] Dr. Roland Gr Creatinine [Mass/Vol] 0.74 mg/dL Normal 0.70-1.30 [facility] Comment on above: Performed By: #### L IPID, T7, CMP, URIC, TSH #### [facility] [address] [place] [address] Dr. Roland Gr EGFR-AF CANADIAN >60 Normal >=60 [facility] Comment on above: Performed By: #### L IPID, T7, CMP, URIC, TSH #### [facility] [address] [address] [address] Roland Gr EGFR-NON AF CANADIAN >60 Normal >=60 [facility] Comment on above: Performed By: #### L IPID, T7, CMP, URIC, TSH #### [facility] [address] [place] [address] Dr. Roland Gr Globulin (S) [Mass/Vol] 3.5 g/dL Normal [facility] Comment on above: Performed By: #### L IPID, T7, CMP, URIC, TSH #### [facility] [address] [place] [address] Dr. Roland Gr Glucose [Mass/Vol] 102 mg/dL Normal 74-106 [facility] Comment on above: Performed By: #### L IPID, T7, CMP, URIC, TSH #### [facility] [address] [place] [address] Dr. Roland Gr Potassium [Moles/Vol] 4.0 mmol/L Normal 3.5-5.1 [facility] Comment on above: Performed By: #### L IPID, T7, CMP, URIC, TSH #### [facility] [address] [place] [address] Dr. Roland Gr Protein [Mass/Vol] 7.1 g/dL Normal 6.4-8.2 [facility] Comment on above: Performed By: #### L IPID, T7, CMP, URIC, TSH #### [facility] [address] [place] [address] Dr. Roland Gr Sodium [Moles/Vol] 146 mmol/L Critically high 136-145 [facility] Comment on above: Performed By: #### L IPID, T7, CMP, URIC, TSH #### [facility] [address] [place] [address] Dr. Roland Gr Urea nitrogen [Mass/Vol] 15.0 mg/dL Normal 7.0-18.0 [facility] Comment on above: Performed By: #### L IPID, T7, CMP, URIC, TSH #### [facility] [address] [address] [address] Roland Gr Urea nitrogen/Creatinine [Mass ratio] 20.3 mg/mg Normal [facility] Comment on above: Performed By: #### L IPID, T7, CMP, URIC, TSH #### [facility] [address] [place] [address] Dr. Roland Gr SED RATE WESTERGRENon 2022 SED RATE 11 mm/hr Normal <=20 [facility] Comment on above: Performed By: #### L IPID, T7, CMP, URIC, TSH #### [facility] [address] [address] [address] Roland Gr Covid-19 PCR (CVDTB)on 12-18 SARS-CoV-2 (COVID-19) RNA PORSCHE+probe Ql (Unsp spec) Not detected Normal NOT DETECTED [facility] Comment on above: Result Comment: This test is not yet approved or cleared by the [place] FDA. When there are no FDA-approved or cleared tests available, and other criteria are met, FDA can make tests available under an emergency access mechanism called an Emergency Use Authorization (EUA). The EUA for this test is supported by the [place] of Health and Human Service's (HHS's) declaration [...] SARS-CoV-2. Performed By: #### C VDTBH #### [facility] [address] [place] [address] Dr. Roland Gr CBC AUTO DIFFon 12-03-2022 BASO # 0.0 103/ul Normal 0.0-0.1 [facility] Comment on above: Performed By: #### C VDTBH #### [facility] [address] [place] [address] Dr. Roland Gr Basophils/100 WBC (Bld) 0.6 % Normal 0.2-2.0 [facility] Comment on above: Performed By: #### C VDTBH #### [facility] [address] [place] [address] Dr. Roland Gr EO # 0.1 103/ul Normal 0.0-0.7 [facility] Comment on above: Performed By: #### C VDTBH #### [facility] [address] [place] [address] Dr. Roland Gr Eosinophils/100 WBC (Bld) 1.7 % Normal 0.9-7.0 [facility] Comment on above: Performed By: #### C VDTBH #### [facility] [address] [place] [address] Dr. Roland Gr Erythrocyte distribution width (RBC) [Ratio] 14.1 % Normal 11.0-15.0 [facility] Comment on above: Performed By: #### C VDTBH #### [facility] [address] [place] [address] Dr. Roland Gr Hematocrit (Bld) [Volume fraction] 39.3 % Critically low 42.0-54.0 [facility] Comment on above: Performed By: #### C VDTBH #### [facility] [address] [place] [address] Dr. Roland Gr Hemoglobin (Bld) [Mass/Vol] 12.7 g/dL Critically low 14.0-18.0 [facility] Comment on above: Performed By: #### C VDTBH #### [facility] [address] [place] [address] Dr. Roland Gr IG # 0.03 10e3/ul Normal 0.00-0.03 [facility] Comment on above: Performed By: #### C VDTBH #### [facility] [address] [place] [address] Dr. Roland Gr IG % 0.5 % Normal 0.0-0.5 [facility] Comment on above: Performed By: #### C VDTBH #### [facility] [address] [place] [address] Dr. Roland Gr LYMPH # 1.5 103/ul Normal 1.2-3.8 [facility] Comment on above: Performed By: #### C VDTBH #### [facility] [address] [place] [address] Dr. Roland Gr Lymphocytes/100 WBC (Bld) 23.5 % Normal 20.5-60.0 [facility] Comment on above: Performed By: #### C VDTBH #### [facility] [address] [place] [address] Dr. Roland Gr MANUAL DIFF REQ NO Normal [facility] Comment on above: Performed By: #### C VDTBH #### [facility] [address] [place] [address] Dr. Roland Gr MCH (RBC) [Entitic mass] 31.8 pg Normal 25.9-34.0 [facility] Comment on above: Performed By: #### C VDTBH #### [facility] [address] [place] [address] Dr. Roland Gr MCHC (RBC) [Mass/Vol] 32.3 g/dL Normal 29.9-35.2 [facility] Comment on above: Performed By: #### C VDTBH #### [facility] [address] [place] [address] Dr. Roland Gr MCV (RBC) [Entitic vol] 98.5 fL Critically high 80.0-94.0 [facility] Comment on above: Performed By: #### C VDTBH #### [facility] [address] [place] [address] Dr. Roland Gr MONO # 0.7 103/ul Normal 0.3-0.8 [facility] Comment on above: Performed By: #### C VDTBH #### [facility] [address] [place] [address] Dr. Roland Gr Monocytes/100 WBC (Bld) 10.6 % Normal 1.7-12.0 [facility] Comment on above: Performed By: #### C VDTBH #### [facility] [address] [place] [address] Dr. Roland Gr NEUT # 4.1 103/ul Normal 1.4-6.5 [facility] Comment on above: Performed By: #### C VDTBH #### [facility] [address] [place] [address] Dr. Roland Gr Neutrophils/100 WBC (Bld) 63.1 % Normal 43.0-75.0 [facility] Comment on above: Performed By: #### C VDTBH #### [facility] [address] [place] [address] Dr. Roland Gr Platelet mean volume (Bld) [Entitic vol] 10.0 fL Normal 9.5-13.5 [facility] Comment on above: Performed By: #### C VDTBH #### [facility] [address] [place] [address] Dr. Roland Gr PLT 184 103/ul Normal 150-450 [facility] Comment on above: Performed By: #### C VDTBH #### [facility] [address] [place] [address] Dr. Roland Gr RBC 3.99 106/ul Critically low 4.70-6.[address] [facility] Comment on above: Performed By: #### C VDTBH #### [facility] [address] [place] [address] Dr. Roland Gr WBC 6.4 103/ul Normal 4.0-11.0 [facility] Comment on above: Performed By: #### C VDTBH #### [facility] [address] [place] [address] Dr. Roland Gr PROF 14(COMP METB)on 023 Albumin [Mass/Vol] 3.8 g/dL Normal 3.4-5.0 [facility] Comment on above: Performed By: #### L IPID, T7, CMP, URIC, TSH #### [facility] [address] [address] [address] Roland Gr Albumin/Globulin [Mass ratio] 1.4 {ratio} Normal [facility] Comment on above: Performed By: #### L IPID, T7, CMP, URIC, TSH #### [facility] [address] [address] [address] Roland Gr ALP [Catalytic activity/Vol] 58 U/L Normal 46-116 [facility] Comment on above: Performed By: #### L IPID, T7, CMP, URIC, TSH #### [facility] [address] [address] [address] Roland Gr ALT [Catalytic activity/Vol] 24 U/L Normal 16-63 [facility] Comment on above: Performed By: #### L IPID, T7, CMP, URIC, TSH #### [facility] [address] [place] [address] Dr. Roland Gr Anion gap [Moles/Vol] 11.2 mmol/L Normal [facility] Comment on above: Performed By: #### L IPID, T7, CMP, URIC, TSH #### [facility] [address] [place] [address] Dr. Roland Gr AST [Catalytic activity/Vol] 24 U/L Normal 15-37 [facility] Comment on above: Performed By: #### L IPID, T7, CMP, URIC, TSH #### [facility] [address] [place] [address] Dr. Roland Gr Bilirubin [Mass/Vol] 0.7 mg/dL Normal 0.2-1.0 [facility] Comment on above: Performed By: #### L IPID, T7, CMP, URIC, TSH #### [facility] [address] [address] [address] Roland Gr Calcium [Mass/Vol] 9.0 mg/dL Normal 8.5-10.1 [facility] Comment on above: Performed By: #### L IPID, T7, CMP, URIC, TSH #### [facility] [address] [address] [address] Roland Gr Chloride [Moles/Vol] 109 mmol/L Critically high 98-107 [facility] Comment on above: Performed By: #### L IPID, T7, CMP, URIC, TSH #### [facility] [address] [address] [address] Roland Gr CO2 [Moles/Vol] 28.8 mmol/L Normal 21.0-32.0 [facility] Comment on above: Performed By: #### L IPID, T7, CMP, URIC, TSH #### [facility] [address] [address] [address] Roland Gr Creatinine [Mass/Vol] 0.73 mg/dL Normal 0.70-1.30 [facility] Comment on above: Performed By: #### L IPID, T7, CMP, URIC, TSH #### [facility] [address] [place] [address] Dr. Roland Gr EGFR-AF CANADIAN >60 Normal >=60 [facility] Comment on above: Performed By: #### L IPID, T7, CMP, URIC, TSH #### [facility] [address] [place] [address] Dr. Roland Gr EGFR-NON AF CANADIAN >60 Normal >=60 [facility] Comment on above: Performed By: #### L IPID, T7, CMP, URIC, TSH #### [facility] [address] [place] [address] Dr. Roland Gr Globulin (S) [Mass/Vol] 2.8 g/dL Normal [facility] Comment on above: Performed By: #### L IPID, T7, CMP, URIC, TSH #### [facility] [address] [address] [address] Roland Gr Glucose [Mass/Vol] 98 mg/dL Normal 74-106 [facility] Comment on above: Performed By: #### L IPID, T7, CMP, URIC, TSH #### [facility] [address] [address] [address] Roland Gr Potassium [Moles/Vol] 4.0 mmol/L Normal 3.5-5.1 [facility] Comment on above: Performed By: #### L IPID, T7, CMP, URIC, TSH #### [facility] [address] [place] [address] Dr. Roland Gr Protein [Mass/Vol] 6.6 g/dL Normal 6.4-8.2 [facility] Comment on above: Performed By: #### L IPID, T7, CMP, URIC, TSH #### [facility] [address] [place] [address] Dr. Roland Gr Sodium [Moles/Vol] 145 mmol/L Normal 136-145 [facility] Comment on above: Performed By: #### L IPID, T7, CMP, URIC, TSH #### [facility] [address] [place] [address] Dr. Roland Gr Urea nitrogen [Mass/Vol] 20.0 mg/dL Critically high 7.0-18.0 [facility] Comment on above: Performed By: #### L IPID, T7, CMP, URIC, TSH #### [facility] [address] [place] [address] Dr. Roland Gr Urea nitrogen/Creatinine [Mass ratio] 27.4 mg/mg Normal [facility] Comment on above: Performed By: #### L IPID, T7, CMP, URIC, TSH #### [facility] [address] [place] [address] Dr. Roland Gr [facility] SED RATE 8 mm/hr Normal <=20 [facility] Comment on above: Performed By: #### S EDR #### [facility] [address] [place] [address] Dr. Roland Gr INSULINon 09-02-2022 Insulin 6.3 uIU/mL Normal 2.6-24.9 [facility] Comment on above: Performed By: #### C VDTBH #### [facility] [address] [place] [address] Dr. Roland Gr BNPon 09-01-2022 Natriuretic peptide B (Bld) [Mass/Vol] 285.0 pg/mL Normal <=1,800.0 [facility] Comment on above: Performed By: #### C VDTBH #### [facility] [address] [place] [address] Dr. Roland Gr CBC AUTO DIFFon 09-01-2022 BASO # 0.0 103/ul Normal 0.0-0.1 [facility] Comment on above: Performed By: #### L IPID, T7, CMP, URIC, TSH #### [facility] [address] [place] [address] Dr. Roland Gr Basophils/100 WBC (Bld) 0.4 % Normal 0.2-2.0 [facility] Comment on above: Performed By: #### L IPID, T7, CMP, URIC, TSH #### [facility] [address] [place] [address] Dr. Roland Gr EO # 0.1 103/ul Normal 0.0-0.7 [facility] Comment on above: Performed By: #### L IPID, T7, CMP, URIC, TSH #### [facility] [address] [place] [address] Dr. Roland Gr Eosinophils/100 WBC (Bld) 1.5 % Normal 0.9-7.0 [facility] Comment on above: Performed By: #### L IPID, T7, CMP, URIC, TSH #### [facility] [address] [place] [address] Dr. Roland Gr Erythrocyte distribution width (RBC) [Ratio] 14.0 % Normal 11.0-15.0 [facility] Comment on above: Performed By: #### L IPID, T7, CMP, URIC, TSH #### [facility] [address] [place] [address] Dr. Roland Gr Hematocrit (Bld) [Volume fraction] 37.9 % Critically low 42.0-54.0 [facility] Comment on above: Performed By: #### L IPID, T7, CMP, URIC, TSH #### [facility] [address] [place] [address] Dr. Roland Gr Hemoglobin (Bld) [Mass/Vol] 12.2 g/dL Critically low 14.0-18.0 [facility] Comment on above: Performed By: #### L IPID, T7, CMP, URIC, TSH #### [facility] [address] [place] [address] Dr. Roland Gr IG # 0.03 10e3/ul Normal 0.00-0.03 [facility] Comment on above: Performed By: #### L IPID, T7, CMP, URIC, TSH #### [facility] [address] [place] [address] Dr. Roland Gr IG % 0.4 % Normal 0.0-0.5 [facility] Comment on above: Performed By: #### L IPID, T7, CMP, URIC, TSH #### [facility] [address] [place] [address] Dr. Roland Gr LYMPH # 1.6 103/ul Normal 1.2-3.8 [facility] Comment on above: Performed By: #### L IPID, T7, CMP, URIC, TSH #### [facility] [address] [place] [address] Dr. Roland Gr Lymphocytes/100 WBC (Bld) 21.3 % Normal 20.5-60.0 [facility] Comment on above: Performed By: #### L IPID, T7, CMP, URIC, TSH #### [facility] [address] [place] [address] Dr. Roland Gr MANUAL DIFF REQ NO Normal [facility] Comment on above: Performed By: #### L IPID, T7, CMP, URIC, TSH #### [facility] [address] [place] [address] Dr. Roland Gr MCH (RBC) [Entitic mass] 33.0 pg Normal 25.9-34.0 [facility] Comment on above: Performed By: #### L IPID, T7, CMP, URIC, TSH #### [facility] [address] [place] [address] Dr. Roland Gr MCHC (RBC) [Mass/Vol] 32.2 g/dL Normal 29.9-35.2 [facility] Comment on above: Performed By: #### L IPID, T7, CMP, URIC, TSH #### [facility] [address] [place] [address] Dr. Roland Gr MCV (RBC) [Entitic vol] 102.4 fL Critically high 80.0-94.0 [facility] Comment on above: Performed By: #### L IPID, T7, CMP, URIC, TSH #### [facility] [address] [place] [address] Dr. Roland Gr MONO # 0.8 103/ul Normal 0.3-0.8 [facility] Comment on above: Performed By: #### L IPID, T7, CMP, URIC, TSH #### [facility] [address] [place] [address] Dr. Roland Gr Monocytes/100 WBC (Bld) 10.5 % Normal 1.7-12.0 [facility] Comment on above: Performed By: #### L IPID, T7, CMP, URIC, TSH #### [facility] [address] [place] [address] Dr. Roland Gr NEUT # 4.8 103/ul Normal 1.4-6.5 [facility] Comment on above: Performed By: #### L IPID, T7, CMP, URIC, TSH #### [facility] [address] [place] [address] Dr. Roland Gr Neutrophils/100 WBC (Bld) 65.9 % Normal 43.0-75.0 [facility] Comment on above: Performed By: #### L IPID, T7, CMP, URIC, TSH #### [facility] [address] [place] [address] Dr. Roland Gr Platelet mean volume (Bld) [Entitic vol] 9.7 fL Normal 9.5-13.5 [facility] Comment on above: Performed By: #### L IPID, T7, CMP, URIC, TSH #### [facility] [address] [place] [address] Dr. Roland Gr PLT 183 103/ul Normal 150-450 [facility] Comment on above: Performed By: #### L IPID, T7, CMP, URIC, TSH #### [facility] [address] [address] [address] Roland Gr RBC 3.70 106/ul Critically low 4.70-6.[address] [facility] Comment on above: Performed By: #### L IPID, T7, CMP, URIC, TSH #### [facility] [address] [address] [address] Roland Gr WBC 7.3 103/ul Normal 4.0-11.0 [facility] Comment on above: Performed By: #### L IPID, T7, CMP, URIC, TSH #### [facility] [address] [address] [address] Roland Gr FREE THYROXINE INDEX T7on FTI 2.44 Normal 1.30-4.50 [facility] Comment on above: Performed By: #### C VDTBH #### [facility] [address] [place] [address] Dr. Roland Gr T3U 33.0 % Normal 33.0-40.0 [facility] Comment on above: Performed By: #### C VDTBH #### [facility] [address] [place] [address] Dr. Roland Gr T4 [Mass/Vol] 7.40 ug/dL Normal 4.50-12.10 [facility] Comment on above: Performed By: #### C VDTBH #### [facility] [address] [place] [address] Dr. Roland Gr GLYCOHEMOGLOBIN A1Con 2021 ADA RECOMMENDATION SEE BELOW Normal [facility] Comment on above: Result Comment: ADA RECOMMENDED LIMIT 4.0 - 6.0 ADA THERAPEUTIC TARGET < 7.0 ACTION SUGGESTED > 7.0 Performed By: #### A 1C #### [facility] [address] [place] [address] Dr. Roland Gr Glucose [Mass/Vol] 117 mg/dL Normal [facility] Comment on above: Performed By: #### A 1C #### [facility] [address] [place] [address] Dr. Roland Gr HbA1c (Bld) [Mass fraction] 5.7 % Normal 4.5-6.2 [facility] Comment on above: Performed By: #### A 1C #### [facility] [address] [place] [address] Dr. Roland Gr LIPID PROFILEon 09-01-2022 CHOL-HDL RATIO NORM SEE BELOW Normal [facility] Comment on above: Result Comment: 3.3 - 4.4 LOW RISK 4.4 - 7.1 AVERAGE RISK 7.1 - 11.0 MODERATE RISK >11.0 HIGH RISK Performed By: #### L IPID, T7, CMP, URIC, TSH #### [facility] [address] [address] [address] Roland Gr Cholesterol [Mass/Vol] 130 mg/dL Normal <=200 [facility] Comment on above: Performed By: #### L IPID, T7, CMP, URIC, TSH #### [facility] [address] [place] [address] Dr. Roland Gr Cholesterol in HDL [Mass/Vol] 67 mg/dL Critically high 40-60 [facility] Comment on above: Performed By: #### L IPID, T7, CMP, URIC, TSH #### [facility] [address] [place] [address] Dr. Roland Gr Cholesterol in LDL [Mass/Vol] 48.8 mg/dL Normal [facility] Comment on above: Performed By: #### L IPID, T7, CMP, URIC, TSH #### [facility] [address] [place] [address] Dr. Roland Gr Cholesterol.total/Ch olesterol in HDL [Mass ratio] 1.9 {ratio} Normal [facility] Comment on above: Performed By: #### L IPID, T7, CMP, URIC, TSH #### [facility] [address] [place] [address] Dr. Roland Gr HDL NORMAL > or = 60 mg/dl - LO W CARDIOVASCULAR RISK <40 mg/dl - HIGH CARDIOVASCULAR RISK Normal [facility] Comment on above: Performed By: #### L IPID, T7, CMP, URIC, TSH #### [facility] [address] [place] [address] Dr. Roland Gr LDL CALC NORMAL SEE BELOW Normal [facility] Comment on above: Result Comment: <100 mg/dl OPTIMAL 100 - 129 mg/dl NEAR OR ABOVE OPTIMAL 130 - 159 mg/dl BORDERLINE HIGH 160 - 189 mg/dl HIGH >190 mg/dl VERY HIGH Performed By: #### L IPID, T7, CMP, URIC, TSH #### [facility] [address] [address] [address] Roland Gr Triglyceride [Mass/Vol] 71 mg/dL Normal <=150 [facility] Comment on above: Performed By: #### L IPID, T7, CMP, URIC, TSH #### [facility] [address] [place] [address] Dr. Roland Gr VLDL CALC 14.2 mg/dL Normal [facility] Comment on above: Performed By: #### L IPID, T7, CMP, URIC, TSH #### [facility] [address] [place] [address] Dr. Roland Gr PROF 14(COMP METB)on 09-01- 022 Albumin [Mass/Vol] 3.5 g/dL Normal 3.4-5.0 [facility] Comment on above: Performed By: #### C VDTBH #### [facility] [address] [place] [address] Dr. Roland Gr Albumin/Globulin [Mass ratio] 1.2 {ratio} Normal [facility] Comment on above: Performed By: #### C VDTBH #### [facility] [address] [place] [address] Dr. Roland Gr ALP [Catalytic activity/Vol] 60 U/L Normal 46-116 [facility] Comment on above: Performed By: #### C VDTBH #### [facility] [address] [place] [address] Dr. Roland Gr ALT [Catalytic activity/Vol] 25 U/L Normal 16-63 [facility] Comment on above: Performed By: #### C VDTBH #### [facility] [address] [place] [address] Dr. Roland Gr Anion gap [Moles/Vol] 10.6 mmol/L Normal [facility] Comment on above: Performed By: #### C VDTBH #### [facility] [address] [place] [address] Dr. Roland Gr AST [Catalytic activity/Vol] 17 U/L Normal 15-37 [facility] Comment on above: Performed By: #### C VDTBH #### [facility] [address] [place] [address] Dr. Roland Gr Bilirubin [Mass/Vol] 0.8 mg/dL Normal 0.2-1.0 [facility] Comment on above: Performed By: #### C VDTBH #### [facility] [address] [place] [address] Dr. Roland Gr Calcium [Mass/Vol] 8.8 mg/dL Normal 8.5-10.1 [facility] Comment on above: Performed By: #### C VDTBH #### [facility] [address] [place] [address] Dr. Roland Gr Chloride [Moles/Vol] 108 mmol/L Critically high 98-107 [facility] Comment on above: Performed By: #### C VDTBH #### [facility] [address] [place] [address] Dr. Roland Gr CO2 [Moles/Vol] 28.6 mmol/L Normal 21.0-32.0 [facility] Comment on above: Performed By: #### C VDTBH #### [facility] [address] [place] [address] Dr. Roland Gr Creatinine [Mass/Vol] 0.72 mg/dL Normal 0.70-1.30 [facility] Comment on above: Performed By: #### C VDTBH #### [facility] [address] [place] [address] Dr. Roland Gr EGFR-AF CANADIAN >60 Normal >=60 [facility] Comment on above: Performed By: #### C VDTBH #### [facility] [address] [place] [address] Dr. Roland Gr EGFR-NON AF CANADIAN >60 Normal >=60 [facility] Comment on above: Performed By: #### C VDTBH #### [facility] [address] [place] [address] Dr. Roland Gr Globulin (S) [Mass/Vol] 3.0 g/dL Normal [facility] Comment on above: Performed By: #### C VDTBH #### [facility] [address] [place] [address] Dr. Roland Gr Glucose [Mass/Vol] 100 mg/dL Normal 74-106 [facility] Comment on above: Performed By: #### C VDTBH #### [facility] [address] [place] [address] Dr. Roland Gr Potassium [Moles/Vol] 4.2 mmol/L Normal 3.5-5.1 [facility] Comment on above: Performed By: #### C VDTBH #### [facility] [address] [place] [address] Dr. Roland Gr Protein [Mass/Vol] 6.5 g/dL Normal 6.4-8.2 [facility] Comment on above: Performed By: #### C VDTBH #### [facility] [address] [place] [address] Dr. Roland Gr Sodium [Moles/Vol] 143 mmol/L Normal 136-145 [facility] Comment on above: Performed By: #### C VDTBH #### [facility] [address] [place] [address] Dr. Roland Gr Urea nitrogen [Mass/Vol] 18.0 mg/dL Normal 7.0-18.0 [facility] Comment on above: Performed By: #### C VDTBH #### [facility] [address] [place] [address] Dr. Roland Gr Urea nitrogen/Creatinine [Mass ratio] 25.0 mg/mg Normal [facility] Comment on above: Performed By: #### C VDTBH #### [facility] [address] [place] [address] Dr. Roland Gr [facility] 2021 SED RATE 12 mm/hr Normal <=20 [facility] Comment on above: Performed By: #### S EDR #### [facility] [address] [address] [address] Roland Gr TSHon 09-01-2022 TSH 1.634 uIU/mL Normal 0.358-3.740 [facility] Comment on above: Performed By: #### C VDTBH #### [facility] [address] [address] [address] Roland Gr URIC ACID SERUMon 09-01-2022 Urate [Mass/Vol] 5.3 mg/dL Normal 3.5-7.2 [facility] Comment on above: Performed By: #### L IPID, T7, CMP, URIC, TSH #### [facility] [address] [address] [address] Roland Gr XR cerv spine AP/LAT/FLX/EXT on 05-22-2022 XR cerv spine AP/LAT/FLX/EXT [facility] [place] [address] [place] [address] XRay Report Signed Patient: Adonay Irby MR#: [id number] : 1945 Acct:[id number] Age/Sex: 77 / M ADM Date: 05/22/22 Loc: [facility] [facility] [place] Room: Type: [facility] Attending Dr: Joao Barba MD Copies to: [...] Luca Trujillo M.D.05/22/2022 9:52 AM Dictation Location: [place] [address] Transcribed By: [facility] 05/22/2252 Dictated By: Luca Trujillo DO 05/22/2250 Signed By: 05/22/22951 [facility] CBC AUTO DIFFon 05-20-2022 BASO # 0.1 103/ul Normal 0.0-0.1 [facility] Comment on above: Performed By: #### L IPID, T7, CMP, URIC, TSH #### [facility] [address] [place] [address] Dr. Roland Gr Basophils/100 WBC (Bld) 0.7 % Normal 0.2-2.0 [facility] Comment on above: Performed By: #### L IPID, T7, CMP, URIC, TSH #### [facility] [address] [place] [address] Dr. Roland Gr EO # 0.2 103/ul Normal 0.0-0.7 [facility] Comment on above: Performed By: #### L IPID, T7, CMP, URIC, TSH #### [facility] [address] [place] [address] Dr. Roland Gr Eosinophils/100 WBC (Bld) 2.9 % Normal 0.9-7.0 [facility] Comment on above: Performed By: #### L IPID, T7, CMP, URIC, TSH #### [facility] [address] [place] [address] Dr. Roland Gr Erythrocyte distribution width (RBC) [Ratio] 14.2 % Normal 11.0-15.0 [facility] Comment on above: Performed By: #### L IPID, T7, CMP, URIC, TSH #### [facility] [address] [place] [address] Dr. Roland Gr Hematocrit (Bld) [Volume fraction] 38.1 % Critically low 42.0-54.0 [facility] Comment on above: Performed By: #### L IPID, T7, CMP, URIC, TSH #### [facility] [address] [place] [address] Dr. Roland Gr Hemoglobin (Bld) [Mass/Vol] 12.4 g/dL Critically low 14.0-18.0 [facility] Comment on above: Performed By: #### L IPID, T7, CMP, URIC, TSH #### [facility] [address] [place] [address] Dr. Roland Gr IG # 0.05 10e3/ul Critically high 0.00-0.03 [facility] Comment on above: Performed By: #### L IPID, T7, CMP, URIC, TSH #### [facility] [address] [place] [address] Dr. Roland Gr IG % 0.7 % Critically high 0.0-0.[address] [facility] Comment on above: Performed By: #### L IPID, T7, CMP, URIC, TSH #### [facility] [address] [place] [address] Dr. Roland Gr LYMPH # 1.7 103/ul Normal 1.2-3.8 [facility] Comment on above: Performed By: #### L IPID, T7, CMP, URIC, TSH #### [facility] [address] [place] [address] Dr. Roland Gr Lymphocytes/100 WBC (Bld) 24.6 % Normal 20.5-60.0 [facility] Comment on above: Performed By: #### L IPID, T7, CMP, URIC, TSH #### [facility] [address] [place] [address] Dr. Roland Gr MANUAL DIFF REQ NO Normal [facility] Comment on above: Performed By: #### L IPID, T7, CMP, URIC, TSH #### [facility] [address] [place] [address] Dr. Roland Gr MCH (RBC) [Entitic mass] 33.0 pg Normal 25.9-34.0 [facility] Comment on above: Performed By: #### L IPID, T7, CMP, URIC, TSH #### [facility] [address] [place] [address] Dr. Roland Gr MCHC (RBC) [Mass/Vol] 32.5 g/dL Normal 29.9-35.2 [facility] Comment on above: Performed By: #### L IPID, T7, CMP, URIC, TSH #### [facility] [address] [place] [address] Dr. Roland Gr MCV (RBC) [Entitic vol] 101.3 fL Critically high 80.0-94.0 [facility] Comment on above: Performed By: #### L IPID, T7, CMP, URIC, TSH #### [facility] [address] [place] [address] Dr. Roland Gr MONO # 0.7 103/ul Normal 0.3-0.8 [facility] Comment on above: Performed By: #### L IPID, T7, CMP, URIC, TSH #### [facility] [address] [place] [address] Dr. Roland Gr Monocytes/100 WBC (Bld) 10.6 % Normal 1.7-12.0 [facility] Comment on above: Performed By: #### L IPID, T7, CMP, URIC, TSH #### [facility] [address] [place] [address] Dr. Roland Gr NEUT # 4.2 103/ul Normal 1.4-6.5 [facility] Comment on above: Performed By: #### L IPID, T7, CMP, URIC, TSH #### [facility] [address] [place] [address] Dr. Roland Gr Neutrophils/100 WBC (Bld) 60.5 % Normal 43.0-75.0 [facility] Comment on above: Performed By: #### L IPID, T7, CMP, URIC, TSH #### [facility] [address] [place] [address] Dr. Roland Gr Platelet mean volume (Bld) [Entitic vol] 9.7 fL Normal 9.5-13.5 [facility] Comment on above: Performed By: #### L IPID, T7, CMP, URIC, TSH #### [facility] [address] [address] [address] Roland Gr PLT 203 103/ul Normal 150-450 [facility] Comment on above: Performed By: #### L IPID, T7, CMP, URIC, TSH #### [facility] [address] [address] [address] Roland Gr RBC 3.76 106/ul Critically low 4.70-6.10 [facility] Comment on above: Performed By: #### L IPID, T7, CMP, URIC, TSH #### [facility] [address] [place] [address] Dr. Roland Gr WBC 6.9 103/ul Normal 4.0-11.0 [facility] Comment on above: Performed By: #### L IPID, T7, CMP, URIC, TSH #### [facility] [address] [address] [address] Roland Gr PROF 14(COMP METB)on 022 Albumin [Mass/Vol] 3.5 g/dL Normal 3.4-5.0 [facility] Comment on above: Performed By: #### L IPID, T7, CMP, URIC, TSH #### [facility] [address] [address] [address] Roland Gr Albumin/Globulin [Mass ratio] 1.2 {ratio} Normal [facility] Comment on above: Performed By: #### L IPID, T7, CMP, URIC, TSH #### [facility] [address] [address] [address] Roland Gr ALP [Catalytic activity/Vol] 60 U/L Normal 46-116 [facility] Comment on above: Performed By: #### L IPID, T7, CMP, URIC, TSH #### [facility] [address] [address] [address] Roland Gr ALT [Catalytic activity/Vol] 30 U/L Normal 16-63 [facility] Comment on above: Performed By: #### L IPID, T7, CMP, URIC, TSH #### [facility] [address] [address] [address] Roland Gr Anion gap [Moles/Vol] 9.4 mmol/L Normal [facility] Comment on above: Performed By: #### L IPID, T7, CMP, URIC, TSH #### [facility] [address] [address] [address] Roland Gr AST [Catalytic activity/Vol] 21 U/L Normal 15-37 [facility] Comment on above: Performed By: #### L IPID, T7, CMP, URIC, TSH #### [facility] [address] [place] [address] Dr. Roland Gr Bilirubin [Mass/Vol] 0.4 mg/dL Normal 0.2-1.0 [facility] Comment on above: Performed By: #### L IPID, T7, CMP, URIC, TSH #### [facility] [address] [address] [address] Roland Gr Calcium [Mass/Vol] 8.6 mg/dL Normal 8.5-10.1 [facility] Comment on above: Performed By: #### L IPID, T7, CMP, URIC, TSH #### [facility] [address] [address] [address] Roland Gr Chloride [Moles/Vol] 108 mmol/L Critically high 98-107 [facility] Comment on above: Performed By: #### L IPID, T7, CMP, URIC, TSH #### [facility] [address] [address] [address] Roland Gr CO2 [Moles/Vol] 30.8 mmol/L Normal 21.0-32.0 [facility] Comment on above: Performed By: #### L IPID, T7, CMP, URIC, TSH #### [facility] [address] [address] [address] Roland Gr Creatinine [Mass/Vol] 0.76 mg/dL Normal 0.70-1.30 [facility] Comment on above: Performed By: #### L IPID, T7, CMP, URIC, TSH #### [facility] [address] [place] [address] Dr. Roland Gr EGFR-AF CANADIAN >60 Normal >=60 [facility] Comment on above: Performed By: #### L IPID, T7, CMP, URIC, TSH #### [facility] [address] [place] [address] Dr. Roland Gr EGFR-NON AF CANADIAN >60 Normal >=60 [facility] Comment on above: Performed By: #### L IPID, T7, CMP, URIC, TSH #### [facility] [address] [place] [address] Dr. Roland Gr Globulin (S) [Mass/Vol] 3.0 g/dL Normal [facility] Comment on above: Performed By: #### L IPID, T7, CMP, URIC, TSH #### [facility] [address] [place] [address] Dr. Roland Gr Glucose [Mass/Vol] 99 mg/dL Normal 74-106 [facility] Comment on above: Performed By: #### L IPID, T7, CMP, URIC, TSH #### [facility] [address] [place] [address] Dr. Roland Gr Potassium [Moles/Vol] 4.2 mmol/L Normal 3.5-5.1 [facility] Comment on above: Performed By: #### L IPID, T7, CMP, URIC, TSH #### [facility] [address] [place] [address] Dr. Roland Gr Protein [Mass/Vol] 6.5 g/dL Normal 6.4-8.2 [facility] Comment on above: Performed By: #### L IPID, T7, CMP, URIC, TSH #### [facility] [address] [place] [address] Dr. Roland Gr Sodium [Moles/Vol] 144 mmol/L Normal 136-145 [facility] Comment on above: Performed By: #### L IPID, T7, CMP, URIC, TSH #### [facility] [address] [address] [address] Roland Gr Urea nitrogen [Mass/Vol] 16.0 mg/dL Normal 7.0-18.0 [facility] Comment on above: Performed By: #### L IPID, T7, CMP, URIC, TSH #### [facility] [address] [address] [address] Roland Gr Urea nitrogen/Creatinine [Mass ratio] 21.1 mg/mg Normal [facility] Comment on above: Performed By: #### L IPID, T7, CMP, URIC, TSH #### [facility] [address] [address] [address] Roland Gr SED RATE [facility] 2021 SED RATE 8 mm/hr Normal <=20 [facility] Comment on above: Performed By: #### L IPID, T7, CMP, URIC, TSH #### [facility] [address] [address] [address] Roland Gr Vital Signs Date Time Vital Sign Value Performing Clinician Facility 04-08-2024 10:05040 Body mass index (BMI) [Ratio] 24.45 kg/m2 Carlos Farris MD Work Phone: [facility] 04-08-2024 10:05-0400 Body temperature 97 [degF] Carlos Farris MD Work Phone: [facility] 04-08-2024 10:05-040 Body weight 75.1 kg Carlos Farris MD Work Phone: [facility] 04-08-2024 10:05-0400 Diastolic blood pressure 75 mm[Hg] Carlos Farris MD Work Phone: [facility] 04-08-2024 10:05-0400 Heart rate 47 /min Carlos Farris MD Work Phone: [facility] Comment on above: heart rate low provider notify 04-08-2024 10:05-0400 Respiratory rate 19 /min Carlos Farris MD Work Phone: [facility] 04-08-2024 10:05-0400 SaO2% (BldA) [Mass fraction] 99 % Carlos Farris MD Work Phone: [facility] 04-08-2024 10:05-0400 Systolic blood pressure 141 mm[Hg] Carlos Farris MD Work Phone: [facility] 2022 11:09-0400 Body height 175.3 cm Carlos Farris MD Work Phone: [facility] 2022 11:09-0400 Body temperature 97.11 [degF] Carlos Farris MD Work Phone: [facility] 2022 11:09-0400 Body weight 74 kg Carlos Farris MD Work Phone: [facility] 2022 11:09-0400 Diastolic blood pressure 60 mm[Hg] Carlos Farris MD Work Phone: [facility] 2022 11:09-0400 Heart rate 48 /min Carlos Farris MD Work Phone: [facility] 2022 11:09-0400 Respiratory rate 17 /min Carlos Farris MD Work Phone: [facility] 2022 11:09-0400 SaO2% (BldA) [Mass fraction] 97 % Carlos Farris MD Work Phone: [facility] 2022 11:09-0400 Systolic blood pressure 118 mm[Hg] Carlos Farris MD Work Phone: [facility] Encounters Encounter Date Encounter Type Care Provider Facility Start: 12-08-2024 End: 12-08-2024 Telephone encounter Carlos Farris MD Work Phone: [facility] Comment on above: Medical Equipment Or davion Form Start: 10-11-2024 End: 10-11-2024 Refill Jammiedeidre Marquezgordo [facility] Comment on above: 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, mild stage (CMS/HCC) Start: 07-23-2024 End: 07-25-2024 Refill Bridger Andrew DO Work Phone: [facility] Comment on above: 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, mild stage (CMS/HCC) (Primary Dx) Start: 06-07-2024 End: 06-07-2024 ambulatory BRIDGER ANDREW Not Available Start: 04-25-2024 Refill Carlos soler MD Work Phone: [facility] Comment on above: Refill Request Start: 04-08-2024 End: 04-08-2024 Office outpatient visit [...] Medicine Start: 11-24-2023 End: 11-24-2023 ambulatory BRIDGER ANDREW Not Available Start: 10-14-2023 ambulatory BELLA CORONADO Facility :[facility] Start: 08-19-2023 Telephone encounter [facility] Provider [facility] Comment on above: Referral Request Start: 08-13-2023 Telephone encounter Carlos rey MD Work Phone: [facility] Comment on above: Filters for Nebulize r Start: 06-24-2023 End: 06-25-2023 ambulatory BELLA CORONADO Facility:[facility] Start: 06-04-2023 Telephone encounter Carlos rey [...] Work Phone: [facility] Comment on above: Senior Administrator Support - O ther Start: 09-01-2022 End: 09-02-2022 ambulatory DR LEISA BARBA Facility:[facility]1 Start: 05-22-2022 End: 05-22-2022 Patient encounter procedure MD Joao Barba Work Phone: [facility] [address] Start: 05-20-2022 End: [...] Pulm Fct Lab Main 10 Other Phone: [facility] Procedures Date Procedure Procedure Detail Performing Clinician Start: 04-08-2024 Spmtry w/vc expirato ry edie w/wo mxml vol vntj Carlos Farris MD Work Phone: Start: 04-08-2024 Unlisted pulmonary service/procedure Carlos Farris MD Work Phone: Start: 04-08-[address] RAUL HUIZAR . Comment on above: Performed By: #### C VDTBH #### [facility] [address] [place] [address] Dr. Roland Gr Start: 09-01-[address] RAUL HUIZAR . Comment on above: Performed By: #### C VDTBH #### [facility] [address] [address] [address] 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] Start: 12-14-2024 End: 12-14-2024 Patient encounter procedure 12/14/2024 10:00 AM EST Office Visit [facility] [address] [place] [id number] Bridger Andrew, [address] [place] [address] [facility] Start: 11-16-2024 Advance Directive Discussion Advance Directive Discussion [facility] Start: 07-17-2024 Covid-19 Vaccine ( season) Covid-19 Vaccine () [facility] Start: 07-17-2024 Influenza vaccination Influenza Vacc ine (#1) [facility] Start: 02-02-2024 Covid-19 Vaccine () Covid-19 Vaccine () [facility] Start: 11-16-2023 Advance Directive Discussion Advance Directive Discussion [facility] Start: 11-16-2023 Behavioral Health Screening Behavioral Health Screening [facility] Start: 07-17-2023 Covid-19 Vaccine ( season) Covid-19 Vaccine ( season) [facility] Start: 07-17-2023 Influenza vaccination [facility] Start: 11-16-2022 ADVANCE DIRECTIVE DISCUSSION ADVANCE DIRECTIVE DISCUSSION [facility] Start: 11-16-2022 DEPRESSION ASSESSMENT DEPRESSION ASS ESSMENT [facility] Start: 07-17-2022 Influenza vaccination INFLUENZA (#1) [facility] Start: 02-12-2022 COVID-19 VACCINE (4 - Booster for Moderna series) COVID-19 VACCINE (4 - Booster for Moderna series) [facility] Start: 12-10-2021 COVID-19 VACCINE (4 - Booster for Moderna series) COVID-19 VACCINE (4 - Booster for Moderna series) [facility] Start: 12-10-2021 COVID-19 VACCINE (4 - Moderna series) COVID-19 VACCINE (4 - Moderna series) [facility] Start: 11-16-2021 ADVANCE DIRECTIVE DISCUSSION ADVANCE DIRECTIVE DISCUSSION [facility] Start: 11-16-2021 DEPRESSION ASSESSMENT DEPRESSION ASS ESSMENT [facility] Start: 2018 RSV Vaccine (1 - 1-d ose 75+ series) RSV Vaccine (1 - 1-dose 75+ series) [facility] Start: 2008 Pneumococcal Vaccine : 65+ (1 - PCV) Pneumococcal Vaccine: 65+ (1 - PCV) [facility] Start: 2008 PNEUMOCOCCAL: 65+ (1 - PCV) PNEUMOCOCCAL: 65+ (1 - PCV) [facility] Start: 2003 RSV Vaccine (1 - 1-d ose 60+ series) RSV Vaccine (1 - 1-dose 60+ series) [facility] Start: 1993 SHINGRIX VACCINE (1 of 2) SHINGRIX VACCINE (1 of 2) [facility] Start: 1988 DIABETES SCREEN [facility]CREEN [facility] Start: 1988 Diabetes Screening Diabetes Screenin g [facility] Start: 1962 Urine microalbumin profile [facility] Start: 1961 Anxiety Screening Anxiety Screening [facility] Start: 1961 Depression Screening Depression Scre ening [facility] Start: 1955 Adult depression screening assessment DEPRESSION SCREENING [facility] MIPS/MEPS MIPS/MEPS PFT Ro utine 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 2022 12:00 PM EDT [facility] Work Phone: End: 06-15-2023 MIPS/MEPS MIPS/MEPS PFT Routine Disorder of diaphragm Post poliomyelitis syndrome 1 Occurrences starting 2022 until 06/15/2023 [facility] Work Phone: Comment on above: 1 Occurrences starti ng 2022 until 06/15/2023 MIPS/MEPS MIPS/MEPS PFT Ro utine Disorder of nervous system 04/08/2024 9:36 AM EDT [facility] Work Phone: End: 05-08-2025 MIPS/MEPS MIPS/MEPS PFT Routine Disorder of diaphragm Post poliomyelitis syndrome 1 Occurrences starting 04/08/2024 until 05/08/2025 [facility] Comment on above: 1 Occurrences starti ng 04/08/2024 until 05/08/2025 SPIROMETRY SITTING A ND SUPINE SPIROMETRY SITTING AND SUPINE PFT 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 2022 12:00 PM EDT [facility] Work Phone: End: 06-15-2023 SPIROMETRY SITTING AND SUPINE SPIROMETRY SITTING AND SUPINE PFT Routine Disorder of diaphragm Post poliomyelitis syndrome 1 Occurrences starting 2022 until 06/15/2023 [facility] Work Phone: Comment on above: 1 Occurrences starti ng 2022 until 06/15/2023 SPIROMETRY SITTING A ND SUPINE SPIROMETRY SITTING AND SUPINE PFT Routine Disorder of nervous system 04/08/2024 9:36 AM EDT [facility] Work Phone: End: 05-08-2025 SPIROMETRY SITTING AND SUPINE SPIROMETRY SITTING AND SUPINE PFT Routine Disorder of diaphragm Post poliomyelitis syndrome 1 Occurrences starting 04/08/2024 until 05/08/2025 [facility] Work Phone: Comment on above: 1 Occurrences starti ng 04/08/2024 until 05/08/2025 [facility] Immunizations Immunization Date Immunization Notes Care Provider [facility] 09-25-2023 influenza virus vaccine, unspecified formulation Bridger Andrew DO Work Phone: [facility] 08-31-2020 influenza virus vaccine, unspecified formulation Carlos Farris MD Work Phone: [facility] 08-27-2018 influenza, seasonal, injectable Pulm 10 Other Phone: [facility] Payers Date Payer Category Payer Unknown [employer] [place] [employer] SUPPLEMENT [id number] 2009-Present [phone] [address] [place] [address] Indemnity [id number] 2009 Unknown [employer] [place] [place] [employer]IC[employer] SUPPLEMENT [id number] 2009-Present [phone] [id number] [place] [address] Indemnity [id number] 2003 Medicare MEDICARE MEDICAR E A AND B [id number] 2003-Present [phone] [place] [address] Medicare [id number] 2003 Medicare MEDICARE MEDICAR E A AND B [id number] 2003-Present [phone] [place] [address] Medicare [id number] 1959 Medicare [id number] 1959 Unknown [id number] 1943 Unknown [id number] 3 1943 Unknown [id number] 3 1943 Unknown [id number] 3 1943 Unknown [id number] 3 1943 Unknown [id number] 3 1943 Unknown [id number] 3 1943 Unknown [id number] 3 1943 Unknown [id number] 7 1943 Unknown [id number] 59 1943 Unknown [id number] 59 Self-pay Self Pay [id number] Social History Date Type Detail Facility Start: 12-18-2017 End: 04-08-2024 Tobacco smoking status NHIS Ex-smoker [facility] Start: 12-18-2017 End: 04-08-2024 Tobacco use and exposure Smokeless tobacco non-user [facility] Start: 12-18-2017 End: 04-08-2024 Tobacco Comment Quit 25+ years ago [facility] Start: 1945 Sex Assigned At Not on file [facility] Start: 05-06-2022 End: 2022 Exposure to SARS-CoV-2 (event) Not sure [facility] Start: 1945 Sex Assigned At Male F [facility] History of tobacco use Current smoker [facility] Start: 2022 End: 04-08-2024 Gender identity Not on file [facility] Start: 2022 End: 04-08-2024 History of Social function [facility] National Score (1-100), lower number is lower risk 77 [facility] History of tobacco use Cigarette Smoker [facility] Clinical Notes 2022 to 12-08-2024 Telephone Encounter - Hanna Hyde - 12/08/2024 1:35 PM ESTTelephone Encounter - Hanna Hyde - 12/08/2024 1:35 PM Carlos Ross MD - 04/08/2024 10:30 AM EDT Note Date & Type Note Facility 12-08-2024 Telephone encounter Note Summary: Medical Equipment Order Form Images from the original note were not included. Admin faxed over medical equipment order to [facility], signed by Dr. Carlos Farris. Admin scanned into chart (scanned documents) on 12/08/2024. [facility] 12-08-2024 Miscellaneous Notes Summary: Medical Equipment Order Form Images from the original note were not included. Admin faxed over medical equipment order to [facility], signed by Dr. Carlos Farris. Admin scanned into chart (scanned documents) on 12/08/2024. 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 He has smoked 1 ppd for about 20 years but quit 25 years ago for no medical reason. On NIPPV since [address] Elham. Now setup on a newer device at [...] station stooped. Mood and affect normal. DATABASE [employer] is [email or web address] 03/09/2024 - 04/07/2024 Usage days 28/30 days (93%) >= 4 hours 28 days (93%) Usage hours 212 hours 11 minutes Average usage (total days) 7 hours 4 minutes Average usage (days used) 7 hours 35 minutes Median usage (days used) 7 hours 35 minutes Total used hours (value since last reset - 04/07/2024) 6,[address] Serial number [id number] Mode Spont Timed IPAP 21 cmH2O (same [...] Pred LLN ULN Sitting % Supine % [facility] Date [id number] Time 12:21PM 12:37PM Height 170.2 170.2 Weight 88 88 FVC 3.74 2.89 4.60 1.29 35 0.57 -56 FEV 1 2.69 1.97 3.41 0.94 35 0.40 -58 FEV1%F 72.57 62.89 82.25 73.03 101 69.32 -5 PIMAX 101.78 75.02 128.5 26.72 26 PeMax 190.81 140.04 241.6 99.65 52 Pred LLN ULN Sitting % Supine % [facility] Date [id number] Time 09:57AM 10:09AM Height 170.2 170.2 Weight 88 88 FVC 3.74 2.89 4.60 1.25 33 0.55 -56 FEV 1 2.69 1.97 3.41 0.80 30 0.25 -69 FEV1%F 72.57 62.89 82.25 64.02 88 45.69 -29 ETCO2 52.00 PIMAX 101.78 75.02 128.5 27.03 27 PeMax 190.81 140.04 241.6 114.34 60 Pred LLN ULN Sitting % Supine % [facility] Date [id number] Time 02:31PM 02:47PM Height 170.2 170.2 Weight 91.5 91.5 FVC 3.78 2.93 4.63 1.62 43 0.45 -72 FEV 1 2.73 2.01 3.45 1.09 40 0.38 -65 FEV1%F 72.78 63.10 82.46 67.35 93 85.04 26 PIMAX 102.33 75.02 129.6 33.66 33 PeMax 191.84 140.04 243.6 74.05 39 Pred LLN ULN Sitting % Supine % [facility] Date [id number] Time 09:00AM 09:24AM Height 170.2 170.2 Weight [...] movements Arterial blood gases on hospital admission [facility] April 13, 2017 PH 7.26, PCO2 87, [...] familial. 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 PLAN Continue IPAP 05/11 backup rate 10 [...] which included preparing to see the patient, [id number] patient care, completing clinical documentation, obtaining and/or [...] April 08, 2024 documented in this encounter [facility] 04-08-2024 Note HNO ID: [id number] Author: CARLOS FARRIS MD Service: ? Author [...] Mood and affect normal. [employer]ASE [employer] is [employer] [facility] 03/09/2024 - 04/07/2024 Usage days 28/30 days (93%) >= 4 hours 28 days (93%) Usage hours 212 hours 11 minutes Average usage (total days) 7 hours 4 minutes Average usage (days used) 7 hours 35 minutes Median usage (days used) 7 hours 35 minutes Total used hours (value since last reset - 04/07/2024) 6,[address] Serial number [id number] Mode Spont Timed IPAP 21 cmH2O (same [...] 3.37 4.32 74. (more content not included)... [facility] 04-08-2024 Note HNO ID: [id number] Author: NAHUM SANDRA RRT Service: ? Author Type: Registered Resp Therapist Type: Progress Notes Filed: 04/08/2024 10:01 Note Text: PULM FUNCTION SMARTBLOCK: Provider: Carlos Farris MD Spirometry: 1 MIP/MEP: 1 TcCO2: 1 System: 6 - [id number] [facility] 04-08-2024 History of Presen t illness Narrative PULM FUNCTION SMARTBLOCK: Provider: Carlos Farris MD Spirometry: 1 MIP/MEP: 1 TcCO2: 1 System: MC6 - [id number] documented in this encounter [facility] 08-19-2023 Miscellaneous Notes Received referral request from [facility] to see patient again for dx: COPD, Right Diaphragm Dysfunction. Request is scanned into chart. documented in this encounter [facility] 08-13-2023 Miscellaneous Notes Adonay Irby's spouse (Elizabeth) is requesting replacement filters for a nebulizer. She was unable to tell admin where it needed to be sent. documented in this encounter [facility] 06-04-2023 Miscellaneous Notes Imported External PAP Therapy Report from [facility] (dated 06/04/23). Please allow time delay for documents to appear in [employer] (Scanned Documents Tab). documented in this encounter [facility] 09-24-2022 Miscellaneous Notes new order and office notes have been faxed to [email or web address] fax# [phone] Electronically signed by Vivian Castaneda [facility] at 09/24/2022 2:57 PM EST called [facility] [phone] they are in need of new script for supplies for his machine and also office notes please put in a new rx for supplies for his CPAP for me to fax over with office notes [facility] fax# [phone] Electronically signed by Vivian Castaneda [facility] at 09/24/2022 10:34 AM EST documented in this encounter [facility] 2022 History of Presen t illness [...] download [employer] outside DME account tagger to [facility] [employer] Usage 04/16/2022 - 05/15/2022 Usage days 29/30 days (97%) >= 4 hours 29 days (97%) Average usage (days used) 7 hours [address] Serial number [id number] Mode Spont Timed IPAP 21 cmH2O EPAP [...] ULN Sitting % Supine % chg Date [id number] Time 12:21PM 12:37PM Height 170.2 170.2 Weight 88 88 FVC 3.74 2.89 4.60 1.29 35 0.57 -56 FEV 1 2.69 1.97 3.41 0.94 35 0.40 -58 FEV1%F 72.57 62.89 82.25 73.03 101 69.32 -5 PIMAX 101.78 75.02 128.5 26.72 26 PeMax 190.81 140.04 241.6 99.65 52 Pred LLN ULN Sitting % Supine % [facility] Date [id number] Time 09:57AM 10:09AM Height 170.2 170.2 Weight [...] Pred LLN ULN Sitting % Supine % g Date [id number] Time 02:31PM 02:47PM Height 170.2 170.2 Weight 91.5 91.5 FVC 3.78 2.93 4.63 1.62 43 0.45 -72 FEV 1 2.73 2.01 3.45 1.09 40 0.38 -65 FEV1%F 72.78 63.10 82.46 67.35 93 85.04 26 PIMAX 102.33 75.02 129.6 33.66 33 PeMax 191.84 140.04 243.6 74.05 39 Pred LLN ULN Sitting % Supine % [facility] Date [id number] Time 09:00AM 09:24AM Height 170.2 170.2 Weight [...] movements Arterial blood gases on hospital admission [facility] April 13, 2017 PH 7.26, PCO2 87, [...] which included preparing to see the patient, [id number] patient care, completing clinical documentation, obtaining and/or [...] Carlos Farris MD documented in this encounter [facility] 2022 History of Presen t illness Narrative PULM FUNCTION SMARTBLOCK: Provider: Carlos Farris MD Spirometry: 1 MIP/MEP: 1 TcCO2: 1 System: MC1 - [id number] SIT/SUPINE documented in this encounter [facility] Evaluation note 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 on pulmonary function testing [facility]* 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 on pulmonary function testing [facility]* 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 Obstructive sleep apnea Obstructive sleep apnea (adult) (pediatric) documented [facility] this [facility] noteNo assessment information [facility] Work Phone: Evaluation note* 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 [facility]* 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 on pulmonary function testing Ineffective airway clearance Other dyspnea and respiratory abnormality [facility]* Diagnosis Disorder of nervous system- Primary Unspecified disorders of nervous system [facility] this encounter [facility]* Diagnosis Disorder of nervous system- Primary Unspecified disorders of nervous system [facility]* 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 Obstructive sleep apnea Obstructive sleep apnea (adult) (pediatric) documented [facility] this encounter [facility]* Diagnosis Primary open angle glaucoma (POAG) of both eyes, mild stage (CMS/HCC) [facility] Diagnosis Primary open angle glaucoma (POAG) of both eyes, mild stage (CMS/HCC)- Primary [facility]narrative)* Outpatient Procedure (Routine) - Pending Review Specialty Diagnoses / Procedures Referred By Brian moran Referred To [facility] Diagnoses Disorder of diaphragm Post poliomyelitis syndrome Procedures MIPS/MEPS UNLISTED PULMONARY SERVICE/PROCEDURE Carlos Farris MD [address] [place] [address] [address] Referral ID Status Reason Start Date Expiration Date Visits Requested Visits Authorized [id number] Pending Review Auto-Generat ed Referral 2022 06/15/2023 1 1 * Outpatient Procedure (Routine) - Pending Review Specialty Diagnoses / Procedures Referred By Brian moarn Referred To [facility] Diagnoses Disorder of diaphragm Post poliomyelitis syndrome Procedures SPIROMETRY SITTING AND SUPINE SPMTRY W/VC EXPIRATORY EDIE W/WO MXML VOL VNTJ Carlos Farris MD [address] [place] [address] [address] Referral ID Status Reason Start Date Expiration Date Visits Requested Visits Authorized [id number] Pending Review Auto-Generat ed Referral 2022 06/15/2023 1 1 [facility] for referral (narrative)* Outpatient Procedure (Routine) - Pending Review Specialty Diagnoses / Procedures Referred By Brian t Referred To [facility] Diagnoses Disorder of diaphragm Post poliomyelitis syndrome Procedures MIPS/MEPS UNLISTED PULMONARY SERVICE/PROCEDURE Carlos Farris MD [address] [facility] [place] [address] [address] Referral ID Status Reason Start Date Expiration Date Visits Requested Visits Authorized [id number] Pending Review Auto-Generat ed Referral 04/08/2024 05/08/2025 1 1 * Outpatient Procedure (Routine) - Pending Review Specialty Diagnoses / Procedures Referred By Brian moran [facility] Diagnoses Disorder of diaphragm Post poliomyelitis syndrome Procedures SPIROMETRY SITTING AND SUPINE SPMTRY W/VC EXPIRATORY EDIE W/WO MXML VOL VNTJ Carlos Farris MD [address] [place] [address] Respiratory [place] [address] [place] [address] Referral ID Status Reason Start Date Expiration Date Visits Requested Visits Authorized [id number] Pending Review Auto-Generat ed Referral 04/08/2024 05/08/2025 1 1 [facility] Advance Directives No Advanced Directives Records [...] or prosecute any alcohol or drug abuse patient.[facility] the event this information is protected by the Federal Confidentiality of Alcohol and Drug Abuse Patient Records regulations: The Federal rules restrict any use of the information to criminally investigate or prosecute any alcohol or drug abuse patient.[facility] the event this information is protected by the Federal Confidentiality of Alcohol and Drug Abuse Patient Records regulations: The Federal rules restrict any use of the information to criminally investigate or prosecute any alcohol or drug abuse patient.[facility] the event this information is protected by the Federal Confidentiality of Alcohol and Drug Abuse Patient Records regulations: The Federal rules restrict any use of the information to criminally investigate or prosecute any alcohol or drug abuse patient.[facility] the event this information is protected by the Federal Confidentiality of Alcohol and Drug Abuse Patient Records regulations: The Federal rules restrict any use of the information to criminally investigate or prosecute any alcohol or drug abuse patient.[facility] the event this information is protected by the Federal Confidentiality of Alcohol and Drug Abuse Patient Records regulations: The Federal rules restrict any use of the information to criminally investigate or prosecute any alcohol or drug abuse patient.[facility] the event this information is protected by the Federal Confidentiality of Alcohol and Drug Abuse Patient Records regulations: The Federal rules restrict any use of the information to criminally investigate or prosecute any alcohol or drug abuse patient.[facility] the event this information is protected by the Federal Confidentiality of Alcohol and Drug Abuse Patient Records regulations: The Federal rules restrict any use of the information to criminally investigate or prosecute any alcohol or drug abuse patient.[facility] the event this information is protected by the Federal Confidentiality of Alcohol and Drug Abuse Patient Records regulations: The Federal rules restrict any use of the information to criminally investigate or prosecute any alcohol or drug abuse patient.[facility] the event this information is protected by the Federal Confidentiality of Alcohol and Drug Abuse Patient Records regulations: The Federal rules restrict any use of the information to criminally investigate or prosecute any alcohol or drug abuse patient.[facility] the event this information is protected by the Federal Confidentiality of Alcohol and Drug Abuse Patient Records regulations: The Federal rules restrict any use of the information to criminally investigate or prosecute any alcohol or drug abuse patient.[facility] the event this information is protected by the Federal Confidentiality of Alcohol and Drug Abuse Patient Records regulations: The Federal rules restrict any use of the information to criminally investigate or prosecute any alcohol or drug abuse patient.[facility] Reason for Visit (unrecogniz ed section and content) Reason Comments Spirometry Specialty Diagnoses / Procedures Referred By Contac t [facility] 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 Procedures MIPS/MEPS UNLISTED PULMONARY SERVICE/PROCEDURE Carols Farris MD [address] [place] [address] [facility] [place] [address] [place] [address] Referral ID Status Reason Start Date Expiration Date V isits Requested Visits Authorized [id number] Closed Auto-Generate d Referral 12/04/2021 01/03/2023 1 1 Specialty Diagnoses / Procedures Referred By Contac t Referred To [facility] 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 Procedures SPIROMETRY SITTING AND SUPINE SPMTRY W/VC EXPIRATORY EDIE W/WO MXML VOL Carlos Camargo MD [address] [place] [address] [address] Referral ID Status Reason Start Date Expiration Date V isits Requested Visits Authorized [id number] Closed Auto-Generate d Referral 12/04/2021 01/03/2023 1 1 Reason Comments Established Patient Reason Comments Senior Administrator Support - Other Reason Comments Received Outside Medical Records Reason Onset Date Comments Filters for Nebulizer 08/13/2023 Reason Comments Referral Request Specialty Diagnoses / [facility] [place] Diagnoses Disorder of nervous system Procedures SPIROMETRY SITTING AND SUPINE SPMTRY W/VC EXPIRATORY EDIE W/WO MXML VOL Carlos Camargo MD [address] [place] [address] [address] Referral ID Status Reason Start Date Expiration Date V isits Requested Visits Authorized [id number] Closed Auto-Generate d Referral 08/11/2023 09/09/2024 1 1 Specialty Diagnoses / Procedures [facility] Diagnoses Disorder of nervous system Procedures MIPS/MEPS UNLISTED PULMONARY SERVICE/PROCEDURE Carlos Farris MD [address] [place] [address] [address] Referral ID Status Reason Start Date Expiration Date V isits Requested Visits Authorized [id number] Closed Auto-Generate d Referral 08/11/2023 09/09/2024 1 1 Reason Comments Follow Up Reason Onset Date Comments Refill Request 04/25/2024 Reason Onset Date Comments Med Refill 10/11/2024 Reason Comments Med Refill Reason Comments Medical Equipment Order Form Care Teams (unrecognized sec tion and content) Intern Brand Relationship Specialty Start Date End Date Kamilla Huizar MD PCP - General Family Practice 04/17/17 Intern Brand Relationship Specialty Start Date End Date Kamilla Huizar MD PCP - General Family Practice 04/17/17 Intern Brand Relationship Specialty Start Date End Date Kamilla Huizar MD PCP - General Family Practice 04/17/17 Team Status: Inactive Member Role Status Dates Joao Barba MD Attending Provider Active Intern Brand Relationship Specialty Start Date End Date Kamilla Huizar MD PCP - General Family Medicine 04/17/17 Intern Brand Relationship Specialty Start Date End Date Kamilla Huizar MD PCP - General Family Medicine 04/17/17 Intern Brand Relationship Specialty Start Date End Date Kamilla Huizar MD PCP - General Family Medicine 04/17/17 Intern Brand Relationship Specialty Start Date End Date Kamilla Huizar MD PCP - General Family Medicine 04/17/17 Intern Brand Relationship Specialty Start Date End Date Kamilla Huizar MD PCP - General Family Medicine 04/17/17 Intern Brand Relationship Specialty Start Date End Date Kamilla Huizar MD PCP - General Family Medicine 04/17/17 Intern Brand Relationship Specialty Start Date End Date Kamilla Huizar MD PCP - General Family Medicine 04/17/17 Intern Brand Relationship Specialty Start Date End Date Kamilla Huizar MD [address] [facility] [place] [address] PCP - General Family Medicine 11/24/23 Intern Brand Relationship Specialty Start Date End Date Kamilla Huizar MD [address] [facility] [place] [address] PCP - General Family Medicine 11/24/23 Goals (unrecognized section and content) Goals may be documented in a n alternate section (unrecognized sect ion and content) No Status Records FoundNo Status Records FoundNo Status Records FoundNo Status Records FoundNo Status Records Found INFORMATION SOURCE (unrecogn ized section and content) DATE CREATED AUTHOR 06/25/2022 [facility] DATE CREATED AUTHOR AUTHOR'S ORGANIZ ATION 04/24/2023 [facility] DATE CREATED AUTHOR AUTHOR'S ORGANIZ ATION 10/16/2023 [facility] DATE CREATED AUTHOR AUTHOR'S ORGANIZ ATION 06/09/2024 [facility] DATE CREATED AUTHOR AUTHOR'S ORGANIZ ATION 12/10/2024 [facility] FOR RECORDS PERTAINING TO PATIENTS [...] BE BASED ON THE PRIMARY CLINICAL RECORDS. [employer] provides no warranty or guarantee of the accuracy or completeness of information in this document.
== END 2024-12-12 07:48 | disposition home or self-care (01) ==
LOC: MRI 07:47
PROVIDERS: PCP Family Medicine; Visit Provider Family Medicine
DX: R41.3 Other amnesia (principal)
CPT/HCPCS: 70551

== ENCOUNTER 2025-01-04 08:42 | Outpatient (OUT) | payer MEDICARE, OTHER, SELFPAY ==
[2025-01-04 09:01] LABS: Basophils Percent Auto 0.5 % (0.2-2.0); Eosinophils Absolute Auto 0.2 10^3/uL (0.0-0.7); Eosinophils Percent Auto 2.5 % (0.9-7.0); Hematocrit 39.1 % (42.0-54.0); Hemoglobin 12.8 g/dL (14.0-18.0); Immature Granulocytes Abs Auto 0.02 10^3/uL (0.00-0.03); Immature Granulocytes Pct Auto 0.3 % (0.0-0.5); Lymphocytes Absolute Auto 1.3 10^3/uL (1.2-3.8); Lymphocytes Percent Auto 22.2 % (20.5-60.0); Mean Corpuscular HGB Conc 32.7 g/dL (29.9-35.2); Mean Corpuscular Hemoglobin 33.2 pg (25.9-34.0); Mean Corpuscular Volume 101.6 fL (80.0-94.0); Mean Platelet Volume 10.5 fL (9.5-13.5); Monocytes Absolute Auto 0.7 10^3/uL (0.3-0.8); Monocytes Percent Auto 11.9 % (1.7-12.0); Neutrophils Absolute Auto 3.8 10^3/uL (1.4-6.5); Neutrophils Percent Auto 62.6 % (43.0-75.0); Platelet Count 146 10^3/uL (150-450); Red Blood Count 3.85 10^6/uL (4.70-6.10); Red Cell Distribution Width 14.9 % (11.0-15.0)
--- OUTSIDE RECORDS SUMMARY | 2025-01-04 09:03 | XMS_ITS | CCD ---
Author Organization [facility] CliniSymt Care Team Providers Care Jewel Oliving Machine Operator Name Role Phone Kamilla Huizar MD Primary Care Provider [phone] MD Joao Barba Attending Provider Kamilla Huizar MD Primary Care Provider [phone] MELANIE ., DR KOHLI Primary Care Unavailable [...] Unavailable Kamilla Huizar MD Primary Care Provider [phone] BELLA CORONADO Attending Unavailable Kamilla Huizar MD Primary Care Provider [phone] Kamilla Huizar MD Primary Care Provider [phone] KAMILLA HUIZAR Primary Care Unavailable CARLOS FARRIS Referring Unavailable KAMILLA HUIZAR Primary Care Unavailable CARLOS FARRIS Referring Unavailable CARLOS FARRIS Referring Unavailable CARLOS FARRIS Attending Unavailable KAMILLA HUIZAR Primary Care Unavailable BRIDGER ANDREW Attending Unavailable BRIDGER ANDREW Attending Unavailable Allergies Allergy Classification Reported Allergen(s) Allergy Type Date of Onset Reaction(s) Facility Sulfamethoxazole / Trimethoprim (1 source) Sulfamethoxazole / Trimethoprim Drug Allergy 1 Anaphylaxis [facility] (16 sources) Sulfamethoxazole / Trimethoprim; Translations: [SULFAMETHOXAZOLE-TR IMETHOPRIM] Drug Allergy 1 Anaphylaxis [facility] (2 sources) Sulfamethoxazole / Trimethoprim; Translations: [Bactrim] Drug Allergy [facility] (4 sources) Sulfonamides (Antibiotic) Drug Allergy 3 [facility] Healthcare Medications Current Medications Medication Drug Class(es) Dates Sig (Normalized) Sig (Original) albuterol 0.833 mg/ml / ipratropium bromide 0.167 mg/ml inhalation solution (17 sources) Anticholinergic, beta2-Adrenergic Agonist Start: 05-05-2023 ipratropium-albute [...] mg/ml / timolol 5 mg/ml ophthalmic solution (6 sources) Carbonic Anhydrase Inhibitor, beta-Adrenergic Alessia Start: [...] 07/25/2024 Discontinued finasteride 5 mg oral tablet (16 sources) 5-alpha Reductase Inhibitor Start: 04-23-2017 take 1 tablet by mouth once daily finasteride (PROSCAR) 5 mg tablet Take 1 tablet by mouth once daily. 0 04/23/2017 Active Comment on above: Take 1 tablet by fredy once daily. folic acid 1 mg oral tablet (4 sources) Start: 03-09-2023 take 1 tablet by mouth in the morning folic acid (Folvite) 1 MG tablet Take 1,000 mcg by mouth in the morning. 03/09/2023 Active furosemide 20 mg oral tablet (16 sources) Loop Diuretic Start: 04-23-2017 take 1 tablet by mouth once daily furosemide (Lasix) 20 MG tablet Take 1 tablet by mouth once daily for 30 06/10/2022 Active Comment on above: Take 1 tablet by fredy th once daily. latanoprost 0.05 mg/ml ophthalmic solution (16 sources) Prostaglandin Analog Start: 10-11-2024 End: 10-11-2024 [...] at bedtime. methotrexate 2.5 mg oral tablet (4 sources) Folate Analog Metabolic Inhibitor Start: 04-20-2023 methotrexate 2.5 MG tablet Take 15 mg by mouth 1 (one) time per week. 04/20/2023 Active metoprolol tartrate 50 mg oral tablet (4 sources) beta-Adrenergic Alessia Start: 11-03-2023 metoprolol tartrate (Lopressor) 50 MG tablet every 12 (twelve) hours 11/03/2023 Active pantoprazole 40 mg delayed release oral tablet (4 sources) Proton Pump Inhibitor Protonix 40 MG EC tablet 1 (one) time each day at the same time. Active microencapsulated potassium chloride 10 meq extended release oral tablet (16 sources) Start: 02-25-2023 potassium chloride CR (Klor-Con M10) 10 MEQ ER tablet 02/25/2023 Active Start: 04-23-2017 take 1 tablet by fredy th once daily potassium chloride (KLOR-CON 10) 10 mEq tablet Take 1 tablet by mouth once daily. 04/23/2017 Active Comment on above: Take 1 tablet by fredy th once daily. prednisoLONE acetate 10 mg/ml ophthalmic suspension (4 sources) Corticosteroid Start: 11-25-19 23 take 1 drop(s) into the eye(s) three times weekly prednisoLONE acetate (Pred-Forte) 1 % ophthalmic suspension INSTILL 1 DROP INTO EACH EYE THREE TIMES A WEEK 11/25/2022 Active 24 hr propranolol hydrochloride 60 mg extended release oral capsule (16 sources) beta-Adrenergic Alessia Start: 04-20-20 23 take [...] once daily. simvastatin 20 mg oral tablet (16 sources) HMG-CoA Reductase Inhibitor Start: 7 take 1 tablet by mouth once daily at bedtime simvastatin (ZOCOR) 20 mg tablet Take 1 tablet by mouth daily at bedtime. 0 04/23/2017 Active Comment on above: Take 1 tablet by fredy th daily at bedtime. tamsulosin hydrochloride 0.4 mg oral capsule (16 sources) alpha-Adrenergic Alessia Start: 7 take 1 [...] Problem Date Documented Da te Episodic/Chronic Cataract (5 sources) After-cataract of right eye; Translations: [Other [...] Translations: [HYPERLIPIDEMIA UNSPECIFIED] Onset: 04-15-2023 Chronic Glaucoma (7 sources) Primary open angle glaucoma; Translations: [Primary open-angle glaucoma, bilateral, mild stage] Onset: 05-25-2023 10-11-2024 Chronic Hypertension with complications and secondary hypertension (1 source) Hypertensive heart disease with heart failure; Translations: [HTN HEART DISEASE W/HEART FAIL] Onset: 09-02-2022 Chronic Inflammation; infection of eye (except that caused by tuberculosis or sexually transmitteddisease) (9 sources) Anterior scleritis, left eye; 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] Onset: 03-04-2023 Chronic Other aftercare (1 source) Other intermediate accountant (current) drug therapy; Translations: [OTH BENEFITS SALES CONSULTANT CURRENT DRUG THERAPY] Onset: 03-08-2023 Episodic Other SVP MONETIZATION infection and poliomyelitis (18 sources) Post poliomyelitis syndrome; 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 Other eye disorders (5 sources) Dry eyes; Translations: [Dry eye syndrome of bilateral lacrimal glands] Onset: 05-25-2023 05-25-2023 Episodic Other lower respiratory disease (1 source) [...] Onset: 01-10-2023 Episodic Other lower respiratory disease (15 sources) Disorder of diaphragm; Translations: [Disorders of diaphragm] Onset: 04-23-2017 04-23-2017 Episodic Other nervous system disorders (1 source) Other disorders of nervous system; Translations: [Disorder of nervous system] Onset: 04-08-2024 Episodic Unclassified (1 source) CONTACT W/AND (SUSP) EXPOS COVID-19; Translations: [CONTACT W/AND (SUSP) EXPOS COVID-19] Onset: 01-07-2023 Results Test Name Value Interpretation Reference Range Facility Ophthalmic OCT panelon 12-14 [facility] Right Eye Images reviewed and comparison made to baseline, Images reviewed. To assess optic nerve function and for use in future follow-up. Reliability: good and adequate. Left Eye Images reviewed and comparison made to baseline, Images reviewed. To assess optic nerve function and for use in future follow-up. Reliability: borderline. Notes Nerve fiber layer (NFL) thinning left eye (OS). Stable. Right eye (OD) good. [facility] Radiology [facility] (narrative) [facility] Tele[facility] (PULMMN) ADONAY IRBY ([id number]) 1945 M Date Time Provider Department 12/08/24 CARLOS FARRIS During your visit today, we recorded the following information about you: Hanna Hyde 12/08/2024 1:37 PM Signed Admin faxed over medical equipment order to [employer], signed by Dr. Carlos Farris. Admin scanned [...] Encounter Status:Closed by HANNA HYDE on 12/08/24 [facility] CNOVon 04-08-2024 CNOV Office Visit (PULMMN ) MAHAMEDADONAY ([id number]) 1945 M Date Time Provider Department 04/08/24 [...] review of systems is as per the [facility] PHYSICAL EXAM BP 141/75 Pulse (!) 47 [...] Mood and affect normal. DATABASE DME is [employer]. THE [employer] 03/09/2024 - 04/07/2024 Usage days 28/30 days (93%) >= 4 hours 28 days (93%) Usage hours 212 hours 11 minutes Average usage (total days) 7 hours 4 minutes Average usage (days used) 7 hours 35 minutes Median usage (days used) 7 hours 35 minutes Total used hours (value since last reset - 04/07/2024) 6,[address] Serial number [id number] Mode Spont Timed IPAP 21 cmH2O (same [...] Actual %Pr (more content not included)... Normal [facility] Patient Letter FTon [address] [facility] (Inserted Image. Kayla ble to display) October 14, 2023 ADONAY IRBY [address] [place] [address] : 1945 Dear Adonay, This is a reminder that you are due for an appointment with [facility]. Please contact our office at [phone] to schedule an appointment at your earliest convenience. Thank you, [facility] Reminderson 10-14-2023 Reminders - From: Raven Sepulveda To: KURT - Reminders/Recalls; Sent: 10/14/2023 10:33:18 EST Show up: 10/14/2023 10:33:00 EST Subject: Ambulatory Reminder Reminder/Recall 5 year colon recall mamie abdiaziz 11/07 first recall letter Normal [facility] Screenson 06-25-2023 Screens [id number] CD:127 Normal [facility] Patient Educationon 06-24-20 23 Patient Education Urology Benign Prostatic Hyperplasia Benign [...] Follow these instructions at home: ? Take rred-axt-xkxytft and prescription medicines only as told by [...] the medicine (more content not included)... Normal [facility] Provider Letteron 06-24-2023 Provider Letter (Inserted Image. Kayla ble to display) Kamilla Huizar, [address] [place] [address] [place] [address] Re: ADONAY MAHAMED Date of : [address]Hoy ADAMS, Kamilla IRBYADONAY was evaluated at [facility] Urology 06/24/2023 13:20:00 As this patient [...] Thanks! Provider Signature: Bella Coronado PA-C Physician Foreclosure Home Inspector [facility] [address] [place] [address] Normal [facility] Urology Office/Clinic Noteon 06-24-2023 Urology Office/Clinic Note [...] When Contact Information BELLA CORONADO PA-C, URL [address] [place] [address] Additional Instructions: PRN Patient Education Benign Prostatic Hyperplasia Documentation recorded by the gopi Crane accurately reflects the services(s) I performed [...] Hypertension: Father. Immunizations Vaccine Date Status SARSCoV2 mRNA(kyikkpixi-ndfh-kmd ros) vac 07/09/2022 Recorded SARS-CoV-2 (COVID-19) mRNA BNT-162b2 vax 10/15/2021 Recorded SARS-CoV-2 (COVID-19) mRNA-1273 vaccine 02/09/2021 Recorded SARS-CoV-2 (COVID-19) mRNA-1273 vaccine 01/12/2021 Recorded influenza virus vaccine, inactivated 08/31/2020 Recorded influenza virus vaccine, live, trivalent 08/24/2019 Recorded influenza virus vaccine, inactivated 08/27/2018 Recorded p (more content not included)... Normal [facility] Comment on above: Result Comment: Elec tronically Signed By: EBLLA CORONADO PA-C\.br\Date and Time Signed: 06/24/23 14:14 EDT\.br\Electronically Co-Signed By: Rajani Crane\.br\Date and Time Co-Signed: 06/24/23 13:53 EDT INSULINon 04-09-2023 Insulin 2.9 uIU/mL Normal 2.6-24.9 [facility] Comment on above: Performed By: #### L IPID, T7, CMP, URIC, TSH #### [facility] [address] [place] [address] Dr. Roland Gr CBC AUTO DIFFon 04-08-2023 BASO # 0.0 103/ul Normal 0.0-0.1 [facility] Comment on above: Performed By: #### C VDTBH #### [facility] [address] [place] [address] Dr. Roland Gr Basophils/100 WBC (Bld) 0.7 % Normal 0.2-2.0 [facility] Comment on above: Performed By: #### C VDTBH #### [facility] [address] [place] [address] Dr. Roland Gr EO # 0.1 103/ul Normal 0.0-0.7 [facility] Comment on above: Performed By: #### C VDTBH #### [facility] [address] [place] [address] Dr. Roland Gr Eosinophils/100 WBC (Bld) 0.9 % Normal 0.9-7.0 [facility] Comment on above: Performed By: #### C VDTBH #### [facility] [address] [place] [address] Dr. Roland Gr Erythrocyte distribution width (RBC) [Ratio] 14.7 % Normal 11.0-15.0 [facility] Comment on above: Performed By: #### C VDTBH #### [facility] [address] [place] [address] Dr. Roland Gr Hematocrit (Bld) [Volume fraction] 39.1 % Critically low 42.0-54.0 [facility] Comment on above: Performed By: #### C VDTBH #### [facility] [address] [place] [address] Dr. Roland Gr Hemoglobin (Bld) [Mass/Vol] 12.6 g/dL Critically low 14.0-18.0 [facility] Comment on above: Performed By: #### C VDTBH #### [facility] [address] [place] [address] Dr. Roland Gr IG # 0.03 10e3/ul Normal 0.00-0.03 [facility] Comment on above: Performed By: #### C VDTBH #### [facility] [address] [place] [address] Dr. Roland Gr IG % 0.5 % Normal 0.0-0.5 [facility] Comment on above: Performed By: #### C VDTBH #### [facility] [address] [place] [address] Dr. Roland Gr LYMPH # 1.4 103/ul Normal 1.2-3.8 [facility] Comment on above: Performed By: #### C VDTBH #### [facility] [address] [place] [address] Dr. Roland Gr Lymphocytes/100 WBC (Bld) 23.6 % Normal 20.5-60.0 [facility] Comment on above: Performed By: #### C VDTBH #### [facility] [address] [place] [address] Dr. Roland Gr MANUAL DIFF REQ NO Normal [facility] Comment on above: Performed By: #### C VDTBH #### [facility] [address] [place] [address] Dr. Roland Gr MCH (RBC) [Entitic mass] 31.7 pg Normal 25.9-34.0 [facility] Comment on above: Performed By: #### C VDTBH #### [facility] [address] [place] [address] Dr. Roland Gr MCHC (RBC) [Mass/Vol] 32.2 g/dL Normal 29.9-35.2 [facility] Comment on above: Performed By: #### C VDTBH #### [facility] [address] [place] [address] Dr. Roland Gr MCV (RBC) [Entitic vol] 98.5 fL Critically high 80.0-94.0 [facility] Comment on above: Performed By: #### C VDTBH #### [facility] [address] [place] [address] Dr. Roland Gr MONO # 0.7 103/ul Normal 0.3-0.8 [facility] Comment on above: Performed By: #### C VDTBH #### [facility] [address] [place] [address] Dr. Roland Gr Monocytes/100 WBC (Bld) 11.8 % Normal 1.7-12.0 [facility] Comment on above: Performed By: #### C VDTBH #### [facility] [address] [place] [address] Dr. Roland Gr NEUT # 3.7 103/ul Normal 1.4-6.5 [facility] Comment on above: Performed By: #### C VDTBH #### [facility] [address] [place] [address] Dr. Roland Gr Neutrophils/100 WBC (Bld) 62.5 % Normal 43.0-75.0 [facility] Comment on above: Performed By: #### C VDTBH #### [facility] [address] [place] [address] Dr. Roland Gr Platelet mean volume (Bld) [Entitic vol] 10.2 fL Normal 9.5-13.5 [facility] Comment on above: Performed By: #### C VDTBH #### [facility] [address] [place] [address] Dr. Roland Gr PLT 180 103/ul Normal 150-450 [facility] Comment on above: Performed By: #### C VDTBH #### [facility] [address] [place] [address] Dr. Roland Gr RBC 3.97 106/ul Critically low 4.70-6.10 [facility] Comment on above: Performed By: #### C VDTBH #### [facility] [address] [place] [address] Dr. Roland Gr WBC 5.9 103/ul Normal 4.0-11.0 [facility] Comment on above: Performed By: #### C VDTBH #### [facility] [address] [place] [address] Dr. Roland Gr FREE THYROXINE INDEX T7on FTI 2.81 Normal 1.30-4.50 [facility] Comment on above: Performed By: #### L IPID, T7, CMP, URIC, TSH #### [facility] [address] [place] [address] Dr. Roland Gr T3U 38.0 % Normal 33.0-40.0 [facility] Comment on above: Performed By: #### L IPID, T7, CMP, URIC, TSH #### [facility] [address] [place] [address] Dr. Roland Gr T4 [Mass/Vol] 7.40 ug/dL Normal 4.50-12.10 [facility] Comment on above: Performed By: #### L IPID, T7, CMP, URIC, TSH #### [facility] [address] [place] [address] Dr. Roland Gr GLYCOHEMOGLOBIN A1Con 2022 ADA RECOMMENDATION SEE BELOW Normal [facility] Comment on above: Result Comment: ADA RECOMMENDED LIMIT 4.0 - 6.0 ADA THERAPEUTIC TARGET < 7.0 ACTION SUGGESTED > 7.0 Performed By: #### A 1C #### [facility] [address] [place] [address] Dr. Roland Gr Glucose [Mass/Vol] 103 mg/dL Normal [facility] Comment on above: Performed By: #### A 1C #### [facility] [address] [address] [address] Roland Gr HbA1c (Bld) [Mass fraction] 5.2 % Normal 4.5-6.2 [facility] Comment on above: Performed By: #### A 1C #### [facility] [address] [address] [address] Roland Gr LIPID PROFILEon 04-08-2023 CHOL-HDL RATIO NORM SEE BELOW Normal [facility] Comment on above: Result Comment: 3.3 - 4.4 LOW RISK 4.4 - 7.1 AVERAGE RISK 7.1 - 11.0 MODERATE RISK >11.0 HIGH RISK Performed By: #### L IPID, T7, CMP, URIC, TSH #### [facility] [address] [address] [address] Roland Gr Cholesterol [Mass/Vol] 134 mg/dL Normal <=200 [facility] Comment on above: Performed By: #### L IPID, T7, CMP, URIC, TSH #### [facility] [address] [address] [address] Roland Gr Cholesterol in HDL [Mass/Vol] 74 mg/dL Critically high 40-60 [facility] Comment on above: Performed By: #### L IPID, T7, CMP, URIC, TSH #### [facility] [address] [address] [address] Roland Gr Cholesterol in LDL [Mass/Vol] 50.0 mg/dL Normal [facility] Comment on above: Performed By: #### L IPID, T7, CMP, URIC, TSH #### [facility] [address] [address] [address] Roland Gr Cholesterol.total/C holesterol in HDL [Mass ratio] 1.8 {ratio} Normal [facility] Comment on above: Performed By: #### L IPID, T7, CMP, URIC, TSH #### [facility] [address] [address] [address] Roland Gr HDL NORMAL > or = 60 mg/dl - LO W CARDIOVASCULAR RISK <40 mg/dl - HIGH CARDIOVASCULAR RISK Normal [facility] Comment on above: Performed By: #### L IPID, T7, CMP, URIC, TSH #### [facility] [address] [address] [address] Roland Gr LDL CALC NORMAL SEE BELOW Normal [facility] Comment on above: Result Comment: <100 mg/dl OPTIMAL 100 - 129 mg/dl NEAR OR ABOVE OPTIMAL 130 - 159 mg/dl BORDERLINE HIGH 160 - 189 mg/dl HIGH >190 mg/dl VERY HIGH Performed By: #### L IPID, T7, CMP, URIC, TSH #### [facility] [address] [address] [address] Roland Gr Triglyceride [Mass/Vol] 50 mg/dL Normal <=150 [facility] Comment on above: Performed By: #### L IPID, T7, CMP, URIC, TSH #### [facility] [address] [address] [address] Roland Gr VLDL CALC 10.0 mg/dL Normal [facility] Comment on above: Performed By: #### L IPID, T7, CMP, URIC, TSH #### [facility] [address] [address] [address] Roland Gr PROF 14(COMP METB)on 023 Albumin [Mass/Vol] 3.6 g/dL Normal 3.4-5.0 [facility] Comment on above: Performed By: #### L IPID, T7, CMP, URIC, TSH #### [facility] [address] [address] [address] Roland Gr Albumin/Globulin [Mass ratio] 1.1 {ratio} Normal [facility] Comment on above: Performed By: #### L IPID, T7, CMP, URIC, TSH #### [facility] [address] [address] [address] Roland Gr ALP [Catalytic activity/Vol] 64 U/L Normal 46-116 [facility] Comment on above: Performed By: #### L IPID, T7, CMP, URIC, TSH #### [facility] [address] [address] [address] Roland Gr ALT [Catalytic activity/Vol] 25 U/L Normal 16-63 [facility] Comment on above: Performed By: #### L IPID, T7, CMP, URIC, TSH #### [facility] [address] [address] [address] Roland Gr Anion gap [Moles/Vol] 13.2 mmol/L Normal [facility] Comment on above: Performed By: #### L IPID, T7, CMP, URIC, TSH #### [facility] [address] [address] [address] Roland Gr AST [Catalytic activity/Vol] 18 U/L Normal 15-37 [facility] Comment on above: Performed By: #### L IPID, T7, CMP, URIC, TSH #### [facility] [address] [place] [address] Dr. Roland Gr Bilirubin [Mass/Vol] 0.9 mg/dL Normal 0.2-1.0 [facility] Comment on above: Performed By: #### L IPID, T7, CMP, URIC, TSH #### [facility] [address] [address] [address] Roland Gr Calcium [Mass/Vol] 9.0 mg/dL Normal 8.5-10.1 [facility] Comment on above: Performed By: #### L IPID, T7, CMP, URIC, TSH #### [facility] [address] [address] [address] Roland Gr Chloride [Moles/Vol] 109 mmol/L Critically high 98-107 [facility] Comment on above: Performed By: #### L IPID, T7, CMP, URIC, TSH #### [facility] [address] [address] [address] Roland Gr CO2 [Moles/Vol] 28.9 mmol/L Normal 21.0-32.0 [facility] Comment on above: Performed By: #### L IPID, T7, CMP, URIC, TSH #### [facility] [address] [address] [address] Roland Gr Creatinine [Mass/Vol] 0.85 mg/dL Normal 0.70-1.30 [facility] Comment on above: Performed By: #### L IPID, T7, CMP, URIC, TSH #### [facility] [address] [place] [address] Dr. Roland Gr EGFR-AF SAUDI ARABIAN >60 Normal >=60 [facility] Comment on above: Performed By: #### L IPID, T7, CMP, URIC, TSH #### [facility] [address] [address] [address] Roland Gr EGFR-NON AF SAUDI ARABIAN >60 Normal >=60 [facility] Comment on above: Performed By: #### L IPID, T7, CMP, URIC, TSH #### [facility] [address] [place] [address] Dr. Roland Gr Globulin (S) [Mass/Vol] 3.4 g/dL Normal [facility] Comment on above: Performed By: #### L IPID, T7, CMP, URIC, TSH #### [facility] [address] [place] [address] Dr. Roland Gr Glucose [Mass/Vol] 93 mg/dL Normal 74-106 [facility] Comment on above: Performed By: #### L IPID, T7, CMP, URIC, TSH #### [facility] [address] [place] [address] Dr. Rloand Gr Potassium [Moles/Vol] 4.1 mmol/L Normal 3.5-5.1 [facility] Comment on above: Performed By: #### L IPID, T7, CMP, URIC, TSH #### [facility] [address] [place] [address] Dr. Roland Gr Protein [Mass/Vol] 7.0 g/dL Normal 6.4-8.[address] [facility] Comment on above: Performed By: #### L IPID, T7, CMP, URIC, TSH #### [facility] [address] [place] [address] Dr. Roland Gr Sodium [Moles/Vol] 147 mmol/L Critically high 136-145 [facility] Comment on above: Performed By: #### L IPID, T7, CMP, URIC, TSH #### [facility] [address] [place] [address] Dr. Roland Gr Urea nitrogen [Mass/Vol] 20.0 mg/dL Critically high 7.0-18.0 [facility] Comment on above: Performed By: #### L IPID, T7, CMP, URIC, TSH #### [facility] [address] [place] [address] Dr. Roland Gr Urea nitrogen/Creatinine [Mass ratio] 23.5 mg/mg Normal [facility] Comment on above: Performed By: #### L IPID, T7, CMP, URIC, TSH #### [facility] [address] [place] [address] Dr. Roland Gr TSHon 04-08-2023 TSH 1.136 uIU/mL Normal 0.358-3.740 [facility] Comment on above: Performed By: #### L IPID, T7, CMP, URIC, TSH #### [facility] [address] [place] [address] Dr. Roland Gr URIC ACID SERUMon 04-08-2023 Urate [Mass/Vol] 6.5 mg/dL Normal 3.5-7.2 [facility] Comment on above: Performed By: #### L IPID, T7, CMP, URIC, TSH #### [facility] [address] [place] [address] Dr. Roland Gr CBC AUTO DIFFon 03-04-2023 BASO # 0.0 103/ul Normal 0.0-0.1 [facility] Comment on above: Performed By: #### C VDTBH #### [facility] [address] [place] [address] Dr. Roland Gr Basophils/100 WBC (Bld) 0.6 % Normal 0.2-2.0 [facility] Comment on above: Performed By: #### C VDTBH #### [facility] [address] [place] [address] Dr. Roland Gr EO # 0.1 103/ul Normal 0.0-0.7 [facility] Comment on above: Performed By: #### C VDTBH #### [facility] [address] [place] [address] Dr. Roland Gr Eosinophils/100 WBC (Bld) 1.3 % Normal 0.9-7.0 [facility] Comment on above: Performed By: #### C VDTBH #### [facility] [address] [place] [address] Dr. Roland Gr Erythrocyte distribution width (RBC) [Ratio] 14.6 % Normal 11.0-15.0 [facility] Comment on above: Performed By: #### C VDTBH #### [facility] [address] [place] [address] Dr. Roland Gr Hematocrit (Bld) [Volume fraction] 40.4 % Critically low 42.0-54.0 [facility] Comment on above: Performed By: #### C VDTBH #### [facility] [address] [place] [address] Dr. Roland Gr Hemoglobin (Bld) [Mass/Vol] 12.9 g/dL Critically low 14.0-18.0 [facility] Comment on above: Performed By: #### C VDTBH #### [facility] [address] [place] [address] Dr. Roland Gr IG # 0.02 10e3/ul Normal 0.00-0.03 [facility] Comment on above: Performed By: #### C VDTBH #### [facility] [address] [place] [address] Dr. Roland Gr IG % 0.3 % Normal 0.0-0.5 [facility] Comment on above: Performed By: #### C VDTBH #### [facility] [address] [place] [address] Dr. Roland Gr LYMPH # 1.5 103/ul Normal 1.2-3.8 [facility] Comment on above: Performed By: #### C VDTBH #### [facility] [address] [place] [address] Dr. Roland Gr Lymphocytes/100 WBC (Bld) 21.2 % Normal 20.5-60.0 [facility] Comment on above: Performed By: #### C VDTBH #### [facility] [address] [place] [address] Dr. Roland Gr MANUAL DIFF REQ NO Normal [facility] Comment on above: Performed By: #### C VDTBH #### [facility] [address] [place] [address] Dr. Roland Gr MCH (RBC) [Entitic mass] 31.6 pg Normal 25.9-34.0 [facility] Comment on above: Performed By: #### C VDTBH #### [facility] [address] [place] [address] Dr. Roland Gr MCHC (RBC) [Mass/Vol] 31.9 g/dL Normal 29.9-35.2 [facility] Comment on above: Performed By: #### C VDTBH #### [facility] [address] [place] [address] Dr. Roland Gr MCV (RBC) [Entitic vol] 99.0 fL Critically high 80.0-94.0 [facility] Comment on above: Performed By: #### C VDTBH #### [facility] [address] [place] [address] Dr. Roland Gr MONO # 0.6 103/ul Normal 0.3-0.8 [facility] Comment on above: Performed By: #### C VDTBH #### [facility] [address] [place] [address] Dr. Roland Gr Monocytes/100 WBC (Bld) 9.3 % Normal 1.7-12.0 [facility] Comment on above: Performed By: #### C VDTBH #### [facility] [address] [place] [address] Dr. Roland Gr NEUT # 4.7 103/ul Normal 1.4-6.5 [facility] Comment on above: Performed By: #### C VDTBH #### [facility] [address] [place] [address] Dr. Roland Gr Neutrophils/100 WBC (Bld) 67.3 % Normal 43.0-75.0 [facility] Comment on above: Performed By: #### C VDTBH #### [facility] [address] [place] [address] Dr. Roland Gr Platelet mean volume (Bld) [Entitic vol] 10.1 fL Normal 9.5-13.5 [facility] Comment on above: Performed By: #### C SUMITTBH #### [facility] [address] [place] [address] Dr. Roland Gr PLT 188 103/ul Normal 150-450 [facility] Comment on above: Performed By: #### C SUMITTBH #### [facility] [address] [place] [address] Dr. Roland Gr RBC 4.08 106/ul Critically low 4.70-6.10 [facility] Comment on above: Performed By: #### C SUMITTBH #### [facility] [address] [place] [address] Dr. Roland Gr WBC 6.9 103/ul Normal 4.0-11.0 [facility] Comment on above: Performed By: #### C VDTBH #### [facility] [address] [place] [address] Dr. Roland Gr PROF 14(COMP METB)on 023 Albumin [Mass/Vol] 3.6 g/dL Normal 3.4-5.0 [facility] Comment on above: Performed By: #### L IPID, T7, CMP, URIC, TSH #### [facility] [address] [place] [address] Dr. Roland Gr Albumin/Globulin [Mass ratio] 1.0 {ratio} Normal [facility] Comment on above: Performed By: #### L IPID, T7, CMP, URIC, TSH #### [facility] [address] [place] [address] Dr. Roland Gr ALP [Catalytic activity/Vol] 69 U/L Normal 46-116 [facility] Comment on above: Performed By: #### L IPID, T7, CMP, URIC, TSH #### [facility] [address] [address] [address] Roland Gr ALT [Catalytic activity/Vol] 26 U/L Normal 16-63 [facility] Comment on above: Performed By: #### L IPID, T7, CMP, URIC, TSH #### [facility] [address] [address] [address] Roland Gr Anion gap [Moles/Vol] 11.2 mmol/L Normal [facility] Comment on above: Performed By: #### L IPID, T7, CMP, URIC, TSH #### [facility] [address] [place] [address] Dr. Roland Gr AST [Catalytic activity/Vol] 22 U/L Normal 15-37 [facility] Comment on above: Performed By: #### L IPID, T7, CMP, URIC, TSH #### [facility] [address] [place] [address] Dr. Roland Gr Bilirubin [Mass/Vol] 0.7 mg/dL Normal 0.2-1.0 [facility] Comment on above: Performed By: #### L IPID, T7, CMP, URIC, TSH #### [facility] [address] [place] [address] Dr. Roland Gr Calcium [Mass/Vol] 9.2 mg/dL Normal 8.5-10.1 [facility] Comment on above: Performed By: #### L IPID, T7, CMP, URIC, TSH #### [facility] [address] [address] [address] Roland Gr Chloride [Moles/Vol] 108 mmol/L Critically high 98-107 [facility] Comment on above: Performed By: #### L IPID, T7, CMP, URIC, TSH #### [facility] [address] [place] [address] Dr. Roland Gr CO2 [Moles/Vol] 30.8 mmol/L Normal 21.0-32.0 [facility] Comment on above: Performed By: #### L IPID, T7, CMP, URIC, TSH #### [facility] [address] [address] [address] Roland Gr Creatinine [Mass/Vol] 0.74 mg/dL Normal 0.70-1.30 [facility] Comment on above: Performed By: #### L IPID, T7, CMP, URIC, TSH #### [facility] [address] [address] [address] Roland Gr EGFR-AF SAUDI ARABIAN >60 Normal >=60 [facility] Comment on above: Performed By: #### L IPID, T7, CMP, URIC, TSH #### [facility] [address] [address] [address] Roland Gr EGFR-NON AF SAUDI ARABIAN >60 Normal >=60 [facility] Comment on above: Performed By: #### L IPID, T7, CMP, URIC, TSH #### [facility] [address] [place] [address] Dr. Roland Gr Globulin (S) [Mass/Vol] 3.5 g/dL Normal [facility] Comment on above: Performed By: #### L IPID, T7, CMP, URIC, TSH #### [facility] [address] [address] [address] Roland Gr Glucose [Mass/Vol] 102 mg/dL Normal 74-[address] [facility] Comment on above: Performed By: #### L IPID, T7, CMP, URIC, TSH #### [facility] [address] [place] [address] Dr. Roland Gr Potassium [Moles/Vol] 4.0 mmol/L Normal 3.5-5.1 [facility] Comment on above: Performed By: #### L IPID, T7, CMP, URIC, TSH #### [facility] [address] [address] [address] Roland Gr Protein [Mass/Vol] 7.1 g/dL Normal 6.4-8.[address] [facility] Comment on above: Performed By: #### L IPID, T7, CMP, URIC, TSH #### [facility] [address] [address] [address] Roland Gr Sodium [Moles/Vol] 146 mmol/L Critically high 136-145 T [facility] Comment on above: Performed By: #### L IPID, T7, CMP, URIC, TSH #### [facility] [address] [address] [address] Roland Gr Urea nitrogen [Mass/Vol] 15.0 mg/dL Normal 7.0-18.0 [facility] Comment on above: Performed By: #### L IPID, T7, CMP, URIC, TSH #### [facility] [address] [place] [address] Dr. Roland Gr Urea nitrogen/Creatinine [Mass ratio] 20.3 mg/mg Normal [facility] Comment on above: Performed By: #### L IPID, T7, CMP, URIC, TSH #### [facility] [address] [place] [address] Dr. Roland Gr SED RATE [facility] 2022 SED RATE 11 mm/hr Normal <=20 [facility] Comment on above: Performed By: #### L IPID, T7, CMP, URIC, TSH #### [facility] [address] [place] [address] Dr. Roland Gr [facility]-18 SARS-CoV-2 (COVID-19) RNA PORSCHE+probe Ql (Unsp spec) Not detected Normal NOT DETECTED [facility] Comment on above: Result Comment: This test is not yet approved or cleared by the [place] FDA. When there are no FDA-approved or cleared tests available, and other criteria are met, FDA can make tests available under an emergency access mechanism called an Emergency Use Authorization (EUA). The EUA for this test is supported by the Dual Rate Supervisor of Health and Human Service's (HHS's) declaration [...] SARS-CoV-2. Performed By: #### C VDTBH #### [facility] [address] [place] [address] Dr. Roland Gr CBC AUTO DIFFon 12-03-2022 BASO # 0.0 103/ul Normal 0.0-0.1 [facility] Comment on above: Performed By: #### C VDTBH #### [facility] [address] [place] [address] Dr. Roland Gr Basophils/100 WBC (Bld) 0.6 % Normal 0.2-2.0 [facility] Comment on above: Performed By: #### C VDTBH #### [facility] [address] [place] [address] Dr. Roland Gr EO # 0.1 103/ul Normal 0.0-0.7 [facility] Comment on above: Performed By: #### C VDTBH #### [facility] [address] [place] [address] Dr. Roland Gr Eosinophils/100 WBC (Bld) 1.7 % Normal 0.9-7.0 [facility] Comment on above: Performed By: #### C VDTBH #### [facility] [address] [place] [address] Dr. Roland Gr Erythrocyte distribution width (RBC) [Ratio] 14.1 % Normal 11.0-15.0 [facility] Comment on above: Performed By: #### C VDTBH #### [facility] [address] [place] [address] Dr. Roland Gr Hematocrit (Bld) [Volume fraction] 39.3 % Critically low 42.0-54.0 [facility] Comment on above: Performed By: #### C VDTBH #### [facility] [address] [place] [address] Dr. Roland Gr Hemoglobin (Bld) [Mass/Vol] 12.7 g/dL Critically low 14.0-18.0 [facility] Comment on above: Performed By: #### C VDTBH #### [facility] [address] [place] [address] Dr. Roland Gr IG # 0.03 10e3/ul Normal 0.00-0.03 [facility] Comment on above: Performed By: #### C VDTBH #### [facility] [address] [place] [address] Dr. Roland Gr IG % 0.5 % Normal 0.0-0.5 [facility] Comment on above: Performed By: #### C VDTBH #### [facility] [address] [place] [address] Dr. Roland Gr LYMPH # 1.5 103/ul Normal 1.2-3.8 [facility] Comment on above: Performed By: #### C VDTBH #### [facility] [address] [place] [address] Dr. Roland Gr Lymphocytes/100 WBC (Bld) 23.5 % Normal 20.5-60.0 [facility] Comment on above: Performed By: #### C VDTBH #### [facility] [address] [place] [address] Dr. Roland Gr MANUAL DIFF REQ NO Normal [facility] Comment on above: Performed By: #### C VDTBH #### [facility] [address] [place] [address] Dr. Roland Gr MCH (RBC) [Entitic mass] 31.8 pg Normal 25.9-34.0 [facility] Comment on above: Performed By: #### C VDTBH #### [facility] [address] [place] [address] Dr. Roland Gr MCHC (RBC) [Mass/Vol] 32.3 g/dL Normal 29.9-35.2 [facility] Comment on above: Performed By: #### C VDTBH #### [facility] [address] [place] [address] Dr. Roland Gr MCV (RBC) [Entitic vol] 98.5 fL Critically high 80.0-94.0 [facility] Comment on above: Performed By: #### C VDTBH #### [facility] [address] [address] [address] Roland Gr MONO # 0.7 103/ul Normal 0.3-0.8 [facility] Comment on above: Performed By: #### C VDTBH #### [facility] [address] [place] [address] Dr. Roland Gr Monocytes/100 WBC (Bld) 10.6 % Normal 1.7-12.0 [facility] Comment on above: Performed By: #### C VDTBH #### [facility] [address] [place] [address] Dr. Roland Gr NEUT # 4.1 103/ul Normal 1.4-6.5 [facility] Comment on above: Performed By: #### C VDTBH #### [facility] [address] [place] [address] Dr. Roland Gr Neutrophils/100 WBC (Bld) 63.1 % Normal 43.0-75.0 [facility] Comment on above: Performed By: #### C VDTBH #### [facility] [address] [place] [address] Dr. Roland Gr Platelet mean volume (Bld) [Entitic vol] 10.0 fL Normal 9.5-13.5 [facility] Comment on above: Performed By: #### C VDTBH #### [facility] [address] [place] [address] Dr. Roland Gr PLT 184 103/ul Normal 150-450 [facility] Comment on above: Performed By: #### C VDTBH #### [facility] [address] [place] [address] Dr. Roland Gr RBC 3.99 106/ul Critically low 4.70-6.10 [facility] Comment on above: Performed By: #### C VDTBH #### [facility] [address] [place] [address] Dr. Roland Gr WBC 6.4 103/ul Normal 4.0-11.0 [facility] Comment on above: Performed By: #### C VDTBH #### [facility] [address] [place] [address] Dr. Roland Gr PROF 14(COMP METB)on 023 Albumin [Mass/Vol] 3.8 g/dL Normal 3.4-5.0 [facility] Comment on above: Performed By: #### L IPID, T7, CMP, URIC, TSH #### [facility] [address] [place] [address] Dr. Roland Gr Albumin/Globulin [Mass ratio] 1.4 {ratio} Normal [facility] Comment on above: Performed By: #### L IPID, T7, CMP, URIC, TSH #### [facility] [address] [place] [address] Dr. Roland Gr ALP [Catalytic activity/Vol] 58 U/L Normal 46-116 [facility] Comment on above: Performed By: #### L IPID, T7, CMP, URIC, TSH #### [facility] [address] [place] [address] Dr. Roland Gr ALT [Catalytic activity/Vol] 24 U/L Normal 16-63 [facility] Comment on above: Performed By: #### L IPID, T7, CMP, URIC, TSH #### [facility] [address] [place] [address] Dr. Roland Gr Anion gap [Moles/Vol] 11.2 mmol/L Normal [facility] Comment on above: Performed By: #### L IPID, T7, CMP, URIC, TSH #### [facility] [address] [place] [address] Dr. Roland Gr AST [Catalytic activity/Vol] 24 U/L Normal 15-37 [facility] Comment on above: Performed By: #### L IPID, T7, CMP, URIC, TSH #### [facility] [address] [place] [address] Dr. Roland Gr Bilirubin [Mass/Vol] 0.7 mg/dL Normal 0.2-1.0 [facility] Comment on above: Performed By: #### L IPID, T7, CMP, URIC, TSH #### [facility] [address] [place] [address] Dr. Roland Gr Calcium [Mass/Vol] 9.0 mg/dL Normal 8.5-10.1 [facility] Comment on above: Performed By: #### L IPID, T7, CMP, URIC, TSH #### [facility] [address] [place] [address] Dr. Roland Gr Chloride [Moles/Vol] 109 mmol/L Critically high 98-107 [facility] Comment on above: Performed By: #### L IPID, T7, CMP, URIC, TSH #### [facility] [address] [place] [address] Dr. Roland Gr CO2 [Moles/Vol] 28.8 mmol/L Normal 21.0-32.0 [facility] Comment on above: Performed By: #### L IPID, T7, CMP, URIC, TSH #### [facility] [address] [place] [address] Dr. Roland Gr Creatinine [Mass/Vol] 0.73 mg/dL Normal 0.70-1.30 [facility] Comment on above: Performed By: #### L IPID, T7, CMP, URIC, TSH #### [facility] [address] [place] [address] Dr. Roland Gr EGFR-AF SAUDI ARABIAN >60 Normal >=60 [facility] Comment on above: Performed By: #### L IPID, T7, CMP, URIC, TSH #### [facility] [address] [place] [address] Dr. Roland Gr EGFR-NON AF SAUDI ARABIAN >60 Normal >=60 [facility] Comment on above: Performed By: #### L IPID, T7, CMP, URIC, TSH #### [facility] [address] [place] [address] Dr. Roland Gr Globulin (S) [Mass/Vol] 2.8 g/dL Normal [facility] Comment on above: Performed By: #### L IPID, T7, CMP, URIC, TSH #### [facility] [address] [place] [address] Dr. Roland Gr Glucose [Mass/Vol] 98 mg/dL Normal 74-[address] [facility] Comment on above: Performed By: #### L IPID, T7, CMP, URIC, TSH #### [facility] [address] [address] [address] Roland Gr Potassium [Moles/Vol] 4.0 mmol/L Normal 3.5-5.1 [facility] Comment on above: Performed By: #### L IPID, T7, CMP, URIC, TSH #### [facility] [address] [place] [address] Dr. Roland Gr Protein [Mass/Vol] 6.6 g/dL Normal 6.4-8.[address] [facility] Comment on above: Performed By: #### L IPID, T7, CMP, URIC, TSH #### [facility] [address] [place] [address] Dr. Roland Gr Sodium [Moles/Vol] 145 mmol/L Normal 136-[address] [facility] Comment on above: Performed By: #### L IPID, T7, CMP, URIC, TSH #### [facility] [address] [address] [address] Roland Gr Urea nitrogen [Mass/Vol] 20.0 mg/dL Critically high 7.0-18.0 [facility] Comment on above: Performed By: #### L IPID, T7, CMP, URIC, TSH #### [facility] [address] [address] [address] Roland Gr Urea nitrogen/Creatinine [Mass ratio] 27.4 mg/mg Normal [facility] Comment on above: Performed By: #### L IPID, T7, CMP, URIC, TSH #### [facility] [address] [address] [address] Roland Gr SED RATE LINCOLNERGRENon 2022 SED RATE 8 mm/hr Normal <=20 [facility] Comment on above: Performed By: #### S EDR #### [facility] [address] [address] [address] Roland Gr INSULINon 09-02-2022 Insulin 6.3 uIU/mL Normal 2.6-24.9 [facility] Comment on above: Performed By: #### C VDTB #### [facility] [address] [place] [address] Dr. Roland Gr BNPon 09-01-2022 Natriuretic peptide B (Bld) [Mass/Vol] 285.0 pg/mL Normal <=1,800.0 [facility] Comment on above: Performed By: #### C VDTB #### [facility] [address] [place] [address] Dr. Roland Gr CBC AUTO DIFFon 09-01-2022 BASO # 0.0 103/ul Normal 0.0-0.1 [facility] Comment on above: Performed By: #### L IPID, T7, CMP, URIC, TSH #### [facility] [address] [place] [address] Dr. Roland Gr Basophils/100 WBC (Bld) 0.4 % Normal 0.2-2.0 [facility] Comment on above: Performed By: #### L IPID, T7, CMP, URIC, TSH #### [facility] [address] [place] [address] Dr. Roland Gr EO # 0.1 103/ul Normal 0.0-0.7 [facility] Comment on above: Performed By: #### L IPID, T7, CMP, URIC, TSH #### [facility] [address] [place] [address] Dr. Roland Gr Eosinophils/100 WBC (Bld) 1.5 % Normal 0.9-7.0 [facility] Comment on above: Performed By: #### L IPID, T7, CMP, URIC, TSH #### [facility] [address] [place] [address] Dr. Roland Gr Erythrocyte distribution width (RBC) [Ratio] 14.0 % Normal 11.0-15.0 [facility] Comment on above: Performed By: #### L IPID, T7, CMP, URIC, TSH #### [facility] [address] [place] [address] Dr. Roland Gr Hematocrit (Bld) [Volume fraction] 37.9 % Critically low 42.0-54.0 [facility] Comment on above: Performed By: #### L IPID, T7, CMP, URIC, TSH #### [facility] [address] [place] [address] Dr. Roland Gr Hemoglobin (Bld) [Mass/Vol] 12.2 g/dL Critically low 14.0-18.0 [facility] Comment on above: Performed By: #### L IPID, T7, CMP, URIC, TSH #### [facility] [address] [place] [address] Dr. Roland Gr IG # 0.03 10e3/ul Normal 0.00-0.03 [facility] Comment on above: Performed By: #### L IPID, T7, CMP, URIC, TSH #### [facility] [address] [place] [address] Dr. Roland Gr IG % 0.4 % Normal 0.0-0.5 [facility] Comment on above: Performed By: #### L IPID, T7, CMP, URIC, TSH #### [facility] [address] [place] [address] Dr. Roland Gr LYMPH # 1.6 103/ul Normal 1.2-3.8 [facility] Comment on above: Performed By: #### L IPID, T7, CMP, URIC, TSH #### [facility] [address] [place] [address] Dr. Roland Gr Lymphocytes/100 WBC (Bld) 21.3 % Normal 20.5-60.0 [facility] Comment on above: Performed By: #### L IPID, T7, CMP, URIC, TSH #### [facility] [address] [place] [address] Dr. Roland Gr MANUAL DIFF REQ NO Normal [facility] Comment on above: Performed By: #### L IPID, T7, CMP, URIC, TSH #### [facility] [address] [place] [address] Dr. Roland Gr MCH (RBC) [Entitic mass] 33.0 pg Normal 25.9-34.0 [facility] Comment on above: Performed By: #### L IPID, T7, CMP, URIC, TSH #### [facility] [address] [place] [address] Dr. Roland Gr MCHC (RBC) [Mass/Vol] 32.2 g/dL Normal 29.9-35.2 [facility] Comment on above: Performed By: #### L IPID, T7, CMP, URIC, TSH #### [facility] [address] [place] [address] Dr. Roland Gr MCV (RBC) [Entitic vol] 102.4 fL Critically high 80.0-94.0 [facility] Comment on above: Performed By: #### L IPID, T7, CMP, URIC, TSH #### [facility] [address] [place] [address] Dr. Roland Gr MONO # 0.8 103/ul Normal 0.3-0.8 [facility] Comment on above: Performed By: #### L IPID, T7, CMP, URIC, TSH #### [facility] [address] [place] [address] Dr. Roland Gr Monocytes/100 WBC (Bld) 10.5 % Normal 1.7-12.0 [facility] Comment on above: Performed By: #### L IPID, T7, CMP, URIC, TSH #### [facility] [address] [place] [address] Dr. Roland Gr NEUT # 4.8 103/ul Normal 1.4-6.5 [facility] Comment on above: Performed By: #### L IPID, T7, CMP, URIC, TSH #### [facility] [address] [place] [address] Dr. Roland Gr Neutrophils/100 WBC (Bld) 65.9 % Normal 43.0-75.0 [facility] Comment on above: Performed By: #### L IPID, T7, CMP, URIC, TSH #### [facility] [address] [place] [address] Dr. Roland Gr Platelet mean volume (Bld) [Entitic vol] 9.7 fL Normal 9.5-13.5 [facility] Comment on above: Performed By: #### L IPID, T7, CMP, URIC, TSH #### [facility] [address] [address] [address] Roland Gr PLT 183 103/ul Normal 150-450 [facility] Comment on above: Performed By: #### L IPID, T7, CMP, URIC, TSH #### [facility] [address] [address] [address] Roland Gr RBC 3.70 106/ul Critically low 4.70-6.10 [facility] Comment on above: Performed By: #### L IPID, T7, CMP, URIC, TSH #### [facility] [address] [place] [address] Dr. Roland Gr WBC 7.3 103/ul Normal 4.0-11.0 [facility] Comment on above: Performed By: #### L IPID, T7, CMP, URIC, TSH #### [facility] [address] [place] [address] Dr. Roland Gr FREE THYROXINE INDEX T7on FTI 2.44 Normal 1.30-4.50 [facility] Comment on above: Performed By: #### C VDTBH #### [facility] [address] [place] [address] Dr. Roland Gr T3U 33.0 % Normal 33.0-40.0 [facility] Comment on above: Performed By: #### C VDTBH #### [facility] [address] [place] [address] Dr. Roland Gr T4 [Mass/Vol] 7.40 ug/dL Normal 4.50-12.10 [facility] Comment on above: Performed By: #### C VDTBH #### [facility] [address] [place] [address] Dr. Roland Gr GLYCOHEMOGLOBIN A1Con 2021 ADA RECOMMENDATION SEE BELOW Normal [facility] Comment on above: Result Comment: ADA RECOMMENDED LIMIT 4.0 - 6.0 ADA THERAPEUTIC TARGET < 7.0 ACTION SUGGESTED > 7.0 Performed By: #### A 1C #### [facility] [address] [address] [address] Roland Gr Glucose [Mass/Vol] 117 mg/dL Normal [facility] Comment on above: Performed By: #### A 1C #### [facility] [address] [address] [address] Roland Gr HbA1c (Bld) [Mass fraction] 5.7 % Normal 4.5-6.2 [facility] Comment on above: Performed By: #### A 1C #### [facility] [address] [place] [address] Dr. Roland Gr LIPID PROFILEon 09-01-2022 CHOL-HDL RATIO NORM SEE BELOW Normal [facility] Comment on above: Result Comment: 3.3 - 4.4 LOW RISK 4.4 - 7.1 AVERAGE RISK 7.1 - 11.0 MODERATE RISK >11.0 HIGH RISK Performed By: #### L IPID, T7, CMP, URIC, TSH #### [facility] [address] [address] [address] Roland Gr Cholesterol [Mass/Vol] 130 mg/dL Normal <=200 [facility] Comment on above: Performed By: #### L IPID, T7, CMP, URIC, TSH #### [facility] [address] [address] [address] Roland Gr Cholesterol in HDL [Mass/Vol] 67 mg/dL Critically high 40-60 [facility] Comment on above: Performed By: #### L IPID, T7, CMP, URIC, TSH #### [facility] [address] [address] [address] Roland Gr Cholesterol in LDL [Mass/Vol] 48.8 mg/dL Normal [facility] Comment on above: Performed By: #### L IPID, T7, CMP, URIC, TSH #### [facility] [address] [address] [address] Roland Gr Cholesterol.total/C holesterol in HDL [Mass ratio] 1.9 {ratio} Normal [facility] Comment on above: Performed By: #### L IPID, T7, CMP, URIC, TSH #### [facility] [address] [address] [address] Roland Gr HDL NORMAL > or = 60 mg/dl - LO W CARDIOVASCULAR RISK <40 mg/dl - HIGH CARDIOVASCULAR RISK Normal [facility] Comment on above: Performed By: #### L IPID, T7, CMP, URIC, TSH #### [facility] [address] [address] [address] Roland Gr LDL CALC NORMAL SEE BELOW Normal [facility] Comment on above: Result Comment: <100 mg/dl OPTIMAL 100 - 129 mg/dl NEAR OR ABOVE OPTIMAL 130 - 159 mg/dl BORDERLINE HIGH 160 - 189 mg/dl HIGH >190 mg/dl VERY HIGH Performed By: #### L IPID, T7, CMP, URIC, TSH #### [facility] [address] [address] [address] Roland Gr Triglyceride [Mass/Vol] 71 mg/dL Normal <=150 [facility] Comment on above: Performed By: #### L IPID, T7, CMP, URIC, TSH #### [facility] [address] [address] [address] Roland Gr VLDL CALC 14.2 mg/dL Normal [facility] Comment on above: Performed By: #### L IPID, T7, CMP, URIC, TSH #### [facility] [address] [address] [address] Roland Gr PROF 14(COMP METB)on 022 Albumin [Mass/Vol] 3.5 g/dL Normal 3.4-5.0 [facility] Comment on above: Performed By: #### C VDTBH #### [facility] [address] [address] [address] Roland Gr Albumin/Globulin [Mass ratio] 1.2 {ratio} Normal [facility] Comment on above: Performed By: #### C VDTBH #### [facility] [address] [address] [address] Roland Gr ALP [Catalytic activity/Vol] 60 U/L Normal 46-116 [facility] Comment on above: Performed By: #### C VDTBH #### [facility] [address] [address] [address] Roland Gr ALT [Catalytic activity/Vol] 25 U/L Normal 16-63 [facility] Comment on above: Performed By: #### C VDTBH #### [facility] [address] [address] [address] Roland Gr Anion gap [Moles/Vol] 10.6 mmol/L Normal [facility] Comment on above: Performed By: #### C VDTBH #### [facility] [address] [address] [address] Roland Gr AST [Catalytic activity/Vol] 17 U/L Normal 15-37 [facility] Comment on above: Performed By: #### C VDTBH #### [facility] [address] [address] [address] Roland Gr Bilirubin [Mass/Vol] 0.8 mg/dL Normal 0.2-1.0 [facility] Comment on above: Performed By: #### C VDTBH #### [facility] [address] [address] [address] Roland Gr Calcium [Mass/Vol] 8.8 mg/dL Normal 8.5-10.1 [facility] Comment on above: Performed By: #### C VDTBH #### [facility] [address] [address] [address] Roland Gr Chloride [Moles/Vol] 108 mmol/L Critically high 98-107 [facility] Comment on above: Performed By: #### C VDTBH #### [facility] [address] [address] [address] Roland Gr CO2 [Moles/Vol] 28.6 mmol/L Normal 21.0-32.0 [facility] Comment on above: Performed By: #### C VDTBH #### [facility] [address] [address] [address] Roland Gr Creatinine [Mass/Vol] 0.72 mg/dL Normal 0.70-1.30 [facility] Comment on above: Performed By: #### C VDTBH #### [facility] [address] [address] [address] Roland Gr EGFR-AF SAUDI ARABIAN >60 Normal >=60 [facility] Comment on above: Performed By: #### C VDTBH #### [facility] [address] [address] [address] Roland Gr EGFR-NON AF SAUDI ARABIAN >60 Normal >=60 [facility] Comment on above: Performed By: #### C VDTBH #### [facility] [address] [address] [address] Roland Gr Globulin (S) [Mass/Vol] 3.0 g/dL Normal [facility] Comment on above: Performed By: #### C VDTBH #### [facility] [address] [place] [address] Dr. Roland Gr Glucose [Mass/Vol] 100 mg/dL Normal 74-106 [facility] Comment on above: Performed By: #### C VDTBH #### [facility] [address] [place] [address] Dr. Roland Gr Potassium [Moles/Vol] 4.2 mmol/L Normal 3.5-5.1 [facility] Comment on above: Performed By: #### C VDTBH #### [facility] [address] [place] [address] Dr. Roland Gr Protein [Mass/Vol] 6.5 g/dL Normal 6.4-8.[address] [facility] Comment on above: Performed By: #### C VDTBH #### [facility] [address] [address] [address] Roland Gr Sodium [Moles/Vol] 143 mmol/L Normal 136-[address] [facility] Comment on above: Performed By: #### C VDTBH #### [facility] [address] [address] [address] Roland Gr Urea nitrogen [Mass/Vol] 18.0 mg/dL Normal 7.0-18.0 [facility] Comment on above: Performed By: #### C VDTBH #### [facility] [address] [address] [address] Roland Gr Urea nitrogen/Creatinine [Mass ratio] 25.0 mg/mg Normal [facility] Comment on above: Performed By: #### C VDTBH #### [facility] [address] [place] [address] Dr. Roland Gr SED RATE WESTERGRENon 2021 SED RATE 12 mm/hr Normal <=20 [facility] Comment on above: Performed By: #### S EDR #### [facility] [address] [place] [address] Dr. Roland Gr TSHon 09-01-2022 TSH 1.634 uIU/mL Normal 0.358-3.740 [facility] Comment on above: Performed By: #### C VDTBH #### [facility] [address] [place] [address] Dr. Roland Gr URIC ACID SERUMon 09-01-2022 Urate [Mass/Vol] 5.3 mg/dL Normal 3.5-7.2 [facility] Comment on above: Performed By: #### L IPID, T7, CMP, URIC, TSH #### [facility] [address] [place] [address] Dr. Roland Gr XR cerv spine AP/LAT/FLX/EXT on 05-22-2022 XR cerv spine AP/LAT/FLX/EXT [facility] [place] [address] XRay Report Signed Patient: Adonay Irby MR#: [id number] : 1945 Acct:[id number] Age/Sex: 77 / M ADM Date: 05/22/22 Loc: ICXD Room: Type: [facility] Attending Dr: Joao Barba MD Copies [...] M.D.05/22/2022 9:52 AM Dictation Location: [place] [address] Transcribed By: [facility] 05/22/22 0952 Dictated By: Luca Trujillo DO 05/22/22 0950 Signed By: 05/22/22 0952 [facility] CBC AUTO DIFFon 05-20-2022 BASO # 0.1 103/ul Normal 0.0-0.1 [facility] Comment on above: Performed By: #### L IPID, T7, CMP, URIC, TSH #### [facility] [address] [place] [address] Dr. Roland Gr Basophils/100 WBC (Bld) 0.7 % Normal 0.2-2.0 [facility] Comment on above: Performed By: #### L IPID, T7, CMP, URIC, TSH #### [facility] [address] [address] [address] Roland Gr EO # 0.2 103/ul Normal 0.0-0.7 [facility] Comment on above: Performed By: #### L IPID, T7, CMP, URIC, TSH #### [facility] [address] [address] [address] Roland Gr Eosinophils/100 WBC (Bld) 2.9 % Normal 0.9-7.0 [facility] Comment on above: Performed By: #### L IPID, T7, CMP, URIC, TSH #### [facility] [address] [address] [address] Roland Gr Erythrocyte distribution width (RBC) [Ratio] 14.2 % Normal 11.0-15.0 [facility] Comment on above: Performed By: #### L IPID, T7, CMP, URIC, TSH #### [facility] [address] [place] [address] Dr. Roland Gr Hematocrit (Bld) [Volume fraction] 38.1 % Critically low 42.0-54.0 [facility] Comment on above: Performed By: #### L IPID, T7, CMP, URIC, TSH #### [facility] [address] [place] [address] Dr. Roland Gr Hemoglobin (Bld) [Mass/Vol] 12.4 g/dL Critically low 14.0-18.0 [facility] Comment on above: Performed By: #### L IPID, T7, CMP, URIC, TSH #### [facility] [address] [place] [address] Dr. Roland Gr IG # 0.05 10e3/ul Critically high 0.00-0.03 [facility] Comment on above: Performed By: #### L IPID, T7, CMP, URIC, TSH #### [facility] [address] [place] [address] Dr. Roland Gr IG % 0.7 % Critically high 0.0-0.5 [facility] Comment on above: Performed By: #### L IPID, T7, CMP, URIC, TSH #### [facility] [address] [place] [address] Dr. Roland Gr LYMPH # 1.7 103/ul Normal 1.2-3.8 [facility] Comment on above: Performed By: #### L IPID, T7, CMP, URIC, TSH #### [facility] [address] [place] [address] Dr. Roland Gr Lymphocytes/100 WBC (Bld) 24.6 % Normal 20.5-60.0 [facility] Comment on above: Performed By: #### L IPID, T7, CMP, URIC, TSH #### [facility] [address] [address] [address] Roland Gr MANUAL DIFF REQ NO Normal [facility] Comment on above: Performed By: #### L IPID, T7, CMP, URIC, TSH #### [facility] [address] [address] [address] Roland Gr MCH (RBC) [Entitic mass] 33.0 pg Normal 25.9-34.0 [facility] Comment on above: Performed By: #### L IPID, T7, CMP, URIC, TSH #### [facility] [address] [place] [address] Dr. Roland Gr MCHC (RBC) [Mass/Vol] 32.5 g/dL Normal 29.9-35.2 [facility] Comment on above: Performed By: #### L IPID, T7, CMP, URIC, TSH #### [facility] [address] [place] [address] Dr. Roland Gr MCV (RBC) [Entitic vol] 101.3 fL Critically high 80.0-94.0 [facility] Comment on above: Performed By: #### L IPID, T7, CMP, URIC, TSH #### [facility] [address] [place] [address] Dr. Roland Gr MONO # 0.7 103/ul Normal 0.3-0.8 [facility] Comment on above: Performed By: #### L IPID, T7, CMP, URIC, TSH #### [facility] [address] [place] [address] Dr. Roland Gr Monocytes/100 WBC (Bld) 10.6 % Normal 1.7-12.0 [facility] Comment on above: Performed By: #### L IPID, T7, CMP, URIC, TSH #### [facility] [address] [place] [address] Dr. Roland Gr NEUT # 4.2 103/ul Normal 1.4-6.5 [facility] Comment on above: Performed By: #### L IPID, T7, CMP, URIC, TSH #### [facility] [address] [address] [address] Roland Gr Neutrophils/100 WBC (Bld) 60.5 % Normal 43.0-75.0 [facility] Comment on above: Performed By: #### L IPID, T7, CMP, URIC, TSH #### [facility] [address] [place] [address] Dr. Roland Gr Platelet mean volume (Bld) [Entitic vol] 9.7 fL Normal 9.5-13.5 [facility] Comment on above: Performed By: #### L IPID, T7, CMP, URIC, TSH #### [facility] [address] [place] [address] Dr. Roland Gr PLT 203 103/ul Normal 150-450 [facility] Comment on above: Performed By: #### L IPID, T7, CMP, URIC, TSH #### [facility] [address] [place] [address] Dr. Roland Gr RBC 3.76 106/ul Critically low 4.70-6.10 [facility] Comment on above: Performed By: #### L IPID, T7, CMP, URIC, TSH #### [facility] [address] [place] [address] Dr. Roland Gr WBC 6.9 103/ul Normal 4.0-11.0 [facility] Comment on above: Performed By: #### L IPID, T7, CMP, URIC, TSH #### [facility] [address] [place] [address] Dr. Roland Gr PROF 14(COMP METB)on 022 Albumin [Mass/Vol] 3.5 g/dL Normal 3.4-5.0 [facility] Comment on above: Performed By: #### L IPID, T7, CMP, URIC, TSH #### [facility] [address] [place] [address] Dr. Roland Gr Albumin/Globulin [Mass ratio] 1.2 {ratio} Normal [facility] Comment on above: Performed By: #### L IPID, T7, CMP, URIC, TSH #### [facility] [address] [place] [address] Dr. Roland Gr ALP [Catalytic activity/Vol] 60 U/L Normal 46-116 [facility] Comment on above: Performed By: #### L IPID, T7, CMP, URIC, TSH #### [facility] [address] [place] [address] Dr. Roland Gr ALT [Catalytic activity/Vol] 30 U/L Normal 16-63 [facility] Comment on above: Performed By: #### L IPID, T7, CMP, URIC, TSH #### [facility] [address] [place] [address] Dr. Roland Gr Anion gap [Moles/Vol] 9.4 mmol/L Normal [facility] Comment on above: Performed By: #### L IPID, T7, CMP, URIC, TSH #### [facility] [address] [place] [address] Dr. Roland Gr AST [Catalytic activity/Vol] 21 U/L Normal 15-37 [facility] Comment on above: Performed By: #### L IPID, T7, CMP, URIC, TSH #### [facility] [address] [place] [address] Dr. Roland Gr Bilirubin [Mass/Vol] 0.4 mg/dL Normal 0.2-1.0 [facility] Comment on above: Performed By: #### L IPID, T7, CMP, URIC, TSH #### [facility] [address] [place] [address] Dr. Roland Gr Calcium [Mass/Vol] 8.6 mg/dL Normal 8.5-10.1 [facility] Comment on above: Performed By: #### L IPID, T7, CMP, URIC, TSH #### [facility] [address] [place] [address] Dr. Roland Gr Chloride [Moles/Vol] 108 mmol/L Critically high 98-107 [facility] Comment on above: Performed By: #### L IPID, T7, CMP, URIC, TSH #### [facility] [address] [address] [address] Roland Gr CO2 [Moles/Vol] 30.8 mmol/L Normal 21.0-32.0 [facility] Comment on above: Performed By: #### L IPID, T7, CMP, URIC, TSH #### [facility] [address] [address] [address] Roland Gr Creatinine [Mass/Vol] 0.76 mg/dL Normal 0.70-1.30 [facility] Comment on above: Performed By: #### L IPID, T7, CMP, URIC, TSH #### [facility] [address] [address] [address] Roland rG EGFR-AF SAUDI ARABIAN >60 Normal >=60 [facility] Comment on above: Performed By: #### L IPID, T7, CMP, URIC, TSH #### [facility] [address] [place] [address] Dr. Roland Gr EGFR-NON AF SAUDI ARABIAN >60 Normal >=60 [facility] Comment on above: Performed By: #### L IPID, T7, CMP, URIC, TSH #### [facility] [address] [address] [address] Roland Gr Globulin (S) [Mass/Vol] 3.0 g/dL Normal [facility] Comment on above: Performed By: #### L IPID, T7, CMP, URIC, TSH #### [facility] [address] [address] [address] Roland Gr Glucose [Mass/Vol] 99 mg/dL Normal 74-106 [facility] Comment on above: Performed By: #### L IPID, T7, CMP, URIC, TSH #### [facility] [address] [address] [address] Roland Gr Potassium [Moles/Vol] 4.2 mmol/L Normal 3.5-5.1 [facility] Comment on above: Performed By: #### L IPID, T7, CMP, URIC, TSH #### [facility] [address] [address] [address] Roland Gr Protein [Mass/Vol] 6.5 g/dL Normal 6.4-8.2 [facility] Comment on above: Performed By: #### L IPID, T7, CMP, URIC, TSH #### [facility] [address] [address] [address] Roland Gr Sodium [Moles/Vol] 144 mmol/L Normal 136-[address] [facility] Comment on above: Performed By: #### L IPID, T7, CMP, URIC, TSH #### [facility] [address] [address] [address] Roland Gr Urea nitrogen [Mass/Vol] 16.0 mg/dL Normal 7.0-18.0 [facility] Comment on above: Performed By: #### L IPID, T7, CMP, URIC, TSH #### [facility] [address] [place] [address] Dr. Roland Gr Urea nitrogen/Creatinine [Mass ratio] 21.1 mg/mg Normal [facility] Comment on above: Performed By: #### L IPID, T7, CMP, URIC, TSH #### [facility] [address] [address] [address] Roland Gr SED RATE [facility] 2021 SED RATE 8 mm/hr Normal <=20 [facility] Comment on above: Performed By: #### L IPID, T7, CMP, URIC, TSH #### [facility] [address] [address] [address] Roland Gr Vital Signs Date Time Vital Sign Value Performing Clinician Facility 04-08-2024 10:05 Body mass index (BMI) [Ratio] 24.45 kg/m2 Carlos Farris MD Work Phone: [facility] 04-08-2024 10: Body temperature 97 [degF] Carlos Farris MD Work Phone: [facility] 04-08-2024 10:05040 Body weight 75.1 kg Carlos Farris MD Work Phone: [facility] 04-08-2024 10:05-0400 Diastolic blood pressure 75 mm[Hg] Carlos Farris MD Work Phone: [facility] 04-08-2024 10:05-0400 Heart rate 47 /min Carlos Farris MD Work Phone: [facility] Comment on above: heart rate low provider notify 04-08-2024 10:05-0400 Respiratory rate 19 /min Carlos Farris MD Work Phone: [facility] 04-08-2024 10:05-0400 SaO2% (BldA) [Mass fraction] 99 % Carlos Farris MD Work Phone: [facility] 04-08-2024 10:05-0400 Systolic blood pressure 141 mm[Hg] Carlos Farris MD Work Phone: [facility] 2022 11:09-0400 Body height 175.3 cm Carlos Farris MD Work Phone: [facility] 2022 11:09-0400 Body temperature 97.11 [degF] Carlos Farris MD Work Phone: [facility] 2022 11:09-0400 Body weight 74 kg Carlos Farris MD Work Phone: [facility] 2022 11:09-0400 Diastolic blood pressure 60 mm[Hg] Carlos Farris MD Work Phone: [facility] 2022 11:09-0400 Heart rate 48 /min Carlos Farris MD Work Phone: [facility] 2022 11:09-0400 Respiratory rate 17 /min Carlos Farris MD Work Phone: [facility] 2022 11:09-0400 SaO2% (BldA) [Mass fraction] 97 % Carlos Farris MD Work Phone: [facility] 2022 11:09 Systolic blood pressure 118 mm[Hg] Carlos Farris MD Work Phone: [facility] Encounters Encounter Date Encounter Type Care Provider Facility Start: 12-14-2024 End: 12-14-2024 Bamboo flowsheet Bridger Andrew DO Work Phone: [facility] Start: 12-14-2024 End: 12-14-2024 Bamboo flowsheet Bridger Andrew DO Work Phone: [facility] Start: 12-14-2024 End: 12-14-2024 ambulatory BRIDGER ANDREW Not Available Start: 12-08-2024 End: 12-08-2024 Telephone encounter Carlos Farris MD Work Phone: [facility] Comment on above: Medical Equipment Or [facility]ion Form Start: 10-11-2024 End: 10-11-2024 Refill Jammie Fam COT NOMS NB OPHT Comment on above: Primary [...] Fct Lab Main 7 Pulmonary Medicine Start: 10-14-2023 ambulatory BELLA CORONADO Facility :[facility] Start: 08-19-2023 Telephone encounter [facility] Provider Pul monary Medicine Comment on above: Referral Request Start: 08-13-2023 Telephone encounter Carlos rey MD Work Phone: Pulmonary Medicine Comment on above: Filters for Nebulize r Start: 06-24-2023 End: 06-25-2023 ambulatory BELLAANTONIO CORONADO Facility:[facility] Start: 06-04-2023 Telephone encounter Carlos rey MD [...] Work Phone: Pulmonary Medicine Comment on above: Heeler - O ther Start: 09-01-2022 End: 09-02-[address] LEISA BARBA Facility:[facility] Start: 05-22-2022 End: 05-22-2022 Patient encounter procedure MD Joao Barba Work Phone: [facility] [address] Start: 05-20-2022 End: 05-21-2022 [...] Fct Lab Main 10 Other Phone: [facility] MAIN Procedures Date Procedure Procedure Detail Performing Clinician Start: 12-14-2024 Computerized ophthal juan francisco imaging optic nerve Bridger Andrew DO Work Phone: Start: 12-14-2024 End: 12-14-2024 Oph medical xm&eval comprhnsv estab pt 1/> Primary open angle glaucoma (POAG) of both eyes, mild stage (CMS/HCC) Bridger Andrew DO Work Phone: Comment on above: 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, mild stage (CMS/HCC) (Primary Dx); Anterior scleritis of left eye; Right posterior capsular opacification; Dry eyes Start: 04-08-2024 Spmtry w/vc expirato ry edie w/wo mxml vol vntj Carlos Farris MD Work Phone: Start: 04-08-2024 Unlisted pulmonary service/procedure Carlos Farris MD Work Phone: Start: 04-08-[address] RAUL HUIZAR . Comment on above: Performed By: #### C VDTBH #### [facility] [address] [place] [address] Dr. Roland Gr Start: 09-01-[address] RAUL HUIZAR . Comment on above: Performed By: #### C VDTBH #### [facility] [address] [place] [address] Dr. Roland Gr Start: 05-22-2022 X-ray of [...] Start: 12-14-2024 End: 12-14-2024 Patient encounter procedure NOMS NB OPHT Comment on above: Arrived Start: 11-16-2024 Advance Directive Discussion Advance Directive Discussion [facility] Start: 07-17-2024 Covid-19 Vaccine () Covid-19 Vaccine () [facility] Start: 07-17-2024 Influenza vaccination Influenza Vacc ine (#1) [facility] Start: 02-02-2024 Covid-19 Vaccine ( season) Covid-19 Vaccine ( season) [facility] Start: 11-16-2023 Advance Directive Discussion Advance Directive Discussion [facility] Start: 11-16-2023 Behavioral Health Screening Behavioral Health Screening [facility] Start: 07-17-2023 Covid-19 Vaccine ( season) Covid-19 Vaccine ( season) [facility] Start: 07-17-2023 Influenza vaccination [facility] Start: 11-16-2022 ADVANCE DIRECTIVE DISCUSSION ADVANCE DIRECTIVE DISCUSSION [facility] Start: 11-16-2022 DEPRESSION ASSESSMENT DEPRESSION ASS ESSMENT [facility] Start: 07-17-2022 Influenza vaccination INFLUENZA (#1) [facility] Start: 02-12-2022 COVID-19 VACCINE (4 - Booster for Moderna series) COVID-19 VACCINE (4 - Booster for Moderna series) [facility] Start: 12-10-2021 COVID-19 VACCINE (4 - Booster for Moderna series) COVID-19 VACCINE (4 - Booster for Moderna series) [facility] Start: 12-10-2021 COVID-19 VACCINE (4 - Moderna series) COVID-19 VACCINE (4 - Moderna series) [facility] Start: 11-16-2021 ADVANCE DIRECTIVE DISCUSSION ADVANCE DIRECTIVE DISCUSSION [facility] Start: 11-16-2021 DEPRESSION ASSESSMENT DEPRESSION ASS ESSMENT [facility] Start: 2018 RSV Vaccine (1 - 1-d ose 75+ series) RSV Vaccine (1 - 1-dose 75+ series) [facility] Start: 2008 Pneumococcal Vaccine : 65+ (1 - PCV) Pneumococcal Vaccine: 65+ (1 - PCV) [facility] Start: 2008 PNEUMOCOCCAL: 65+ (1 - PCV) PNEUMOCOCCAL: 65+ (1 - PCV) [facility] Start: 2003 RSV Vaccine (1 - 1-d ose 60+ series) RSV Vaccine (1 - 1-dose 60+ series) [facility] Start: 1993 SHINGRIX VACCINE (1 of 2) SHINGRIX VACCINE (1 of 2) [facility] Start: 1988 DIABETES SCREEN DIABETES SCREEN [facility] Start: 1988 Diabetes Screening Diabetes Screenin g [facility] Start: 1962 Urine microalbumin profile [facility] Start: 1961 Anxiety Screening Anxiety Screening [facility] Start: 1961 Depression Screening Depression Scre ening [facility] Start: 1955 Adult depression screening assessment DEPRESSION SCREENING [facility] MIPS/MEPS MIPS/MEPS PFT Ro utine 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 Work Phone: End: 06-15-2023 MIPS/MEPS MIPS/MEPS PFT Routine Disorder of diaphragm Post poliomyelitis syndrome 1 Occurrences starting 2022 until 06/15/[address] [facility] Work Phone: Comment on above: 1 Occurrences starti ng 2022 until 06/15/2023 MIPS/MEPS MIPS/MEPS PFT Ro utine Disorder of nervous system 04/08/2024 9:[address] 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 Work Phone: End: 06-15-2023 SPIROMETRY SITTING AND SUPINE SPIROMETRY SITTING AND SUPINE PFT Routine Disorder of diaphragm Post poliomyelitis syndrome 1 Occurrences starting 2022 until 06/15/[address] [facility] Work Phone: Comment on above: 1 Occurrences starti ng 2022 until 06/15/2023 SPIROMETRY SITTING A ND SUPINE SPIROMETRY SITTING AND SUPINE PFT Routine Disorder of nervous system 04/08/2024 9:[address] [facility] Work Phone: End: 05-08-2025 SPIROMETRY SITTING AND SUPINE SPIROMETRY SITTING AND SUPINE PFT Routine Disorder of diaphragm Post poliomyelitis syndrome 1 Occurrences starting 04/08/2024 until 05/08/[address] [facility] Work Phone: Comment on above: 1 Occurrences starti ng 04/08/2024 until 05/08/2025 [facility] Immunizations Immunization Date Immunization Notes Care Provider Patricia mitchell 07-28-2024 influenza virus vaccine, unspecified formulation Bridger Andrew DO Work Phone: [facility] 09-25-2023 influenza virus vaccine, unspecified formulation Bridger Andrew DO Work Phone: [facility] 08-31-2020 influenza virus vaccine, unspecified formulation Carlos Farris MD Work Phone: [facility] 08-27-2018 influenza, seasonal, injectable Pulm 10 Other Phone: [facility] Payers Date Payer Category Payer Private Health Insurance [facility] [id number] 2009 Unknown [employer] SUPPLEMENT [id number] 2009-Present [phone] [address] [employer] [place] [address] Indemnity [id number] 2009 Unknown [employer] SUPPLE[employer] [id number] 2009-Present [phone] [address] [employer] [place] [address] Indemnity [id number] 2003 Medicare MEDICARE MEDICAR E A AND B [id number] 2003-Present [phone] [facility] [address] [place] [address] Medicare [id number] 2003 Medicare [id number] 1959 Medicare [id number] 1959 Unknown [id number] 1943 Unknown [id number] 1943 Unknown [id number] .[id number] 1943 Unknown [id number] .[id number] 1943 Unknown [id number] .[id number] 1943 Unknown [id number] .[id number] 1943 Unknown [id number] .[id number] 1943 Unknown [id number] .[id number] 1943 Unknown [id number] .[id number] 1943 Unknown [id number] .[id number] 1943 Unknown [id number] .[id number] Self-pay Self Pay [id number] Social History Date Type Detail Facility Start: 12-18-2017 End: 06-07-2024 Tobacco smoking status NHIS Ex-smoker [facility] Start: 12-18-2017 End: 04-08-2024 Tobacco use and exposure Smokeless tobacco non-user [facility] Start: 12-18-2017 End: 04-08-2024 Tobacco Comment Quit 25+ years ago [facility] Start: 1945 Sex Assigned At Not on file [facility] Start: 05-06-2022 End: 2022 Exposure to SARS-CoV-2 (event) Not sure [facility] Start: 1945 Sex Assigned At Male F [facility] History of tobacco use Current smoker [facility] Start: 2022 End: 12-14-2024 Gender identity Not on file [facility] Start: 2022 End: 12-14-2024 History of Social function [facility] National Score (1-100), lower number is lower risk 77 [facility] History of tobacco use Cigarette Smoker N [facility] Clinical Notes 2022 to 12-14-2024 Bridger Andrew, - 12/14/2024 10:00 AM ESTTelephone Encounter - Hanna Hyde - 12/08/2024 1:35 PM ESTTelephone Encounter - Hanna Hyde - 12/08/2024 1:35 PM EST Note Date & Type Note Facility 12-14-2024 History of Presen t illness Narrative Images from the original note were not included. Assessment/Plan Primary open angle glaucoma (POAG) of both eyes, mild stage (CMS/HCC) - Primary open angle glaucoma OU - Importance of taking medications as prescribed was stressed. Patient was advised to report any inability or unwillingness to take medications or if cost is a concern. Patient must report any side effects that may develop. Patient must report any change in systemic medications as they may interact or interfere with their glaucoma medications. Patient will be dilated at least on an annual basis for optic nerve evaluation and will likely have an automated visual field examination at least once a year. It was explained to the patient that they might require additional treatment for intraocular pressure control such as laser therapy or surgical intervention. - Cont. Latanoprsot both eyes (OU) at bedtime and Dorz/Johnson both eyes (OU) BID. Watch intraocular pressure (IOP) both eyes (OU). Slightly higher on 11/2024 visit. 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 Followed by Dr. Barba. Currently takes pred acetate left eye (OS) 2x/wk and this keeps him stable. Right posterior capsular opacification - PCO OU: (Posterior Capsule Opacification) Can be observed without intervention if PCO is not visually significant. Nd:YAG laser capsulotomy may be considered if impairment of vision rises to a level that dose not meet the patient's functional needs or interferes with activities of daily living. Risks, benefits and alternatives to the procedure will be reviewed. If the patient has undergone Nd:YAG laser capsulotomy, they are to notify their chief credit officer promptly if they have a significant change in symptoms, such as flashes of light (photopsia), an increase in floaters, loss of visual field or decrease in visual acuity. Dry eyes - Dry Eyes OU -- Environmental changes to minimize dryness and exposure and the use of artificial tears were recommended. documented in this encounter [facility] 12-08-2024 Telephone encounter Note Summary: Medical Equipment Order Form Images from the original note were not included. Admin faxed over medical equipment order to [facility], signed by Dr. Carlos Farris. Admin scanned into chart (scanned documents) on 12/08/2024. [facility] 12-08-2024 Miscellaneous Notes Summary: Medical Equipment Order Form Images from the original note were not included. Admin faxed over medical equipment order to [facility], signed by Dr. Carlos Farris. Admin scanned into chart (scanned documents) on 12/08/2024. documented in this encounter [facility] 04-08-2024 History of Presen t illness Narrative [...] Mood and affect normal. DATABASE DME is [employer]. [employer] 03/09/2024 - 04/07/2024 Usage days 28/30 days (93%) >= 4 hours 28 days (93%) Usage hours 212 hours 11 minutes Average usage (total days) 7 hours 4 minutes Average usage (days used) 7 hours 35 minutes Median usage (days used) 7 hours 35 minutes Total used hours (value since last reset - 04/07/2024) 6,[address] Serial number [id number] Mode Spont Timed IPAP 21 cmH2O (same [...] ULN Sitting % Supine % chg Date [id number] Time 12:21PM 12:37PM Height 170.2 170.2 Weight 88 88 FVC 3.74 2.89 4.60 1.29 35 0.57 -56 FEV 1 2.69 1.97 3.41 0.94 35 0.40 -58 FEV1%F 72.57 62.89 82.25 73.03 101 69.32 -5 PIMAX 101.78 75.02 128.5 26.72 26 PeMax 190.81 140.04 241.6 99.65 52 Pred LLN ULN Sitting % Supine % [facility] Date [id number] Time 09:57AM 10:09AM Height 170.2 170.2 Weight 88 88 FVC 3.74 2.89 4.60 1.25 33 0.55 -56 FEV 1 2.69 1.97 3.41 0.80 30 0.25 -69 FEV1%F 72.57 62.89 82.25 64.02 88 45.69 -29 ETCO2 52.00 PIMAX 101.78 75.02 128.5 27.03 27 PeMax 190.81 140.04 241.6 114.34 60 Pred LLN ULN Sitting % Supine % chg Date [id number] Time 02:31PM 02:47PM Height 170.2 170.2 Weight 91.5 91.5 FVC 3.78 2.93 4.63 1.62 43 0.45 -72 FEV 1 2.73 2.01 3.45 1.09 40 0.38 -65 FEV1%F 72.78 63.10 82.46 67.35 93 85.04 26 PIMAX 102.33 75.02 129.6 33.66 33 PeMax 191.84 140.04 243.6 74.05 39 Pred LLN ULN Sitting % Supine % chg Date [id number] 255724 Time 09:00AM 09:24AM Height 170.2 170.2 Weight [...] movements Arterial blood gases on hospital admission [facility] April 13, 2017 PH 7.26, PCO2 [...] familial. He will follow up with his financial compliance examiner. PLAN Continue IPAP 05/11 backup rate 10 [...] which included preparing to see the patient, [id number] patient care, completing clinical documentation, obtaining and/or [...] April 08, 2024 documented in this encounter [facility] 04-08-2024 Note HNO ID: [id number] Author: CARLOS FARRIS MD Service: ? Author [...] Mood and affect normal. DATABASE DME is [employer] [facility] [employer] 03/09/2024 - 04/07/2024 Usage days 28/30 days (93%) >= 4 hours 28 days (93%) Usage hours 212 hours 11 minutes Average usage (total days) 7 hours 4 minutes Average usage (days used) 7 hours 35 minutes Median usage (days used) 7 hours 35 minutes Total used hours (value since last reset - 04/07/2024) 6,[address] Serial number [id number] Mode Spont Timed IPAP 21 cmH2O (same [...] 3.37 4.32 74. (more content not included)... [facility] 04-08-2024 Note HNO ID: [id number] Author: NAHUM SANDRA RRT Service: ? Author Type: Registered Resp Therapist Type: Progress Notes Filed: 04/08/2024 10:01 Note Text: PULM FUNCTION SMARTBLOCK: Provider: Carlos Farris MD Spirometry: 1 MIP/MEP: 1 TcCO2: 1 System: MC6 - [id number] [facility] 04-08-2024 History of Presen t illness Narrative PULM FUNCTION SMARTBLOCK: Provider: Carlos Farris MD Spirometry: 1 MIP/MEP: 1 TcCO2: 1 System: MC6 - [id number] documented in this encounter [facility] 08-19-2023 Miscellaneous Notes Received referral request from [facility] to see patient again for dx: COPD, Right Diaphragm Dysfunction. Request is scanned into chart. documented in this encounter [facility] 08-13-2023 Miscellaneous Notes Adonay Irby's spouse (Elizabeth) is requesting replacement filters for a nebulizer. She was unable to tell admin where it needed to be sent. documented in this encounter [facility] 06-04-2023 Miscellaneous Notes Imported External PAP Therapy Report from [facility] (dated 06/04/23). Please allow time delay for documents to appear in Epic (Scanned Documents Tab). documented in this encounter [facility] 09-24-2022 Miscellaneous Notes new order and office notes have been faxed to [facility] fax# [phone] called [facility] [phone] they are in need of new script for supplies for his machine and also office notes please put in a new rx for supplies for his CPAP for me to fax over with office notes [facility] fax# [phone] documented in this encounter [facility] 2022 History of Presen t illness Narrative [...] download [employer] outside DME account tagger to [facility], [employer] [facility] Usage 04/16/2022 - 05/15/2022 Usage days 29/30 days (97%) >= 4 hours 29 days (97%) Average usage (days used) 7 hours 50 minutes [employer] [address] Serial number [id number] Mode Spont Timed IPAP 21 cmH2O EPAP [...] ULN Sitting % Supine % chg Date [id number] Time 12:21PM 12:37PM Height 170.2 170.2 Weight 88 88 FVC 3.74 2.89 4.60 1.29 35 0.57 -56 FEV 1 2.69 1.97 3.41 0.94 35 0.40 -58 FEV1%F 72.57 62.89 82.25 73.03 101 69.32 -5 PIMAX 101.78 75.02 128.5 26.72 26 PeMax 190.81 140.04 241.6 99.65 52 Pred LLN ULN Sitting % Supine % [facility] Date [id number] [id number] Time 09:57AM 10:09AM Height 170.2 170.2 Weight [...] Pred LLN ULN Sitting % Supine % [facility] Date [id number] Time 02:31PM 02:47PM Height 170.2 170.2 Weight 91.5 91.5 FVC 3.78 2.93 4.63 1.62 43 0.45 -72 FEV 1 2.73 2.01 3.45 1.09 40 0.38 -65 FEV1%F 72.78 63.10 82.46 67.35 93 85.04 26 PIMAX 102.33 75.02 129.6 33.66 33 PeMax 191.84 140.04 243.6 74.05 39 Pred LLN ULN Sitting % Supine % [facility] Date [id number] Time 09:00AM 09:24AM Height 170.2 170.2 Weight [...] movements Arterial blood gases on hospital admission [facility] April 13, 2017 PH 7.26, PCO2 [...] the recent weight loss. 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 on pulmonary function testing [facility] 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 on pulmonary function testing Ineffective airway clearance Other dyspnea and respiratory abnormality [facility] Diagnosis Disorder of nervous system- Primary Unspecified disorders of nervous system [facility] Diagnosis Disorder of nervous system- Primary Unspecified disorders of nervous system [facility]* 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 Obstructive sleep apnea Obstructive sleep apnea (adult) (pediatric) [facility] Diagnosis Primary open angle glaucoma (POAG) of both eyes, mild stage (CMS/HCC) documented in this encounter [facility]* Diagnosis Primary open angle glaucoma (POAG) of both eyes, mild stage (CMS/HCC)- Primary documented in this encounter [facility]* Diagnosis Primary open angle glaucoma (POAG) of both eyes, mild stage (CMS/HCC)- 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 Unspecified after-cataract Dry eyes Unspecified tear film insufficiency documented in this encounter [facility] HealthcareReason for referral (narrative)* Outpatient Procedure (Routine) - Pending Review Specialty Diagnoses / Procedures Referred By Brian moran [facility] Diagnoses Disorder of diaphragm Post poliomyelitis syndrome Procedures MIPS/MEPS UNLISTED PULMONARY SERVICE/PROCEDURE Aboussouan, Loutfi S, MD [address] [place] [address] [address] Referral ID Status Reason Start Date Expiration Date Visits Requested Visits Authorized [id number] Pending Review Auto-Generat ed Referral 2022 06/15/2023 1 1 * Outpatient Procedure (Routine) - Pending Review Specialty Diagnoses / Procedures Referred By Contac t Referred To [facility] [place] Diagnoses Disorder of diaphragm Post poliomyelitis syndrome Procedures SPIROMETRY SITTING AND SUPINE SPMTRY W/VC EXPIRATORY EDIE W/[place] [address] [place] [address] [place] [address] Referral ID Status Reason Start Date Expiration Date Visits Requested Visits Authorized [id number] Pending Review Auto-Generat ed Referral 2022 06/15/2023 1 1 [facility] for referral (narrative)* Outpatient Procedure (Routine) - Pending Review Specialty Diagnoses / Procedures Referred By Contac t Referred To [facility] [place] Diagnoses Disorder of diaphragm Post poliomyelitis syndrome Procedures MIPS/MEPS UNLISTED PULMONARY SERVICE/[place] [address] [place] [address] [address] Referral ID Status Reason Start Date Expiration Date Visits Requested Visits Authorized [id number] Pending Review Auto-Generat ed Referral 04/08/2024 05/08/2025 1 1 * Outpatient Procedure (Routine) - Pending Review Specialty Diagnoses / Procedures Referred By Contac t [facility] Diagnoses Disorder of diaphragm Post poliomyelitis syndrome Procedures SPIROMETRY SITTING AND SUPINE SPMTRY W/VC EXPIRATORY EDIE W/WO MXML VOL VNTJ Carlos Farris MD [address] [place] [address] Res[facility] [place] [address] [place] [address] Referral ID Status Reason Start Date Expiration Date Visits Requested Visits Authorized [id number] Pending Review Auto-Generat ed Referral 04/08/2024 05/08/2025 1 1 [facility] Advance Directives No Advanced Directives Records Found [...] or prosecute any alcohol or drug abuse patient.[facility] CenterIn the event this information is protected by the Federal Confidentiality of Alcohol and Drug Abuse Patient Records regulations: The Federal rules restrict any use of the information to criminally investigate or prosecute any alcohol or drug abuse patient.[facility] Center[facility] the event this information is protected by the Federal Confidentiality of Alcohol and Drug Abuse Patient Records regulations: The Federal rules restrict any use of the information to criminally investigate or prosecute any alcohol or drug abuse patient.[facility] Center[facility] the event this information is protected by the Federal Confidentiality of Alcohol and Drug Abuse Patient Records regulations: The Federal rules restrict any use of the information to criminally investigate or prosecute any alcohol or drug abuse patient.[facility] CenterIn the event this information is protected by the Federal Confidentiality of Alcohol and Drug Abuse Patient Records regulations: The Federal rules restrict any use of the information to criminally investigate or prosecute any alcohol or drug abuse patient.[facility] Center[facility] the event this information is protected by the Federal Confidentiality of Alcohol and Drug Abuse Patient Records regulations: The Federal rules restrict any use of the information to criminally investigate or prosecute any alcohol or drug abuse patient.[facility] CenterIn the event this information is protected by the Federal Confidentiality of Alcohol and Drug Abuse Patient Records regulations: The Federal rules restrict any use of the information to criminally investigate or prosecute any alcohol or drug abuse patient.[facility] CenterIn the event this information is protected by the Federal Confidentiality of Alcohol and Drug Abuse Patient Records regulations: The Federal rules restrict any use of the information to criminally investigate or prosecute any alcohol or drug abuse patient.[facility] CenterIn the event this information is protected by the Federal Confidentiality of Alcohol and Drug Abuse Patient Records regulations: The Federal rules restrict any use of the information to criminally investigate or prosecute any alcohol or drug abuse patient.[facility] CenterIn the event this information is protected by the Federal Confidentiality of Alcohol and Drug Abuse Patient Records regulations: The Federal rules restrict any use of the information to criminally investigate or prosecute any alcohol or drug abuse patient.[facility] CenterIn the event this information is protected by the Federal Confidentiality of Alcohol and Drug Abuse Patient Records regulations: The Federal rules restrict any use of the information to criminally investigate or prosecute any alcohol or drug abuse patient.[facility] CenterIn the event this information is protected by the Federal Confidentiality of Alcohol and Drug Abuse Patient Records regulations: The Federal rules restrict any use of the information to criminally investigate or prosecute any alcohol or drug abuse patient.[facility] Reason for Visit (unrecogniz ed section and content) Reason Comments Spirometry Specialty Diagnoses / Procedures Referred By Brian moran Referred To [facility] 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 Procedures MIPS/MEPS UNLISTED PULMONARY SERVICE/PROCEDURE Carlos Farris MD [address] [place] [address] Respiratory [place] [facility] [place] [address] Referral ID Status Reason Start Date Expiration Date V isits Requested Visits Authorized [id number] Closed Auto-Generate d Referral 12/04/2021 01/03/2023 1 1 Specialty Diagnoses / Procedures Referred By Brian Referred To [facility] 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 Procedures SPIROMETRY SITTING AND SUPINE SPMTRY W/VC EXPIRATORY EDIE W/[place] [address] [place] [address] [address] Referral ID Status Reason Start Date Expiration Date V isits Requested Visits Authorized [id number] Closed Auto-Generate d Referral 12/04/2021 01/03/2023 1 1 Reason Comments Established Patient Reason Comments Heeler - Other Reason Comments Received Outside Medical Records Reason Onset Date Comments Filters for Nebulizer 08/13/2023 Reason Comments Referral Request Specialty Diagnoses / Procedures Referred By Contac t Referred To Contact [facility] [place] Diagnoses Disorder of nervous system Procedures SPIROMETRY SITTING AND SUPINE SPMTRY W/VC EXPIRATORY EDIE W/WO MXML VOL VNTJ Carlos Farris MD [address] [place] [address] [address] Referral ID Status Reason Start Date Expiration Date V isits Requested Visits Authorized [id number] Closed Auto-Generate d Referral 08/11/2023 09/09/2024 1 1 Specialty Diagnoses / Procedures Referred By Contac t Referred To [facility] [place] Diagnoses Disorder of nervous system Procedures MIPS/MEPS UNLISTED PULMONARY SERVICE[place] [address] [place] [address] [address] Referral ID Status Reason Start Date Expiration Date V isits Requested Visits Authorized [id number] Closed Auto-Generate d Referral 08/11/2023 09/09/2024 1 1 Reason Comments Follow Up Reason Onset Date Comments Refill Request 04/25/2024 Reason Onset Date Comments Med Refill 10/11/2024 Reason Comments Med Refill Reason Comments Medical Equipment Order Form Reason Comments Follow-up Glaucoma Care Teams (unrecognized sec tion and content) Jewel Oliving Machine Operator Relationship Specialty Start Date End Date Kamilla Huizar MD PCP - General Family Practice 04/17/17 Jewel Oliving Machine Operator Relationship Specialty Start Date End Date Kamilla Huizar MD PCP - General Family Practice 04/17/17 Jewel Oliving Machine Operator Relationship Specialty Start Date End Date Kamilla Huizar MD PCP - General Family Practice 04/17/17 Team Status: Inactive Member Role Status Dates Joao Barba MD Attending Provider Active Jewel Oliving Machine Operator Relationship Specialty Start Date End Date Kamilla Huizar MD PCP - General Family Medicine 04/17/17 Jewel Oliving Machine Operator Relationship Specialty Start Date End Date Kamilla Huizar MD PCP - General Family Medicine 04/17/17 Jewel Oliving Machine Operator Relationship Specialty Start Date End Date Kamilla Huizar MD PCP - General Family Medicine 04/17/17 Jewel Oliving Machine Operator Relationship Specialty Start Date End Date Kamilla Huizar MD PCP - General Family Medicine 04/17/17 Jewel Oliving Machine Operator Relationship Specialty Start Date End Date Kamilla Huizar MD PCP - General Family Medicine 04/17/17 Jewel Oliving Machine Operator Relationship Specialty Start Date End Date Kamilla Huizar MD PCP - General Family Medicine 04/17/17 Jewel Oliving Machine Operator Relationship Specialty Start Date End Date Kamilla Huizar MD PCP - General Family Medicine 04/17/17 Jewel Oliving Machine Operator Relationship Specialty Start Date End Date Kamilla Huizar MD [address] [place] [address] PCP - General Family Medicine 11/24/23 Jewel Oliving Machine Operator Relationship Specialty Start Date End Date Kamilla Huizar MD [address] [facility] [place] [address] PCP - General Family Medicine 11/24/23 Jewel Oliving Machine Operator Relationship Specialty Start Date End Date Kamilla Huizar MD [address] [place] [address] PCP - General Family Medicine 11/24/23 Jewel Oliving Machine Operator Relationship Specialty Start Date End Date Kamilla Huizar MD [address] [place] [address] PCP - General [facility] 11/24/23 Goals (unrecognized section and content) Goals may be documented in a n alternate section (unrecognized sect ion and content) No Status Records FoundNo Status Records FoundNo Status Records FoundNo Status Records FoundNo Status Records Found INFORMATION SOURCE (unrecogn ized section and content) DATE CREATED AUTHOR 06/25/2022 [facility] DATE CREATED AUTHOR AUTHOR'S ORGANIZ ATION 04/24/2023 [facility] DATE CREATED AUTHOR AUTHOR'S ORGANIZ ATION 10/16/2023 [facility] DATE CREATED AUTHOR AUTHOR'S ORGANIZ ATION 12/10/2024 [facility] DATE CREATED AUTHOR AUTHOR'S ORGANIZ ATION 12/16/2024 [facility] EPIC FOR RECORDS PERTAINING TO PATIENTS WHO ARE [...] BE BASED ON THE PRIMARY CLINICAL RECORDS. [facility]. provides no warranty or guarantee of the accuracy or completeness of information in this document.
[2025-01-04 09:22] LABS: Alanine Aminotransferase 31 U/L (16-63); Albumin Globulin Ratio 1.2; Albumin Level 3.5 g/dL (3.4-5.0); Alkaline Phosphatase 66 U/L (46-116); Anion Gap 9.6; Aspartate Amino Transferase 26 U/L (15-37); BUN Creatinine Ratio 25.6; Bilirubin Total 0.9 mg/dL (0.2-1.0); Carbon Dioxide 31.3 mmol/L (21.0-32.0); Chloride 108 mmol/L (98-107); Erythrocyte Sedimentation Rate 9 mm/hr (<=20); Estimated GFR (African America >60 (>=60 mL/min/1.73m^2); Estimated GFR (Non-African Ame >60 (>=60 mL/min/1.73m^2); Globulin 2.8 g/dL; Glucose 95 mg/dL (74-106); Potassium 3.9 mmol/L (3.5-5.1); Sodium 145 mmol/L (136-145); Total Protein 6.3 g/dL (6.4-8.2)
== END 2025-01-04 08:43 | disposition home or self-care (01) ==
LOC: LAB 08:44
PROVIDERS: PCP Family Medicine; Visit Provider Registered Nurse
DX: H15.012 Anterior scleritis, left eye (principal); Z79.899 Other long term (current) drug therapy
CPT/HCPCS: 36415; 80053; 85025; 85652

== ENCOUNTER 2025-05-03 08:34 | Outpatient (OUT) | payer MEDICARE, OTHER, SELFPAY ==
--- OUTSIDE RECORDS SUMMARY | 2024-12-06 05:45 | XMS_ITS ---
Author Organization [facility] [place] Address [address] [place] [address] Care Team Providers Care Young Adult Librarian Name Role Phone Anshu Huizar Primary Care Provider Allergies Allergen (clinical drug ingredient) Drug/Non Drug Allergy documented on EMR Reaction Allergy Type Onset Date Status Substance with sulfonamide structure and antibacterial mechanism of action (substance) Sulfa Antibiotics Unknown Drug Allergy Active REASON FOR VISIT runny nose- clear Medications Medication SIG (Take, Route, Frequency, Duration) Notes Start Date End Date Status Tamsulosin HCl 0.4 MG 1 capsule Orally O nce a day for 90 days Active prednisoLONE Acetate Active Propranolol HCl 40 MG 1 tablet Orally bi d for 30 days 05/02/2024 Active Protonix 40 MG 1 tablet Orally Once a day for 30 days Active Simvastatin 20 MG 1 tablet in the even ing Orally Once a day for 90 days Active Furosemide 20 MG Take 1 tablet by once daily for 30 Active Ipratropium-Albuterol 0.5-2.5 (3) MG/3ML 3 mL as needed Inhalation every 6 hrs 04/28/2024 Active Latanoprost 0.005 % 1 drop into affected eye in the evening Ophthalmic Once a day Active Methotrexate Sodium 5 MG 6 tablets Orall y once weekly 04/28/2024 Active Potassium Chloride Ilana ER 10 MEQ TAKE 1 TABLET BY MOUTH ONCE DAILY Oral for 90 days Active Finasteride 5 MG 1 tablet Orally Once a day for 90 days Active Folic Acid 1 MG 1 tablet Orally Once a day 04/28/2024 Active Aspirin Adult Low Dose 81 MG 1 tablet Orally Once a day 04/28/2024 Active Dorzolamide HCl-Timolol Mal Active levoFLOXacin 500 MG 1 tablet Orally Once a day for 10 day(s) 12/06/2024 Active Namenda XR 7 MG 1 capsule Orally Onc e a day for 14 days 12/06/2024 Active Social History Tobacco Use: Social History Observation Description Date Details (start date - stop date) Former Smoker 11/16/1960 - 11/16/1984 Tobacco Control (Standard) Question Answer Notes Tobacco use: Former smoker When did you start smoking? 11/16/1960 When did you stop smoking? 11/16/1984 How long has it been since y ou last smoked? Greater than 10 years Additional Findings: Tobacco non-user Ex -moderate cigarette smoker (10-19/day) Problems Problem Type SNOMED Code ICD Code Onset Dates Problem Status W/U Status Risk Notes Problem Memory loss (R41.3) Active confirmed Problem 95088661 Acute bronchitis, unspecified organism (J20.9) Active confirmed Vital Signs Blood pressure systolic 152 mm Hg 12/06/19 25 Blood pressure diastolic 70 mm Hg 025 Height 69 in 12/06/2024 Weight 182.4 lbs 12/06/2024 BMI 26.93 kg/m2 12/06/2024 Encounters Encounter Location Date Provider Diagnosis [facility] [address] [place] [address] 12/06/2024 Anshu Hoy Acute bronchitis, unspecified organism J20.9 and Memory loss R41.3 Assessments Encounter Date Diagnosis (ICD Code) Assessment Notes Treatment Notes Treatment Clinical Notes Section Notes 12/06/2024 Acute bronchitis, unspecified organism (ICD-10 - J20.9) Rest and drink more liquids, especially water. You may use a humidifier or vaporizer to help keep the drainage moist. Zvxq-rdu-shhdsjw Nasal Saline may help the stuffy and runny nose. Use Ibuprofen and or Tylenol as needed for fever, chills, body aches or pain. Children 5 years old should not be given lulo-val-rhpdhwv cough and cold medications such as guaifenesin and dextromethorphan. If you're over age 5, you may try coxz-vkx-zjzbcyb cold medications such as guaifenesin and dextromethorphan, or multi-symptom cold reliever such as Dayquil to help reduce the symptoms. Antibiotics have been prescribed. You should take these until completed and follow the directions. Antibiotics can sometimes cause upset stomach, and in rare cases, serious allergic reactions or serious gastrointestinal problems. If you start having severe abdominal pain, severe vomiting, or bloody diarrhea, you should be reevaluated by your physician or urgent care immediately. Follow up with your Primary Care Provider or return to clinic if symptoms do not improve within 3-5 days. If you develop severe symptoms such as shortness of breath, repeated vomiting, coughing up blood, or chest pain you should go to the emergency room or call 911 12/06/2024 Memory loss (ICD-10 - R41.3) Plan Of Treatment Medication Medication Name Sig Start Date Stop Date Notes levoFLOXacin 500 MG 1 tablet Orally Once a day for 10 day(s) 12/06/2024 Namenda XR 7 MG 1 capsule Orally Onc e a day for 14 days 12/06/2024 Treatment Notes Assessment Notes Acute bronchitis, unspecified organism R est and drink more liquids, especially water. You may use a humidifier or vaporizer to help keep the drainage moist. Yjlk-xym-ldbllzr Nasal Saline may help the stuffy and runny nose. Use Ibuprofen and or Tylenol as needed for fever, chills, body aches or pain. Children 5 years old should not be given pqts-bnu-oivdgha cough and cold medications such as guaifenesin and dextromethorphan. If you're over age 5, you may try tskq-kao-gkmbgdn cold medications such as guaifenesin and dextromethorphan, or multi-symptom cold reliever such as Dayquil to help reduce the symptoms. Antibiotics have been prescribed. You should take these until completed and follow the directions. Antibiotics can sometimes cause upset stomach, and in rare cases, serious allergic reactions or serious gastrointestinal problems. If you start having severe abdominal pain, severe vomiting, or bloody diarrhea, you should be reevaluated by your physician or urgent care immediately. Follow up with your Primary Care Provider or return to clinic if symptoms do not improve within 3-5 days. If you develop severe symptoms such as shortness of breath, repeated vomiting, coughing up blood, or chest pain you should go to the emergency room or call 911 Pending Test Test Name Order Date MRI BRAIN WO CON 12/06/2024 Next Appt Details Follow Up: 3-5 days if not i mproving, Reason: Progress Notes * Keagan IRBY JDOB:11/1944 (79 yo M)Acc No.[id number]:12/06/2024 Progress Note Patient: Keagan SALTER Provider: Kiki Huizar ([facility])MD :1945 A ge:79 Y S ex:Male Date:12/06/2024 Address:[address] Check In:09:41 AM ESTCheck O ut:10:19 AM EST Subjective: * Chief Complaints: * R unny nose- clear * HPI: G eneral: Sarted about a month ago - had some amoxicillin - better - but not gone now is worse now with colred sputum dif with short term memory loss. B ronchitis: The patient complains of symptoms of bronchitis. The symptoms have been present for 1-2 days. The symptoms are moderate. The patient has not been exposed to sick contacts. Symptomatic treatment has included OTC medication. Associated symptoms include nasal congestion, postnasal drainage, congested ears, cough, fever, chills, body aches. D epression Screening: PHQ-2 (2015 Edition) L ittle interest or pleasure in doing things??Not at all F eeling down, depressed, or hopeless? N ot at all T otal Score 0 * ROS: E NT: Ear pain d enies. H oarseness d enies. ? C ardiovascular: Edema d enies. P alpitations d enies. ? R espiratory: Comments S ee HPI for details. G astrointestinal: Abdominal pain d enies. D iarrhea d enies. N ausea d enies. S kin: Rash d enies. 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 Modified On:04/07/2023 Status:confirmed I27.20 Pulmonary hypertensi on Modified On:04/07/2023 Status:confirmed K57.30 Colon, diverticulosi s Modified On:02/09/2023 Status:confirmed G47.33 Obstructive sleep ap tenisha Modified On:02/09/2023 Status:confirmed I10 HTN (hypertension) Modified On:02/09/2023 Status:confirmed G14 Post-polio syndrome Modified On:02/09/2023 Status:confirmed N40.0 Benign hypertrophy o f prostate Modified On:02/09/2023 Status:confirmed J20.9 Acute bronchitis, un specified organism Modified On:12/06/2024 Status:confirmed R41.3 Memory loss Modified On:12/06/2024 Status:confirmed * Medical History: * Surgical History: L eft ankle Neck C2-C3 fusion * Hospitalization/Major Diagno stic Procedure: D enies Past Hospitalization * Family History: F ather: , Alzheimers, diagnosed with Unspecified heart disease. M other: , diagnosed with Unspecified heart disease. S on(s): alive, diagnosed with Diabetes mellitus without mention of complication, type II or unspecified type, not stated as uncontrolled. D aughter(s): alive. 3 brother(s) , 2 sister(s) . 2 son(s) , 1 daughter(s) - healthy. . 2 brothers have passed 1 sister has passed. * Social History: T obacco Use: T obacco Control (Standard) T obacco use: F ormer smoker W hen did you start smoking? 0 11/16/1960 W hen did you stop smoking? 0 11/16/1984 H ow long has it been since you last smoked??Greater than 10 years A dditional Findings: Tobacco non-user E x-moderate cigarette smoker (10-19/day) * Medications: T akingAspirin Adult Low Dose(Aspirin) 81 MG Tablet Delayed Release 1 tablet Orally Once a day Dorzolamide HCl-Timolol Mal Finasteride 5 MG Tablet 1 tablet Orally Once a day Folic Acid 1 MG Tablet 1 tablet Orally Once a day Furosemide 20 MG Tablet Take 1 tablet by mouth once daily Ipratropium-Albuterol 0.5-2.5 (3) MG/3ML Solution 3 mL as needed Inhalation every 6 hrs Latanoprost 0.005 % Solution 1 drop into affected eye in the evening Ophthalmic Once a day Methotrexate Sodium 5 MG Tablet 6 tablets Orally once weekly Potassium Chloride Ilana ER 10 MEQ Tablet Extended Release TAKE 1 TABLET BY MOUTH ONCE DAILY Oral prednisoLONE Acetate Propranolol HCl 40 MG Tablet 1 tablet Orally bid Protonix(Pantoprazole Sodium) 40 MG Tablet Delayed Release 1 tablet Orally Once a day Simvastatin 20 MG Tablet 1 tablet in the evening Orally Once a day Tamsulosin HCl 0.4 MG Capsule 1 capsule Orally Once a day Taking Aspirin Adult Low Dose(Aspirin) 81 MG Tablet Delayed Release 1 tablet Orally Once a day Taking Dorzolamide HCl-Timolol Mal Taking Finasteride 5 MG Tablet 1 tablet Orally Once a day Taking Folic Acid 1 MG Tablet 1 tablet Orally Once a day Taking Furosemide 20 MG Tablet Take 1 tablet by mouth once daily Taking Ipratropium-Albuterol 0.5-2.5 (3) MG/3ML Solution 3 mL as needed Inhalation every 6 hrs Taking Latanoprost 0.005 % Solution 1 drop into affected eye in the evening Ophthalmic Once a day Taking Methotrexate Sodium 5 MG Tablet 6 tablets Orally once weekly Taking Potassium Chloride Ilana ER 10 MEQ Tablet Extended Release TAKE 1 TABLET BY MOUTH ONCE DAILY Oral Taking prednisoLONE Acetate Taking Propranolol HCl 40 MG Tablet 1 tablet Orally bid Taking Protonix(Pantoprazole Sodium) 40 MG Tablet Delayed Release 1 tablet Orally Once a day Taking Simvastatin 20 MG Tablet 1 tablet in the evening Orally Once a day Taking Tamsulosin HCl 0.4 MG Capsule 1 capsule Orally Once a day DiscontinuedAmoxicillin-Pot Clavulanate 875-125 MG Tablet 1 tablet Orally every 12 hrs Medication List reviewed and reconciled with the patientDiscontinued Amoxicillin-Pot Clavulanate 875-125 MG Tablet 1 tablet Orally every 12 hrs Medication List reviewed and reconciled with the patient * Allergies: S randi Robertsonno[Allergies Verified] Objective: * Vitals: W t:182.4lbs, Ht: 69 in, BP:152/70mm Hg, BMI:26.93Index, Ht-cm: 175.26 cm, Wt-k.74 kg. * Examination: G eneral Examination: GENERAL APPEARANCE: in no acute distress. EYES: EOMI. EARS: auditory canal clear, middle ear effusion noted.? NOSE: clear discharge, turbinates pale and swollen. ORAL CAVITY: mucosa moist. THROAT: no erythema, post-nasal drainage noted. NECK: neck supple, no thyromegaly. LYMPH NODES: n o cervical adenopathy. LUNGS: unlabored, clear to auscultation bilaterally. CARDIO: n o murmurs, regular rate and rhythm. ABDOMEN: bowel sounds present, no organomegaly . ? Assessment: * Assessment: 1. A cute bronchitis, unspecified organism - J20.9 (Primary) 2 . M rossana loss - R41.3 Plan: * Treatment: 2. M rossana loss I maging: MRI BRAIN WO CON 3. O thers Start Namenda XR Capsule Extended Release 24 Hour, 7 MG, 1 capsule, Orally, Once a day, 14 days, 14 Capsule, Refills 0. * Procedure Codes: * Preventive Medicine: Screenings/Counseling: B KS ACTION PLAN Above Normal BMI Follow-up D ietary management education, guidance, and counseling * Follow Up: 3 -5 days if not improving * * Sign off status: Completed Visit Status: C HK (Check Out) true * Provider: Kiki Huizar ([facility])MD Date: 0 12/06/2024 Generated for Gilbert garcía/Leonidas/Gooditting on: 0 05/03/2025 08:38 AM EDT History and Physical Notes * HPI (History of Present Illness) Category Sub-Category Detail Notes Category Not es General Sarted about a month ago - had some amoxicillin - better - but not gone now is worse now with colred sputum dif with short term memory loss Depression Screening PHQ-2 (2015 Edition) Little interest or pleasure in doing things?: Not at all Feeling down, depressed, or hopeless?: N ot at all Total Score: 0 Examination Category Sub-Category Detail Notes Category Not es General Examination GENERAL APPEARANCE: in no acute di stress EYES: EOMI EARS: auditory canal clear , middle ear effusion noted NOSE: clear discharge, tur binates pale and swollen THROAT: no erythema, post-na serjio drainage noted NECK: neck supple, no thyr omegaly CARDIO: no murmurs, regular rate and rhythm LUNGS: unlabored, clear to auscultation bilaterally ABDOMEN: bowel sounds present , no organomegaly LYMPH NODES: no cervical adenopat hy ORAL CAVITY: mucosa moist
--- OUTSIDE RECORDS SUMMARY | 2024-12-12 16:26 | XMS_ITS ---
Author Organization [facility] in [place] Address [address] [place] [address] Care Team Providers Care Telephone Repairer Name Role Phone Anshu Huizar Primary Care Provider [phone] REASON FOR VISIT MRI Results Encounters Encounter Location Date Provider Diagnosis [facility] [address] [place] [address] 12/12/2024 Anshu Huizar Plan Of Treatment No Information Progress Notes * Keagan IRBYDOB:11/1944 (79 yo M)Acc No.[id number]:12/12/2024 Patient: Keagan SALTER :1945 A ge:79 Y S ex:Male Address:[address], [facility] [address] * true * Date: Generated for Gilbert garcía/Leonidas/eTransmitting on: 0 05/03/2025 08:38 AM EDT
--- OUTSIDE RECORDS SUMMARY | 2025-03-06 09:00 | XMS_ITS ---
Author Organization [facility] in [place] Address [address] [place] [address] Care Team Providers Care Supervisor Spring Up Name Role Phone Anshu Huizar Primary Care Provider REASON FOR VISIT med refills Medications Medication SIG (Take, Route, Fr equency, Duration) Notes Start Date End Date Status Finasteride 5 MG 1 tablet Orally Once a day for 90 days Active Simvastatin 20 MG 1 tablet in the even ing Orally Once a day for 90 days Active Tamsulosin HCl 0.4 MG 1 capsule Orally O nce a day for 90 days Active Encounters Encounter Location Date Provider Diagnosis [address] [address] 03/06/2025 Anshu Huizar Acute bronchitis, unspecified organism J20.9 Assessments Encounter Date Diagnosis (ICD Code) Assessment Notes Treatment Notes Treatment Clinical Notes Section Notes 03/06/2025 Acute bronchitis, unspecified organism (ICD-10 - J20.9) Plan Of Treatment Medication Medication Name Sig Start Date Stop Date Notes Finasteride 5 MG 1 tablet Orally Once a day for 90 days Simvastatin 20 MG 1 tablet in the even ing Orally Once a day for 90 days Tamsulosin HCl 0.4 MG 1 capsule Orally O nce a day for 90 days Progress Notes * Keagan IRBYDOB:11/1944 (79 yo M)Acc No.[id number]:03/06/2025 Patient: Keagan SALTER :1945 A ge:79 Y S ex:Male Address: [place] [address] * Refills Refill Finasteride Tablet, 5 MG, Orally, 90, 1 tablet, Once a day, 90 days, Refills=3 Refill Simvastatin Tablet, 20 MG, Orally, 90, 1 tablet in the evening, Once a day, 90 days, Refills=3 Refill Tamsulosin HCl Capsule, 0.4 MG, Orally, 90, 1 capsule, Once a day, 90 days, Refills=3 * true * Date: Generated for Gilbert garcía/Leonidas/Gooditting on: 0 05/03/2025 08:38 AM EDT
--- OUTSIDE RECORDS SUMMARY | 2025-05-03 08:38 | XMS_ITS | Clinical Summary ---
Author Organization [facility] Address [address] [place] [address] Care Team Providers Care Quality Control Projectionist Name Role Phone Shyam Huizar MD Primary Care Provider [phone] Allergies No known active allergies Medications propranolol (INDERAL LA) 60 MG CR capsule Take 1 capsule by mouth daily. 90 capsule 1 2 Active albuterol (PROVENTIL) (2.5 MG/3ML) 0.083% nebulizer solution Take 2.5 mg by nebulization 4 times daily. Active ipratropium (ATROVENT) 0.02 % nebulizer solution Take 0.5 mg by nebulization 4 times daily. Active latanoprost (XALATAN) 0.005 % ophthalmic solution Place 1 drop into the left eye nightly. Active Dutasteride-Urena sulosin HCl (JOHANA) 0.5-0.4 MG CAPS Take 1 tablet by mouth every evening. Active [place]-3 Fatty Acids (FISH OIL) 1000 MG CAPS Take 1,000 mg by mouth 2 times daily. Active LYSINE Take 1 tablet by mouth daily. Active finasteride (PROSCAR) 5 MG tablet Take 5 mg by mouth daily 5 Active simvastatin (ZOCOR) 20 MG tablet Take 20 mg by mouth daily 5 Active aspirin 81 MG tablet Take 81 mg by mouth daily Active Active Problems Problem Noted Date Diagnosed Date MOLLY on CPAP 11/23/2014 Post-polio syndrome 11/23/2014 Respiratory failure with hypoxia 11/23/2014 Immunizations Immunization Administration Dates Next Due Influenza Vaccine, unspecified formulation 11/09 Influenza Virus Vaccine 07/17/2014,09/16/2012 Family History Medical History Relation Name Comments Alzheimer's Disease Father Diabetes Father Heart Attack Father Diabetes Mother Heart Attack Mother Relation Name Status Comments Father Mother Social History Tobacco Use Types Packs/Day Years Used Date Smoking Tobacco: Former Smokeless Tobacco: Never Comments:quit smoking 20 yea rs ago Alcohol Use Standard Drinks/Week Comments Yes 0 (1 standard drink = 0.6 oz pur e alcohol) socially Sex and Gender Information Value Date Recorded Sex Assigned at Not on file Legal Sex Male 9:05 AM EST Gender Identity Not on file Sexual Orientation Not on file Last Filed Vital Signs Vital Sign Reading Time Taken Comments Blood Pressure 142/76 11/20/2016 10:37 AM EST Pulse 60 11/20/2016 10:37 AM EST Temperature 36.5 C (97.7 F) 11/20/2016 10:37 AM EST Respiratory Rate 16 11/20/2016 10:37 AM EST Oxygen Saturation 93% 11/20/2016 10:37 AM EST Inhaled Oxygen Concentration - - Weight 90.7 kg (200 lb) 11/20/2016 10:37 AM EST Height 172.7 cm (5' 8 ) 11/20/2016 10:37 AM EST Body Mass Index 30.41 11/20/2016 10:37 AM EST Plan of Treatment Not on file Insurance MEDICARE OF [place] Care Teams Quality Control Projectionist Relationship Specialty Start Date End Date Shyam Huizar MD [address] [place] [address] PCP - General 07/21/13
--- OUTSIDE RECORDS SUMMARY | 2025-05-03 08:38 | XMS_ITS | Encounter Summary ---
Author [facility] Address [address] [place] [address] Care Team Providers Care Loftsman Name Role Phone Shyam Huizar MD Primary Care Provider [phone] Encounter Details Date Type Department Care Team (Late st Contact Info) Description 02/10/2017 Surg/Proc Orders [facility] [address] [facility] [place] [address] Alan Lizarraga, [address] [place] [address] Chronic respiratory failure with hypoxia and hypercapnia (HCC) (Primary Dx); MOLLY on CPAP; Post-polio syndrome (HCC); Chronic respiratory failure with hypoxia (HCC) Social History Tobacco Use Types Packs/Day Years [...] on file Sexual Orientation Not on file documented as of this encounter Plan of Treatment Scheduled Orders Name Type Priority Associated Diagnoses Orde r Schedule Pulse oximetry, overnight Respiratory Care Routine MOLLY on CPAP Post-polio syndrome (HCC) Chronic respiratory failure with hypoxia (HCC) Expected: 02/10/2017, Expires: 02/10/2018 documented as of this encounter Visit Diagnoses Diagnosis Chronic respiratory failure with hypoxia and hypercapnia (HCC)- Primary MOLLY on CPAP Obstructive sleep apnea (adult) (pediatric) 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
--- OUTSIDE RECORDS SUMMARY | 2025-05-03 08:38 | XMS_ITS | Clinical Summary ---
Author Organization [facility] Address [address] [place] [address] Care Team Providers Care Quality Assurance Lab Technician Name Role Phone Shyam Huizar MD Primary Care Provider [phone] Allergies Active Allergy Reactions Criticality Noted Date Comments Sulfa Antibiotics 05/25/2023 Other Reaction(s): Unknown Sulfamethoxazole-Trimethopr im Anaphylaxis High 03/08/2021 Medications tamsulosin (Flomax) 0.4 MG 24 hr capsule 1 capsule 1 (one) time each day at the same time. Active simvastatin (Zocor) 20 MG tablet 1 (one) time each day at the same time. Active propranolol LA (Inderal LA) 60 MG 24 hr capsule Take 60 mg by mouth in the morning. 3 Active potassium chloride CR (Klor-Con M10) 10 MEQ ER tablet 3 Active Protonix 40 MG EC tablet 1 (one) time each day at the same time. Active methotrexate 2.5 MG tablet Take 15 mg by mouth 1 (one) time per week. 3 Active ipratropium-al buterol (Duo-Neb) 0.5-2.5 mg/3 mL nebulizer solution INHALE 1 VIAL 4 TO 5 TIMES DAILY NEEDED [id number] 3 Active furosemide (Lasix) 20 MG tablet Take 1 tablet by mouth once daily for 30 2 Active finasteride (Proscar) 5 MG tablet 1 (one) time each day at the same time. Active folic acid (Folvite) 1 MG tablet Take 1,000 mcg by mouth in the morning. 3 Active metoprolol tartrate (Lopressor) 50 MG tablet every 12 (twelve) hours 3 Active dorzolamide-ti molol (Cosopt) 2-0.5 % ophthalmic solutionIndica tions:Primary open angle glaucoma (POAG) of both eyes, mild stage Administer 1 drop into both eyes in the morning and 1 drop before bedtime. 10 mL 2 4 Active latanoprost (Xalatan) 0.005 % ophthalmic solutionIndica tions:Primary open angle glaucoma (POAG) of both eyes, mild stage Administer 1 drop into both eyes at bedtime 7.5 mL 3 4 Active prednisoLONE acetate (Pred-Forte) 1 % ophthalmic suspensionIndi cations:Anteri or scleritis of left eye Instill one drop into the left eye twice a week, 15 mL 3 5 Active prednisoLONE acetate (Pred-Forte) 1 % ophthalmic suspension INSTILL 1 DROP INTO EACH EYE THREE TIMES A WEEK 3 04/14/20 25 Discontinu ed(Reorder ) Active Problems Problem Noted Date Diagnosed Date Primary open angle glaucoma (POAG) of both eyes, mild stage 05/25/2023 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 3 Dry eyes 05/25/2023 Encounters Date Type Department Care Team Description 04/14/2025 Refill [facility] [address] [place] [address] Pippa Coronado COT Anterior scleritis of left eye (Primary Dx) from Last 3 Months Social History Tobacco Use Types Packs/Day Years Used Date Smoking Tobacco: Former Cigarettes Tobacco Cessation:Counseling Given: Not Answered Sex and Gender Information Value Date Recorded Sex Assigned at Not on file Legal Sex Male 8:34 PM EDT Gender Identity Not on file Sexual Orientation Not on file Plan of Treatment Upcoming Encounters Date Type Department Care Team (Late st Contact Info) Description 06/21/2025 9:15 AM EDT Office Visit [facility] [address] [place] [address] Sylvester Andrew, [address] [place], [place] [id number] Health Maintenance Due Date Last Done Comments Pneumococcal Vaccine: 65+ Years Completed 7, 11/05/2016 Influenza Vaccine Completed 07/28/2024, , 08/31/2020, Additional history exists Insurance MEDICARE [employer] [facility] Care Teams Quality Assurance Lab Technician Relationship Specialty Start Date End Date Shyam Huizar MD PCP - General Family Medicine 11/24/23
--- OUTSIDE RECORDS SUMMARY | 2025-05-03 08:39 | XMS_ITS | Clinical Summary ---
Author Organization [facility] Address [address] [place] [address] Care Team Providers Care Construction Equipment Mechanic Helper Name Role Phone Shyam Huizar MD Primary Care Provider [phone] Allergies Active Allergy Reactions Criticality Noted Date Comments Sulfamethoxazole-Trimethoprim Anaphylaxis 03/08 Medications finasteride (PROSCAR) 5 mg tablet Take 1 tablet by mouth once daily. 0 7 Active tamsulosin ER (FLOMAX) 0.4 mg cp24 Take 1 capsule by mouth daily at bedtime. 0 7 Active simvastatin (ZOCOR) 20 mg tablet Take 1 tablet by mouth daily at bedtime. 0 7 Active propranolol (INDERAL) 60 mg tablet Take 1 tablet by mouth once daily. 7 Active furosemide (LASIX) 20 mg tablet Take 1 tablet by mouth once daily. 0 7 Active potassium chloride (KLOR-CON 10) 10 mEq tablet Take 1 tablet by mouth once daily. 7 Active latanoprost (XALATAN) 0.005 % ophthalmic solution Use 1 Drop in both eyes daily at bedtime. 0 7 Active BIPAP Please provide with a device with [...] 33% COPD IS NOT PRESENT 1 Device 8 Active CPAP/BIPAP/OTH ER Type .CPAPSettings into a note to see current settings/supplies /DME information. 1 Each 2 02/09/20 50 Active ipratropium-al buterol (DUONEB) 0.5 mg-3 mg(2.5 mg base)/3 mL nebu Inhale 3 mL as instructed four times daily. 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 Obstructive sleep apnea 04/23/2017 Immunizations Immunization Administration Dates Next Due influenza (IIV3) vaccine, ag e 6 mo - 64 yr, trivalent (AFLURIA, FLULAVAL, FLUVIRIN, FLUZONE) 08/27/2018 Social History Tobacco Use Types Packs/Day Years Used Date Smoking Tobacco: Former Smokeless Tobacco: Never Tobacco Cessation:Counseling Given: Not Answered Comments:Quit 25+ years ago Area Deprivation Index Answer Date Chris rded National Score (1-100), lower number is lower ri sk 82 04/08/2024 State Score (1-10), lower number is lower risk 7 04/08/2024 Data from: https://www.neighborhoodatlas.medicine.[facility].edu/. Last address used for calculation [address] 04/08/2024 Sex and Gender Information Value Date Recorded Sex Assigned at Not on file Legal Sex Male 4:38 PM EDT Gender Identity Not on file Sexual Orientation Not on file Last Filed Vital Signs Vital Sign Reading Time Taken Comments Blood Pressure 141/75 04/08/2024 10:05 AM EDT Pulse 47 04/08/2024 10:05 AM EDT heart rate low provider notify Temperature 36.1 C (97 F) 04/08/2024 10:05 AM EDT Respiratory Rate 19 04/08/2024 10:0 5 AM EDT Oxygen Saturation 99% 04/08/2024 10: 05 AM EDT Inhaled Oxygen Concentration - - Weight 75.1 kg (165 lb 9.1 oz) 04/08/2024 10:05 AM EDT Height 175.3 cm (5' 9 ) 2022 11:0 9 AM EDT Body Mass Index 24.45 2022 11:09 AM EDT Plan of Treatment Upcoming Encounters Date Type Department Care Team (Late st Contact Info) Description 05/26/2025 9:00 AM EDT Procedure Pulmonary Medicine [address] [address] 1, [facility] [address] [place], [place] [id number] 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] 05/26/2025 9:30 AM EDT Procedure Pulmonary Medicine [address] [address] 1, Pulm [facility] [address] [place] [address] 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] 05/26/2025 10:00 AM EDT Office Visit Pulmonary Medicine [address] [place] [address] Jace Cooper MD [address] [place], [place] [id number] 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] Health Maintenance Due Date Last Done Comments Anxiety Screening 1961 Depression Screening 1961 DTaP,Tdap,Td Vaccine (1 - Tdap) 1962 Diabetes Screening 1988 Shingrix Vaccine (1 of 2) 1993 Medicare Annual Wellness Visit 10/16/2003 RSV Vaccine (1 - 1-dose 75+ series) 2018 Covid-19 Vaccine (2023-2 5 season) 2024 10/04/2023, 07/09/2022, 10/15/2021, Additional history exists Advance Directive Discussion 11/16/2024 Influenza Vaccine (Season Ended) 2025 09/25/2023, 08/31/2020, 08/27/2018, Additional history exists Pneumococcal Vaccine: 50+ Completed 11/13/2017, [place] [phone] [facility][Note 2] Address: [address] [facility] [place] [place] [address] Care Teams Construction Equipment Mechanic Helper Relationship Specialty Start Date End Date Shyam Huizar MD PCP - General Family Medicine 04/17/17
--- OUTSIDE RECORDS SUMMARY | 2025-05-03 08:39 | XMS_ITS | Patient Health Record ---
Author Organization [facility] in [place] Address [address] [place] [address] Care Team Providers Care Case Management Specialist Name Role Phone Anshu Navarro Primary Care Provider [phone] Allergies Allergen (clinical drug ingredient) Drug/Non Drug Allergy documented on EMR Reaction Allergy Type Onset Date Status Substance with sulfonamide structure and antibacterial mechanism of action (substance) Sulfa Antibiotics Unknown Drug Allergy Active Results Component Value Reference Range Notes PROF 14(COMP METB) Reviewed date:07/06/2024 12:47:56 PM Interpretation: Performing Lab: Notes/Report: [facility] , Sodium 144 136-145 mmol/L Potassium 4.4 3.5-5.1 mmol/L Chloride 109 98-107 mmol/L Carbon Dioxide 28.8 21.0-32.0 mmol/L Anion Gap 10.6 Glucose 87 74-106 mg/dL Blood Urea Nitrogen 15.0 7.0-18.0 mg/dL Creatinine 0.70 0.70-1.30 mg/dL Estimated GFR ( Yamilet >60 >=60 Estimated GFR (Non- Sandy >60 >=60 BUN Creatinine Ratio 21.4 Calcium 9.1 8.5-10.1 mg/dL Bilirubin Total 0.7 0.2-1.0 mg/dL Aspartate Amino Transferase 20 15-37 U/L Alanine Aminotransferase 29 16-63 U/L Alkaline Phosphatase 55 46-116 U/L Total Protein 6.2 6.4-8.2 g/dL Albumin Level 3.5 3.4-5.0 g/dL Globulin 2.7 Albumin Globulin Ratio 1.3 Performing Lab: see note ML - [facility] LB CBC AUTO DIFF Reviewed date:10/02/2024 02:04:08 PM Interpretation: Performing Lab: Notes/Report: [facility] , White Blood Count 6.6 4.0-11.0 10 3/uL Red Blood Count 3.83 4.70-6.10 10 6/uL Hemoglobin 12.6 14.0-18.0 g/dL Hematocrit 38.8 42.0-54.0 % Mean Corpuscular Volume 101.3 80.0-94.0 fL Mean Corpuscular Hemoglobin 32.9 25.9-34.0 pg Mean Corpuscular HGB Conc 32.5 29.9-35.2 g/dL Red Cell Distribution Width 14.2 11.0-15.0 % Platelet Count 187 150-450 10 3/uL Mean Platelet Volume 10.3 9.5-13.5 fL Neutrophils Percent Auto 62.0 43.0-75.0 % Lymphocytes Percent Auto 21.0 20.5-60.0 % Monocytes Percent Auto 12.3 1.7-12.0 % Eosinophils Percent Auto 3.3 0.9-7.0 % Basophils Percent Auto 0.9 0.2-2.0 % Immature Granulocytes Pct Auto 0.5 0.0-0.5 % Neutrophils Absolute Auto 4.1 1.4-6.5 10 3/uL Lymphocytes Absolute Auto 1.4 1.2-3.8 10 3/uL Monocytes Absolute Auto 0.8 0.3-0.8 10 3/uL Eosinophils Absolute Auto 0.2 0.0-0.7 10 3/uL Basophils Absolute Auto 0.1 0.0-0.1 10 3/uL Immature Granulocytes Abs Auto 0.03 0.00-0.03 10 3/uL Performing Lab: see note ML - [facility] LB Erythrocyte Sedimentation Ra te Reviewed date:10/02/2024 02:04:08 PM Interpretation: Performing Lab: Notes/Report: [facility] , Erythrocyte Sedimentation Rate 11 <=20 mm/hr Performing Lab: see note - [facility] LB CBC AUTO DIFF Reviewed date:01/04/2025 07:41:51 PM Interpretation: Performing Lab: Notes/Report: [facility] , White Blood Count 6.0 4.0-11.0 10 3/uL Red Blood Count 3.85 4.70-6.10 10 6/uL Hemoglobin 12.8 14.0-18.0 g/dL Hematocrit 39.1 42.0-54.0 % Mean Corpuscular Volume 101.6 80.0-94.0 fL Mean Corpuscular Hemoglobin 33.2 25.9-34.0 pg Mean Corpuscular HGB Conc 32.7 29.9-35.2 g/dL Red Cell Distribution Width 14.9 11.0-15.0 % Platelet Count 146 150-450 10 3/uL Mean Platelet Volume 10.5 9.5-13.5 fL Neutrophils Percent Auto 62.6 43.0-75.0 % Lymphocytes Percent Auto 22.2 20.5-60.0 % Monocytes Percent Auto 11.9 1.7-12.0 % Eosinophils Percent Auto 2.5 0.9-7.0 % Basophils Percent Auto 0.5 0.2-2.0 % Immature Granulocytes Pct Auto 0.3 0.0-0.5 % Neutrophils Absolute Auto 3.8 1.4-6.5 10 3/uL Lymphocytes Absolute Auto 1.3 1.2-3.8 10 3/uL Monocytes Absolute Auto 0.7 0.3-0.8 10 3/uL Eosinophils Absolute Auto 0.2 0.0-0.7 10 3/uL Basophils Absolute Auto 0.0 0.0-0.1 10 3/uL Immature Granulocytes Abs Auto 0.02 0.00-0.03 10 3/uL Performing Lab: see note ML - [facility] LB PROF 14(COMP METB) Reviewed date:01/04/2025 07:41:51 PM Interpretation: Performing Lab: Notes/Report: [facility] , Sodium 145 136-145 mmol/L Potassium 3.9 3.5-5.1 mmol/L Chloride 108 98-107 mmol/L Carbon Dioxide 31.3 21.0-32.0 mmol/L Anion Gap 9.6 Glucose 95 74-106 mg/dL Blood Urea Nitrogen 21.0 7.0-18.0 mg/dL Creatinine 0.82 0.70-1.30 mg/dL Estimated GFR ( Yamilet >60 >=60 mL/min/1.73m 2 Estimated GFR (Non- Sandy >60 >=60 mL/min/1.73m 2 BUN Creatinine Ratio 25.6 Calcium 9.0 8.5-10.1 mg/dL Bilirubin Total 0.9 0.2-1.0 mg/dL Aspartate Amino Transferase 26 15-37 U/L Alanine Aminotransferase 31 16-63 U/L Alkaline Phosphatase 66 46-116 U/L Total Protein 6.3 6.4-8.2 g/dL Albumin Level 3.5 3.4-5.0 g/dL Globulin 2.8 Albumin Globulin Ratio 1.2 Performing Lab: see note ML - [facility] LB Erythrocyte Sedimentation Ra te Reviewed date:01/04/2025 07:41:51 PM Interpretation: Performing Lab: Notes/Report: [facility] , Erythrocyte Sedimentation Rate 9 <=20 mm/hr Performing Lab: see note - [facility] LB MR head/brain wo con Reviewed date:12/12/2024 08:27:17 PM Interpretation: Performing Lab: Notes/Report: Source Facility: [place] [address] Magnetic Resonance Report Signed Patient: KEAGAN IRBY MR#: [id number] : 1945 Acct:[id number] Age/Sex: 79 / M ADM Date: 12/12/24 Loc: MRI Attending Dr: Shyam Navarro M.D. Ordering Physician: Shyam Navarro M.D. Date of Service: 12/12/24 Procedure(s): MR head/brain wo con Accession Number(s): [id number] cc: Shyam Navarro M.D. [place] [address] Patient Name: KEAGAN IRBY MRN: [id number] date: 1945 Sex: M Assigned Patient Location: MRI Current Patient Location: MRI Accession/Order Number: [id number] Exam Date: 12/12/2024 08:00 Report Date: 12/12/2024 09:04 At the request of: SHYAM NAVARRO Procedure: MR head/brain wo con MR head/brain wo con, 12/12/2024 8:00 AM EST INDICATION: Memory Loss COMPARISON: There is no appropriate prior study for comparison. TECHNIQUE: Multiplanar, multisequence MRI images of brain were obtained without injection of contrast. FINDINGS: The cerebral sulci as well as ventricular system are enlarged consistent with moderate ex vacuo cerebral volume loss. Hyperintensities on T2 and FLAIR images in the solorio radiata and centrum semiovale with sparing of U fibers are nonspecific, statistically most likely consistent with mild microvascular ischemic changes. There is no restricted diffusion. There is no intracranial mass, mass effect, midline shift, intra or extra-axial fluid collection or large hemorrhage. Normal flow-void in the intracranial vessels is noted. There is status post bilateral lens replacement. The visualized portions of orbits, mastoid air cells as well as paranasal sinuses are unremarkable. MR/MR head/brain wo con IMPRESSION: No acute intracranial process is noted. Mild microvascular ischemic changes. No finding to suggest a typical neurodegenerative process. Electronically authenticated by: URIEL ROYAL Date: 12/12/2024 09:04 Dictated By: Uriel Royal M.D. Signed By: 12/12/24905 DD/ 3 TD/TT: Senior Lead Project Manager: [place] [address] Magnetic Resonance Report Signed Patient: KEAGAN IRBY MR#: [id number] : 1945 Acct:[id number] Age/Sex: 79 / M ADM Date: 12/12/24 Loc: MRI Attending Dr: Carina Navarro M.D. Ordering Physician: Shyam Navarro M.D. Date of Service: 12/12/24 Procedure(s): MR head/brain wo con Accession Number(s): [id number] cc: Shyam Navarro M.D. [place] [id number] Patient Name: KEAGAN IRBY MRN: [id number] date: 1945 Sex: M Assigned Patient Loc ation: MRI Current Patient Loca tion: MRI Accession/Order Numb er: [id number] Exam Date: 12/12/2024 08:00 Report Date: 12/12/2024 09:04 At the request of: SHYAM NAVARRO Procedure: MR head/b rain wo con MR head/brain wo con , 12/12/2024 8:00 AM EST INDICATION: Memory Loss COMPARISON: There is no appropriate prior study for comparison. TECHNIQUE: Multiplan ar, multisequence MRI images of brain were obtained without injection of contrast. FINDINGS: The cerebral sulci a s well as ventricular system are enlarged consistent with moderate ex vacuo ce rebral volume loss. Hyperintensities on T2 and FLAIR images in the solorio radiata and centrum semiovale with spari ng of U fibers are nonspecific, statistically most likely consistent with mild microvascular ischemic changes. There is no restrict ed diffusion. There is no intracra nial mass, mass effect, midline shift, intra or extra-axial fluid collection or large hemorrhage. Normal flow-void in the intracranial vessels is noted. There is status post bilateral lens replacement. The visualized portions of orbits, mastoid air cells as well as paranasal sinuses are unremarkable. M R/MR head/brain wo con IMPRESSION: No acute intracrania l process is noted. Mild microvascular ischemic changes. No finding to sugges t a typical neurodegenerative process. Electronically authenticated by: URIEL ROYAL Date: 12/12/2024 09:04 Dictated By: Charisma Royal M.D. Signed By: 12/12/24905 DD/ 3 TD/TT: Senior Lead Project Manager: PROF Tong(COMP METB) Reviewed date:10/02/2024 02:04:08 PM Interpretation: Performing Lab: Notes/Report: [facility] , Sodium 147 136-145 mmol/L Potassium 4.0 3.5-5.1 mmol/L Chloride 110 98-107 mmol/L Carbon Dioxide 29.6 21.0-32.0 mmol/L Anion Gap 11.4 Glucose 95 74-106 mg/dL Blood Urea Nitrogen 15.0 7.0-18.0 mg/dL Creatinine 0.74 0.70-1.30 mg/dL Estimated GFR ( Yamilet >60 >=60 mL/min/1.73m 2 Estimated GFR (Non- Sandy >60 >=60 mL/min/1.73m 2 BUN Creatinine Ratio 20.3 Calcium 8.8 8.5-10.1 mg/dL Bilirubin Total 0.9 0.2-1.0 mg/dL Aspartate Amino Transferase 24 15-37 U/L Alanine Aminotransferase 32 16-63 U/L Alkaline Phosphatase 73 46-116 U/L Total Protein 6.4 6.4-8.2 g/dL Albumin Level 3.4 3.4-5.0 g/dL Globulin 3.0 Albumin Globulin Ratio 1.1 Performing Lab: see note ML - [facility] LB Erythrocyte Sedimentation Ra te Reviewed date:07/06/2024 12:47:56 PM Interpretation: Performing Lab: Notes/Report: [facility] , Erythrocyte Sedimentation Rate 13 <=20 mm/hr Performing Lab: see note ML - [facility] LB CBC AUTO DIFF Reviewed date:07/06/2024 12:47:56 PM Interpretation: Performing Lab: Notes/Report: [facility] , White Blood Count 6.2 4.0-11.0 10 3/uL Red Blood Count 3.89 4.70-6.10 10 6/uL Hemoglobin 12.6 14.0-18.0 g/dL Hematocrit 39.3 42.0-54.0 % Mean Corpuscular Volume 101.0 80.0-94.0 fL Mean Corpuscular Hemoglobin 32.4 25.9-34.0 pg Mean Corpuscular HGB Conc 32.1 29.9-35.2 g/dL Red Cell Distribution Width 14.5 11.0-15.0 % Platelet Count 169 150-450 10 3/uL Mean Platelet Volume 10.0 9.5-13.5 fL Neutrophils Percent Auto 60.6 43.0-75.0 % Lymphocytes Percent Auto 25.2 20.5-60.0 % Monocytes Percent Auto 9.9 1.7-12.0 % Eosinophils Percent Auto 3.1 0.9-7.0 % Basophils Percent Auto 0.6 0.2-2.0 % Immature Granulocytes Pct Auto 0.6 0.0-0.5 % Neutrophils Absolute Auto 3.8 1.4-6.5 10 3/uL Lymphocytes Absolute Auto 1.6 1.2-3.8 10 3/uL Monocytes Absolute Auto 0.6 0.3-0.8 10 3/uL Eosinophils Absolute Auto 0.2 0.0-0.7 10 3/uL Basophils Absolute Auto 0.0 0.0-0.1 10 3/uL Immature Granulocytes Abs Auto 0.04 0.00-0.03 10 3/uL Performing Lab: see note ML - [facility] LB COVID-19, Flu A+B IH Reviewed date:10/02/2024 02:04:08 PM Interpretation: Performing Lab: Notes/Report: COVID neg FLU A neg FLU B neg Control present Reason For Referral No Information Medications Medication SIG (Take, Route, Frequency, Duration) Notes Start Date End Date Status Finasteride 5 MG 1 tablet Orally Once a day for 90 days Active Simvastatin 20 MG 1 tablet in the even ing Orally Once a day for 90 days Active Folic Acid 1 MG 1 tablet Orally Once a day 04/28/2024 Active Tamsulosin HCl 0.4 MG 1 capsule Orally O nce a day for 90 days Active Furosemide 20 MG Take 1 tablet by fredy th once daily for 30 Active Ipratropium-Albuterol 0.5-2.5 (3) MG/3ML 3 mL as needed Inhalation every 6 hrs 04/28/2024 Active Latanoprost 0.005 % 1 drop into affected eye in the evening Ophthalmic Once a day Active Methotrexate Sodium 5 MG 6 tablets Orall y once weekly 04/28/2024 Active levoFLOXacin 500 MG 1 tablet Orally Once a day for 10 day(s) 12/06/2024 Active Potassium Chloride Ilana ER 10 MEQ TAKE 1 TABLET BY MOUTH ONCE DAILY Oral for 90 days Active prednisoLONE Acetate Active Protonix 40 MG 1 tablet Orally Once a day for 30 days Active Dorzolamide HCl-Timolol Mal Active Propranolol HCl 40 MG 1 tablet Orally bi d for 30 days 05/02/2024 Active Aspirin Adult Low Dose 81 MG 1 tablet Orally Once a day 04/28/2024 Active Namenda XR 7 MG 1 capsule Orally Onc e a day for 14 days 12/06/2024 Active Immunizations Vaccine Route Administration Date Status Comme nts Flu, Fluzone High-Dose (2022 -2023) (31372) 65 yrs+ Unknown 09/25/2023 Administered Spikevax Moderna Syringe Pre -Filled 50 mcg/0.5 mL Unknown 10/04/2023 Administered Social History Tobacco Use: Social History Observation Description Date Details (start date - stop date) Former Smoker 11/16/1960 - 11/16/1984 Alcohol Screen (Audit-C) Question Answer Notes Did you have a drink contain ing alcohol in the past year? Yes How often did you have 6 or more drinks on one occasion in the past year? Never (0 point) How many drinks did you have on a typical day when you were drinking in the past year? 1 or 2 drinks (0 point) How often did you have a dri nk containing alcohol in the past year? Weekly (3 points) Points 3 Interpretation Negative Tobacco Control (Standard) Question Answer Notes Tobacco use: Former smoker When did you start smoking? 11/16/1960 When did you stop smoking? 11/16/1984 How long has it been since y ou last smoked? Greater than 10 years Additional Findings: Tobacco non-user Ex -moderate cigarette smoker (10-19/day) AUDIT-C (Standard) Question Answer Notes Did you have a drink contain ing alcohol in the past year? Yes How often did you have six o r more drinks on one occasion in the past year? Never (0 point) How many drinks did you have on a typical day when you were drinking in the past year? 1 or 2 drinks (0 point) How often did you have a dri nk containing alcohol in the past year? 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 Problem Sebaceous cyst (338223556) Sebaceous cyst (L72.3) Active confirmed Problem Tubular adenoma of colon (072841858) Tubular adenoma of colon (D12.6) Active confirmed Problem 70803907 Acute bronchitis , unspecified organism (J20.9) Active confirmed Problem Memory loss (22706409) Memory loss (R41.3) Active confirmed Problem 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 Problem Overweight (420761744) Over weight (E66.3) Active confirmed Problem 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 Problem Chronic hypoxemic respiratory failure (280818824) Chronic hypoxemic respiratory failure (J96.11) Active confirmed Problem Nevus (2025870212) Nevus (D22.9) Active confirmed Problem Diverticular disease of colon (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) Colon, diverticulosis (K57.30) Active confirmed Problem Ankle edema (58019352) Ankle edema (R60.0) Active confirmed Problem Neuromuscular disorder (478092080) Neuromuscular disorder (G70.9) Active confirmed Problem Benign prostatic hypertrophy without outflow obstruction (595132257) Benign hypertrophy of prostate (N40.0) Active confirmed Problem Pulmonary hypertension (93790770) Pulmonary hypertension (I27.20) Active confirmed Vital Signs Heart Rate 48 /min 09/22/2024 Temperature 98.1 degrees Fahrenheit 09/22/2024 Blood pressure diastolic 70 mm Hg 12/06/2024 Oximetry 92 % 09/22/2024 Height 69 in 12/06/2024 Blood pressure systolic 152 mm Hg 12/06/2024 Weight 182.4 lbs 12/06/2024 BMI 26.93 kg/m2 12/06/2024 Encounters Encounter Location Date Provider Diagnosis [address] [address] 07/06/[address] [address] 12/12/[address] [address] 03/06/2025 Anshu Hoy Acute bronchitis, unspecified organism J20.[address] [address] 09/22/2024 Anshu Hoy Sinus congestion R09 .81 ; Cough R05.9 ; Acute non-recurrent sinusitis, unspecified location J01.90 and Nasal congestion R09.[address] [address] 12/06/2024 Anshu Hoy Acute bronchitis, unspecified organism J20.9 and Memory loss R41.3 Assessments Encounter Date Diagnosis (ICD Code) Assessment Notes Treatment Notes Treatment Clinical Notes Section Notes 09/22/2024 Sinus congestion (ICD-10 - R09.81) 09/22/2024 Cough (ICD-10 - R05.9) 12/06/2024 Acute bronchitis, unspecified organism (ICD-10 - J20.9) Rest and drink more liquids, especially water. You may use a humidifier or vaporizer to help keep the drainage moist. Titv-xrr-trgjxgm Nasal Saline may help the stuffy and runny nose. Use Ibuprofen and or Tylenol as needed for fever, chills, body aches or pain. Children 5 years old should not be given rnki-rgj-boyexsi cough and cold medications such as guaifenesin and dextromethorphan. If you're over age 5, you may try panj-bha-pfjwdhw cold medications such as guaifenesin and dextromethorphan, [...] 911 12/06/2024 Memory loss (ICD-10 - R41.3) 03/06/2025 Acute bronchitis, unspecified organism (ICD-10 - J20.9) 09/22/2024 Acute non-recurrent sinusitis, unspecified location (ICD-10 - J01.90) Rest and drink more liquids, especially water. You may use a humidifier or vaporizer to help keep the drainage moist. Qvyv-ryc-xzdplas Nasal Saline may help the stuffy and runny nose. Use Ibuprofen and or Tylenol as needed for fever, chills, body aches or pain. Children 5 years old should not be given ysfn-ztb-ifrorog cough and cold medications such as guaifenesin and dextromethorphan. If you're over age 5, you may try rsnn-igx-ziumstw cold medications such as guaifenesin and dextromethorphan, [...] if symptoms do not improve within 3-5 days 09/22/2024 Nasal congestion (ICD-10 - R09.81) Plan Of Treatment Pending Test Test Name Order Date MRI BRAIN WO CON 12/06/2024 Insurance Providers Payer Name Payer Address Payer Phone Subscriber Number Group Number Insured Name Patient Relationship to Insured Coverage Start Date Coverage End Date MEDIC[place] [address] [place] [address] [id number] Keagan Shelby Self - patient is the insured 3 [employer] [address] [employer] [facility] 8 MEDICARE SUPP [place] DEPT [place] [phone] [id number] Keagan Shelby Self - patient is the insured 9 Medical (General) History Medical History History ICD Code Nevus D22.9 Over weight E66.3 Acute bronchitis J20.9 Sebaceous cyst L72.3 Neuromuscular disorder G70.9 Tubular adenoma of colon D12.6 Chronic hypoxemic respiratory failure J9 6.11 BiPAP (biphasic positive airway pressure ) dependence Z99.89 Ankle edema R60.0 Pulmonary hypertension I27.20 Colon, diverticulosis K57.30 Paralysis of diaphragm J98.6 Obstructive sleep apnea G47.33 HTN (hypertension) I10 Post-polio syndrome G14 Benign hypertrophy of prostate N40.0 Surgical History Surgery Date(Month/Year) Left ankle Neck C2-C3 fusion
--- OUTSIDE RECORDS SUMMARY | 2025-05-03 08:39 | XMS_ITS | Clinical Summary ---
Author Organization [employer] Address [id number] [address] [place] [address] Care Team Providers Care Senior Manager Quality Assurance Name Role Phone Shyam Huizar MD Primary Care Provider [phone] Allergies Active Allergy Reactions Criticality Noted Date Comments Sulfamethoxazole-Trimethoprim Anaphylaxis High 03/08 Medications aspirin 81 mg Take 81 mg by mouth daily. Active folic acid (FOLVITE) 1 mg tablet Take 1 mg by mouth daily. 1 Active finasteride (PROSCAR) 5 mg tablet Take 5 mg by mouth daily. 1 Active albuterol (PROVENTIL,VENT ELFEGO) 2.5 mg /3 mL (0.083 %) nebulizer solution 2.5 mg. Active methotrexate 2.5 mg chemo tablet Take 2.5 mg by mouth daily 1 Active pantoprazole (PROTONIX) 40 mg EC tablet Take 40 mg by mouth daily. 1 Active potassium chloride (KLOR-CON M) 10 MEQ CR tablet 1 Active propranolol LA (INDERAL LA) 60 mg 24 hr capsule Take 60 mg by mouth daily. 1 Active tamsulosin (FLOMAX) 0.4 mg capsule Take 0.4 mg by mouth daily. 1 Active simvastatin (ZOCOR) 20 mg tablet Take 20 mg by mouth in the morning. 2 Active latanoprost (XALATAN) 0.005 % ophthalmic solution Administer 1 drop to both eyes in the morning. 2 Active ipratropium-alb uteroL (DUONEB) 0.5 mg-3 mg(2.5 mg base)/3 mL nebulizer Inhale 1 mL by nebulization 4 (four) times a day as needed. 2 Active furosemide (LASIX) 20 mg tablet Take 20 mg by mouth daily. 2 Active dorzolamide-brianna oloL (COSOPT) 22.3-6.8 mg/mL ophthalmic solution Administer 1 drop to both eyes 2 (two) times a day. 2 Active Active Problems No known active problems Family History Medical History Relation Name Comments Lung cancer Brother 1 Lung cancer Brother 2 Alzheimer's disease Father Hypertension Father Diabetes Mother Diabetes Sister 2 Relation Name Status Comments Brother 1 Brother 2 Brother 3 Alive Father Mother Sister 1 Alive Sister 2 Social History Tobacco Use Types Packs/Day Years Used Date Smoking Tobacco: Former Cigarettes 1 20 1 - 1989 Smokeless Tobacco: Never Alcohol Use Standard Drinks/Week Comments Yes 0 (1 standard drink = 0.6 oz pur e alcohol) 7 beers a week Childcare Answer Date Recorded Childcare Unknown 04/25/2019 Employment Answer Date Recorded Employment Unknown 04/25/2019 Sex and Gender Information Value Date Recorded Sex Assigned at Not on file Legal Sex Male 12:05 PM EDT Gender Identity Not on file Sexual Orientation Not on file Last Filed Vital Signs Vital Sign Reading Time Taken Comments Blood Pressure 118/74 07/09/2022 10:11 AM EDT Pulse - - Temperature 36.6 C (97.8 F) 07/09/2022 10:11 AM EDT Respiratory Rate - - Oxygen Saturation - - Inhaled Oxygen Concentration - - Weight 74.8 kg (164 lb 12.8 oz) 022 10:11 AM EDT Height 175.3 cm (5' 9 ) 07/09/2022 10:1 1 AM EDT Body Mass Index 24.34 07/09/2022 10:11 AM EDT Plan of Treatment Health Maintenance Due Date Last Done Comments Depression Screening 1957 Tobacco Screening 1957 DTaP,Tdap and Td Vaccines (1 - Tdap) 1962 Zoster (Shingles) Vaccine (1 of 2) 1993 Fall Risk Screening 2008 COVID-19 Vaccine (2023-2 5 season) 2024 10/15/2021, 02/09/2021, 01/12/2021 Influenza Vaccine 07/17/2025 08/22/2022, , 08/31/2020, Additional history exists Medical Devices Not on file Insurance MEDICARE [place] Care Teams Senior Manager Quality Assurance Relationship Specialty Start Date End Date Shyam Huizar MD PCP - General Family Medicine 10/09/21
--- OUTSIDE RECORDS SUMMARY | 2025-05-03 08:58 | XMS_ITS | CCD ---
Author Organization [facility] CliniSymt Care Team Providers Care Career Development Manager Name Role Phone Kamilla Huizar MD Primary Care Provider [phone] MD Joao Barba Attending Provider Kamilla Huizar MD Primary Care Provider [phone] MELANIE ., DR KOHLI Primary Care Unavailable [...] Unavailable Kamilla Huizar MD Primary Care Provider [phone] BELLA CORONADO Attending Unavailable Kamilla Huizar MD Primary Care Provider [phone] Kamilla Huizar MD Primary Care Provider [phone] KAMILLA HUIZAR Primary Care Unavailable CARLOS FARRIS Referring Unavailable KAMILLA HUIZAR Primary Care Unavailable CARLOS FARRIS Referring Unavailable CARLOS FARRIS Referring Unavailable CARLOS FARRIS Attending Unavailable KAMILLA HUIZAR Primary Care Unavailable BRIDGER ANDREW Attending Unavailable BRIDGER ANDREW Attending Unavailable Kamilla Huizar MD Primary Care Provider [phone] Allergies Allergy Classification Reported Allergen(s) Allergy Type Date of Onset Reaction(s) Facility Sulfamethoxazole / Trimethoprim (1 source) Sulfamethoxazole / Trimethoprim Drug Allergy [address] [facility] (17 sources) Sulfamethoxazole / Trimethoprim; Translations: [SULFAMETHOXAZOLE-TR IMETHOPRIM] Drug Allergy [address] [facility] (2 sources) Sulfamethoxazole / Trimethoprim; Translations: [Bactrim] Drug Allergy [facility] (5 sources) Sulfonamides (Antibiotic) Drug Allergy 3 [facility] Medications Current Medications Medication Drug Class(es) Dates Sig (Normalized) Sig (Original) albuterol 0.833 mg/ml / ipratropium bromide 0.167 mg/ml inhalation solution (18 sources) Anticholinergic, beta2-Adrenergic Agonist Start: 05-05-2023 ipratropium-albute [...] mg/ml / timolol 5 mg/ml ophthalmic solution (7 sources) Carbonic Anhydrase Inhibitor, beta-Adrenergic Alessia Start: [...] 07/25/2024 Discontinued finasteride 5 mg oral tablet (17 sources) 5-alpha Reductase Inhibitor Start: 04-23-2017 take 1 tablet by mouth once daily finasteride (PROSCAR) 5 mg tablet Take 1 tablet by mouth once daily. 0 04/23/2017 Active Comment on above: Take 1 tablet by fredy th once daily. folic acid 1 mg oral tablet (5 sources) Start: 03-09-2023 take 1 tablet by mouth in the morning folic acid (Folvite) 1 MG tablet Take 1,000 mcg by mouth in the morning. 03/09/2023 Active furosemide 20 mg oral tablet (17 sources) Loop Diuretic Start: 04-23-2017 take 1 tablet by mouth once daily furosemide (Lasix) 20 MG tablet Take 1 tablet by mouth once daily for 30 06/10/2022 Active Comment on above: Take 1 tablet by fredy th once daily. latanoprost 0.05 mg/ml ophthalmic solution (17 sources) Prostaglandin Analog Start: 10-11-2024 End: 10-11-2024 [...] at bedtime. methotrexate 2.5 mg oral tablet (5 sources) Folate Analog Metabolic Inhibitor Start: 04-20-2023 methotrexate 2.5 MG tablet Take 15 mg by mouth 1 (one) time per week. 04/20/2023 Active metoprolol tartrate 50 mg oral tablet (5 sources) beta-Adrenergic Alessia Start: 11-03-2023 metoprolol tartrate (Lopressor) 50 MG tablet every 12 (twelve) hours 11/03/2023 Active pantoprazole 40 mg delayed release oral tablet (5 sources) Proton Pump Inhibitor Protonix 40 MG EC tablet 1 (one) time each day at the same time. Active microencapsulated potassium chloride 10 meq extended release oral tablet (17 sources) Start: 02-25-2023 potassium chloride CR (Klor-Con M10) 10 MEQ ER tablet 02/25/2023 Active Start: 04-23-2017 take 1 tablet by fredy th once daily potassium chloride (KLOR-CON 10) 10 mEq tablet Take 1 tablet by mouth once daily. 04/23/2017 Active Comment on above: Take 1 tablet by fredy th once daily. prednisoLONE acetate 10 mg/ml ophthalmic suspension (6 sources) Corticosteroid Start: 04-14-20 take 1 drop(s) into the eye(s) two times weekly prednisoLONE acetate (Pred-Forte) 1 % ophthalmic suspension Indications: Anterior scleritis of left eye Instill one drop into the left eye twice a week, 15 mL 3 04/14/2025 Active Start: 11-25-2022 End: 04-14-2025 take 1 drop(s) into the eye(s) three times weekly prednisoLONE acetate (Pred-Forte) 1 % ophthalmic suspension INSTILL 1 DROP INTO EACH EYE THREE TIMES A WEEK 11/25/2022 04/14/2025 Discontinued (Reorder) 24 hr propranolol hydrochloride 60 mg extended release oral capsule (17 sources) beta-Adrenergic Alessia Start: 04-20-2023 take 1 capsule by mouth every twenty-four [...] once daily. simvastatin 20 mg oral tablet (17 sources) HMG-CoA Reductase Inhibitor Start: 7 take 1 tablet by mouth once daily at bedtime simvastatin (ZOCOR) 20 mg tablet Take 1 tablet by mouth daily at bedtime. 0 04/23/2017 Active Comment on above: Take 1 tablet by fredy th daily at bedtime. 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; Translations: [Other [...] Translations: [HYPERLIPIDEMIA UNSPECIFIED] Onset: 04-15-2023 Chronic Glaucoma (8 sources) Primary open angle glaucoma; Translations: [Primary open-angle glaucoma, bilateral, mild stage] Onset: 05-25-2023 10-11-2024 Chronic Hypertension with complications and secondary hypertension (1 source) Hypertensive heart disease with heart failure; Translations: [HTN HEART DISEASE W/HEART FAIL] Onset: 09-02-2022 Chronic Inflammation; infection of eye (except that caused by tuberculosis or sexually transmitteddisease) (11 sources) Anterior scleritis, left eye; 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 Stable. Right eye (OD) good. [facility] Radiology Study observation (narrative) [facility] 12-08-2024 [facility] Telephone (PULMMN) ADONAY IRBY ([id number]) 1945 M Date Time Provider Department 12/08/24 CARLOS FARRIS PULMMN During your visit today, we recorded the following information about you: Hanna Hyde 12/08/2024 1:37 PM Signed Admin faxed over medical equipment order to [employer], signed by Dr. Carlos Farris. Admin scanned [...] Encounter Status:Closed by HANNA HYDE on 12/08/24 [facility] CNOVon 04-08-2024 CNOV Office Visit (PULMMN ) ADONAY IRBY ([id number]) 1945 M Date Time Provider Department 04/08/24 [...] station stooped. Mood and affect normal. DATABASE [employer] is [employer]. THE PHARMACY [facility] [facility] 03/09/2024 - 04/07/2024 Usage days 28/30 days (93%) >= 4 hours 28 days (93%) Usage hours 212 hours 11 minutes Average usage (total days) 7 hours 4 minutes Average usage (days used) 7 hours 35 minutes Median usage (days used) 7 hours 35 minutes Total used hours (value since last reset - 04/07/2024) 6,[address] Serial number [id number] Mode Spont Timed IPAP 21 cmH2O (same [...] %Pr (more content not included)... Normal [facility] Patient Letter FTMCon 2022 Patient Letter [facility] [place] (Inserted Image. Kayla ble to display) October 14, 2023 ADONAY IRBY [address] [place] [address] : 1945 Dear Adonay, This is a reminder that you are due for an appointment with [facility]. Please contact our office at [phone] to schedule an appointment at your earliest convenience. Thank you, [facility] Reminderson 10-14-2023 Reminders - From: Raven Sepulveda To: KURT - Reminders/Recalls; Sent: 10/14/2023 10:33:18 EST Show up: 10/14/2023 10:33:00 EST Subject: Ambulatory Reminder Reminder/Recall 5 year colon recall mamie freed 11/07 first recall letter Normal [facility] Screenson 06-25-2023 Screens [id number] CD:127 Normal [facility] Patient Educationon 06-24-20 Patient Education Urology [...] Follow these instructions at home: ? Take wpoa-kwz-qswfsyf and prescription medicines only as told by [...] the medicine (more content not included)... Normal [facility] Provider Letteron 06-24-2023 Provider Letter (Inserted Image. Kayla ble to display) Kamilla Huizar, [facility] [place] [address] Re: ADONAY IRBY Date of : [address]Hoy ADAMS, ADONAY Coello was evaluated at [facility] 06/24/2023 13:20:00 As this patient has [...] Thanks! Provider Signature: Bella Coronado PA-C Physician [employer] [facility] [address] [place] [address] Normal [facility] Urology Office/Clinic Noteon 06-24-2023 Urology Office/Clinic [...] When Contact Information BELLA CORONADO PA-C, URL [address] [address] Additional Instructions: PRN Patient Education Benign Prostatic [...] Hypertension: Father. Immunizations Vaccine Date Status SARSCoV2 mRNA(hukurvpky-csqy-yrq ros) vac 07/09/2022 Recorded SARS-CoV-2 (COVID-19) mRNA BNT-162b2 vax 10/15/2021 Recorded SARS-CoV-2 (COVID-19) mRNA-1273 vaccine 02/09/2021 Recorded SARS-CoV-2 (COVID-19) mRNA-1273 vaccine 01/12/2021 Recorded influenza virus vaccine, inactivated 08/31/2020 Recorded influenza virus vaccine, live, trivalent 08/24/2019 Recorded influenza virus vaccine, inactivated 08/27/2018 Recorded p (more content not included)... Normal [facility] Comment on above: Result Comment: Elec tronically Signed By: BELLA CORONADO PA-C\.br\Date and Time Signed: 06/24/23 14:14 EDT\.br\Electronically Co-Signed By: Rajani Crane\.br\Date and Time Co-Signed: 06/24/23 13:53 EDT INSULINon 04-09-2023 Insulin 2.9 uIU/mL Normal 2.6-24.9 [facility] Comment on above: Performed By: #### L IPID, T7, CMP, URIC, TSH #### [facility] [address] [place] [address] Dr. Roland Gr CBC AUTO DIFFon 04-08-2023 BASO # 0.0 103/ul Normal 0.0-0.1 [facility] Comment on above: Performed By: #### C VDTB #### [facility] [address] [place] [address] Dr. Roland Gr Basophils/100 WBC (Bld) 0.7 % Normal 0.2-2.0 [facility] Comment on above: Performed By: #### C VDTBH #### [facility] [address] [place] [address] Dr. Roland Gr EO # 0.1 103/ul Normal 0.0-0.7 [facility] Comment on above: Performed By: #### C VDTBH #### [facility] [address] [place] [address] Dr. Roland Gr Eosinophils/100 WBC (Bld) 0.9 % Normal 0.9-7.0 [facility] Comment on above: Performed By: #### C VDTBH #### [facility] [address] [place] [address] Dr. Roland Gr Erythrocyte distribution width (RBC) [Ratio] 14.7 % Normal 11.0-15.0 [facility] Comment on above: Performed By: #### C VDTBH #### [facility] [address] [place] [address] Dr. Roland Gr Hematocrit (Bld) [Volume fraction] 39.1 % Critically low 42.0-54.0 [facility] Comment on above: Performed By: #### C VDTBH #### [facility] [address] [place] [address] Dr. Roland Gr Hemoglobin (Bld) [Mass/Vol] 12.6 g/dL Critically low 14.0-18.0 [facility] Comment on above: Performed By: #### C VDTBH #### [facility] [address] [place] [address] Dr. Roland Gr IG # 0.03 10e3/ul Normal 0.00-0.03 [facility] Comment on above: Performed By: #### C VDTBH #### [facility] [address] [place] [address] Dr. Roland Gr IG % 0.5 % Normal 0.0-0.5 [facility] Comment on above: Performed By: #### C VDTBH #### [facility] [address] [place] [address] Dr. Roland Gr LYMPH # 1.4 103/ul Normal 1.2-3.8 [facility] Comment on above: Performed By: #### C VDTBH #### [facility] [address] [place] [address] Dr. Roland Gr Lymphocytes/100 WBC (Bld) 23.6 % Normal 20.5-60.0 [facility] Comment on above: Performed By: #### C VDTBH #### [facility] [address] [place] [address] Dr. Roland Gr MANUAL DIFF REQ NO Normal [facility] Comment on above: Performed By: #### C VDTBH #### [facility] [address] [place] [address] Dr. Roland Gr MCH (RBC) [Entitic mass] 31.7 pg Normal 25.9-34.0 [facility] Comment on above: Performed By: #### C VDTBH #### [facility] [address] [place] [address] Dr. Roland Gr MCHC (RBC) [Mass/Vol] 32.2 g/dL Normal 29.9-35.2 [facility] Comment on above: Performed By: #### C VDTBH #### [facility] [address] [place] [address] Dr. Roland Gr MCV (RBC) [Entitic vol] 98.5 fL Critically high 80.0-94.0 [facility] Comment on above: Performed By: #### C VDTBH #### [facility] [address] [place] [address] Dr. Roland Gr MONO # 0.7 103/ul Normal 0.3-0.8 [facility] Comment on above: Performed By: #### C VDTBH #### [facility] [address] [place] [address] Dr. Roland Gr Monocytes/100 WBC (Bld) 11.8 % Normal 1.7-12.0 [facility] Comment on above: Performed By: #### C VDTBH #### [facility] [address] [place] [address] Dr. Roland Gr NEUT # 3.7 103/ul Normal 1.4-6.5 [facility] Comment on above: Performed By: #### C VDTBH #### [facility] [address] [place] [address] Dr. Roland Gr Neutrophils/100 WBC (Bld) 62.5 % Normal 43.0-75.0 [facility] Comment on above: Performed By: #### C VDTBH #### [facility] [address] [address] [address] Roland Gr Platelet mean volume (Bld) [Entitic vol] 10.2 fL Normal 9.5-13.5 [facility] Comment on above: Performed By: #### C VDTBH #### [facility] [address] [address] [address] Roland Gr PLT 180 103/ul Normal 150-450 [facility] Comment on above: Performed By: #### C VDTBH #### [facility] [address] [address] [address] Roland Gr RBC 3.97 106/ul Critically low 4.70-6.10 [facility] Comment on above: Performed By: #### C VDTBH #### [facility] [address] [address] [address] Roland Gr WBC 5.9 103/ul Normal 4.0-11.0 [facility] Comment on above: Performed By: #### C VDTBH #### [facility] [address] [address] [address] Roland Gr FREE THYROXINE INDEX T7on FTI 2.81 Normal 1.30-4.50 [facility] Comment on above: Performed By: #### L IPID, T7, CMP, URIC, TSH #### [facility] [address] [address] [address] Roland Gr T3U 38.0 % Normal 33.0-40.0 [facility] Comment on above: Performed By: #### L IPID, T7, CMP, URIC, TSH #### [facility] [address] [address] [address] Roland Gr T4 [Mass/Vol] 7.40 ug/dL Normal 4.50-12.10 [facility] Comment on above: Performed By: #### L IPID, T7, CMP, URIC, TSH #### [facility] [address] [address] [address] Roland Gr GLYCOHEMOGLOBIN A1Con 2022 ADA RECOMMENDATION SEE BELOW Normal [facility] Comment on above: Result Comment: ADA RECOMMENDED LIMIT 4.0 - 6.0 ADA THERAPEUTIC TARGET < 7.0 ACTION SUGGESTED > 7.0 Performed By: #### A 1C #### [facility] [address] [place] [address] Dr. Roland Gr Glucose [Mass/Vol] 103 mg/dL Normal [facility] Comment on above: Performed By: #### A 1C #### [facility] [address] [place] [address] Dr. Roland Gr HbA1c (Bld) [Mass fraction] 5.2 % Normal 4.5-6.2 [facility] Comment on above: Performed By: #### A 1C #### [facility] [address] [place] [address] Dr. Roland Gr LIPID PROFILEon 04-08-2023 CHOL-HDL RATIO NORM SEE BELOW Normal [facility] Comment on above: Result Comment: 3.3 - 4.4 LOW RISK 4.4 - 7.1 AVERAGE RISK 7.1 - 11.0 MODERATE RISK >11.0 HIGH RISK Performed By: #### L IPID, T7, CMP, URIC, TSH #### [facility] [address] [place] [address] Dr. Roland Gr Cholesterol [Mass/Vol] 134 mg/dL Normal <=200 [facility] Comment on above: Performed By: #### L IPID, T7, CMP, URIC, TSH #### [facility] [address] [place] [address] Dr. Roland Gr Cholesterol in HDL [Mass/Vol] 74 mg/dL Critically high 40-60 [facility] Comment on above: Performed By: #### L IPID, T7, CMP, URIC, TSH #### [facility] [address] [place] [address] Dr. Roland Gr Cholesterol in LDL [Mass/Vol] 50.0 mg/dL Normal [facility] Comment on above: Performed By: #### L IPID, T7, CMP, URIC, TSH #### [facility] [address] [place] [address] Dr. Roland Gr Cholesterol.total/C holesterol in HDL [Mass ratio] 1.8 {ratio} Normal [facility] Comment on above: Performed By: #### L IPID, T7, CMP, URIC, TSH #### [facility] [address] [address] [address] Roland Gr HDL NORMAL > or = 60 mg/dl - LO W CARDIOVASCULAR RISK <40 mg/dl - HIGH CARDIOVASCULAR RISK Normal [facility] Comment on above: Performed By: #### L IPID, T7, CMP, URIC, TSH #### [facility] [address] [address] [address] Roland Gr LDL CALC NORMAL SEE BELOW Normal [facility] Comment on above: Result Comment: <100 mg/dl OPTIMAL 100 - 129 mg/dl NEAR OR ABOVE OPTIMAL 130 - 159 mg/dl BORDERLINE HIGH 160 - 189 mg/dl HIGH >190 mg/dl VERY HIGH Performed By: #### L IPID, T7, CMP, URIC, TSH #### [facility] [address] [address] [address] Roland Gr Triglyceride [Mass/Vol] 50 mg/dL Normal <=150 [facility] Comment on above: Performed By: #### L IPID, T7, CMP, URIC, TSH #### [facility] [address] [address] [address] Roland Gr VLDL CALC 10.0 mg/dL Normal [facility] Comment on above: Performed By: #### L IPID, T7, CMP, URIC, TSH #### [facility] [address] [address] [address] Roland Gr PROF 14(COMP METB)on 023 Albumin [Mass/Vol] 3.6 g/dL Normal 3.4-5.[address] [facility] Comment on above: Performed By: #### L IPID, T7, CMP, URIC, TSH #### [facility] [address] [address] [address] Roland Gr Albumin/Globulin [Mass ratio] 1.1 {ratio} Normal [facility] Comment on above: Performed By: #### L IPID, T7, CMP, URIC, TSH #### [facility] [address] [place] [address] Dr. Roland Gr ALP [Catalytic activity/Vol] 64 U/L Normal 46-116 [facility] Comment on above: Performed By: #### L IPID, T7, CMP, URIC, TSH #### [facility] [address] [place] [address] Dr. Roland Gr ALT [Catalytic activity/Vol] 25 U/L Normal 16-63 [facility] Comment on above: Performed By: #### L IPID, T7, CMP, URIC, TSH #### [facility] [address] [place] [address] Dr. Roland Gr Anion gap [Moles/Vol] 13.2 mmol/L Normal [facility] Comment on above: Performed By: #### L IPID, T7, CMP, URIC, TSH #### [facility] [address] [place] [address] Dr. Roland Gr AST [Catalytic activity/Vol] 18 U/L Normal 15-37 [facility] Comment on above: Performed By: #### L IPID, T7, CMP, URIC, TSH #### [facility] [address] [place] [address] Dr. Roland Gr Bilirubin [Mass/Vol] 0.9 mg/dL Normal 0.2-1.0 [facility] Comment on above: Performed By: #### L IPID, T7, CMP, URIC, TSH #### [facility] [address] [place] [address] Dr. Roland Gr Calcium [Mass/Vol] 9.0 mg/dL Normal 8.5-10.[address] [facility] Comment on above: Performed By: #### L IPID, T7, CMP, URIC, TSH #### [facility] [address] [place] [address] Dr. Roland Gr Chloride [Moles/Vol] 109 mmol/L Critically high 98-107 [facility] Comment on above: Performed By: #### L IPID, T7, CMP, URIC, TSH #### [facility] [address] [place] [address] Dr. Roland Gr CO2 [Moles/Vol] 28.9 mmol/L Normal 21.0-32.0 [facility] Comment on above: Performed By: #### L IPID, T7, CMP, URIC, TSH #### [facility] [address] [address] [address] Roland Gr Creatinine [Mass/Vol] 0.85 mg/dL Normal 0.70-1.30 [facility] Comment on above: Performed By: #### L IPID, T7, CMP, URIC, TSH #### [facility] [address] [address] [address] Roalnd Gr EGFR-AF MOSOTHO >60 Normal >=60 [facility] Comment on above: Performed By: #### L IPID, T7, CMP, URIC, TSH #### [facility] [address] [address] [address] Roland Gr EGFR-NON AF MOSOTHO >60 Normal >=60 [facility] Comment on above: Performed By: #### L IPID, T7, CMP, URIC, TSH #### [facility] [address] [address] [address] Roland Gr Globulin (S) [Mass/Vol] 3.4 g/dL Normal [facility] Comment on above: Performed By: #### L IPID, T7, CMP, URIC, TSH #### [facility] [address] [address] [address] Roland Gr Glucose [Mass/Vol] 93 mg/dL Normal 74-[address] [facility] Comment on above: Performed By: #### L IPID, T7, CMP, URIC, TSH #### [facility] [address] [address] [address] Roland Gr Potassium [Moles/Vol] 4.1 mmol/L Normal 3.5-5.1 [facility] Comment on above: Performed By: #### L IPID, T7, CMP, URIC, TSH #### [facility] [address] [address] [address] Roland Gr Protein [Mass/Vol] 7.0 g/dL Normal 6.4-8.[address] [facility] Comment on above: Performed By: #### L IPID, T7, CMP, URIC, TSH #### [facility] [address] [place] [address] Dr. Roland Gr Sodium [Moles/Vol] 147 mmol/L Critically high 136-145 [facility] Comment on above: Performed By: #### L IPID, T7, CMP, URIC, TSH #### [facility] [address] [place] [address] Dr. Roland Gr Urea nitrogen [Mass/Vol] 20.0 mg/dL Critically high 7.0-18.0 [facility] Comment on above: Performed By: #### L IPID, T7, CMP, URIC, TSH #### [facility] [address] [place] [address] Dr. Roland Gr Urea nitrogen/Creatinine [Mass ratio] 23.5 mg/mg Normal [facility] Comment on above: Performed By: #### L IPID, T7, CMP, URIC, TSH #### [facility] [address] [place] [address] Dr. Roland Gr TSHon 04-08-2023 TSH 1.136 uIU/mL Normal 0.358-3.740 [facility] Comment on above: Performed By: #### L IPID, T7, CMP, URIC, TSH #### [facility] [address] [place] [address] Dr. Roland Gr URIC ACID SERUMon 04-08-2023 Urate [Mass/Vol] 6.5 mg/dL Normal 3.5-7.2 [facility] Comment on above: Performed By: #### L IPID, T7, CMP, URIC, TSH #### [facility] [address] [place] [address] Dr. Roland Gr CBC AUTO DIFFon 03-04-2023 BASO # 0.0 103/ul Normal 0.0-0.1 [facility] Comment on above: Performed By: #### C VDTBH #### [facility] [address] [place] [address] Dr. Roland Gr Basophils/100 WBC (Bld) 0.6 % Normal 0.2-2.0 [facility] Comment on above: Performed By: #### C VDTBH #### [facility] [address] [place] [address] Dr. Roland Gr EO # 0.1 103/ul Normal 0.0-0.7 [facility] Comment on above: Performed By: #### C VDTBH #### [facility] [address] [place] [address] Dr. Roland Gr Eosinophils/100 WBC (Bld) 1.3 % Normal 0.9-7.0 [facility] Comment on above: Performed By: #### C VDTBH #### [facility] [address] [place] [address] Dr. Roland Gr Erythrocyte distribution width (RBC) [Ratio] 14.6 % Normal 11.0-15.0 [facility] Comment on above: Performed By: #### C VDTBH #### [facility] [address] [place] [address] Dr. Roland Gr Hematocrit (Bld) [Volume fraction] 40.4 % Critically low 42.0-54.0 [facility] Comment on above: Performed By: #### C VDTBH #### [facility] [address] [place] [address] Dr. Roland Gr Hemoglobin (Bld) [Mass/Vol] 12.9 g/dL Critically low 14.0-18.0 [facility] Comment on above: Performed By: #### C VDTBH #### [facility] [address] [place] [address] Dr. Roland Gr IG # 0.02 10e3/ul Normal 0.00-0.03 [facility] Comment on above: Performed By: #### C VDTBH #### [facility] [address] [place] [address] Dr. Roland Gr IG % 0.3 % Normal 0.0-0.5 [facility] Comment on above: Performed By: #### C VDTBH #### [facility] [address] [address] [address] Roland Gr LYMPH # 1.5 103/ul Normal 1.2-3.8 [facility] Comment on above: Performed By: #### C VDTBH #### [facility] [address] [place] [address] Dr. Roland Gr Lymphocytes/100 WBC (Bld) 21.2 % Normal 20.5-60.0 [facility] Comment on above: Performed By: #### C VDTBH #### [facility] [address] [place] [address] Dr. Roland Gr MANUAL DIFF REQ NO Normal [facility] Comment on above: Performed By: #### C VDTBH #### [facility] [address] [place] [address] Dr. Roland Gr MCH (RBC) [Entitic mass] 31.6 pg Normal 25.9-34.0 [facility] Comment on above: Performed By: #### C VDTBH #### [facility] [address] [place] [address] Dr. Roland Gr MCHC (RBC) [Mass/Vol] 31.9 g/dL Normal 29.9-35.2 [facility] Comment on above: Performed By: #### C VDTBH #### [facility] [address] [place] [address] Dr. Roland Gr MCV (RBC) [Entitic vol] 99.0 fL Critically high 80.0-94.0 [facility] Comment on above: Performed By: #### C VDTBH #### [facility] [address] [place] [address] Dr. Roland Gr MONO # 0.6 103/ul Normal 0.3-0.8 [facility] Comment on above: Performed By: #### C VDTBH #### [facility] [address] [place] [address] Dr. Roland Gr Monocytes/100 WBC (Bld) 9.3 % Normal 1.7-12.0 [facility] Comment on above: Performed By: #### C VDTBH #### [facility] [address] [address] [address] Roland Gr NEUT # 4.7 103/ul Normal 1.4-6.5 [facility] Comment on above: Performed By: #### C VDTBH #### [facility] [address] [address] [address] Roland Gr Neutrophils/100 WBC (Bld) 67.3 % Normal 43.0-75.0 [facility] Comment on above: Performed By: #### C VDTBH #### [facility] [address] [address] [address] Roland Gr Platelet mean volume (Bld) [Entitic vol] 10.1 fL Normal 9.5-13.5 [facility] Comment on above: Performed By: #### C VDTBH #### [facility] [address] [place] [address] Dr. Roland Gr PLT 188 103/ul Normal 150-450 [facility] Comment on above: Performed By: #### C VDTBH #### [facility] [address] [address] [address] Roland Gr RBC 4.08 106/ul Critically low 4.70-6.10 [facility] Comment on above: Performed By: #### C VDTBH #### [facility] [address] [address] [address] Roland Gr WBC 6.9 103/ul Normal 4.0-11.0 [facility] Comment on above: Performed By: #### C VDTBH #### [facility] [address] [address] [address] Roland Gr PROF 14(COMP METB)on 023 Albumin [Mass/Vol] 3.6 g/dL Normal 3.4-5.[address] [facility] Comment on above: Performed By: #### L IPID, T7, CMP, URIC, TSH #### [facility] [address] [address] [address] Roland Gr Albumin/Globulin [Mass ratio] 1.0 {ratio} Normal [facility] Comment on above: Performed By: #### L IPID, T7, CMP, URIC, TSH #### [facility] [address] [address] [address] Roland Gr ALP [Catalytic activity/Vol] 69 U/L Normal 46-116 [facility] Comment on above: Performed By: #### L IPID, T7, CMP, URIC, TSH #### [facility] [address] [place] [address] Dr. Roland Gr ALT [Catalytic activity/Vol] 26 U/L Normal 16-63 [facility] Comment on above: Performed By: #### L IPID, T7, CMP, URIC, TSH #### [facility] [address] [place] [address] Dr. Roland Gr Anion gap [Moles/Vol] 11.2 mmol/L Normal [facility] Comment on above: Performed By: #### L IPID, T7, CMP, URIC, TSH #### [facility] [address] [place] [address] Dr. Roland Gr AST [Catalytic activity/Vol] 22 U/L Normal 15-37 [facility] Comment on above: Performed By: #### L IPID, T7, CMP, URIC, TSH #### [facility] [address] [place] [address] Dr. Roland Gr Bilirubin [Mass/Vol] 0.7 mg/dL Normal 0.2-1.0 [facility] Comment on above: Performed By: #### L IPID, T7, CMP, URIC, TSH #### [facility] [address] [place] [address] Dr. Roland Gr Calcium [Mass/Vol] 9.2 mg/dL Normal 8.5-10.[address] [facility] Comment on above: Performed By: #### L IPID, T7, CMP, URIC, TSH #### [facility] [address] [place] [address] Dr. Roland Gr Chloride [Moles/Vol] 108 mmol/L Critically high 98-107 [facility] Comment on above: Performed By: #### L IPID, T7, CMP, URIC, TSH #### [facility] [address] [place] [address] Dr. Roland Gr CO2 [Moles/Vol] 30.8 mmol/L Normal 21.0-32.0 [facility] Comment on above: Performed By: #### L IPID, T7, CMP, URIC, TSH #### [facility] [address] [place] [address] Dr. Roland Gr Creatinine [Mass/Vol] 0.74 mg/dL Normal 0.70-1.30 [facility] Comment on above: Performed By: #### L IPID, T7, CMP, URIC, TSH #### [facility] [address] [place] [address] Dr. Roland Gr EGFR-AF MOSOTHO >60 Normal >=60 [facility] Comment on above: Performed By: #### L IPID, T7, CMP, URIC, TSH #### [facility] [address] [place] [address] Dr. Roland Gr EGFR-NON AF MOSOTHO >60 Normal >=60 [facility] Comment on above: Performed By: #### L IPID, T7, CMP, URIC, TSH #### [facility] [address] [place] [address] Dr. Roland Gr Globulin (S) [Mass/Vol] 3.5 g/dL Normal [facility] Comment on above: Performed By: #### L IPID, T7, CMP, URIC, TSH #### [facility] [address] [place] [address] Dr. Roland Gr Glucose [Mass/Vol] 102 mg/dL Normal 74-[address] [facility] Comment on above: Performed By: #### L IPID, T7, CMP, URIC, TSH #### [facility] [address] [place] [address] Dr. Roland Gr Potassium [Moles/Vol] 4.0 mmol/L Normal 3.5-5.1 [facility] Comment on above: Performed By: #### L IPID, T7, CMP, URIC, TSH #### [facility] [address] [place] [address] Dr. Roland Gr Protein [Mass/Vol] 7.1 g/dL Normal 6.4-8.[address] [facility] Comment on above: Performed By: #### L IPID, T7, CMP, URIC, TSH #### [facility] [address] [address] [address] Roland Gr Sodium [Moles/Vol] 146 mmol/L Critically high 136-145 [facility] Comment on above: Performed By: #### L IPID, T7, CMP, URIC, TSH #### [facility] [address] [address] [address] Roland Gr Urea nitrogen [Mass/Vol] 15.0 mg/dL Normal 7.0-18.0 [facility] Comment on above: Performed By: #### L IPID, T7, CMP, URIC, TSH #### [facility] [address] [place] [address] Dr. Roland Gr Urea nitrogen/Creatinine [Mass ratio] 20.3 mg/mg Normal [facility] Comment on above: Performed By: #### L IPID, T7, CMP, URIC, TSH #### [facility] [address] [place] [address] Dr. Roland Gr SED RATE [facility] 2022 SED RATE 11 mm/hr Normal <=20 [facility] Comment on above: Performed By: #### L IPID, T7, CMP, URIC, TSH #### [facility] [address] [place] [address] Dr. Roland Gr [facility]18 SARS-CoV-2 (COVID-19) RNA PORSCHE+probe Ql (Unsp spec) Not detected Normal NOT DETECTED [facility] Comment on above: Result Comment: This test is not yet approved or cleared by the [place] FDA. When there are no FDA-approved or cleared tests available, and other criteria are met, FDA can make tests available under an emergency access mechanism called an Emergency Use Authorization (EUA). The EUA for this test is supported by the [place] of Health and Human Service's (HHS's) declaration [...] SARS-CoV-2. Performed By: #### C VDTBH #### [facility] [address] [place] [address] Dr. Roland Gr CBC AUTO DIFFon 12-03-2022 BASO # 0.0 103/ul Normal 0.0-0.1 [facility] Comment on above: Performed By: #### C VDTBH #### [facility] [address] [place] [address] Dr. Roland Gr Basophils/100 WBC (Bld) 0.6 % Normal 0.2-2.0 [facility] Comment on above: Performed By: #### C VDTBH #### [facility] [address] [place] [address] Dr. Roland Gr EO # 0.1 103/ul Normal 0.0-0.7 [facility] Comment on above: Performed By: #### C VDTBH #### [facility] [address] [place] [address] Dr. Roland Gr Eosinophils/100 WBC (Bld) 1.7 % Normal 0.9-7.0 [facility] Comment on above: Performed By: #### C VDTBH #### [facility] [address] [place] [address] Dr. Roland Gr Erythrocyte distribution width (RBC) [Ratio] 14.1 % Normal 11.0-15.0 [facility] Comment on above: Performed By: #### C VDTBH #### [facility] [address] [place] [address] Dr. Roland Gr Hematocrit (Bld) [Volume fraction] 39.3 % Critically low 42.0-54.0 [facility] Comment on above: Performed By: #### C VDTBH #### [facility] [address] [place] [address] Dr. Roland Gr Hemoglobin (Bld) [Mass/Vol] 12.7 g/dL Critically low 14.0-18.0 [facility] Comment on above: Performed By: #### C VDTBH #### [facility] [address] [place] [address] Dr. Roland Gr IG # 0.03 10e3/ul Normal 0.00-0.03 [facility] Comment on above: Performed By: #### C VDTBH #### [facility] [address] [place] [address] Dr. Roland Gr IG % 0.5 % Normal 0.0-0.5 [facility] Comment on above: Performed By: #### C VDTBH #### [facility] [address] [place] [address] Dr. Roland Gr LYMPH # 1.5 103/ul Normal 1.2-3.8 [facility] Comment on above: Performed By: #### C VDTBH #### [facility] [address] [place] [address] Dr. Roland Gr Lymphocytes/100 WBC (Bld) 23.5 % Normal 20.5-60.0 [facility] Comment on above: Performed By: #### C VDTBH #### [facility] [address] [place] [address] Dr. Roland Gr MANUAL DIFF REQ NO Normal [facility] Comment on above: Performed By: #### C VDTBH #### [facility] [address] [place] [address] Dr. Roland Gr MCH (RBC) [Entitic mass] 31.8 pg Normal 25.9-34.0 [facility] Comment on above: Performed By: #### C VDTBH #### [facility] [address] [place] [address] Dr. Roland Gr MCHC (RBC) [Mass/Vol] 32.3 g/dL Normal 29.9-35.2 [facility] Comment on above: Performed By: #### C VDTBH #### [facility] [address] [place] [address] Dr. Roland Gr MCV (RBC) [Entitic vol] 98.5 fL Critically high 80.0-94.0 [facility] Comment on above: Performed By: #### C VDTBH #### [facility] [address] [place] [address] Dr. Roland Gr MONO # 0.7 103/ul Normal 0.3-0.8 [facility] Comment on above: Performed By: #### C VDTBH #### [facility] [address] [place] [address] Dr. Roland Gr Monocytes/100 WBC (Bld) 10.6 % Normal 1.7-12.0 [facility] Comment on above: Performed By: #### C VDTBH #### [facility] [address] [place] [address] Dr. Roland Gr NEUT # 4.1 103/ul Normal 1.4-6.5 [facility] Comment on above: Performed By: #### C VDTBH #### [facility] [address] [place] [address] Dr. Roland Gr Neutrophils/100 WBC (Bld) 63.1 % Normal 43.0-75.0 [facility] Comment on above: Performed By: #### C VDTBH #### [facility] [address] [place] [address] Dr. Roland Gr Platelet mean volume (Bld) [Entitic vol] 10.0 fL Normal 9.5-13.5 [facility] Comment on above: Performed By: #### C VDTBH #### [facility] [address] [place] [address] Dr. Roland Gr PLT 184 103/ul Normal 150-450 [facility] Comment on above: Performed By: #### C VDTBH #### [facility] [address] [place] [address] Dr. Roland Gr RBC 3.99 106/ul Critically low 4.70-6.10 [facility] Comment on above: Performed By: #### C VDTBH #### [facility] [address] [place] [address] Dr. Roland Gr WBC 6.4 103/ul Normal 4.0-11.0 [facility] Comment on above: Performed By: #### C VDTBH #### [facility] [address] [place] [address] Dr. Roland Gr PROF 14(COMP METB)on 023 Albumin [Mass/Vol] 3.8 g/dL Normal 3.4-5.[address] [facility] Comment on above: Performed By: #### L IPID, T7, CMP, URIC, TSH #### [facility] [address] [place] [address] Dr. Roland Gr Albumin/Globulin [Mass ratio] 1.4 {ratio} Normal [facility] Comment on above: Performed By: #### L IPID, T7, CMP, URIC, TSH #### [facility] [address] [place] [address] Dr. Roland Gr ALP [Catalytic activity/Vol] 58 U/L Normal 46-116 [facility] Comment on above: Performed By: #### L IPID, T7, CMP, URIC, TSH #### [facility] [address] [place] [address] Dr. Roland Gr ALT [Catalytic activity/Vol] 24 U/L Normal 16-63 [facility] Comment on above: Performed By: #### L IPID, T7, CMP, URIC, TSH #### [facility] [address] [place] [address] Dr. Roland Gr Anion gap [Moles/Vol] 11.2 mmol/L Normal [facility] Comment on above: Performed By: #### L IPID, T7, CMP, URIC, TSH #### [facility] [address] [place] [address] Dr. Roland Gr AST [Catalytic activity/Vol] 24 U/L Normal 15-37 [facility] Comment on above: Performed By: #### L IPID, T7, CMP, URIC, TSH #### [facility] [address] [address] [address] Roland Gr Bilirubin [Mass/Vol] 0.7 mg/dL Normal 0.2-1.0 [facility] Comment on above: Performed By: #### L IPID, T7, CMP, URIC, TSH #### [facility] [address] [address] [address] Roland Gr Calcium [Mass/Vol] 9.0 mg/dL Normal 8.5-10.[address] [facility] Comment on above: Performed By: #### L IPID, T7, CMP, URIC, TSH #### [facility] [address] [place] [address] Dr. Roland Gr Chloride [Moles/Vol] 109 mmol/L Critically high 98-107 [facility] Comment on above: Performed By: #### L IPID, T7, CMP, URIC, TSH #### [facility] [address] [place] [address] Dr. Rloand Gr CO2 [Moles/Vol] 28.8 mmol/L Normal 21.0-32.0 [facility] Comment on above: Performed By: #### L IPID, T7, CMP, URIC, TSH #### [facility] [address] [place] [address] Dr. Roland Gr Creatinine [Mass/Vol] 0.73 mg/dL Normal 0.70-1.30 [facility] Comment on above: Performed By: #### L IPID, T7, CMP, URIC, TSH #### [facility] [address] [place] [address] Dr. Roland Gr EGFR-AF MOSOTHO >60 Normal >=60 [facility] Comment on above: Performed By: #### L IPID, T7, CMP, URIC, TSH #### [facility] [address] [place] [address] Dr. Roland Gr EGFR-NON AF MOSOTHO >60 Normal >=60 [facility] Comment on above: Performed By: #### L IPID, T7, CMP, URIC, TSH #### [facility] [address] [address] [address] Roland Gr Globulin (S) [Mass/Vol] 2.8 g/dL Normal [facility] Comment on above: Performed By: #### L IPID, T7, CMP, URIC, TSH #### [facility] [address] [address] [address] Roland Gr Glucose [Mass/Vol] 98 mg/dL Normal 74-[address] [facility] Comment on above: Performed By: #### L IPID, T7, CMP, URIC, TSH #### [facility] [address] [place] [address] Dr. Roland Gr Potassium [Moles/Vol] 4.0 mmol/L Normal 3.5-5.1 [facility] Comment on above: Performed By: #### L IPID, T7, CMP, URIC, TSH #### [facility] [address] [place] [address] Dr. Roland Gr Protein [Mass/Vol] 6.6 g/dL Normal 6.4-8.[address] [facility] Comment on above: Performed By: #### L IPID, T7, CMP, URIC, TSH #### [facility] [address] [place] [address] Dr. Roland Gr Sodium [Moles/Vol] 145 mmol/L Normal 136-[address] [facility] Comment on above: Performed By: #### L IPID, T7, CMP, URIC, TSH #### [facility] [address] [place] [address] Dr. Roland Gr Urea nitrogen [Mass/Vol] 20.0 mg/dL Critically high 7.0-18.0 [facility] Comment on above: Performed By: #### L IPID, T7, CMP, URIC, TSH #### [facility] [address] [place] [address] Dr. Roland Gr Urea nitrogen/Creatinine [Mass ratio] 27.4 mg/mg Normal [facility] Comment on above: Performed By: #### L IPID, T7, CMP, URIC, TSH #### [facility] [address] [place] [address] Dr. Roland Gr SED RATE [facility] 2022 SED RATE 8 mm/hr Normal <=20 [facility] Comment on above: Performed By: #### S EDR #### [facility] [address] [place] [address] Dr. Roland Gr INSULINon 09-02-2022 Insulin 6.3 uIU/mL Normal 2.6-24.9 [facility] Comment on above: Performed By: #### C VDTBH #### [facility] [address] [place] [address] Dr. Roland Gr BNPon 09-01-2022 Natriuretic peptide B (Bld) [Mass/Vol] 285.0 pg/mL Normal <=1,800.0 [facility] Comment on above: Performed By: #### C VDTBH #### [facility] [address] [place] [address] Dr. Roland Gr CBC AUTO DIFFon 09-01-2022 BASO # 0.0 103/ul Normal 0.0-0.1 [facility] Comment on above: Performed By: #### L IPID, T7, CMP, URIC, TSH #### [facility] [address] [place] [address] Dr. Roland Gr Basophils/100 WBC (Bld) 0.4 % Normal 0.2-2.0 [facility] Comment on above: Performed By: #### L IPID, T7, CMP, URIC, TSH #### [facility] [address] [place] [address] Dr. Roland Gr EO # 0.1 103/ul Normal 0.0-0.7 [facility] Comment on above: Performed By: #### L IPID, T7, CMP, URIC, TSH #### [facility] [address] [place] [address] Dr. Roland Gr Eosinophils/100 WBC (Bld) 1.5 % Normal 0.9-7.0 [facility] Comment on above: Performed By: #### L IPID, T7, CMP, URIC, TSH #### [facility] [address] [place] [address] Dr. Roland Gr Erythrocyte distribution width (RBC) [Ratio] 14.0 % Normal 11.0-15.0 [facility] Comment on above: Performed By: #### L IPID, T7, CMP, URIC, TSH #### [facility] [address] [place] [address] Dr. Roland Gr Hematocrit (Bld) [Volume fraction] 37.9 % Critically low 42.0-54.0 [facility] Comment on above: Performed By: #### L IPID, T7, CMP, URIC, TSH #### [facility] [address] [place] [address] Dr. Roland Gr Hemoglobin (Bld) [Mass/Vol] 12.2 g/dL Critically low 14.0-18.0 [facility] Comment on above: Performed By: #### L IPID, T7, CMP, URIC, TSH #### [facility] [address] [place] [address] Dr. Roland Gr IG # 0.03 10e3/ul Normal 0.00-0.03 [facility] Comment on above: Performed By: #### L IPID, T7, CMP, URIC, TSH #### [facility] [address] [place] [address] Dr. Roland Gr IG % 0.4 % Normal 0.0-0.5 [facility] Comment on above: Performed By: #### L IPID, T7, CMP, URIC, TSH #### [facility] [address] [place] [address] Dr. Roland Gr LYMPH # 1.6 103/ul Normal 1.2-3.8 [facility] Comment on above: Performed By: #### L IPID, T7, CMP, URIC, TSH #### [facility] [address] [place] [address] Dr. Roland Gr Lymphocytes/100 WBC (Bld) 21.3 % Normal 20.5-60.0 [facility] Comment on above: Performed By: #### L IPID, T7, CMP, URIC, TSH #### [facility] [address] [place] [address] Dr. Roland Gr MANUAL DIFF REQ NO Normal [facility] Comment on above: Performed By: #### L IPID, T7, CMP, URIC, TSH #### [facility] [address] [place] [address] Dr. Roland Gr MCH (RBC) [Entitic mass] 33.0 pg Normal 25.9-34.0 [facility] Comment on above: Performed By: #### L IPID, T7, CMP, URIC, TSH #### [facility] [address] [place] [address] Dr. Roland Gr MCHC (RBC) [Mass/Vol] 32.2 g/dL Normal 29.9-35.2 [facility] Comment on above: Performed By: #### L IPID, T7, CMP, URIC, TSH #### [facility] [address] [place] [address] Dr. Roland Gr MCV (RBC) [Entitic vol] 102.4 fL Critically high 80.0-94.0 [facility] Comment on above: Performed By: #### L IPID, T7, CMP, URIC, TSH #### [facility] [address] [place] [address] Dr. Roland Gr MONO # 0.8 103/ul Normal 0.3-0.8 [facility] Comment on above: Performed By: #### L IPID, T7, CMP, URIC, TSH #### [facility] [address] [place] [address] Dr. Roland Gr Monocytes/100 WBC (Bld) 10.5 % Normal 1.7-12.0 [facility] Comment on above: Performed By: #### L IPID, T7, CMP, URIC, TSH #### [facility] [address] [place] [address] Dr. Roland Gr NEUT # 4.8 103/ul Normal 1.4-6.5 [facility] Comment on above: Performed By: #### L IPID, T7, CMP, URIC, TSH #### [facility] [address] [place] [address] Dr. Roland Gr Neutrophils/100 WBC (Bld) 65.9 % Normal 43.0-75.0 [facility] Comment on above: Performed By: #### L IPID, T7, CMP, URIC, TSH #### [facility] [address] [address] [address] Roland Gr Platelet mean volume (Bld) [Entitic vol] 9.7 fL Normal 9.5-13.5 [facility] Comment on above: Performed By: #### L IPID, T7, CMP, URIC, TSH #### [facility] [facility] [address] [address] [address] Roland Gr PLT 183 103/ul Normal 150-450 [facility] Comment on above: Performed By: #### L IPID, T7, CMP, URIC, TSH #### [facility] [address] [place] [address] Dr. Roland Gr RBC 3.70 106/ul Critically low 4.70-6.10 [facility] Comment on above: Performed By: #### L IPID, T7, CMP, URIC, TSH #### [facility] [address] [address] [address] Roland Gr WBC 7.3 103/ul Normal 4.0-11.0 [facility] Comment on above: Performed By: #### L IPID, T7, CMP, URIC, TSH #### [facility] [address] [address] [address] Roland Gr FREE THYROXINE INDEX T7on FTI 2.44 Normal 1.30-4.50 [facility] Comment on above: Performed By: #### C VDTBH #### [facility] [address] [address] [address] Roland Gr T3U 33.0 % Normal 33.0-40.0 [facility] Comment on above: Performed By: #### C VDTBH #### [facility] [address] [place] [address] Dr. Roland Gr T4 [Mass/Vol] 7.40 ug/dL Normal 4.50-12.10 [facility] Comment on above: Performed By: #### C VDTB #### [facility] [address] [address] [address] Roland Gr GLYCOHEMOGLOBIN A1Con 2021 ADA RECOMMENDATION SEE BELOW Normal [facility] Comment on above: Result Comment: ADA RECOMMENDED LIMIT 4.0 - 6.0 ADA THERAPEUTIC TARGET < 7.0 ACTION SUGGESTED > 7.0 Performed By: #### A 1C #### [facility] [address] [address] [address] Roland Gr Glucose [Mass/Vol] 117 mg/dL Normal [facility] Comment on above: Performed By: #### A 1C #### [facility] [address] [address] [address] Roland Gr HbA1c (Bld) [Mass fraction] 5.7 % Normal 4.5-6.2 [facility] Comment on above: Performed By: #### A 1C #### [facility] [address] [address] [address] Roland Gr LIPID PROFILEon 09-01-2022 CHOL-HDL RATIO NORM SEE BELOW Normal [facility] Comment on above: Result Comment: 3.3 - 4.4 LOW RISK 4.4 - 7.1 AVERAGE RISK 7.1 - 11.0 MODERATE RISK >11.0 HIGH RISK Performed By: #### L IPID, T7, CMP, URIC, TSH #### [facility] [address] [address] [address] Roland Gr Cholesterol [Mass/Vol] 130 mg/dL Normal <=200 [facility] Comment on above: Performed By: #### L IPID, T7, CMP, URIC, TSH #### [facility] [address] [address] [address] Roland Gr Cholesterol in HDL [Mass/Vol] 67 mg/dL Critically high 40-60 [facility] Comment on above: Performed By: #### L IPID, T7, CMP, URIC, TSH #### [facility] [address] [address] [address] Roland Gr Cholesterol in LDL [Mass/Vol] 48.8 mg/dL Normal [facility] Comment on above: Performed By: #### L IPID, T7, CMP, URIC, TSH #### [facility] [address] [address] [address] Roland Gr Cholesterol.total/C holesterol in HDL [Mass ratio] 1.9 {ratio} Normal [facility] Comment on above: Performed By: #### L IPID, T7, CMP, URIC, TSH #### [facility] [address] [address] [address] Roland Gr HDL NORMAL > or = 60 mg/dl - LO W CARDIOVASCULAR RISK <40 mg/dl - HIGH CARDIOVASCULAR RISK Normal [facility] Comment on above: Performed By: #### L IPID, T7, CMP, URIC, TSH #### [facility] [address] [address] [address] Roland Gr LDL CALC NORMAL SEE BELOW Normal [facility] Comment on above: Result Comment: <100 mg/dl OPTIMAL 100 - 129 mg/dl NEAR OR ABOVE OPTIMAL 130 - 159 mg/dl BORDERLINE HIGH 160 - 189 mg/dl HIGH >190 mg/dl VERY HIGH Performed By: #### L IPID, T7, CMP, URIC, TSH #### [facility] [address] [address] [address] Roland Gr Triglyceride [Mass/Vol] 71 mg/dL Normal <=150 [facility] Comment on above: Performed By: #### L IPID, T7, CMP, URIC, TSH #### [facility] [address] [address] [address] Roland Gr VLDL CALC 14.2 mg/dL Normal [facility] Comment on above: Performed By: #### L IPID, T7, CMP, URIC, TSH #### [facility] [address] [address] [address] Roland Gr PROF 14(COMP METB)on 022 Albumin [Mass/Vol] 3.5 g/dL Normal 3.4-5.[address] [facility] Comment on above: Performed By: #### C VDTBH #### [facility] [address] [place] [address] Dr. Roland Gr Albumin/Globulin [Mass ratio] 1.2 {ratio} Normal [facility] Comment on above: Performed By: #### C VDTBH #### [facility] [address] [place] [address] Dr. Roland Gr ALP [Catalytic activity/Vol] 60 U/L Normal 46-116 [facility] Comment on above: Performed By: #### C VDTBH #### [facility] [address] [place] [address] Dr. Roland Gr ALT [Catalytic activity/Vol] 25 U/L Normal 16-63 [facility] Comment on above: Performed By: #### C VDTBH #### [facility] [address] [place] [address] Dr. Roland Gr Anion gap [Moles/Vol] 10.6 mmol/L Normal [facility] Comment on above: Performed By: #### C VDTBH #### [facility] [address] [place] [address] Dr. Roland Gr AST [Catalytic activity/Vol] 17 U/L Normal 15-37 [facility] Comment on above: Performed By: #### C VDTBH #### [facility] [address] [place] [address] Dr. Roland Gr Bilirubin [Mass/Vol] 0.8 mg/dL Normal 0.2-1.0 [facility] Comment on above: Performed By: #### C VDTBH #### [facility] [address] [place] [address] Dr. Roland Gr Calcium [Mass/Vol] 8.8 mg/dL Normal 8.5-10.[address] [facility] Comment on above: Performed By: #### C VDTBH #### [facility] [address] [place] [address] Dr. Roland Gr Chloride [Moles/Vol] 108 mmol/L Critically high 98-107 [facility] Comment on above: Performed By: #### C VDTBH #### [facility] [address] [place] [address] Dr. Roland Gr CO2 [Moles/Vol] 28.6 mmol/L Normal 21.0-32.0 [facility] Comment on above: Performed By: #### C VDTBH #### [facility] [address] [place] [address] Dr. Roland Gr Creatinine [Mass/Vol] 0.72 mg/dL Normal 0.70-1.30 [facility] Comment on above: Performed By: #### C VDTBH #### [facility] [address] [place] [address] Dr. Roland Gr EGFR-AF MOSOTHO >60 Normal >=60 [facility] Comment on above: Performed By: #### C VDTBH #### [facility] [address] [place] [address] Dr. Roland Gr EGFR-NON AF MOSOTHO >60 Normal >=60 [facility] Comment on above: Performed By: #### C VDTBH #### [facility] [address] [place] [address] Dr. Roland Gr Globulin (S) [Mass/Vol] 3.0 g/dL Normal [facility] Comment on above: Performed By: #### C VDTBH #### [facility] [address] [place] [address] Dr. Roland Gr Glucose [Mass/Vol] 100 mg/dL Normal 74-[address] [facility] Comment on above: Performed By: #### C VDTBH #### [facility] [address] [place] [address] Dr. Roland Gr Potassium [Moles/Vol] 4.2 mmol/L Normal 3.5-5.1 [facility] Comment on above: Performed By: #### C VDTBH #### [facility] [address] [place] [address] Dr. Roland Gr Protein [Mass/Vol] 6.5 g/dL Normal 6.4-8.[address] [facility] Comment on above: Performed By: #### C VDTBH #### [facility] [address] [place] [address] Dr. Roland Gr Sodium [Moles/Vol] 143 mmol/L Normal 136-[address] [facility] Comment on above: Performed By: #### C VDTBH #### [facility] [address] [place] [address] Dr. Roland Gr Urea nitrogen [Mass/Vol] 18.0 mg/dL Normal 7.0-18.0 [facility] Comment on above: Performed By: #### C VDTBH #### [facility] [address] [address] [address] Roland Gr Urea nitrogen/Creatinine [Mass ratio] 25.0 mg/mg Normal [facility] Comment on above: Performed By: #### C VDTBH #### [facility] [address] [place] [address] Dr. Roland Gr [facility] 12 mm/hr Normal <=20 [facility] Comment on above: Performed By: #### S EDR #### [facility] [address] [place] [address] Dr. Roland Gr TSHon 09-01-2022 TSH 1.634 uIU/mL Normal 0.358-3.740 [facility] Comment on above: Performed By: #### C VDTBH #### [facility] [address] [place] [address] Dr. Roland Gr URIC ACID SERUMon 09-01-2022 Urate [Mass/Vol] 5.3 mg/dL Normal 3.5-7.2 [facility] Comment on above: Performed By: #### L IPID, T7, CMP, URIC, TSH #### [facility] [address] [place] [address] Dr. Roland Gr XR cerv spine AP/LAT/FLX/EXT on 05-22-2022 XR cerv spine AP/LAT/FLX/EXT [facility] Main [address] [address] XRay Report Signed Patient: Adonay Irby MR#: [id number] : 1945 Acct:[id number] Age/Sex: 77 / M ADM Date: 05/22/22 Loc: ICXD Room: Type: [facility] Attending Dr: Joao Barba MD Copies [...] Luca Trujillo M.D.05/22/2022 9:52 AM Dictation Location: [address] [address] Transcribed By: [facility] 05/22/22 0952 Dictated By: Luca Trujillo DO 05/22/22 0950 Signed By: 05/22/22 0952 [facility] CBC AUTO DIFFon 05-20-2022 BASO # 0.1 103/ul Normal 0.0-0.1 [facility] Comment on above: Performed By: #### L IPID, T7, CMP, URIC, TSH #### [facility] [address] [address] [address] Roland rG Basophils/100 WBC (Bld) 0.7 % Normal 0.2-2.0 [facility] Comment on above: Performed By: #### L IPID, T7, CMP, URIC, TSH #### [facility] [address] [address] [address] Roland Gr EO # 0.2 103/ul Normal 0.0-0.7 [facility] Comment on above: Performed By: #### L IPID, T7, CMP, URIC, TSH #### [facility] [address] [place] [address] Dr. Roland Gr Eosinophils/100 WBC (Bld) 2.9 % Normal 0.9-7.0 [facility] Comment on above: Performed By: #### L IPID, T7, CMP, URIC, TSH #### [facility] [address] [place] [address] Dr. Roland Gr Erythrocyte distribution width (RBC) [Ratio] 14.2 % Normal 11.0-15.0 [facility] Comment on above: Performed By: #### L IPID, T7, CMP, URIC, TSH #### [facility] [address] [place] [address] Dr. Roland Gr Hematocrit (Bld) [Volume fraction] 38.1 % Critically low 42.0-54.0 [facility] Comment on above: Performed By: #### L IPID, T7, CMP, URIC, TSH #### [facility] [address] [place] [address] Dr. Roland Gr Hemoglobin (Bld) [Mass/Vol] 12.4 g/dL Critically low 14.0-18.0 [facility] Comment on above: Performed By: #### L IPID, T7, CMP, URIC, TSH #### [facility] [address] [place] [address] Dr. Roland Gr IG # 0.05 10e3/ul Critically high 0.00-0.03 [facility] Comment on above: Performed By: #### L IPID, T7, CMP, URIC, TSH #### [facility] [address] [place] [address] Dr. Roland Gr IG % 0.7 % Critically high 0.0-0.5 [facility] Comment on above: Performed By: #### L IPID, T7, CMP, URIC, TSH #### [facility] [address] [place] [address] Dr. Roland Gr LYMPH # 1.7 103/ul Normal 1.2-3.8 [facility] Comment on above: Performed By: #### L IPID, T7, CMP, URIC, TSH #### [facility] [address] [place] [address] Dr. Roland Gr Lymphocytes/100 WBC (Bld) 24.6 % Normal 20.5-60.0 [facility] Comment on above: Performed By: #### L IPID, T7, CMP, URIC, TSH #### [facility] [address] [place] [address] Dr. Roland Gr MANUAL DIFF REQ NO Normal [facility] Comment on above: Performed By: #### L IPID, T7, CMP, URIC, TSH #### [facility] [address] [place] [address] Dr. Roland Gr MCH (RBC) [Entitic mass] 33.0 pg Normal 25.9-34.0 [facility] Comment on above: Performed By: #### L IPID, T7, CMP, URIC, TSH #### [facility] [address] [place] [address] Dr. Roland Gr MCHC (RBC) [Mass/Vol] 32.5 g/dL Normal 29.9-35.2 [facility] Comment on above: Performed By: #### L IPID, T7, CMP, URIC, TSH #### [facility] [address] [place] [address] Dr. Roland Gr MCV (RBC) [Entitic vol] 101.3 fL Critically high 80.0-94.0 [facility] Comment on above: Performed By: #### L IPID, T7, CMP, URIC, TSH #### [facility] [address] [place] [address] Dr. Roland Gr MONO # 0.7 103/ul Normal 0.3-0.8 [facility] Comment on above: Performed By: #### L IPID, T7, CMP, URIC, TSH #### [facility] [address] [place] [address] Dr. Roland Gr Monocytes/100 WBC (Bld) 10.6 % Normal 1.7-12.0 [facility] Comment on above: Performed By: #### L IPID, T7, CMP, URIC, TSH #### [facility] [address] [place] [address] Dr. Roland Gr NEUT # 4.2 103/ul Normal 1.4-6.5 [facility] Comment on above: Performed By: #### L IPID, T7, CMP, URIC, TSH #### [facility] [address] [address] [address] Roland Gr Neutrophils/100 WBC (Bld) 60.5 % Normal 43.0-75.0 [facility] Comment on above: Performed By: #### L IPID, T7, CMP, URIC, TSH #### [facility] [address] [place] [address] Dr. Roland Gr Platelet mean volume (Bld) [Entitic vol] 9.7 fL Normal 9.5-13.5 [facility] Comment on above: Performed By: #### L IPID, T7, CMP, URIC, TSH #### [facility] [address] [place] [address] Dr. Roland Gr PLT 203 103/ul Normal 150-450 [facility] Comment on above: Performed By: #### L IPID, T7, CMP, URIC, TSH #### [facility] [address] [place] [address] Dr. Roland Gr RBC 3.76 106/ul Critically low 4.70-6.10 [facility] Comment on above: Performed By: #### L IPID, T7, CMP, URIC, TSH #### [facility] [address] [place] [address] Dr. Roland Gr WBC 6.9 103/ul Normal 4.0-11.0 [facility] Comment on above: Performed By: #### L IPID, T7, CMP, URIC, TSH #### [facility] [address] [place] [address] Dr. Roland Gr PROF 14(COMP METB)on 022 Albumin [Mass/Vol] 3.5 g/dL Normal 3.4-5.[address] [facility] Comment on above: Performed By: #### L IPID, T7, CMP, URIC, TSH #### [facility] [address] [place] [address] Dr. Roland Gr Albumin/Globulin [Mass ratio] 1.2 {ratio} Normal [facility] Comment on above: Performed By: #### L IPID, T7, CMP, URIC, TSH #### [facility] [address] [place] [address] Dr. Roland Gr ALP [Catalytic activity/Vol] 60 U/L Normal 46-116 [facility] Comment on above: Performed By: #### L IPID, T7, CMP, URIC, TSH #### [facility] [address] [place] [address] Dr. Roland Gr ALT [Catalytic activity/Vol] 30 U/L Normal 16-63 [facility] Comment on above: Performed By: #### L IPID, T7, CMP, URIC, TSH #### [facility] [address] [place] [address] Dr. Roland Gr Anion gap [Moles/Vol] 9.4 mmol/L Normal [facility] Comment on above: Performed By: #### L IPID, T7, CMP, URIC, TSH #### [facility] [address] [place] [address] Dr. Roland Gr AST [Catalytic activity/Vol] 21 U/L Normal 15-37 [facility] Comment on above: Performed By: #### L IPID, T7, CMP, URIC, TSH #### [facility] [address] [place] [address] Dr. Roland Gr Bilirubin [Mass/Vol] 0.4 mg/dL Normal 0.2-1.0 [facility] Comment on above: Performed By: #### L IPID, T7, CMP, URIC, TSH #### [facility] [address] [place] [address] Dr. Roland Gr Calcium [Mass/Vol] 8.6 mg/dL Normal 8.5-10.[address] [facility] Comment on above: Performed By: #### L IPID, T7, CMP, URIC, TSH #### [facility] [address] [address] [address] Roland Gr Chloride [Moles/Vol] 108 mmol/L Critically high 98-107 [facility] Comment on above: Performed By: #### L IPID, T7, CMP, URIC, TSH #### [facility] [address] [address] [address] Roland Gr CO2 [Moles/Vol] 30.8 mmol/L Normal 21.0-32.0 [facility] Comment on above: Performed By: #### L IPID, T7, CMP, URIC, TSH #### [facility] [address] [place] [address] Dr. Roland Gr Creatinine [Mass/Vol] 0.76 mg/dL Normal 0.70-1.30 [facility] Comment on above: Performed By: #### L IPID, T7, CMP, URIC, TSH #### [facility] [address] [address] [address] Roland Gr EGFR-AF MOSOTHO >60 Normal >=60 [facility] Comment on above: Performed By: #### L IPID, T7, CMP, URIC, TSH #### [facility] [address] [place] [address] Dr. Roland Gr EGFR-NON AF MOSOTHO >60 Normal >=60 [facility] Comment on above: Performed By: #### L IPID, T7, CMP, URIC, TSH #### [facility] [address] [address] [address] Roland Gr Globulin (S) [Mass/Vol] 3.0 g/dL Normal [facility] Comment on above: Performed By: #### L IPID, T7, CMP, URIC, TSH #### [facility] [address] [place] [address] Dr. Roland Gr Glucose [Mass/Vol] 99 mg/dL Normal 74-[address] [facility] Comment on above: Performed By: #### L IPID, T7, CMP, URIC, TSH #### [facility] [address] [place] [address] Dr. Roland Gr Potassium [Moles/Vol] 4.2 mmol/L Normal 3.5-5.1 [facility] Comment on above: Performed By: #### L IPID, T7, CMP, URIC, TSH #### [facility] [address] [place] [address] Dr. Roland Gr Protein [Mass/Vol] 6.5 g/dL Normal 6.4-8.[address] [facility] Comment on above: Performed By: #### L IPID, T7, CMP, URIC, TSH #### [facility] [address] [place] [address] Dr. Roland Gr Sodium [Moles/Vol] 144 mmol/L Normal 136-[address] [facility] Comment on above: Performed By: #### L IPID, T7, CMP, URIC, TSH #### [facility] [address] [place] [address] Dr. Roland Gr Urea nitrogen [Mass/Vol] 16.0 mg/dL Normal 7.0-18.0 [facility] Comment on above: Performed By: #### L IPID, T7, CMP, URIC, TSH #### [facility] [address] [place] [address] Dr. Roland Gr Urea nitrogen/Creatinine [Mass ratio] 21.1 mg/mg Normal [facility] Comment on above: Performed By: #### L IPID, T7, CMP, URIC, TSH #### [facility] [address] [place] [address] Dr. Roland Gr SED RATE [facility] 2021 SED RATE 8 mm/hr Normal <=20 [facility] Comment on above: Performed By: #### L IPID, T7, CMP, URIC, TSH #### [facility] [address] [place] [address] Dr. Roland Gr Vital Signs Date Time Vital Sign Value Performing Clinician Facility 04-08-2024 10:05-0400 Body mass index (BMI) [Ratio] 24.45 kg/m2 Carlos Farris MD Work Phone: [facility] 04-08-2024 10:05-0400 Body temperature 97 [degF] Carlos Farris MD Work Phone: [facility] 04-08-2024 10:05-0400 Body weight 75.1 kg Carlos Farris MD Work Phone: [facility] 04-08-2024 10:05-0400 Diastolic blood pressure 75 mm[Hg] Carlos Farris MD Work Phone: [facility] 04-08-2024 10:05-0400 Heart rate 47 /min Carlos Farris MD Work Phone: [facility] Comment on above: heart rate low provider notify 04-08-2024 10:05-0400 Respiratory rate 19 /min Carlos Farris MD Work Phone: [facility] 04-08-2024 10:05-0400 SaO2% (BldA) [Mass fraction] 99 % Carlos Farris MD Work Phone: [facility] 04-08-2024 10:05-0400 Systolic blood pressure 141 mm[Hg] Carlos Farris MD Work Phone: [facility] 2022 11:09-0400 Body height 175.3 cm Carlos Farris MD Work Phone: [facility] 2022 11:09-0400 Body temperature 97.11 [degF] Carlos Farris MD Work Phone: [facility] 2022 11:09-0400 Body weight 74 kg Carlos Farris MD Work Phone: [facility] 2022 11:09-0400 Diastolic blood pressure 60 mm[Hg] Carlos Farris MD Work Phone: [facility] 2022 11:09-0400 Heart rate 48 /min Carlos Farris MD Work Phone: [facility] 2022 11:090400 Respiratory rate 17 /min Carlos Farris MD Work Phone: [facility] 2022 11:09-0400 SaO2% (BldA) [Mass fraction] 97 % Carlos Farris MD Work Phone: [facility] 2022 11:090400 Systolic blood pressure 118 mm[Hg] Carlos Farris MD Work Phone: 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) Start: 12-14-2024 End: 12-14-2024 Bamboo flowsheet Bridger [...] Dx) Start: 06-07-2024 End: 06-07-2024 ambulatory BRIDGER Kiki ANDREW Not Available Start: 04-25-2024 Refill Carlos [...] Medicine Start: 10-14-2023 ambulatory BELLA CORONADO Facility :[facility] Start: 08-19-2023 Telephone encounter [facility] Provider [facility] Comment on above: Referral Request Start: 08-13-2023 Telephone encounter Carlos rey MD Work Phone: [facility] Comment on above: Filters for Nebulize r Start: 06-24-2023 End: 06-25-2023 ambulatory BELLA VALLEJORY Facility: [facility] Start: 06-04-2023 Telephone encounter Carlos rey [...] Work Phone: [facility] Medicine Comment on above: Brinell Tester - O ther Start: 09-01-2022 End: 09-02-[address] LEISA BARBA Facility:[facility] Start: 05-22-2022 End: 05-22-2022 Patient encounter procedure MD Joao Barba Work Phone: [facility] [address] Start: 05-20-2022 End: [...] Fct Lab Main 10 Other Phone: [facility] Procedures Date Procedure Procedure Detail Performing Clinician Start: 12-14-2024 Computerized ophthal juan francisco imaging optic nerve Bridger Andrew DO Work Phone: Start: 12-14-2024 End: 12-14-2024 [facility] medical xm&eval comprhnsv estab pt 1/> Primary [...] service/procedure Carlos Farris MD Work Phone: Start: 05-24-[address] RAUL HUIZAR . Comment on above: Performed By: #### C VDTBH #### [facility] [address] [place], [place] [address] Dr[address] Roland Gr Start: 09-01-[address] RAUL HUIZAR . Comment on above: Performed By: #### C VDTBH #### [facility] [address] [place], [place] [address] Dr. Roland Gr Start: 05-22-2022 X-ray of cervical spine MD Joao Barba Work Phone: Start: 2022 Spmtry w/vc expirato ry edie w/wo mxml vol vntj Carlos Farris MD Work Phone: Start: 2022 Unlisted pulmonary service/procedure Carlos Farris MD Work Phone: Plan of Treatment Date Care Activity Detail Author Start: 06-21-2025 End: 06-21-2025 Patient encounter procedure 06/21/2025 9:15 AM EDT Office Visit [facility] [address] [place] [address] [place] [id number] Bridger Andrew, [address] [place] [address] [facility] Start: 05-26-2025 End: 05-26-2025 Procedure Pulmonary Medicine Comment on above: 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 Start: 07-17-2024 Covid-19 Vaccine ( season) Covid-19 Vaccine ( season) [facility] Start: 07-17-2024 Influenza vaccination Influenza Vacc ine (#1) [facility] Start: 02-02-2024 Covid-19 Vaccine ( season) Covid-19 Vaccine ( season) [facility] Start: 11-16-2023 Advance Directive Discussion Advance Directive Discussion [facility] Start: 11-16-2023 Behavioral Health Screening Behavioral Health Screening [facility] Start: 07-17-2023 Covid-19 Vaccine ( season) Covid-19 Vaccine ( season) [facility] Start: 07-17-2023 Influenza vaccination [facility] Start: 11-16-2022 ADVANCE DIRECTIVE DISCUSSION ADVANCE DIRECTIVE DISCUSSION [facility] Start: 11-16-2022 DEPRESSION ASSESSMENT DEPRESSION ASS ESSMENT [facility] Start: 07-17-2022 Influenza vaccination INFLUENZA (#1) [facility] Start: 02-12-2022 COVID-19 VACCINE (4 - Booster for Moderna series) COVID-19 VACCINE (4 - Booster for Moderna series) [facility] Start: 12-10-2021 COVID-19 VACCINE (4 - Booster for Moderna series) COVID-19 VACCINE (4 - Booster for Moderna series) [facility] Start: 12-10-2021 COVID-19 VACCINE (4 - Moderna series) COVID-19 VACCINE (4 - Moderna series) [facility] Start: 11-16-2021 ADVANCE DIRECTIVE DISCUSSION ADVANCE DIRECTIVE DISCUSSION [facility] Start: 11-16-2021 DEPRESSION ASSESSMENT DEPRESSION ASS ESSMENT [facility] Start: 2018 RSV Vaccine (1 - 1-d ose 75+ series) RSV Vaccine (1 - 1-dose 75+ series) [facility] Start: 2008 Pneumococcal Vaccine : 65+ (1 - PCV) Pneumococcal Vaccine: 65+ (1 - PCV) [facility] Start: 2008 PNEUMOCOCCAL: 65+ (1 - PCV) PNEUMOCOCCAL: 65+ (1 - PCV) [facility] Start: 2003 RSV Vaccine (1 - 1-d ose 60+ series) RSV Vaccine (1 - 1-dose 60+ series) [facility] Start: 1993 SHINGRIX VACCINE (1 of 2) SHINGRIX VACCINE (1 of 2) [facility] Start: 1988 [facility] Start: 1988 Diabetes Screening Diabetes Screenin g [facility] Start: 1962 Urine microalbumin profile [facility] Start: 1961 Anxiety Screening Anxiety Screening [facility] Start: 1961 Depression Screening Depression Scre ening [facility] Start: 1955 Adult depression screening assessment DEPRESSION SCREENING 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 2022 12:00 PM EDT [facility] Work Phone: End: 06-15-2023 SPIROMETRY SITTING AND SUPINE SPIROMETRY SITTING AND SUPINE PFT Routine Disorder of diaphragm Post poliomyelitis syndrome 1 Occurrences starting 2022 until 06/15/2023 [facility] Work Phone: Comment on above: 1 Occurrences starti ng 2022 until 06/15/2023 SPIROMETRY SITTING A ND SUPINE SPIROMETRY SITTING AND SUPINE PFT Routine Disorder of nervous system 04/08/2024 9:36 AM EDT [facility] Work Phone: End: 05-08-2025 SPIROMETRY SITTING AND SUPINE SPIROMETRY SITTING AND SUPINE PFT Routine Disorder of diaphragm Post poliomyelitis syndrome 1 Occurrences starting 04/08/2024 until 05/08/2025 [facility] Work Phone: Comment on above: 1 Occurrences starti ng 04/08/2024 until 05/08/2025 [facility] Immunizations Immunization Date Immunization Notes Care Provider Fa cili 07-28-2024 influenza virus vaccine, unspecified formulation Bridger Zanemo DO Work Phone: [facility] 09-25-2023 influenza virus vaccine, unspecified formulation Bridger Zanemo DO Work Phone: [facility] 08-31-2020 influenza virus vaccine, unspecified formulation Carlos Farris MD Work Phone: [facility] 08-27-2018 influenza, seasonal, injectable Pulm 10 Other Phone: [facility] Payers Date Payer Category Payer Private Health Insurance [facility] [id number] 2009 Unknown [employer] [place] [employer] [place] MEDIC[employer] SUPPLEMENT [id number] 2009-Present [phone] [address] [place] [address] Indemnity [id number] 2009 Unknown [employer] [place] [employer] [place] [employer]IC[employer] SUPPLEMENT [id number] 2009-Present [phone] [address] [place] [address] Indemnity [id number] 2003 Medicare MEDICARE MEDICAR E A AND B [id number] 2003-Present [phone] [place] [address] Medicare [id number] 2003 Medicare [id number] 1959 Medicare [id number] 1959 Unknown [id number] 1943 Unknown [id number] .[id number] 1943 Unknown [id number] .[id number] 1943 Unknown [id number] .2.593 1943 Unknown [id number] .2.593 1943 Unknown [id number] .2.593 1943 Unknown [id number] [id number] .2.593 1943 Unknown [id number] [id number] .2.593 1943 Unknown [id number] [id number] .2.727 1943 Unknown [id number] .[id number] 1943 Unknown [id number] .2.1259 Self-pay Self Pay [id number] Social History Date Type Detail Facility Start: 12-18-2017 End: 06-07-2024 Tobacco smoking status NHIS Ex-smoker [facility] Start: 12-18-2017 End: 04-08-2024 Tobacco use and exposure Smokeless tobacco non-user [facility] Start: 12-18-2017 End: 04-08-2024 Tobacco Comment Quit 25+ years ago [facility] Start: 1945 Sex Assigned At Not on file [facility] Start: 05-06-2022 End: 2022 Exposure to SARS-CoV-2 (event) Not sure [facility] Start: 1945 Sex Assigned At Male F [facility] History of tobacco use Current smoker [facility] Start: 2022 End: 12-14-2024 Gender identity Not on file [facility] Start: 2022 End: 12-14-2024 History of Social function [facility] National Score (1-100), lower number is lower risk [address] 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 Dry eyes - Dry Eyes OU -- Environmental changes to minimize dryness and exposure and the use of artificial tears were recommended. documented in this encounter [facility] 12-08-2024 Telephone encounter Note Summary: Medical Equipment Order Form Images from the original note were not included. Admin faxed over medical equipment order to [employer], signed by Dr. Carlos Farris. Admin scanned into chart (scanned documents) on 12/08/2024. [facility] 12-08-2024 Miscellaneous Notes Summary: Medical Equipment Order Form Images from the original note were not included. Admin faxed over medical equipment order to [employer], signed by Dr. Carlos Farris. Admin scanned into chart (scanned documents) on 12/08/2024. documented in this encounter [facility] 04-08-2024 History of Presen t illness [...] station stooped. Mood and affect normal. DATABASE DoYouRemember is [employer]. [employer] [facility] 03/09/2024 - 04/07/2024 Usage days 28/30 days (93%) >= 4 hours 28 days (93%) Usage hours 212 hours 11 minutes Average usage (total days) 7 hours 4 minutes Average usage (days used) 7 hours 35 minutes Median usage (days used) 7 hours 35 minutes Total used hours (value since last reset - 04/07/2024) 6,[address] Serial number [id number] Mode Spont Timed IPAP 21 cmH2O (same [...] ULN Sitting % Supine % chg Date [id number] Time 12:21PM 12:37PM Height 170.2 170.2 Weight 88 88 FVC 3.74 2.89 4.60 1.29 35 0.57 -56 FEV 1 2.69 1.97 3.41 0.94 35 0.40 -58 FEV1%F 72.57 62.89 82.25 73.03 101 69.32 -5 PIMAX 101.78 75.02 128.5 26.72 26 PeMax 190.81 140.04 241.6 99.65 52 Pred LLN ULN Sitting % Supine % [facility] Date [id number] Time 09:57AM 10:09AM Height 170.2 170.2 Weight 88 88 FVC 3.74 2.89 4.60 1.25 33 0.55 -56 FEV 1 2.69 1.97 3.41 0.80 30 0.25 -69 FEV1%F 72.57 62.89 82.25 64.02 88 45.69 -29 ETCO2 52.00 PIMAX 101.78 75.02 128.5 27.03 27 PeMax 190.81 140.04 241.6 114.34 60 Pred LLN ULN Sitting % Supine % [facility] Date [id number] Time 02:31PM 02:47PM Height 170.2 170.2 Weight 91.5 91.5 FVC 3.78 2.93 4.63 1.62 43 0.45 -72 FEV 1 2.73 2.01 3.45 1.09 40 0.38 -65 FEV1%F 72.78 63.10 82.46 67.35 93 85.04 26 PIMAX 102.33 75.02 129.6 33.66 33 PeMax 191.84 140.04 243.6 74.05 39 Pred LLN ULN Sitting % Supine % [facility] Date [id number] Time 09:00AM 09:24AM Height 170.2 170.2 Weight [...] movements Arterial blood gases on hospital admission [facility] April 13, 2017 PH 7.26, PCO2 87, [...] familial. He will follow up with his tobacco roller. PLAN Continue IPAP 21/12 backup rate 10 Albuterol/ipratropium nebulization prn Yearly [...] which included preparing to see the patient, [id number] patient care, completing clinical documentation, obtaining and/or [...] April 08, 2024 documented in this encounter [facility] 04-08-2024 Note HNO ID: [id number] Author: CARLOS FARRIS MD Service: ? Author [...] Mood and affect normal. DATABASE DME is [employer] 03/09/2024 - 04/07/2024 Usage days 28/30 days (93%) >= 4 hours 28 days (93%) Usage hours 212 hours 11 minutes Average usage (total days) 7 hours 4 minutes Average usage (days used) 7 hours 35 minutes Median usage (days used) 7 hours 35 minutes Total used hours (value since last reset - 04/07/2024) 6,[address] Serial number [id number] Mode Spont Timed IPAP 21 cmH2O (same [...] 4.32 74. (more content not included)... [facility] 04-08-2024 Note HNO ID: [id number] Author: NAHUM SANDRA RRT Service: ? Author Type: Registered Resp Therapist Type: Progress Notes Filed: 04/08/2024 10:01 Note Text: PULM FUNCTION SMARTBLOCK: Provider: Carlos Farris MD Spirometry: 1 MIP/MEP: 1 TcCO2: 1 System: Parudi6 - [id number] [facility] 04-08-2024 History of Presen t illness Narrative PULM FUNCTION SMARTBLOCK: Provider: Carlos Farris MD Spirometry: 1 MIP/MEP: 1 TcCO2: 1 System: [employer]udi[employer] - [id number] documented in this encounter [facility] 08-19-2023 Miscellaneous Notes Received referral request from [facility] to see patient again for dx: COPD, Right Diaphragm Dysfunction. Request is scanned into chart. documented in this encounter [facility] 08-13-2023 Miscellaneous Notes Adonay Irby's spouse (Elizabeth) is requesting replacement filters for a nebulizer. She was unable to tell admin where it needed to be sent. documented in this encounter [facility] 06-04-2023 Miscellaneous Notes Imported External PAP Therapy Report from [employer] (dated 06/04/23). Please allow time delay for documents to appear in Epic (Scanned Documents Tab). documented in this encounter [facility] 09-24-2022 Miscellaneous Notes new order and office notes have been faxed to [email or web address] fax# [phone] called [facility] [phone] they are in need of new script for supplies for his machine and also office notes please put in a new rx for supplies for his CPAP for me to fax over with office notes [facility] fax# [phone] Electronically signed by Vivian Castaneda [facility] at 09/24/2022 10:34 AM EST documented in this encounter [facility] 2022 History of Presen t illness [...] download [employer] outside DME account tagger to [facility] Sleep [employer], [employer] Usage 04/16/2022 - 05/15/2022 Usage days 29/30 days (97%) >= 4 hours 29 days (97%) Average usage (days used) 7 hours [address] Serial number [id number] Mode Spont Timed IPAP 21 cmH2O EPAP [...] Pred LLN ULN Sitting % Supine % [facility] Date [id number] Time 12:21PM 12:37PM Height 170.2 170.2 Weight 88 88 FVC 3.74 2.89 4.60 1.29 35 0.57 -56 FEV 1 2.69 1.97 3.41 0.94 35 0.40 -58 FEV1%F 72.57 62.89 82.25 73.03 101 69.32 -5 PIMAX 101.78 75.02 128.5 26.72 26 PeMax 190.81 140.04 241.6 99.65 52 Pred LLN ULN Sitting % Supine % [facility] Date [id number] Time 09:57AM 10:09AM Height 170.2 170.2 Weight [...] Pred LLN ULN Sitting % Supine % [facility] Date [id number] Time 02:31PM 02:47PM Height 170.2 170.2 Weight 91.5 91.5 FVC 3.78 2.93 4.63 1.62 43 0.45 -72 FEV 1 2.73 2.01 3.45 1.09 40 0.38 -65 FEV1%F 72.78 63.10 82.46 67.35 93 85.04 26 PIMAX 102.33 75.02 129.6 33.66 33 PeMax 191.84 140.04 243.6 74.05 39 Pred LLN ULN Sitting % Supine % [facility] Date [id number] Time 09:00AM 09:24AM Height 170.2 170.2 Weight [...] movements Arterial blood gases on hospital admission [facility] April 13, 2017 PH 7.26, PCO2 87, [...] which included preparing to see the patient, [id number] patient care, completing clinical documentation, obtaining and/or [...] Carlos Farris MD documented in this encounter [facility] 2022 History of Presen t illness Narrative PULM FUNCTION SMARTBLOCK: Provider: Carlos Farris MD Spirometry: 1 MIP/MEP: 1 TcCO2: 1 System: MC1 - [id number] SIT/SUPINE documented in this encounter 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 Obstructive sleep apnea Obstructive sleep apnea (adult) (pediatric) documented [facility] noteNo assessment information availableLouis [facility] Work Phone: Evaluation note* 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 Diagnosis Disorder of nervous system- Primary Unspecified disorders of nervous system 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 Unspecified after-cataract Dry eyes Unspecified tear film insufficiency [facility] Diagnosis Anterior scleritis of left eye- Primary [facility] Outpatient Procedure (Routine) - Pending Review Specialty Diagnoses / Procedures Referred By Brian moran [facility] Diagnoses Disorder of diaphragm Post poliomyelitis syndrome Procedures MIPS/MEPS UNLISTED PULMONARY SERVICE/PROCEDURE Carlos Farris MD [address] [place] [address] [facility] [place] [address] Referral ID Status Reason Start Date Expiration Date Visits Requested Visits Authorized [id number] Pending Review Auto-Generat ed Referral 2022 06/15/2023 1 1 * Outpatient Procedure (Routine) - Pending Review Specialty Diagnoses / Procedures Referred By Brian moran Ref[facility] To [facility] Diagnoses Disorder of diaphragm Post poliomyelitis syndrome Procedures SPIROMETRY SITTING AND SUPINE SPMTRY W/VC EXPIRATORY EDIE W/WO MXML VOL VNTJ Carlos Farris MD [address] [id number] [place] [id number] Referral ID Status Reason Start Date Expiration Date Visits Requested Visits Authorized [id number] Pending Review Auto-Generat ed Referral 2022 06/15/2023 [address] [facility] Outpatient Procedure (Routine) - Pending Review Specialty Diagnoses / Procedures Referred By Contac t Referred To [facility] [place] Diagnoses Disorder of diaphragm Post poliomyelitis syndrome Procedures MIPS/MEPS UNLISTED PULMONARY SERVICE/PROCEDURE Carlos Farris MD [address] [place] [address] [place] [address] Referral ID Status Reason Start Date Expiration Date Visits Requested Visits Authorized [id number] Pending Review Auto-Generat ed Referral 04/08/2024 05/08/2025 1 1 * Outpatient Procedure (Routine) - Pending Review Specialty Diagnoses / Procedures Referred By Contac t Referred To [facility] [place] Diagnoses Disorder of diaphragm Post poliomyelitis syndrome Procedures SPIROMETRY SITTING AND SUPINE SPMTRY W/VC EXPIRATORY EDIE W/WO MXML VOL VNTJ Carlos Farris MD [address] [place] [address] [place] [address] Referral ID Status Reason Start Date Expiration Date Visits Requested Visits Authorized [id number] Pending Review Auto-Generat ed Referral 04/08/2024 05/08/2025 [address] [facility] Advance Directives Advance Directive Response Recorded Date/ Time Advance [...] or prosecute any alcohol or drug abuse patient.[facility] the event this information is protected by the Federal Confidentiality of Alcohol and Drug Abuse Patient Records regulations: The Federal rules restrict any use of the information to criminally investigate or prosecute any alcohol or drug abuse patient.[facility] the event this information is protected by the Federal Confidentiality of Alcohol and Drug Abuse Patient Records regulations: The Federal rules restrict any use of the information to criminally investigate or prosecute any alcohol or drug abuse patient.[facility] the event this information is protected by the Federal Confidentiality of Alcohol and Drug Abuse Patient Records regulations: The Federal rules restrict any use of the information to criminally investigate or prosecute any alcohol or drug abuse patient.[facility] the event this information is protected by the Federal Confidentiality of Alcohol and Drug Abuse Patient Records regulations: The Federal rules restrict any use of the information to criminally investigate or prosecute any alcohol or drug abuse patient.[facility] the event this information is protected by the Federal Confidentiality of Alcohol and Drug Abuse Patient Records regulations: The Federal rules restrict any use of the information to criminally investigate or prosecute any alcohol or drug abuse patient.[facility] the event this information is protected by the Federal Confidentiality of Alcohol and Drug Abuse Patient Records regulations: The Federal rules restrict any use of the information to criminally investigate or prosecute any alcohol or drug abuse patient.[facility] the event this information is protected by the Federal Confidentiality of Alcohol and Drug Abuse Patient Records regulations: The Federal rules restrict any use of the information to criminally investigate or prosecute any alcohol or drug abuse patient.[facility] the event this information is protected by the Federal Confidentiality of Alcohol and Drug Abuse Patient Records regulations: The Federal rules restrict any use of the information to criminally investigate or prosecute any alcohol or drug abuse patient.[facility] the event this information is protected by the Federal Confidentiality of Alcohol and Drug Abuse Patient Records regulations: The Federal rules restrict any use of the information to criminally investigate or prosecute any alcohol or drug abuse patient.[facility] HospitalIn the event this information is protected by the Federal Confidentiality of Alcohol and Drug Abuse Patient Records regulations: The Federal rules restrict any use of the information to criminally investigate or prosecute any alcohol or drug abuse patient.[facility] HospitalIn the event this information is protected by the Federal Confidentiality of Alcohol and Drug Abuse Patient Records regulations: The Federal rules restrict any use of the information to criminally investigate or prosecute any alcohol or drug abuse patient.[facility] Reason for Visit (unrecogniz ed section and content) Reason Comments Spirometry Specialty Diagnoses / Procedures Referred By Contac t Referred To [facility] [place] 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 Procedures MIPS/MEPS UNLISTED PULMONARY SERVICE/PROCEDURE Carlos Farris MD [address] [place] [address] [address] Referral ID Status Reason Start Date Expiration Date V isits Requested Visits Authorized [id number] Closed Auto-Generate d Referral 12/04/2021 01/03/2023 1 1 Specialty Diagnoses / Procedures Referred By Contac t Referred To [facility] 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 Procedures SPIROMETRY SITTING AND SUPINE SPMTRY W/VC EXPIRATORY EDIE W/WO MXML VOL VNTJ Carlos Farris MD [address] [place] [address] [address] Referral ID Status Reason Start Date Expiration Date V isits Requested Visits Authorized [id number] Closed Auto-Generate d Referral 12/04/2021 01/03/2023 1 1 Reason Comments Established Patient Reason Comments Brinell Tester - Other Reason Comments Received Outside Medical Records Reason Onset Date Comments Filters for Nebulizer 08/13/2023 Reason Comments Referral Request Specialty Diagnoses / Procedures Referred By Contac t Referred To [facility] Diagnoses Disorder of nervous system Procedures SPIROMETRY SITTING AND SUPINE SPMTRY W/VC EXPIRATORY EDIE W/WO MXML VOL VNCarlos Steele MD [address] [facility] [place] [address] [address] Referral ID Status Reason Start Date Expiration Date V isits Requested Visits Authorized [id number] Closed Auto-Generate d Referral 08/11/2023 09/09/2024 1 1 Specialty Diagnoses / Procedures Referred By Contac t Ref[facility] To [facility] Diagnoses Disorder of nervous system Procedures MIPS/MEPS UNLISTED PULMONARY SERVICE/PROCEDURE Carlos Farris MD [address] [place] [address] [facility] [address] [place] [address] Referral ID Status Reason Start Date Expiration Date V isits Requested Visits Authorized [id number] Closed Auto-Generate d Referral 08/11/2023 09/09/2024 1 1 Reason Comments Follow Up Reason Onset Date Comments Refill Request 04/25/2024 Reason Onset Date Comments Med Refill 10/11/2024 Reason Comments Med Refill Reason Comments Medical Equipment Order Form Reason Comments Follow-up Glaucoma Reason Onset Date Comments Med Refill 04/14/2025 Care Teams (unrecognized sec tion and content) Career Development Manager Relationship Specialty Start Date End Date Kamilla Huizar MD PCP - General Family Practice 04/17/17 Career Development Manager Relationship Specialty Start Date End Date Kamilla Huizar MD PCP - General Family Practice 04/17/17 Career Development Manager Relationship Specialty Start Date End Date Kamilla Huizar MD PCP - General Family Practice 04/17/17 Team Status: Inactive Member Role Status Dates Joao Barba MD Attending Provider Active Career Development Manager Relationship Specialty Start Date End Date Kamilla Huizar MD PCP - General Family Medicine 04/17/17 Career Development Manager Relationship Specialty Start Date End Date Kamilla Huizar MD PCP - General Family Medicine 04/17/17 Career Development Manager Relationship Specialty Start Date End Date Kamilla Huizar MD PCP - General Family Medicine 04/17/17 Career Development Manager Relationship Specialty Start Date End Date aKmilla Huizar MD PCP - General Family Medicine 04/17/17 Career Development Manager Relationship Specialty Start Date End Date Kamilla Huizar MD PCP - General Family Medicine 04/17/17 Career Development Manager Relationship Specialty Start Date End Date Kamilla Huizar MD PCP - General Family Medicine 04/17/17 Career Development Manager Relationship Specialty Start Date End Date Kamilla Huizar MD PCP - General Family Medicine 04/17/17 Career Development Manager Relationship Specialty Start Date End Date Kamilla Huizar MD [address] [place] [address] PCP - General Family Medicine 11/24/23 Career Development Manager Relationship Specialty Start Date End Date Kamilla Huizar MD [address] [place] [address] PCP - General Family Medicine 11/24/23 Career Development Manager Relationship Specialty Start Date End Date Kamilla Huizar MD [address] [place] [address] PCP - General Family Medicine 11/24/23 Career Development Manager Relationship Specialty Start Date End Date Kamilla Huizar MD [address] [place] [address] PCP - General Family Medicine 11/24/23 Career Development Manager Relationship Specialty Start Date End Date Kamilla Huizar MD PCP - General Family Medicine 11/24/23 Goals (unrecognized section and content) Goals may be documented in a n alternate section (unrecognized sect ion and content) No Status Records FoundNo Status Records FoundNo Status Records FoundNo Status Records FoundNo Status Records Found INFORMATION SOURCE (unrecogn ized section and content) DATE CREATED AUTHOR 06/25/2022 [facility] DATE CREATED AUTHOR AUTHOR'S ORGANIZ ATION 04/24/2023 [facility] DATE CREATED AUTHOR AUTHOR'S ORGANIZ ATION 10/16/2023 [facility] DATE CREATED AUTHOR AUTHOR'S ORGANIZ ATION 12/10/2024 [facility] DATE CREATED AUTHOR AUTHOR'S ORGANIZ ATION 12/16/[address] [facility] FOR RECORDS PERTAINING TO PATIENTS WHO [...] BE BASED ON THE PRIMARY CLINICAL RECORDS. [employer] [facility]. provides no warranty or guarantee of the accuracy or completeness of information in this document.
[2025-05-03 09:21] LABS: Basophils Percent Auto 0.8 % (0.2-2.0); Eosinophils Absolute Auto 0.2 10^3/uL (0.0-0.7); Eosinophils Percent Auto 3.5 % (0.9-7.0); Hematocrit 37.1 % (42.0-54.0); Hemoglobin 12.3 g/dL (14.0-18.0); Immature Granulocytes Abs Auto 0.02 10^3/uL (0.00-0.03); Immature Granulocytes Pct Auto 0.4 % (0.0-0.5); Lymphocytes Absolute Auto 1.4 10^3/uL (1.2-3.8); Lymphocytes Percent Auto 27.2 % (20.5-60.0); Mean Corpuscular HGB Conc 33.2 g/dL (29.9-35.2); Mean Corpuscular Hemoglobin 33.3 pg (25.9-34.0); Mean Corpuscular Volume 100.5 fL (80.0-94.0); Mean Platelet Volume 10.6 fL (9.5-13.5); Monocytes Absolute Auto 0.7 10^3/uL (0.3-0.8); Monocytes Percent Auto 12.9 % (1.7-12.0); Neutrophils Absolute Auto 2.9 10^3/uL (1.4-6.5); Neutrophils Percent Auto 55.2 % (43.0-75.0); Platelet Count 172 10^3/uL (150-450); Red Blood Count 3.69 10^6/uL (4.70-6.10); Red Cell Distribution Width 14.2 % (11.0-15.0); White Blood Count 5.2 10^3/uL (4.0-11.0)
[2025-05-03 09:27] LABS: Erythrocyte Sedimentation Rate 6 mm/hr (<=20)
[2025-05-03 09:48] LABS: Alanine Aminotransferase 30 U/L (16-63); Albumin Globulin Ratio 1.3; Albumin Level 3.4 g/dL (3.4-5.0); Alkaline Phosphatase 59 U/L (46-116); Anion Gap 12.1; Aspartate Amino Transferase 26 U/L (15-37); Bilirubin Total 0.5 mg/dL (0.2-1.0); Calcium 8.7 mg/dL (8.5-10.1); Chloride 109 mmol/L (98-107); Estimated GFR (African America >60 (>=60 mL/min/1.73m^2); Estimated GFR (Non-African Ame >60 (>=60 mL/min/1.73m^2); Globulin 2.6 g/dL; Glucose 83 mg/dL (74-106); Potassium 4.1 mmol/L (3.5-5.1); Sodium 145 mmol/L (136-145)
== END 2025-05-03 08:35 | disposition home or self-care (01) ==
LOC: LAB 08:36
PROVIDERS: PCP Family Medicine; Visit Provider Registered Nurse
DX: H15.012 Anterior scleritis, left eye (principal); Z79.899 Other long term (current) drug therapy
CPT/HCPCS: 36415; 80053; 85025; 85652

== ENCOUNTER 2025-08-17 08:41 | Outpatient (OUT) | payer MEDICARE, OTHER, SELFPAY ==
--- OUTSIDE RECORDS SUMMARY | 2025-06-21 09:09 | XMS_ITS ---
Author Name Auto Generated Organization [facility] Care Team Providers Care Rn Mental Health Name Role Phone BRIDGER NORRIS Attending Unavailable BRIDGER NORRIS Attending Unavailable CARLOS FARRIS Attending Unavailable KAMILLA NAVARRO Primary Care Unavailable CARLOS FARRIS Referring Unavailable KAMILLA NAVARRO Primary Care Unavailable CARLOS FARRIS Referring Unavailable KAMILLA NAVARRO Primary Care Unavailable PROBLEMS DATE TYPE CONDITION / CODE ATTENDING STATUS [facility] 05/26/2025 Active COPD, group A, b y GOLD 2017 classification (HCC) / J44.9(ICD-10) CARLOS FARRIS Active [facility] 04/23/2017 Active Obstructive slee p apnea / G47.33(ICD-10) CARLOS FARRIS Active [facility] 04/23/2017 Active Disorder of diap hragm / J98.6(ICD-10) CARLOS FARRIS Active [facility] 04/23/2017 Active 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) CARLOS FARRIS Active [facility] 05/26/2025 Active Resting tremor / G25.2(ICD-10) CARLOS FARRIS Active [facility] PROCEDURES No Procedure Records Found RESULTS CNOV Observed: 05/26/2025 10:00 AM Status: COMPLETED Source: [facility] Office Visit (PULMMN) MAHAMEDADONAY ([id number]) 1945 M Date Time Provider Department 05/26/25 10:00 AM CARLOS FARRIS During your visit today, we recorded the following information about you: Temperature Pulse Respiration Blood pressure 97.9 degrees 52/minute 16/minute 138/57 Weight 76 kg Carlos Farris MD 05/26/2025 12:21 PM Signed Last seen April 08, 2020 for 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 He has smoked 1 ppd for about 20 years but quit 25 years ago for no medical reason. On NIPPV since [address] Lizarraga. Now setup on a newer device at a setting of 21/12 with back up rate 10, since 09.21.2018. At his last visit, note is made of his significant progressive improvement in the vital capacity corresponding to significant weight loss. Specifically, over the 18 months preceding his last visit, there was a 20% weight loss with a corresponding 60% improvement in the vital capacity. However, he continued to have marked sitting to supine drop in vital capacity and severe impairment of respiratory muscle strength both consistent with bilateral diaphragm involvement. Fortunately, he was adapted to noninvasive ventilation, within normal transcutaneous CO2. He continued to report significant benefits from its use. Residual mild elevation in the apnea-hypopnea index was noted into the mild range with good control of leaks and clinical benefits. Therefore, no change was implemented. Nebulized albuterol/ipratropium was continued for secretion clearance. Adonay reports progressive weakness in the left arm over the past year, noting a significant decrease in the ability to lift the arm. He is not currently under the care of a neurologist or neuromuscular specialist for this issue. He also reports worsening tremors, which are present at rest. He was previously on propranolol for tremor management but has since been switched to metoprolol 50 mg BID. Adonay uses a combination of albuterol and ipratropium via nebulizer once daily to manage respiratory secretions and reports stable breathing. He is able to walk on level surfaces and ascend inclines or stairs without difficulty. However, he experiences dyspnea when lying flat unless using a breathing mask at night, which improves his ability to lie flat and his sleep quality. He wakes up feeling refreshed but does take naps during the day. Adonay denies any recent flares of cough or phlegm requiring antibiotics, as well as any issues with speech, swallowing, loss of taste or smell, or acting out dreams. He does report occasional difficulty finding words, which he attributes to forgetfulness. He has a family history of Alzheimer's disease, with his father being affected. Adonay has successfully maintained a stable weight, with only a 2 lb increase from 165 lbs in May 2022 to 167 lbs currently. He recently underwent a brain MRI, which returned normal results. Constitutional: (+) daytime sleepiness Ears/Nose/Mouth/Throat: (-) anosmia, (-) ageusia Respiratory: (+) orthopnea, (-) cough, (-) sputum production Musculoskeletal: (+) left arm weakness Neurological: (+) resting tremor, (+) word-finding difficulty, (-) dream enactment He has no loss of taste or smell. No dream enactment. The rest of the relevant review of systems is as per the HPI PHYSICAL EXAM BP 138/57 (BP Site: Left Arm, BP Position: Sitting, BP Cuff Size: Large Adult) Pulse (!) 52 Temp 36.6 ?C (97.9 ?F) (Temporal) Resp 16 Wt 76 kg (167 lb 8.8 oz) SpO2 99% BMI 24.74 kg/m? SKIN: No rashes or lesions. HEENT: No sinus tenderness. Oropharynx: Lips normal, mucosa dry, and tongue normal. LN: no cervical or supraclavicular adenopathy LUNGS: clear to percussion, and auscultation. No wheezing or rhonchi. Symmetric air entry. Perhaps better excursion on the left compared to the right HEART: Regular bradycardic rhythm without murmur, gallop, or rubs. No ectopy. ABDOMEN: Soft, non-tender. Bowel sounds normal. No masses, organomegaly. EXTREMITIES: +2 pedal edema bilaterally. No deformities, or skin discoloration. No clubbing NEURO: Rest tremors noted. Gait slow and station stooped. Mood and affect normal. DATABASE DME is [employer]. THE [employer], [employer] Median tidal volume 601 Median respiratory rate 13 Percent spontaneously triggered breaths 66% Percent spontaneously cycled breaths 90% May 26, 2025 WEIGHT 167 LBS Pre Challenge Post Pred LLN ULN Actual %Pred Actual %Chng Actual %Chng SPIROMETRY FVC (L) 3.15 2.32 4.00 2.61 82 1.65 -36 FEV1 (L) 2.34 1.68 2.96 1.57 66 0.81 -48 FEV1/FVC 0.76 0.62 0.88 0.60 78 0.49 -18 MEP (cmH2O) 105.9 48.74 163.1 56.20 53 MIP (cmH2O) -86.4 -49.6 -123 -23.7 April 08, 2024 weight 165 lb Pre [...] LLN ULN Sitting % Supine % chg [facility] [id number] Time 12:21PM 12:37PM Height 170.2 170.2 Weight 88 88 FVC 3.74 2.89 4.60 1.29 35 0.57 -56 FEV 1 2.69 1.97 3.41 0.94 35 0.40 -58 FEV1%F 72.57 62.89 82.25 73.03 101 69.32 -5 PIMAX 101.78 75.02 128.5 26.72 26 PeMax 190.81 140.04 241.6 99.65 52 Pred LLN ULN Sitting % Supine % [facility] Date [id number] Time 09:57AM 10:09AM Height 170.2 170.2 Weight 88 88 FVC 3.74 2.89 4.60 1.25 33 0.55 -56 FEV 1 2.69 1.97 3.41 0.80 30 0.25 -69 FEV1%F 72.57 62.89 82.25 64.02 88 45.69 -29 ETCO2 52.00 PIMAX 101.78 75.02 128.5 27.03 27 PeMax 190.81 140.04 241.6 114.34 60 Pred LLN ULN Sitting % Supine % [facility] Date [id number] Time 02:31PM 02:47PM Height 170.2 170.2 Weight 91.5 91.5 FVC 3.78 2.93 4.63 1.62 43 0.45 -72 FEV 1 2.73 2.01 3.45 1.09 40 0.38 -65 FEV1%F 72.78 63.10 82.46 67.35 93 85.04 26 PIMAX 102.33 75.02 129.6 33.66 33 PeMax 191.84 140.04 243.6 74.05 39 Pred LLN ULN Sitting % Supine % [facility] Date [id number] Time 09:00AM 09:24AM Height 170.2 170.2 Weight [...] movements Arterial blood gases on hospital admission [facility] April 13, 2017 PH 7.26, PCO2 [...] March 20, 2017) Trace pericardial effusion ASSESSMENT 1. 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 Impairment appears to be bilateral, although the exam suggest better excursion on the left. Patient has a history of post-poliomyelitis syndrome, which is likely contributing to diaphragmatic weakness. He is fortunately well adapted to noninvasive ventilation and deriving significant benefits from its use.The device download continues to document excellent adherence to the device. Tidal volume is well supported as is the respiratory rate. I note a decrease in the percent spontaneously triggered breaths and I will therefore increase the trigger sensitivity from medium to high. - Increased trigger sensitivity to high - Continue weight management to improve lung capacity. - Monitor diaphragmatic function and consider referral to a neurologist for further evaluation of post-poliomyelitis syndrome. 2. COPD, group A, by GOLD 2017 classification ([facility]) (J44.9) The more recent pulmonary function test, especially with the improvement in the vital capacity have more consistently shown obstructive lung disease which may be consistent with COPD based on his smoking history. He is not particularly symptomatic at this point. Covered with LAMA or LABA LAMA options such as Spiriva or Stiolto are prohibitively expensive (close to 400/month) and will therefore increase his nebulized albuterol/ipratropium to 4 times daily - Increase nebulized albuterol and ipratropium to 4 times daily - Refill prescriptions for nebulized medications. - Monitor for any exacerbations or changes in respiratory status. 3. Obstructive sleep apnea (G47.33) Well-controlled with CPAP therapy. Patient reports good sleep quality and no issues with daytime somnolence. He continues to derive significant benefits from its use. Device download documents mild residual elevation in the AHI at 11.3 but with leaks well within norm. In the context of the current elevated pressures, and given the clinical benefit from the device, will hold off making changes in settings - Continue current CPAP therapy and monitor for any changes in sleep quality or respiratory status. 4. 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 Currently managed with propranolol 50 mg twice daily. He has no anosmia or ageusia, no evidence of dream enactment Carlos Farris M.D. May 26, 2025 The following is provided for various regulatory, billing, insurance or documentation purposes:: Mr. Irby is not having pain related to the reason for this visit. I spent a total of 50+ minutes on the date of the service which included preparing to see the patient, [id number] patient care, completing clinical documentation, obtaining and/or reviewing separately obtained history, performing a medically appropriate examination, counseling and educating the patient/family/caregiver, ordering medications, tests, or procedures, independently interpreting results (not separately reported) and communicating results to the patient/family/caregiver. Some elements were copied from my note dated April 08, 2024 which have been updated where appropriate, and all reflect current medical decision making from today. Carlos Farrsi M.D. May 26, 2025 Carlos Farris MD 05/26/2025 10:32 AM Signed We discussed your post-polio syndrome and related symptoms: - You reported increased weakness in your left arm over the past year, with difficulty lifting it. I recommend following up with a neurologist or neuromuscular specialist for further evaluation. Please let me know if you need assistance with a referral. - Your tremors have worsened. You are currently taking propranolol (1 tablet daily), and we confirmed you are no longer on metoprolol. Continue taking propranolol as prescribed and let me know if you are taking something else We discussed your breathing and lung function: - Your breathing has been stable, and your sleep apnea is well-controlled with your breathing mask at night. Continue using your mask as directed. - Your lung capacity has improved significantly due to your weight loss, but there is some difficulty emptying your lungs, which may be related to asthma or COPD. - To manage your breathing symptoms, increase your nebulized albuterol and ipratropium (combined in one vial) to 4 times daily. This is a cost-effective alternative to inhalers which were almost 400$ for a month. Refills have been sent to your pharmacy. - Please monitor your breathing and let me know if you experience any worsening symptoms, such as increased shortness of breath, cough, or phlegm. We discussed your medications: - Continue taking your current medications, including baby aspirin, Cosopt eye drops, and other prescribed medications, as directed. - You are not taking lysine, and this has been removed from your medication list. - Refills for your nebulized albuterol and ipratropium have been sent to your pharmacy. We discussed your overall health and activity: - Your weight has remained stable, with only a 2-pound change since last year. This has contributed to improved lung function. Continue maintaining your current weight. - You are able to walk on level surfaces and climb stairs without difficulty. However, you experience shortness of breath when lying flat unless using your breathing mask. Continue using your mask as needed. Follow-up instructions: - Use your nebulized albuterol and ipratropium 4 times daily and monitor your breathing. Contact me if symptoms worsen or if you experience any new issues. - Let me know if you need assistance with medication refills or have any other concerns. Thank you for your continued efforts in managing your health. 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 - dorzolamide-timolol (COSOPT) 22.3-6.8 mg/mL ophthalmic solution Use 1 drop in the left eye two times a day. - folic acid 1 mg tablet Take 1 mg by mouth once daily. - methotrexate 2.5 mg tablet Take 15 mg by mouth one time only. - pantoprazole DR (PROTONIX) 40 mg tablet Take 40 mg by mouth once daily. - prednisoLONE acetate (PRED FORTE) 1 % ophthalmic suspension Use 1 drop in both eyes once daily. - propranolol (INDERAL) 60 mg [...] tablet by mouth daily at bedtime. - furosemide (LASIX) 20 mg tablet Take 1 tablet by mouth once daily. - potassium chloride (KLOR-CON 10) 10 mEq tablet Take 1 tablet by mouth once daily. - latanoprost (XALATAN) 0.005 % ophthalmic solution Use 1 Drop in both eyes daily at bedtime. 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 I recommend following up with a neurologist or neuromuscular specialist for further evaluation. Please let me know if you need assistance with a referral. - Your tremors have worsened. You are currently taking propranolol (1 tablet daily), and we confirmed you are no longer on metoprolol. Continue taking propranolol as prescribed and let me know if you are taking something else We discussed your breathing and lung function: - Your breathing has been stable, and your sleep apnea is well-controlled with your breathing mask at night. Continue using your mask as directed. - Your lung capacity has improved significantly due to your weight loss, but there is some difficulty emptying your lungs, which may be related to asthma or COPD. - To manage your breathing symptoms, increase your nebulized albuterol and ipratropium (combined in one vial) to 4 times daily. This is a cost-effective alternative to inhalers which were almost 400$ for a month. Refills have been sent to your pharmacy. - Please monitor your breathing and let me know if you experience any worsening symptoms, such as increased shortness of breath, cough, or phlegm. We discussed your medications: - Continue taking your current medications, including baby aspirin, Cosopt eye drops, and other prescribed medications, as directed. - You are not taking lysine, and this has been removed from your medication list. - Refills for your nebulized albuterol and ipratropium have been sent to your pharmacy. We discussed your overall health and activity: - Your weight has remained stable, with only a 2-pound change since last year. This has contributed to improved lung function. Continue maintaining your current weight. - You are able to walk on level surfaces and climb stairs without difficulty. However, you experience shortness of breath when lying flat unless using your breathing mask. Continue using your mask as needed. Follow-up instructions: - Use your nebulized albuterol and ipratropium 4 times daily and monitor your breathing. Contact me if symptoms worsen or if you experience any new issues. - Let me know if you need assistance with medication refills or have any other concerns. Thank you for your continued efforts in managing your health. Prescriptions ordered this encounter Disp Refills Start End PROPRANOLOL 60 MG TABLET 90 t* 05/26/2025 Class: Med Update Route: PO Sig: Take 1 tablet by mouth once daily. IPRATROPIUM 0.5 MG-ALBUTEROL 3 MG (2* 360 * 11 05/26/2025 Route: INH Sig: Inhale 3 mL as instructed four times daily. Medications Discontinued During This Encounter Prescriptions - propranolol (INDERAL) 60 mg tablet (Discontinued) Take 1 tablet by mouth once daily. - ipratropium (ATROVENT) 0.02 % nebulizer solution (Discontinued) Use 0.5 mg via nebulizer two times a day. - albuterol (PROVENTIL) 2.5 mg /3 mL (0.083 %) nebulizer solution (Discontinued) Use 2.5 mg via nebulizer four times daily. - metoprolol tartrate, short acting, (LOPRESSOR) 50 mg tablet (Discontinued) Take 50 mg by mouth two times a day. - dutasteride-tamsulosin (JOHANA) 0.5-0.4 mg capsule, ER multiphase 24 hr (Discontinued) Take 1 capsule by mouth daily at bedtime. - lysine 1,000 mg tab (Discontinued) Take 1 tablet by mouth once daily. - ipratropium-albuterol (DUONEB) 0.5 mg-3 mg(2.5 mg base)/3 mL nebu (Discontinued) Inhale 3 mL as instructed four times daily. Level of Service: OFFICE/OUTPATIENT ESTABLISHED HIGH MDM 40 MIN [[id number]] Disposition: Return in about 1 year (around 05/26/2026). Follow-up and Disposition History for Encounter Date Provider Department Center 05/26/2025 55[facility]CARLOS FARRIS [facility] - A Bld Encounter Status:Closed by CARLOS FARRIS on 05/26/25 PROGRESS Observed: 05/26/2025 10:00 AM Status: COMPLETED Source: [facility] HNO ID: [id number] Author: CARLOS FARRIS MD Service: ? 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 He has smoked 1 ppd for about 20 years but quit 25 years ago for no medical reason. On NIPPV since [address] Lizarraga. Now setup on a newer device at a setting of 21/12 with back up rate 10, since 09.21.2018. At his last visit, note is made of his significant progressive improvement in the vital capacity corresponding to significant weight loss. Specifically, over the 18 months preceding his last visit, there was a 20% weight loss with a corresponding 60% improvement in the vital capacity. However, he continued to have marked sitting to supine drop in vital capacity and severe impairment of respiratory muscle strength both consistent with bilateral diaphragm involvement. Fortunately, he was adapted to noninvasive ventilation, within normal transcutaneous CO2. He continued to report significant benefits from its use. Residual mild elevation in the apnea-hypopnea index was noted into the mild range with good control of leaks and clinical benefits. Therefore, no change was implemented. Nebulized albuterol/ipratropium was continued for secretion clearance. Adonay reports progressive weakness in the left arm over the past year, noting a significant decrease in the ability to lift the arm. He is not currently under the care of a neurologist or neuromuscular specialist for this issue. He also reports worsening tremors, which are present at rest. He was previously on propranolol for tremor management but has since been switched to metoprolol 50 mg BID. Adonay uses a combination of albuterol and ipratropium via nebulizer once daily to manage respiratory secretions and reports stable breathing. He is able to walk on level surfaces and ascend inclines or stairs without difficulty. However, he experiences dyspnea when lying flat unless using a breathing mask at night, which improves his ability to lie flat and his sleep quality. He wakes up feeling refreshed but does take naps during the day. Adonay denies any recent flares of cough or phlegm requiring antibiotics, as well as any issues with speech, swallowing, loss of taste or smell, or acting out dreams. He does report occasional difficulty finding words, which he attributes to forgetfulness. He has a family history of Alzheimer's disease, with his father being affected. Adonay has successfully maintained a stable weight, with only a 2 lb increase from 165 lbs in May 2022 to 167 lbs currently. He recently underwent a brain MRI, which returned normal results. Constitutional: (+) daytime sleepiness Ears/Nose/Mouth/Throat: (-) anosmia, (-) ageusia Respiratory: (+) orthopnea, (-) cough, (-) sputum production Musculoskeletal: (+) left arm weakness Neurological: (+) resting tremor, (+) word-finding difficulty, (-) dream enactment He has no loss of taste or smell. No dream enactment. The rest of the relevant review of systems is as per the HPI PHYSICAL EXAM BP 138/57 (BP Site: Left Arm, BP Position: Sitting, BP Cuff Size: Large Adult) Pulse (!) 52 Temp 36.6 ?C (97.9 ?F) (Temporal) Resp 16 Wt 76 kg (167 lb 8.8 oz) SpO2 99% BMI 24.74 kg/m? SKIN: No rashes or lesions. HEENT: No sinus tenderness. Oropharynx: Lips normal, mucosa dry, and tongue normal. LN: no cervical or supraclavicular adenopathy LUNGS: clear to percussion, and auscultation. No wheezing or rhonchi. Symmetric air entry. Perhaps better excursion on the left compared to the right HEART: Regular bradycardic rhythm without murmur, gallop, or rubs. No ectopy. ABDOMEN: Soft, non-tender. Bowel sounds normal. No masses, organomegaly. EXTREMITIES: +2 pedal edema bilaterally. No deformities, or skin discoloration. No clubbing NEURO: Rest tremors noted. Gait slow and station stooped. Mood and affect normal. DATABASE [employer] is [employer]. THE [employer], [employer] Median tidal volume 601 Median respiratory rate 13 Percent spontaneously triggered breaths 66% Percent spontaneously cycled breaths 90% May 26, 2025 WEIGHT 167 LBS Pre Challenge Post Pred LLN ULN Actual %Pred Actual %Chng Actual %Chng SPIROMETRY FVC (L) 3.15 2.32 4.00 2.61 82 1.65 -36 FEV1 (L) 2.34 1.68 2.96 1.57 66 0.81 -48 FEV1/FVC 0.76 0.62 0.88 0.60 78 0.49 -18 MEP (cmH2O) 105.9 48.74 163.1 56.20 53 MIP (cmH2O) -86.4 -49.6 -123 -23.7 April 08, 2024 weight 165 lb Pre [...] ULN Sitting % Supine % chg Date [id number] Time 12:21PM 12:37PM Height 170.2 170.2 Weight 88 88 FVC 3.74 2.89 4.60 1.29 35 0.57 -56 FEV 1 2.69 1.97 3.41 0.94 35 0.40 -58 FEV1%F 72.57 62.89 82.25 73.03 101 69.32 -5 PIMAX 101.78 75.02 128.5 26.72 26 PeMax 190.81 140.04 241.6 99.65 52 Pred LLN ULN Sitting % Supine % [facility] Date [id number] Time 09:57AM 10:09AM Height 170.2 170.2 Weight 88 88 FVC 3.74 2.89 4.60 1.25 33 0.55 -56 FEV 1 2.69 1.97 3.41 0.80 30 0.25 -69 FEV1%F 72.57 62.89 82.25 64.02 88 45.69 -29 ETCO2 52.00 PIMAX 101.78 75.02 128.5 27.03 27 PeMax 190.81 140.04 241.6 114.34 60 Pred LLN ULN Sitting % Supine % [facility] Date 2011123 Time 02:31PM 02:47PM Height 170.2 170.2 Weight 91.5 91.5 FVC 3.78 2.93 4.63 1.62 43 0.45 -72 FEV 1 2.73 2.01 3.45 1.09 40 0.38 -65 FEV1%F 72.78 63.10 82.46 67.35 93 85.04 26 PIMAX 102.33 75.02 129.6 33.66 33 PeMax 191.84 140.04 243.6 74.05 39 Pred LLN ULN Sitting % Supine % [facility] Date [id number] Time 09:00AM 09:24AM Height 170.2 170.2 Weight [...] movements Arterial blood gases on hospital admission [facility] April 13, 2017 PH 7.26, PCO2 [...] March 20, 2017) Trace pericardial effusion ASSESSMENT 1. 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 Impairment appears to be bilateral, although the exam suggest better excursion on the left. Patient has a history of post-poliomyelitis syndrome, which is likely contributing to diaphragmatic weakness. He is fortunately well adapted to noninvasive ventilation and deriving significant benefits from its use.The device download continues to document excellent adherence to the device. Tidal volume is well supported as is the respiratory rate. I note a decrease in the percent spontaneously triggered breaths and I will therefore increase the trigger sensitivity from medium to high. - Increased trigger sensitivity to high - Continue weight management to improve lung capacity. - Monitor diaphragmatic function and consider referral to a neurologist for further evaluation of post-poliomyelitis syndrome. 2. COPD, group A, by GOLD 2017 classification (HCC) (J44.9) The more recent pulmonary function test, especially with the improvement in the vital capacity have more consistently shown obstructive lung disease which may be consistent with COPD based on his smoking history. He is not particularly symptomatic at this point. Covered with LAMA or LABA LAMA options such as Spiriva or Stiolto are prohibitively expensive (close to 400/month) and will therefore increase his nebulized albuterol/ipratropium to 4 times daily - Increase nebulized albuterol and ipratropium to 4 times daily - Refill prescriptions for nebulized medications. - Monitor for any exacerbations or changes in respiratory status. 3. Obstructive sleep apnea (G47.33) Well-controlled with CPAP therapy. Patient reports good sleep quality and no issues with daytime somnolence. He continues to derive significant benefits from its use. Device download documents mild residual elevation in the AHI at 11.3 but with leaks well within norm. In the context of the current elevated pressures, and given the clinical benefit from the device, will hold off making changes in settings - Continue current CPAP therapy and monitor for any changes in sleep quality or respiratory status. 4. 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 Currently managed with propranolol 50 mg twice daily. He has no anosmia or ageusia, no evidence of dream enactment Carlos Farris M.D. May 26, 2025The following is provided for various regulatory, billing, insurance or documentation purposes:: Mr. Irby is not having pain related to the reason for this visit. I spent a total of 50+ minutes on the date of the service which included preparing to see the patient, timf-se-vrts patient care, completing clinical documentation, obtaining and/or reviewing separately obtained history, performing a medically appropriate examination, counseling and educating the patient/family/caregiver, ordering medications, tests, or procedures, independently interpreting results (not separately reported) and communicating results to the patient/family/caregiver. Some elements were copied from my note dated April 08, 2024 which have been updated where appropriate, and all reflect current medical decision making from today. Carlos Farris M.D. May 26, 2025 SPIROMETRY SITTING AND SUPINE Observed: 05/26/2025 9:28 AM Status: F Source: [facility] [address] [place] [address] Test Date: 2025-05-26 Pat Name: ADONAY IRBY Department: Room: Gender: Male Translator Interpreter: : 1945 Requested By: Order Number: [id number] Reading MD: Farzana Kenyon MD Interpretive Statements Sit/Sup: Current ATS/ERS acceptability and repeatability standards for spirometry met. Start of test and EOFE criteria met. MIPS/MEPS repeatable within 10%. Transcutaneous not available during testing. //ML IMPRESSION: Spirometry indicates mild obstruction. There is an abnormal decline in FVC and/or FEV1 in supine position vs seated. Clinical correlation recommended (more than -25%). Maximum inspiratory pressure is below the LLN, suggestive of respiratory muscle weakness. The maximum expiratory pressure is normal. Clinical correlation recommended. Electronically Signed On 05-29-2025 07:43:55 EDT by Farzana Kenyon MD Site: ID: [id number] Name: ADONAY IRBY Visit Date: 05/26/2025 Doctor: Translator Interpreter: Dmitri Pichardo Age: 80 Date of : 1945 Gender: Male Race: White Height: 65.63 in Weight: 167.55 lbs BSA: 1.848 Diagnosis: Disorders of diaphragm Dyspnea: Cough: Wheeze: Tobacco Use: None Medications: Comments: Sit/Sup: Current ATS/ERS acceptability and repeatability standards for spirometry met. Start of test and EOFE criteria met. MIPS/MEPS repeatable within 10%. Transcutaneous not available during testing. //ML Review Status: Not Reviewed Pre Challenge Post Pred LLN ULN Actual %Pred Actual %Chng Actual %Chng SPIROMETRY FVC (L) 3.15 2.32 4.00 2.61 82 1.65 -36 FEV1 (L) 2.34 1.68 2.96 1.57 66 0.81 -48 FEV1/FVC 0.76 0.62 0.88 0.60 78 0.49 -18 FEF25 (L/sec) 3.20 0.50 -84 FEF50 (L/sec) 2.86 0.73 4.98 0.89 30 0.06 -93 FEF75 (L/sec) 0.41 0.14 1.20 0.16 37 DGF06-18 (L/sec) 1.76 0.65 3.41 0.46 26 FEF Max (L/sec) 6.02 3.98 8.06 5.66 94 2.01 -64 FIVC (L) 2.47 1.46 -40 FIF50 (L/sec) 2.36 0.74 -68 FIF Max (L/sec) 2.59 1.56 -39 Time (sec) 14.53 11.44 -21 MELVI (L) 0.08 0.05 -39 Time To FEF Max (sec) 0.07 0.09 29 MEP (cmH2O) 105.9 48.74 163.1 56.20 53 MIP (cmH2O) -86.4 -49.6 -123 -23.7 27 MIPS/MEPS Observed: 05/26/2025 9:28 AM Status: F Source: [address], [address] [place] [address] Test Date: 2025-05-26 Pat Name: ADONAY IRBY Department: Room: Gender: Male Translator Interpreter: : 1945 Requested By: Order Number: [id number] Reading MD: Farzana Kenyon MD Interpretive Statements Sit/Sup: Current ATS/ERS acceptability and repeatability standards for spirometry met. Start of test and EOFE criteria met. MIPS/MEPS repeatable within 10%. Transcutaneous not available during testing. //ML IMPRESSION: Spirometry indicates mild obstruction. There is an abnormal decline in FVC and/or FEV1 in supine position vs seated. Clinical correlation recommended (more than -25%). Maximum inspiratory pressure is below the LLN, suggestive of respiratory muscle weakness. The maximum expiratory pressure is normal. Clinical correlation recommended. Electronically Signed On 05-29-2025 07:43:55 EDT by Farzana Kenyon MD Site: ID: [id number] Name: ADONAY IRBY Visit Date: 05/26/2025 Doctor: Translator Interpreter: Dmitri Pichardo Age: 80 Date of : 1945 Gender: Male Race: White Height: 65.63 in Weight: 167.55 lbs BSA: 1.848 Diagnosis: Disorders of diaphragm Dyspnea: Cough: Wheeze: Tobacco Use: None Medications: Comments: Sit/Sup: Current ATS/ERS acceptability and repeatability standards for spirometry met. Start of test and EOFE criteria met. MIPS/MEPS repeatable within 10%. Transcutaneous not available during testing. //ML Review Status: Not Reviewed Pre Challenge Post Pred LLN ULN Actual %Pred Actual %Chng Actual %Chng SPIROMETRY FVC (L) 3.15 2.32 4.00 2.61 82 1.65 -36 FEV1 (L) 2.34 1.68 2.96 1.57 66 0.81 -48 FEV1/FVC 0.76 0.62 0.88 0.60 78 0.49 -18 FEF25 (L/sec) 3.20 0.50 -84 FEF50 (L/sec) 2.86 0.73 4.98 0.89 30 0.06 -93 FEF75 (L/sec) 0.41 0.14 1.20 0.16 37 TCP33-58 (L/sec) 1.76 0.65 3.41 0.46 26 FEF Max (L/sec) 6.02 3.98 8.06 5.66 94 2.01 -64 FIVC (L) 2.47 1.46 -40 FIF50 (L/sec) 2.36 0.74 -68 FIF Max (L/sec) 2.59 1.56 -39 Time (sec) 14.53 11.44 -21 MELVI (L) 0.08 0.05 -39 Time To FEF Max (sec) 0.07 0.09 29 MEP (cmH2O) 105.9 48.74 163.1 56.20 53 MIP (cmH2O) -86.4 -49.6 -123 -23.7 27 FVC_PRE (L) : 2.61 L FVC_PRED (L) : 3.15 L FVC_LLN (L) : 2.32 L FVC_ULN (L) : 4.00 L FEV1_PRE (L) : 1.57 L FEV1_PRED (L) : 2.34 L FEV1_LLN (L) : 1.68 L FEV1_ULN (L) : 2.96 L FEV1/FVC_PRE (%) : 60 % FEV1/FVC_PRED (%) : 76 % FEV1/FVC_LLN (%) : 62 % CJO34_FXF (L/S) : 3.20 L/S GLX53_UTN (L/S) : 0.16 L/S CAW01_QUOK (L/S) : 0.41 L/S AZT01_AZX (L/S) : 0.14 L/S KRY15_TKW (L/S) : 1.20 L/S JJX67-10%_PRE (L/S) : 0.46 L/S ZQH77-93%_PRED (L/S) : 1.76 L/S PTB01-59%_LLN (L/S) : 0.65 L/S PEF_PRE (L/S) : 5.66 L/S PEFMAX_LLN (L/S) : 3.98 L/S PEFMAX_ULN (L/S) : 8.06 L/S FET_PRE (S) : 14.53 S MIP_PRE (CMH2O) : -23.69 cmH2O MIP_PRED (CMH20) : -86.37 cmH2O MEP_PRE (CMH2O) : 56.20 cmH2O MEP_PRED (CMH20) : 105.92 cmH2O FVC_SUPPLEMENTAL (L) : 1.65 L FEV1_SUPPLEMENTAL (L) : 0.81 L FEV1/FVC_SUPPLEMENTAL (%) : 49 % PEF_SUPPLEMENTAL (L/S) : 2.01 L/S FET_SUPPLEMENTAL (S) : 11.44 S CNPN Observed: 12/08/2024 12:00 AM Status: COMPLETED Source: [facility] Telephone (PULMMN) MAHAMEDADONAY ([id number]) 1945 M Date Time Provider Department 12/08/24 CARLOS FARRIS PULMMN During your visit today, we recorded the following information about you: Hanna Hyde 12/08/2024 1:37 PM Signed Admin faxed over medical equipment order to [facility], signed by Dr. Carlos Farris. Admin scanned into chart (scanned documents) on 12/08/2024. Allergies As of Date: 12/08/2024 Noted Allergy Reaction SULFAMETHOXAZOLE-TRIMETHOPRIM 03/08/2021 10 - Anaphylaxis Date Reviewed: 04/08/2024 [...] Encounter Status:Closed by HANNA HYDE on 12/08/24 ALLERGIES DATE TYPE / CODE NAME / CODE REACTION SEVERITY SOURCE 05/25/2023 Drug Class/784104085( SNOMED CT) SULFA (SULFONAMIDE ANTIBIOTICS) OTHER: SEE C [facility] 03/08/2021 DRUG/[id number](S NOMED CT) SULFAMETHOXAZOLE -TRIMETHOPRIM ANAPHYLAXIS [facility] ENCOUNTERS ADMIT/DISCHARGE ACCOUNT NUMBER ADMITTING ENCOUNTER CLASS LOCATION SOURCE 06/21/2025/ 5 [id number] Ambulatory Building:[facility] 05/26/2025/ 5 [id number] [facility]/ 5 [id number] Ambulatory [facility] 05/26/2025/ 5 [id number] Ambulatory [facility] 12/14/2024/ 5 [id number] [facility] PAYERS ENCOUNTER GUARANTOR PAYER SUBSCRIBER SOURCE 06/21/2025 ADONAY ROSARIO: [id number] [address] [address]Kfy: () Primary Insurance:[facility] y Number: [id number] Date:9651-25-86Rmrn Name:Medicare ADONAY Mcbride GLOB: [id number], [place] [address] [facility] 06/21/2025 Secondary Insurance:[employer] [place] Number: [id number] Date:2009 ADONAY Rae GLOB: [id number], [place] [address] [facility] 05/26/2025 Primary Insurance:MEDICARE A AND BPolicy Number: [id number] Date:8115-34-44Ytab Name:Charisma ADONAY Mcbride MARLENE: [id number]07 [facility] 05/26/2025 Secondary Insurance:[employer] [place] MEDICARE SUPPLEMENTPolicy Number: [id number] Date:9670-55-20Usuy Name:Jair ROSARIO: [id number] [address], [address] 05/26/2025 Primary Insurance:MEDICARE A AND BPolicy Number: [id number] Date:3822-91-00Wyqb Name:Charisma ROSARIO: [id number], [facility]07 [facility] 05/26/2025 Secondary Insurance:[employer] [place] MEDICARE SUPPLEMENTPolicy Number: [id number] Date:3436-17-96Upka Name:Jair CODYB: [id number], [facility]07 [facility] 05/26/2025 Primary Insurance:MEDICARE A AND BPolicy Number: [id number] Date:7271-17-16Vefc Name:Charisma ROSARIO: [id number], [facility]07 [facility] 05/26/2025 Secondary Insurance:[employer] [place] MEDICARE SUPPLEMENTPolicy Number: [id number] Date:0552-92-07Hjsm Name:Jair IRBYDOB: [id number] [address] [facility] 12/14/2024 ADONAY Mcbride MARLENE: [id number] [address] [place] [id number]: (HP) Primary Insurance:MEDICAREPolic y Number: [id number] Date:6828-87-02Xrke Name:Medicare ADONAY Mcbride MARLENE: [id number] [place] [address] [facility] 12/14/2024 Secondary Insurance:[facility] Number: [id number] Date:2018-11-16 ADONAY Mcbride MARLENE: [id number] [place] [address] [facility] EPIC
[2025-08-17 09:20] LABS: Hematocrit 38.4 % (42.0-54.0); Hemoglobin 12.4 g/dL (14.0-18.0); Immature Granulocytes Abs Auto 0.02 10^3/uL (0.00-0.03); Immature Granulocytes Pct Auto 0.4 % (0.0-0.5); Lymphocytes Absolute Auto 1.3 10^3/uL (1.2-3.8); Mean Corpuscular HGB Conc 32.3 g/dL (29.9-35.2); Mean Corpuscular Hemoglobin 33.0 pg (25.9-34.0); Mean Corpuscular Volume 102.1 fL (80.0-94.0); Platelet Count 186 10^3/uL (150-450); Red Blood Count 3.76 10^6/uL (4.70-6.10); White Blood Count 5.7 10^3/uL (4.0-11.0)
[2025-08-17 11:19] LABS: Alanine Aminotransferase 27 U/L (16-63); Albumin Globulin Ratio 1.1; Albumin Level 3.3 g/dL (3.4-5.0); Alkaline Phosphatase 66 U/L (46-116); Anion Gap 9.5; Aspartate Amino Transferase 24 U/L (15-37); Blood Urea Nitrogen 16.0 mg/dL (7.0-18.0); Calcium 8.6 mg/dL (8.5-10.1); Carbon Dioxide 31.7 mmol/L (21.0-32.0); Chloride 108 mmol/L (98-107); Estimated GFR (African America >60 (>=60 mL/min/1.73m^2); Estimated GFR (Non-African Ame >60 (>=60 mL/min/1.73m^2); Globulin 3.1 g/dL; Glucose 94 mg/dL (74-106); Potassium 4.2 mmol/L (3.5-5.1); Sodium 145 mmol/L (136-145); Total Protein 6.4 g/dL (6.4-8.2)
== END 2025-08-17 08:42 | disposition home or self-care (01) ==
PROVIDERS: PCP Family Medicine; Visit Provider Registered Nurse
DX: H15.012 Anterior scleritis, left eye (principal); Z79.899 Other long term (current) drug therapy
CPT/HCPCS: 36415; 80053; 85025; 85652

== ENCOUNTER 2025-11-03 09:20 | Outpatient (OUT) | payer MEDICARE, OTHER, SELFPAY ==
--- OUTSIDE RECORDS SUMMARY | 2025-11-03 09:26 | XMS_ITS | Encounter Summary ---
Author Organization [facility] Address [address] [place] [address] Care Team Providers Care Coat Fitter Name Role Phone Shyam Huizar MD Primary Care Provider [phone] Source Comments In the event this information is protected by the Federal Confidentiality of Alcohol and Drug AbusePatient Records regulations: The Federal rules restrict any use of the information to criminally investigate or prosecute any alcohol or drug abuse patient.[facility] Reason for Visit * ReasonCommentsMedical Supplies Encounter Details DateTypeDepartmentCare Team (Latest Contact Info)Jtjnaysyzhg84/08/2025Telephone Pulmonary Medicine [address] [id number] Jace Cooper MD [address] [place] [address] Medical Supplies Social History Tobacco UseTypesPacks/DayYears UsedDateSmoking Tobacco: FormerSmokeless Tobacco: Never Comments:Quit 25+ years ago Area Deprivation IndexAnswerDate RecordedNational Score (1-100), lower number is lower tcvi605304/08/2024State Score (1-10), lower number is lower ntmh626 Data from: https://www.neighborhoodatlas.[facility]/. Last address used for xhimh[address]Sex and Gender InformationValueDate RecordedSex Assigned at BirthNot on fileLegal PbtJtgb6404/17/2017 4:38 PM EDT Gender IdentityNot on fileSexual OrientationNot on filedocumented as of this encounter Miscellaneous Notes * Telephone Encounter - Rajani Guzman RN - 10/25/2025 2:34 PM EST Spoke with [facility], They are not sure why it was returned to them They stated that they can place a new order for the supplies to be shipped out to the patient, theywill give the patients spouse a call today to confirm the address Called and updated patients spouse, she will try getting the supplies through [facility] [place] again, she will let me know if there continues to be issues * Telephone Encounter - Rajani Guzman RN - 10/25/2025 2:12 PM EST Have yet to hear back from [facility], attempted to call [facility], waiting on a call back as there was a wait for 14 minutes to speak with someone Called and spoke with patients spouse, They have never had an issue with getting supplies in over 20 years, she would prefer the supplies be sent to [facility] as he already goes there for other things such as his Albuterol Spoke with [facility], they stated they do not supply CPAP/BIPAP supplies anymore, they have been sending everyone to [facility] in [place] - . [phone] * Telephone Encounter - Rajani Guzman RN - 10/24/2025 3:37 PM EST Attempted to call patients spouse, no answer, left VM Called [facility], They stated it was shipped on 09/29 but delivered back to sender on 10/09 therefor, the patient never received the supplies [employer] will not ship to a PO box Blister Packing Machine Tender is going to get this over to their supervisor lime to see how best to handle this, they will give me a call back with an update * Telephone Encounter - AlmendarezHanna - 10/23/2025 7:28 AM EST Keagan Leyva's Elizabeth called last week, message taken by GHADA Parekh, regarding his not being able to receive his medical supplies. [email or web address] will not mail the supplies to the PO Box they have on file. [facility] stated [facility] may to authorization from Dr. Cooper to send the medical supplies to the physician address they provided. She is not sure if this can be done by re-writing the order. This can also be done by calling [facility] in [facility]. Elizabeth is asking to speak to a nurse or the Doctor directly in regards to this issue. Elizabeth can be reached at [phone]. Where she want the medical supplies sent to: [place] [address] documented in this encounter Plan of Treatment Not on file documented as of this encounter Visit Diagnoses Not on filedocumented in this encounter Care Teams Team MemberRelationshipSpecialtyStart DateEnd Date Shyam Huizar MD PCP - GeneralFamily Medicine04/17/17documented as of this encounter
--- OUTSIDE RECORDS SUMMARY | 2025-11-03 09:26 | XMS_ITS | Clinical Summary ---
Author Organization [facility] Address [address] [place] [address] Care Team Providers Care Fire Services Plumber Name Role Phone Shyam Huizar MD Primary Care Provider [phone] Allergies Active AllergyReactionsCriticalityNoted DateCommentsSulfa Hctzqlesrle67/10/2023 Other Reaction(s): Unknown Sulfamethoxazole-TxsntrppejwtJlvmjscbqleFnwm20/23/2021 Medications MedicationSigDispense QuantityRefillsLast FilledStart DateEnd DateStatus tamsulosin (Flomax) 0.4 MG 24 hr capsule 1 capsule 1 (one) time each day at the same time.Active simvastatin (Zocor) 20 MG tablet 1 (one) time each day at the same time.Active propranolol LA (Inderal LA) 60 MG 24 hr capsule Take 60 mg by mouth in the morning.04/20/2023ctive potassium chloride CR (Klor-Con M10) 10 MEQ ER tablet 02/25/2023ctive Protonix 40 MG EC tablet 1 (one) time each day at the same time.Active methotrexate 2.5 MG tablet Take 15 mg by mouth 1 (one) time per week.04/20/2023ctive ipratropium-albuterol (Duo-Neb) 0.5-2.5 mg/3 mL nebulizer solution INHALE 1 VIAL 4 TO 5 TIMES DAILY NEEDED DXJ44.9005/05/2023ctive furosemide (Lasix) 20 MG tablet Take 1 tablet by mouth once daily for ctive finasteride (Proscar) 5 MG tablet 1 (one) time each day at the same time.Active folic acid (Folvite) 1 MG tablet Take 1,000 mcg by mouth in the morning.03/09/2023ctive metoprolol tartrate (Lopressor) 50 MG tablet every 12 (twelve) hours11/03/2023ctive prednisoLONE acetate (Pred-Forte) 1 % ophthalmic suspension Indications:Anterior scleritis of left eyeInstill one drop into the left eye twice a week, 15 mL 5Active dorzolamide-timolol (Cosopt) 2-0.5 % ophthalmic solution Indications:Primary open angle glaucoma (POAG) of both eyes, mild stage Administer 1 drop into both eyes in the morning and 1 drop before bedtime. 10 mL 5Active latanoprost (Xalatan) 0.005 % ophthalmic solution Indications:Primary open angle glaucoma (POAG) of both eyes, mild stage Administer 1 drop into both eyes at bedtime 7.5 mL 5Active latanoprost (Xalatan) 0.005 % ophthalmic solution Indications:Primary open angle glaucoma (POAG) of both eyes, mild stage Administer 1 drop into both eyes at bedtime 7.5 mL 4112/10/2024Discontinued(Reorder) Active Problems ProblemNoted DateDiagnosed DatePrimary open angle glaucoma (POAG) of both eyes, mild stage05/25/2023nterior scleritis of left eye05/25/2023Right posterior capsular lmpgzqqztervz47/10/2023Dry eyes05/25/2023 Encounters DateTypeDepartmentCare SbshFulqcsloyhd42/25/2025[facility] [address] [place] [phone] Rosalio, Concetta, COT Primary open angle glaucoma (POAG) of both eyes, mild stage09/15/2025[facility] [address] [place] [phone] Rosalio, Concetta, COT Primary open angle glaucoma (POAG) of both eyes, mild stagefrom Last 3 Months Social History Tobacco UseTypesPacks/DayYears UsedDateSmoking Tobacco: FormerCigarettes Tobacco Cessation:Counseling Given: Not Answered Sex and Gender InformationValueDate RecordedSex Assigned at BirthNot on file Legal TbzGbqz2403/16/2023 8:34 PM EDTGender IdentityNot on fileSexual Orientation Not on file Plan of Treatment DateTypeDepartmentCare Team (Latest Contact Info)Zamfkcxspuw18/04/2026 9:45 AM ESTOffice Visit [facility] [address] [place] [phone] Sylvester Andrew DO [address] [place] [address] Health MaintenanceDue DateLast DoneCommentsCOVID-19 Vaccine ( season) 509/10/2024, 10/04/2023, 07/09/2022, Additional history existsInfluenza Vaccine (#1)509/10/2024, 09/25/2023, 08/31/2020, Additional history existsPneumococcal Vaccine: 65+ OlhfwPokxuqums50/29/2017, 11/05/2016 Insurance * Guarantor: Keagan Leyva TypeRelation to PatientDate of PhoneBilling AddressPersonal/[id number] [facility] [address] [place] [address] [place] [address] Care Teams Team MemberRelationshipSpecialtyStart DateEnd Shyam Huizar MD [address] [place] [address] [facility]11/24/23
--- OUTSIDE RECORDS SUMMARY | 2025-11-03 09:27 | XMS_ITS | Patient Health Record ---
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 Name Role Phone Anshu Navarro Primary Care Provider Allergies Allergen (clinical drug ingredient) Drug/Non Drug Allergy documented on EMR Reaction Allergy Type Onset Date Status Substance with sulfonamide s tructure and antibacterial mechanism of action (substance) Sulfa Antibiotics Unknown Drug Allergy Active Results Component Value Reference Range Notes MR head/brain wo con Reviewed date:12/12/2024 08:27:17 PM Interpretation: Performing Lab: Notes/Report: Source Facility: [place] [address] Magnetic Resonance Report Signed Patient: KEAGAN IRBY MR#: [id number] : 1945 Acct:[id number] Age/Sex: 79 / M ADM Date: 12/12/24 Loc: MRI Attending Dr: Kamilla Navarro M.D. Ordering Physician: Kamilla Navarro M.D. Date of Service: 12/12/24 Procedure(s): MR head/brain wo con Accession Number(s): [id number] cc: Kamilla Navarro M.D. [place] [id number] Patient Name: KEAGAN IRBY MRN: [id number] date: 1945 Sex: M Assigned Patient Location: MRI Current Patient Location: MRI Accession/Order Number: [id number] Exam Date: 12/12/2024 08:00 Report Date: 12/12/2024 09:04 At the request of: KAMILLA NAVARRO Procedure: MR head/brain wo con MR [...] M.D. Signed By: 12/12/24905 DD/ 3 TD/TT: Cutlet Maker Pork: CBC AUTO DIFF Reviewed date:01/04/2025 07:41:51 PM Interpretation: Performing Lab: Notes/Report: [facility] , White Blood Count 6.0 4.0-11.0 10 3/uL Red Blood Count3.854.70-6.10 10 6/yRZpqklunzxo99.814.0-18.0 g/qSDddjmehgvk29.1 42.0-54.0 %Mean Corpuscular Dfgkyn292.680.0-94.0 fLMean Corpuscular Hemoglobin 33.225.9-34.0 pgMean Corpuscular HGB Conc32.729.9-35.2 g/dLRed Cell Distribution Width14.911.0-15.0 %Platelet Sjnvj105743-859 10 3/uLMean Platelet Ojgozp45.59.5- 13.5 fLNeutrophils Percent Auto62.643.0-75.0 %Lymphocytes Percent Auto22.220.5- 60.0 %Monocytes Percent Auto11.91.7-12.0 %Eosinophils Percent Auto2.50.9-7.0 % Basophils Percent Auto0.50.2-2.0 %Immature Granulocytes Pct Auto0.30.0-0.5 % Neutrophils Absolute Auto3.81.4-6.5 10 3/uLLymphocytes Absolute Auto1.31.2-3.8 10 3/uLMonocytes Absolute Auto0.70.3-0.8 10 3/uLEosinophils Absolute Auto0.20.0- 0.7 10 3/uLBasophils Absolute Auto0.00.0-0.1 10 3/uLImmature Granulocytes Abs Auto0.020.00-0.03 10 3/uLPerforming Lab:see noteML - [facility] LB PROF 14(COMP METB) Reviewed date:01/04/2025 07:41:51 PM Interpretation: Performing Lab: Notes/Report: [facility] ,Gwjjvc840062-020 mmol/LPotassium3.93.5-5.1 mmol/IUxgeotbp31697-135 mmol/LCarbon Bnheqtz32.321.0-32.0 mmol/LAnion Gap9.3Awzsgjr4369-123 mg/dLBlood Urea Nitrogen 21.07.0-18.0 mg/dLCreatinine0.820.70-1.30 mg/dLEstimated GFR ( Yamilet>60 >=60 mL/min/1.73m 2Estimated GFR (Non- Sandy>60>=60 mL/min/1.73m 2BUN Creatinine Ratio25.1Mebopct8.08.5-10.1 mg/dLBilirubin Total0.90.2-1.0 mg/dL Aspartate Amino Bpvvtohyhlq9719-47 U/LAlanine Jzyqbgqadyteprgs2857-41 U/L Alkaline Qpoiwukfjnt8626-783 U/LTotal Protein6.36.4-8.2 g/dLAlbumin Level3.53.4- 5.0 g/dLGlobulin2.8Albumin Globulin Ratio1.2Performing Lab:see noteML - [facility] 14(COMP METB) Reviewed date:05/03/2025 05:36:24 PM Interpretation: Performing Lab: Notes/Report: [facility] ,Rmcqix534379-946 mmol/LPotassium4.13.5-5.1 mmol/WQndefcfk99570-766 mmol/LCarbon Jqsfvyf44.021.0-32.0 mmol/LAnion Gap12.3Ybtzfgg8508-384 mg/dLBlood Urea Nitrogen 16.07.0-18.0 mg/dLCreatinine0.640.70-1.30 mg/dLEstimated GFR ( Yamilet>60 >=60 mL/min/1.73m 2Estimated GFR (Non- Sandy>60>=60 mL/min/1.73m 2BUN Creatinine Ratio25.9Kuvpnfs5.78.5-10.1 mg/dLBilirubin Total0.50.2-1.0 mg/dL Aspartate Amino Ckivqsqyofy9737-29 U/LAlanine Cvkuiusznrstiwpo3647-72 U/L Alkaline Qmzbiggcexp2593-622 U/LTotal Protein6.06.4-8.2 g/dLAlbumin Level3.43.4- 5.0 g/dLGlobulin2.6Albumin Globulin Ratio1.3Performing Lab:see noteML - [facility] 14(COMP METB) Reviewed date:08/17/2025 12:42:41 PM Interpretation: Performing Lab: Notes/Report: [facility] ,Qrtntf306433-462 mmol/LPotassium4.23.5-5.1 mmol/KUiinxudz46458-624 mmol/LCarbon Natugic59.721.0-32.0 mmol/LAnion Gap9.7Jcbtzmz3095-768 mg/dLBlood Urea Nitrogen 16.07.0-18.0 mg/dLCreatinine0.590.70-1.30 mg/dLEstimated GFR ( Yamilet>60 >=60 mL/min/1.73m 2Estimated GFR (Non- Sandy>60>=60 mL/min/1.73m 2BUN Creatinine Ratio27.2Wmvdwlb4.68.5-10.1 mg/dLBilirubin Total0.90.2-1.0 mg/dL Aspartate Amino Ldbencqnpzn2114-99 U/LAlanine Blvviwvyihjjylpu8155-43 U/L Alkaline Oyqetjnkuun0337-636 U/LTotal Protein6.46.4-8.2 g/dLAlbumin Level3.33.4- 5.0 g/dLGlobulin3.1Albumin Globulin Ratio1.1Performing Lab:see noteML - [facility] LBCBC AUTO DIFF Reviewed date:05/03/2025 05:36:23 PM Interpretation: Performing Lab: Notes/Report: [facility] ,White Blood Count5.24.0-11.0 10 3/uLRed Blood Count3.694.70-6.10 10 6/uL Ymlpdkspwv85.314.0-18.0 g/vBSjtjkpfctu92.142.0-54.0 %Mean Corpuscular Volume 100.580.0-94.0 fLMean Corpuscular Xiivpbnhsm48.325.9-34.0 pgMean Corpuscular HGB Conc33.229.9-35.2 g/dLRed Cell Distribution Width14.211.0-15.0 %Platelet Count 230848-149 10 3/uLMean Platelet Jdogdb33.69.5-13.5 fLNeutrophils Percent Auto 55.243.0-75.0 %Lymphocytes Percent Auto27.220.5-60.0 %Monocytes Percent Auto12.9 1.7-12.0 %Eosinophils Percent Auto3.50.9-7.0 %Basophils Percent Auto0.80.2-2.0 % Immature Granulocytes Pct Auto0.40.0-0.5 %Neutrophils Absolute Auto2.91.4-6.5 10 3/uLLymphocytes Absolute Auto1.41.2-3.8 10 3/uLMonocytes Absolute Auto0.70.3-0.8 10 3/uLEosinophils Absolute Auto0.20.0-0.7 10 3/uLBasophils Absolute Auto0.00.0- 0.1 10 3/uLImmature Granulocytes Abs Auto0.020.00-0.03 10 3/uLPerforming Lab:see noteML - [facility] LBErythrocyte Sedimentation Rate Reviewed date:01/04/2025 07:41:51 PM Interpretation: Performing Lab: Notes/Report: [facility] ,Erythrocyte Sedimentation Rate9<=20 mm/hrPerforming Lab:see noteML - [facility] LBCBC AUTO DIFF Reviewed date:08/17/2025 12:42:41 PM Interpretation: Performing Lab: Notes/Report: [facility] ,White Blood Count5.74.0-11.0 10 3/uLRed Blood Count3.764.70-6.10 10 6/uL Pnfbjxtctn37.414.0-18.0 g/zKVsznpvjqwf25.442.0-54.0 %Mean Corpuscular Volume 102.180.0-94.0 fLMean Corpuscular Owsuvpjylu32.025.9-34.0 pgMean Corpuscular HGB Conc32.329.9-35.2 g/dLRed Cell Distribution Width13.411.0-15.0 %Platelet Count 550036-448 10 3/uLMean Platelet Volume9.99.5-13.5 fLNeutrophils Percent Auto62.9 43.0-75.0 %Lymphocytes Percent Auto22.320.5-60.0 %Monocytes Percent Auto12.11.7- 12.0 %Eosinophils Percent Auto1.40.9-7.0 %Basophils Percent Auto0.90.2-2.0 % Immature Granulocytes Pct Auto0.40.0-0.5 %Neutrophils Absolute Auto3.61.4-6.5 10 3/uLLymphocytes Absolute Auto1.31.2-3.8 10 3/uLMonocytes Absolute Auto0.70.3-0.8 10 3/uLEosinophils Absolute Auto0.10.0-0.7 10 3/uLBasophils Absolute Auto0.10.0- 0.1 10 3/uLImmature Granulocytes Abs Auto0.020.00-0.03 10 3/uLPerforming Lab:see noteML - [facility] LBErythrocyte Sedimentation Rate Reviewed date:05/03/2025 05:36:24 PM Interpretation: Performing Lab: Notes/Report: [facility] ,Erythrocyte Sedimentation Rate6<=20 mm/hrPerforming Lab:see noteML - [facility] LBErythrocyte Sedimentation Rate Reviewed date:08/17/2025 12:42:41 PM Interpretation: Performing Lab: Notes/Report: [facility] ,Erythrocyte Sedimentation Rate15<=20 mm/hrPerforming Lab:see note - [facility] LB Reason For Referral No Information Medications Medication SIG (Take, Route, Frequency, Duration) Notes Start Date End Date Status Potassium Chloride Ilana ER 10 MEQ TAKE 1 TABLET BY MOUTH ONCE DAILY Oral; Duration: 90 days ActiveFolic Acid 1 MG1 tablet Orally Once a day04/28/2024ctiveFurosemide 20 MG Take 1 tablet by mouth once daily; Duration: 30ActiveIpratropium-Albuterol 0.5- 2.5 (3) MG/3ML3 mL as needed Inhalation every 6 hrs04/28/2024ctiveLatanoprost 0.005 %1 drop into affected eye in the evening Ophthalmic Once a dayActive Methotrexate Sodium 5 MG6 tablets Orally once fryoxn8404/28/2024ctivelevoFLOXacin 500 MG1 tablet Orally Once a day; Duration: 10 day(s)5Active prednisoLONE AcetateActivePropranolol HCl 40 MG1 tablet Orally bid; Duration: 30 days05/02/2024ctiveProtonix 40 MG1 tablet Orally Once a day; Duration: 30 days ActiveDorzolamide HCl-Timolol MalActiveTamsulosin HCl 0.4 MG1 capsule Orally Once a day; Duration: 90 daysActiveSimvastatin 20 MG1 tablet in the evening Orally Once a day; Duration: 90 daysActiveFinasteride 5 MG1 tablet Orally Once a day; Duration: 90 daysActiveAspirin Adult Low Dose 81 MG1 tablet Orally Once a day04/28/2024ctiveNamenda XR 7 MG1 capsule Orally Once a day; Duration: 14 days 5Active Immunizations Vaccine Route Administration Date Status Comme nts Flu, Fluzone High-Dose (2022 -2023) (15026) 65 yrs+ Unknown 09/25/2023 Administered Spikevax Moderna Syringe Pre-Filled 50 mcg/0.5 eCTbfzebu49/19/2023dministered Social History Tobacco Use: Social History Observation Description Date Details (start date - stop date) Former Smoker 11/16/1960 - 11/16/1984 Alcohol Screen (Audit-C) Question Answer Notes Did you have a drink containing alcohol in the p ast year? Yes How often did you have 6 or more drinks on one occasion in the past year?Never (0 point)How many drinks did you have on a typical day when you were drinking in the past year?1 or 2 drinks (0 point)How often did you have a drink containing alcohol in the past year?Weekly (3 points)Zemkcs0GigezmkizbthrqMrxetfwwEfevwwf Control (Standard) Question Answer Notes Tobacco use: Former smoker When did you start smoking?11/16/1960When did you stop smoking?11/16/1984How long has it been since you last smoked?Greater than 10 yearsAdditional Findings: Tobacco bvr-booqIe-usenauwd cigarette smoker (10-19/day)AUDIT-C (Standard) Question Answer Notes Did you have a drink containing alcohol in the p ast year? Yes How often did you have six or more drinks on one occasion in the past year?Never (0 point)How many drinks did you have on a typical day when you were drinking in the past year?1 or 2 drinks (0 point)How often did you have a drink containing alcohol in the past year?Daily or almost daily (4 points)Zhfxsa2Iipnkhnfyyeywu Positive Problems Problem Type SNOMED Code ICD Code Onset Dates Problem Status W/U Status Risk Notes Problem Hypertension (22946633) HTN (hypertension ) (I10) ActiveconfirmedProblemObstructive sleep apnea (10670900)Obstructive sleep apnea (G47.33)ActiveconfirmedProblemParalysis of diaphragm (10078420)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)ActiveconfirmedProblemSebaceous cyst (992643785)Sebaceous cyst (L72.3)ActiveconfirmedProblemTubular adenoma of colon (728194556)Tubular adenoma of colon (D12.6)ActiveconfirmedProblemAcute bronchitis (48835308)Acute bronchitis, unspecified organism (J20.9)ActiveconfirmedProblemMemory loss (37914492)Memory loss (R41.3)ActiveconfirmedProblemDependence on biphasic positive airway pressure ventilation (finding) (449186680)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)ActiveconfirmedProblemOverweight (720617967)Over weight (E66.3)ActiveconfirmedProblemPostpolio syndrome (24092390)Post-polio syndrome (G14)ActiveconfirmedProblemChronic hypoxemic respiratory failure (473000129)Chronic hypoxemic respiratory failure (J96.11) ActiveconfirmedProblemNevus (8129151032)Nevus (D22.9)ActiveconfirmedProblem Diverticular disease of colon (698238573)Colon, diverticulosis (K57.30)Active confirmedProblemAnkle edema (49605369)Ankle edema (R60.0)ActiveconfirmedProblem Neuromuscular disorder (579947503)Neuromuscular disorder (G70.9)Activeconfirmed ProblemBenign prostatic hypertrophy without outflow obstruction (446758986) Benign hypertrophy of prostate (N40.0)ActiveconfirmedProblemPulmonary hypertension (53260118)Pulmonary hypertension (I27.20)Activeconfirmed Vital Signs Blood pressure diastolic 70 mm Hg 12/06/2024 Nmtygg65 in12/06/2024lood pressure aclgxcxh800 mm Hg12/06/20241503Szxmyz361.4 lbs 12/06/2024BMI26.93 kg/m212/06/2024 Encounters Encounter Location Date Provider Diagnosis [facility] [address] [place] [address] 12/06/2024 Anshu Hoy Acute bronchitis, unspecified organism J20.9 and Memory loss R41.3 [facility] [address] [place] [address] 12/12/2024 Anshu Hoy [facility] [place] [address] 03/06/2025Doug HoyAcute bronchitis, unspecified organism J20.9[facility] [place] [address]/23/2025Doug [facility] [place] [address] 05/30/2025[facility] [place] [address]/[facility] [place] [address]/02/2025Doug HoyAcute bronchitis, unspecified organism J20.9[facility] [place] [address] 08/17/2025Doug Hoy Assessments Encounter Date Diagnosis (ICD Code) Assessment Notes Treatment Notes Treatment Clinical Notes Section Notes 12/06/2024 Acute bronchitis, unspecified or ganism (ICD-10 - J20.9) Rest and drink more liquids, especially water. You may use a humidifier or vaporizer to help keep the drainage moist. Shoa-lqi-wkpmvbg Nasal Saline may help the stuffy and runny nose. Use Ibuprofen and or Tylenol as needed for fever, chills, body aches or pain. Children 5 years old should not be given ulxq-fse-lgywbby cough and cold medications such as guaifenesin and dextromethorphan. If you're over age 5, you may try wmrr-znx-pduijgz cold medications such as guaifenesin and dextromethorphan, or multi-symptom cold reliever such as Dayquil to help reduce the symptoms. Antibiotics have been pre scribed. You should take these until completed and follow the directions. Antibiotics can sometimescause upset stomach, and in rare cases, serious allergic reactions or serious gastrointestinal problems. If you start having severe abdominal pain, severe vomiting, or bloody diarrhea, you should be r eevaluated by your physician or urgent care immediately. Follow up with your Primary Care Provider or return to clinic if symptoms do not improve within 3-5 days. If you develop severe symptoms such as shortness of breath, repeated vomiting, coughing up blood, or chest pain you should go to the emergency room or call [phone] loss (ICD-10 - R41.3)5Acute bronchitis, unspecified organism (ICD-10 - J20.9)5Acute bronchitis, unspecified organism (ICD-10 - J20.9) Plan Of Treatment Pending Test Test Name Order Date MRI BRAIN WO CON 12/06/2024 Insurance Providers Payer Name Payer Address Payer Phone Subscriber Number Group Number Insured Name Patient Relationship to Insured Coverage Start Date Coverage End Date [place] [address] [place] [address] [id number] Bo Irbysandra - patient is the [id number] 2003MUTUAL OF [id number] MEDICARE SUPP CLMS DEPT [place] [phone] [id number] Irbysandra - patient is the [id number] 2009 Medical (General) History Medical History History ICD [...]
--- OUTSIDE RECORDS SUMMARY | 2025-11-03 09:27 | XMS_ITS | Clinical Summary ---
Author Organization [facility] tem Address [facility] [place] [address] Care Team Providers Care Sleeping Car Porter Name Role Phone Shyam Huizar MD Primary Care Provider [phone] Allergies Active AllergyReactionsCriticalityNoted DateComments Sulfamethoxazole-WikzwbozorseFkgcmzgosejXfwl60/23/2021 Medications MedicationSigDispense QuantityRefillsLast FilledStart DateEnd DateStatus aspirin 81 mg Take 81 mg by mouth daily.Active folic acid (FOLVITE) 1 mg tablet Take 1 mg by mouth daily.07/15/2021ctive finasteride (PROSCAR) 5 mg tablet Take 5 mg by mouth daily.09/25/2021ctive albuterol (PROVENTIL,VENTOLIN) 2.5 mg /3 mL (0.083 %) nebulizer solution 2.5 mg.Active methotrexate 2.5 mg chemo tablet Take 2.5 mg by mouth daily09/21/2021ctive pantoprazole (PROTONIX) 40 mg EC tablet Take 40 mg by mouth daily.09/12/2021ctive potassium chloride (KLOR-CON M) 10 MEQ CR tablet 07/30/2021ctive propranolol LA (INDERAL LA) 60 mg 24 hr capsule Take 60 mg by mouth daily.07/15/2021ctive tamsulosin (FLOMAX) 0.4 mg capsule Take 0.4 mg by mouth daily.09/25/2021ctive simvastatin (ZOCOR) 20 mg tablet Take 20 mg by mouth in the morning.04/15/2022ctive latanoprost (XALATAN) 0.005 % ophthalmic solution Administer 1 drop to both eyes in the morning.04/29/2022ctive ipratropium-albuteroL (DUONEB) 0.5 mg-3 mg(2.5 mg base)/3 mL nebulizer Inhale 1 mL by nebulization 4 (four) times a day as needed.04/21/2022ctive furosemide (LASIX) 20 mg tablet Take 20 mg by mouth daily.06/10/2022ctive dorzolamide-timoloL (COSOPT) 22.3-6.8 mg/mL ophthalmic solution Administer 1 drop to both eyes 2 (two) times a day.06/20/2022ctive Active Problems No known active problems Family History Medical HistoryRelationNameCommentsLung cancerBrother 1Lung cancerBrother 2 Alzheimer's diseaseFatherHypertensionFatherDiabetesMotherDiabetesSister 2 RelationNameStatusCommentsBrother 1DeceasedBrother 2DeceasedBrother 3AliveFather DeceasedMotherDeceasedSister 1AliveSister 2Deceased Social History Tobacco UseTypesPacks/DayYears UsedDateSmoking Tobacco: [id number] - mokeless Tobacco: NeverAlcohol UseStandard Drinks/WeekCommentsYes0 (1 standard drink = 0.6 oz pure alcohol)7 beers a weekChildcareAnswerDate Recorded LxrgyshhvZpvgwum50/10/2019EmploymentAnswerDate RecordedEmploymentUnknown 04/25/2019Sex and Gender InformationValueDate RecordedSex Assigned at BirthNot on fileLegal SxmVmfy2306/19/2015 12:05 PM EDTGender IdentityNot on fileSexual OrientationNot on file Last Filed Vital Signs Vital SignReadingTime TakenCommentsBlood Wdaowdtp037/7408 10:11 AM EDT Pulse--Qktljaqlbfc95.6 ??C (97.8 ??F)07/09/2022 10:11 AM EDTRespiratory Rate-- Oxygen Saturation--Inhaled Oxygen Concentration--Dwhzuw01.8 kg (164 lb 12.8 oz) 07/09/2022 10:11 AM RRUCtnpsq371.3 cm (5' 9 )07/09/2022 10:11 AM EDTBody Mass Index24.3408 10:11 AM EDT Plan of Treatment Health MaintenanceDue DateLast DoneCommentsDepression Zwioawoqb55/01/1955Tobacco Zhdzhanso70/01/1955DTaP,Tdap and Td Vaccines (1 - Tdap)1962Zoster (Shingles) Vaccine (1 of 2)1962Fall Risk Npficuoil52/01/2008RSV ( or age 60+ yrs) (1 - 1-dose 75+ series)2018COVID-19 Vaccine ( - 2024- season)5112/15/2020, 02/09/2021, 01/12/2021Influenza Ssshlut7807/17/2025 08/22/2022, 08/30/2021, 08/31/2020, Additional history exists Medical Devices Not on file Insurance 4 [address] [place] [address] [place] [id number] Care Teams Team MemberRelationshipSpecialtyStart DateEnd Shyam Huizar MD PCP - GeneralFamily Rcojxois49/24/21
--- OUTSIDE RECORDS SUMMARY | 2025-11-03 09:27 | XMS_ITS | Clinical Summary ---
Author Organization [facility] Address [address] [place] [address] Care Team Providers Care Grain Sampler Name Role Phone Shyam Huizar MD Primary Care Provider [phone] Allergies Active AllergyReactionsCriticalityNoted DateCommentsSulfa (Sulfonamide Antibiotics)Other: See Solqleex39/10/2023 Other Reaction(s): Unknown Sulfamethoxazole-LvpqztymubocLpbvsmtjaxd64/23/2021 Medications MedicationSigDispense QuantityRefillsLast FilledStart DateEnd DateStatus finasteride (PROSCAR) 5 mg tablet Take 1 tablet by mouth once daily.Active tamsulosin ER (FLOMAX) 0.4 mg cp24 Take 1 capsule by mouth daily at bedtime.Active simvastatin (ZOCOR) 20 mg tablet Take 1 tablet by mouth daily at bedtime.Active furosemide (LASIX) 20 mg tablet Take 1 tablet by mouth once daily.Active potassium chloride (KLOR-CON 10) 10 mEq tablet Take 1 tablet by mouth once daily.04/23/2017Active latanoprost (XALATAN) 0.005 % ophthalmic solution Use 1 Drop in both eyes daily at bedtime.Active BIPAP Please provide with a device with [...] 33% COPD IS NOT PRESENT 1 Device 09/10/2018Active CPAP/BIPAP/OTHER Type .CPAPSettings into a note to see current settings/supplies/DME information. 1 Each /Active aspirin, enteric coated (ASPIRIN, ENTERIC COATED) 81 mg EC tablet Take 81 mg by mouth once daily.Active dorzolamide-timolol (COSOPT) 22.3-6.8 mg/mL ophthalmic solution Use 1 drop in the left eye two times a day.4Active folic acid 1 mg tablet Take 1 mg by mouth once daily.Active methotrexate 2.5 mg tablet Take 15 mg by mouth one time only.Active pantoprazole DR (PROTONIX) 40 mg tablet Take 40 mg by mouth once daily.1Active prednisoLONE acetate (PRED FORTE) 1 % ophthalmic suspension Use 1 drop in both eyes once daily.5Active propranolol (INDERAL) 60 mg tablet Take 1 tablet by mouth once daily. 90 tablet 5Active ipratropium-albuterol (DUONEB) 0.5 mg-3 mg(2.5 mg base)/3 mL nebu Indications:COPD, group A, by GOLD 2017 classification (FORMERLY [facility])INHALE 3 ML INSTRUCTED FOUR TIMES DAILY. 360 mL 1105Active Active Problems ProblemNoted DateDiagnosed DateCOPD, group A, by GOLD 2017 classification 05/26/2025Post poliomyelitis skibvetc40/08/2017Disorder of fottavoaf75/08/2017 Obstructive sleep apnea04/23/2017 Encounters DateTypeDepartmentCare HhvaKeoyewodcvg88/08/2025Telephone Pulmonary Medicine [address] [phone] Jace Cooper MD Medical Aonergxa59/14/2025Telephone Pulmonary Medicine [address] [phone] Jace Cooper MD [facility] Equipment Formfrom Last 3 Months Immunizations ImmunizationAdministration DatesNext Dueinfluenza (IIV3) vaccine, age 6 mo - 64 yr, trivalent (AFLURIA, FLULAVAL, FLUVIRIN, FLUZONE)08/27/2018 Social History Tobacco UseTypesPacks/DayYears UsedDateSmoking Tobacco: FormerSmokeless Tobacco: Never Tobacco Cessation:Counseling Given: Not Answered Comments:Quit 25+ years ago Area Deprivation IndexAnswerDate RecordedNational Score (1-100), lower number is lower efez494004/08/2024State Score (1-10), lower number is lower aruj355 Data from: https://www.neighborhoodatlas.[facility]/. Last address used for [address]Sex and Gender InformationValueDate RecordedSex Assigned at BirthNot on fileLegal OtjLwni0504/17/2017 4:38 PM EDT Gender IdentityNot on fileSexual OrientationNot on file Last Filed Vital Signs Vital SignReadingTime TakenCommentsBlood Elrkudyv005/5707 10:02 AM EDT Exexq0264 10:02 AM QMBMutqtanyprc16.6 ??C (97.9 ??F)05/26/2025 10:02 AM EDTRespiratory Nifw839305/26/2025 10:02 AM EDTOxygen Mnceridnjq55%05/26/2025 10:02 AM EDTInhaled Oxygen Concentration--Igkamd42 kg (167 lb 8.8 oz)05/26/2025 10:02 AM MXUEdunao070.3 cm (5' 9 )2022 11:09 AM EDTBody Mass Index24.74 2022 11:09 AM EDT Plan of Treatment Health MaintenanceDue DateLast DoneCommentsAnxiety Bjocymeet92/01/1961Depression Wwasgwbaz71/01/1961DTaP,Tdap,Td Vaccine (1 - Tdap)2Shingrix Vaccine (1 of 2)2Diabetes Lwsdneyvk32/01/1988Medicare Annual Wellness Visit 10/16/2003RSV Vaccine (1 - 1-dose 75+ series)2018Advance Directive Lquuwjhpvo05/01/2025Covid-19 Vaccine ( season)/10/2024, 10/04/2023, 07/09/2022, Additional history existsInfluenza Vaccine (#1) 509/10/2024, 09/25/2023, 08/31/2020, Additional history exists Pneumococcal Vaccine: 50+Daagsmici10/29/2017, 11/05/2016 Insurance Care Teams Team MemberRelationshipSpecialtyStart DateEnd Shyam Huizar MD PCP - GeneralFamily Medicine04/17/17
[2025-11-03 09:37] LABS: Hematocrit 40.1 % (42.0-54.0); Hemoglobin 12.9 g/dL (14.0-18.0); Immature Granulocytes Abs Auto 0.04 10^3/uL (0.00-0.03); Immature Granulocytes Pct Auto 0.7 % (0.0-0.5); Lymphocytes Absolute Auto 1.3 10^3/uL (1.2-3.8); Mean Corpuscular HGB Conc 32.2 g/dL (29.9-35.2); Mean Corpuscular Hemoglobin 32.9 pg (25.9-34.0); Mean Corpuscular Volume 102.3 fL (80.0-94.0); Platelet Count 177 10^3/uL (150-450); Red Blood Count 3.92 10^6/uL (4.70-6.10); White Blood Count 5.8 10^3/uL (4.0-11.0)
[2025-11-03 10:04] LABS: Alanine Aminotransferase 25 U/L (16-63); Albumin Globulin Ratio 1.1; Albumin Level 3.4 g/dL (3.4-5.0); Alkaline Phosphatase 68 U/L (46-116); Anion Gap 4.5; Aspartate Amino Transferase 21 U/L (15-37); Blood Urea Nitrogen 15.0 mg/dL (7.0-18.0); Calcium 8.7 mg/dL (8.5-10.1); Carbon Dioxide 31.7 mmol/L (21.0-32.0); Chloride 110 mmol/L (98-107); Estimated GFR (African America >60 (>=60 mL/min/1.73m^2); Estimated GFR (Non-African Ame >60 (>=60 mL/min/1.73m^2); Globulin 3.0 g/dL; Glucose 95 mg/dL (74-106); Potassium 4.2 mmol/L (3.5-5.1); Sodium 142 mmol/L (136-145); Total Protein 6.4 g/dL (6.4-8.2)
== END 2025-11-03 09:21 | disposition home or self-care (01) ==
PROVIDERS: PCP Family Medicine; Visit Provider Registered Nurse
DX: H15.012 Anterior scleritis, left eye (principal); Z79.899 Other long term (current) drug therapy
CPT/HCPCS: 36415; 80053; 85025; 85652